=== PATIENT | female | born 1945 | race Caucasian/White ===

== ENCOUNTER → 2016-12-24 | Outpatient (CLI) | payer MEDICARE, MEDICAID ==
--- NOTE | 2016-12-24 15:22 | Diagnostic Imaging Report ---
Indication: COUGH Technique: 2 views of the chest Comparison: none Findings: Heart is enlarged. Aorta is tortuous. Upper mediastinum is unremarkable. The lungs and pleural spaces are clear. There is thoracic kyphosis and degenerative spondylosis Impression: No acute process Cardiomegaly Kyphosis
== END | disposition home or self-care (01) ==
LOC: RAD 12:32
DX: Z01.818 Encounter for other preprocedural examination (principal); R05 Cough; I51.7 Cardiomegaly; M40.204 Unspecified kyphosis, thoracic region; M47.894 Other spondylosis, thoracic region
CPT/HCPCS: 71020

== ENCOUNTER 2017-02-24 13:29 | Inpatient (IN) | payer MEDICARE, MEDICAID ==
[~2017-02-24] VITALS: Ht 160 cm; Wt 78.5 kg
[2017-02-24 18:44] VITALS: BP 141/85
[2017-02-24] MEDS ORDERED: Milk of Magnesia 30ml Ud ORAL PRN (20:00)
[2017-02-24] MEDS ORDERED: Acetaminophen 500mg (ES) tab ORAL PRN (20:00)
[2017-02-24] MEDS ORDERED: DiphenhydrAMINE 50mg/ml Inj IVP PRN (20:00)
[2017-02-24 20:35] VITALS: BP 151/81
[2017-02-24] MEDS: ceFAZolin sod 1 GM in D5W 55 ML IVPB SCH (22:05)
--- NOTE | 2017-02-24 22:08 | Wound Care Consultation ---
Wound Assessment Wound Assessment #1: Wound Present on Admission: Yes New Wound: No Status Change of Wound: No Wound Location Body Site Modif: left, right, lower Wound Location Body Site: leg Wound Type: scab - scattered Percent of Wound [place]/Red: 100 Wound Drainage Amount: None Wound Drainage Odor: None/Absent Tissue Surrounding Wound: Intact Wound General Appearance: Reddened Wound Assessment #2: Wound Number: #2 Wound Present on Admission: Yes New Wound: No Status Change of Wound: No Wound Location Body Site: other - generalized Wound Type: rash Chyna Test: Does not Chyna Wound Drainage Amount: None Wound Drainage Odor: None/Absent Wound General Appearance: Reddened Wound Comment #1 Left and right lowers with scattered dry scabs #2 Generalized rash and self inflicted scratches Recommendation -Turn and reposition -Keep clean and dry -Optimize nutrition -Offload both heels -Heel protector on both heels -Local wound care care as ordered by MD -Assess and f/u accordingly for any changes AINSLEY MUHAMMAD RN Feb 24, 2017 22:07
[2017-02-25] MEDS: ceFAZolin sod 1 GM in D5W 55 ML IVPB SCH ×3 (05:31→22:03)
[2017-02-25 06:42] LABS: BASOPHILS % (AUTO) 0.6 % (0.0-2.0); EOSINOPHILS % (AUTO) 10.1 % (0.0-3.0); LYMPHOCYTES % (AUTO) 28.7 % (20.0-45.0); MEAN CORPUSCULAR HEMOGLOBIN 28.9 PG (27.0-31.0); MEAN CORPUSCULAR HGB CONC 33.4 G/DL (32.0-36.0); MEAN CORPUSCULAR VOLUME 87 FL (80-99); MEAN PLATELET VOLUME 7.6 FL (6.5-10.1); MONOCYTES % (AUTO) 10.2 % (1.0-10.0); NEUTROPHILS % (AUTO) 50.3 % (45.0-75.0); PLATELET COUNT 196 K/UL (150-450); RED BLOOD COUNT 3.76 M/UL (4.20-5.40); RED CELL DISTRIBUTION WIDTH 12.7 % (11.6-14.8)
[2017-02-25 06:56] LABS: ALANINE AMINOTRANSFERASE 6 U/L (3-33); ALBUMIN/GLOBULIN RATIO 1.1 (1.0-2.7); ANION GAP 12 (5-15); ASPARTATE AMINO TRANSFERASE 12 U/L (5-40); CALCIUM 8.7 mg/dL (8.6-10.2); CARBON DIOXIDE 27 mEQ/L (20-30); CHLORIDE 103 mEQ/L (98-107); CREATININE 0.7 mg/dL (0.5-0.9); HEMOLYSIS 3; POTASSIUM 3.5 mEQ/L (3.4-4.9); SODIUM 142 mEQ/L (135-145); TOTAL PROTEIN 6.4 g/dL (6.6-8.7)
[2017-02-25 08:00] VITALS: BP 132/76
--- NOTE | 2017-02-25 08:39 | General Progress Note ---
Assessment/Plan Problem List: (1) Cellulitis ICD Codes: L03.90 - Cellulitis, unspecified SNOMED: [id number] Status: stable, progressing Assessment/Plan elemite x 1 iv abx skin care ID eval pending Subjective ROS Limited/Unobtainable: No Constitutional: Reports: malaise, weakness HEENT: Reports: no symptoms Cardiovascular: Reports: no symptoms Respiratory: Reports: no symptoms Gastrointestinal/Abdominal: Reports: no symptoms Genitourinary: Reports: no symptoms Neurologic/Psychiatric: Reports: no symptoms Endocrine: Reports: no symptoms Hematologic/Lymphatic: Reports: no symptoms Allergies: Coded Allergies: No Known Allergies (Unverified , 10/16/16) All Systems: reviewed and negative except above Subjective c/o pain in the ankles. no cp/sob. no fever or chills. no headaches Objective Last 24 Hour Vital Signs Date Time Temp Pulse Resp B/P Pulse Ox O2 Delivery O2 Flow Rate FiO2 02/24/17 20:35 97.5 73 20 151/81 98 Room Air 02/24/17 18:44 97.3 79 15 141/85 99 Room Air Intake and Output 02/24/17 02/25/17 19:00 07:00 Intake Total 0 ml 110 ml Balance 0 ml 110 ml Intake Oral 0 ml IV Total 110 ml # Voids 1 # Bowel Movements 2 1 Laboratory Tests 02/25/17 05:05: White Blood Count 5.0, Red Blood Count 3.76L, Hemoglobin 10.9L, Hematocrit 32.6L , Mean Corpuscular Volume 87, Mean Corpuscular Hemoglobin 28.9, Mean Corpuscular Hemoglobin Concent 33.4, Red Cell Distribution Width 12.7, Platelet Count 196, Mean Platelet Volume 7.6, Neutrophils (%) (Auto) 50.3, Lymphocytes (% ) (Auto) 28.7, Monocytes (%) (Auto) 10.2H, Eosinophils (%) (Auto) 10.1H, Basophils (%) (Auto) 0.6, Erythrocyte Sedimentation Rate [Pending], Sodium Level 142, Potassium Level 3.5, Chloride Level 103, Carbon Dioxide Level 27, Anion Gap 12, Blood Urea Nitrogen 11, Creatinine 0.7, Estimat Glomerular Filtration Rate , Glucose Level 95, Calcium Level 8.7, Total Bilirubin 0.3, Aspartate Amino Transf (AST/SGOT) 12, Alanine Aminotransferase (ALT/SGPT) 6, Alkaline Phosphatase 74, Total Protein 6.4L, Albumin 3.4L, Globulin 3.0, Albumin /Globulin Ratio 1.1, Anti-Nuclear Antibody Screen [Pending] Height (Feet): 5 Height (Inches): 3.00 Weight (Pounds): 173 General Appearance: WD/WN, alert Neck: supple Cardiovascular: regular rhythm Respiratory/Chest: lungs clear, normal breath sounds, no respiratory distress Abdomen: normal bowel sounds, non tender, soft, no organomegaly Edema: no edema noted Arm (L), no edema noted Arm (R), no edema noted Leg (L), no edema noted Leg (R), no edema noted Pedal (L), no edema noted Pedal (R), no edema noted Generalized Neurologic: nursing project coordinator II-XII grossly normal, alert, oriented x 3 XOCHITL WOODY Feb 25, 2017 08:39
--- NOTE | 2017-02-25 08:45 | History and Physical Report ---
DATE OF ADMISSION: 02/24/2017 NOTE: POOR AUDIO QUALITY CHIEF COMPLAINT: Cellulitis. HISTORY OF PRESENT ILLNESS: The patient is a pleasant 71-year-old female. She has a prior history of breast cancer. She presented to the office with complaints of diffuse rash. rash in the past. treatment despite aggressive treatment. She has had continued ____ rash. She complains of fevers and chills. She was seen in the office rash got worse cellulitis for further evaluation and care. PAST MEDICAL HISTORY: As above. PAST SURGICAL HISTORY: None. MEDICATIONS: Current medications were reconciled and reviewed. ALLERGIES: None. SOCIAL HISTORY: Negative for tobacco, ethanol, or drugs. FAMILY HISTORY: None. REVIEW OF SYSTEMS: General: No fever or chills. HEENT: No headaches or visual changes. Cardiopulmonary: No chest pain. Gastrointestinal: No nausea or vomiting. Genitourinary: No urgency or frequency. Muscular: No muscular pain or swelling. Neurologic: No evidence of seizures. PHYSICAL EXAMINATION: VITAL SIGNS: Temperature 98 degrees, blood pressure /70, pulse 80, respirations 20. GENERAL: The patient is no apparent distress. HEART: Regular rate and rhythm. LUNGS: Lungs are clear. ABDOMEN: Soft, nontender, and nondistended. EXTREMITIES: Without clubbing or cyanosis. SKIN: draining pus. noted. LABORATORY DATA: Labs are pending. ASSESSMENT: This is a pleasant female who complains of rash possible persistent scabies. PLAN: IV antibiotics. We will try to sedimentation rate . We will obtain a ID consultation. Thomas Hansen M.D. DR: Riri JOB#: [id number] CC:
[2017-02-25 08:51] LABS: ERYTHROCYTE SEDIMENTATION RATE 45 MM/HR (0-30)
[2017-02-25 12:00] VITALS: BP 151/93
[2017-02-25 16:00] VITALS: BP 160/84
[2017-02-25 19:55] VITALS: BP 149/80
[2017-02-25] MEDS: Heparin 5000 units/ml inj SUBQ SCH (21:00)
[2017-02-25 23:55] VITALS: BP 161/84
--- NOTE | 2017-02-26 01:30 | Consultation ---
DATE OF CONSULTATION: 02/25/2017 INFECTIOUS DISEASE CONSULT This consult is for coverage of Dr. Vazquez. PRIMARY ATTENDING PHYSICIAN: Thomas Hansen M.D. REASON FOR CONSULT: Cellulitis and scabies. HISTORY OF PRESENT ILLNESS: The patient is a 71-year-old female admitted yesterday complaining of itching rash on the skin, and erythema in the lower extremities and neck area. The patient had been previously treated two times for scabies. PAST MEDICAL HISTORY: Significant for a history of breast cancer, osteoarthritis, and anemia. ALLERGIES: No known drug allergies. MEDICATIONS: Elimite, cefazolin, Tylenol, temazepam, Zofran, and diphenhydramine. REVIEW OF SYSTEMS: No fever. No chills. Occasional cough. No nausea. No vomiting. No problem passing urine. PHYSICAL EXAMINATION: VITAL SIGNS: Temperature is 97 degrees, pulse 65, and blood pressure is 122/74. GENERAL APPEARANCE: In no acute distress. Overweight. Awake, alert, and responsive. HEAD AND NECK: [place] conjunctivae. HEART: S1, S2 regular. LUNGS: Clear. ABDOMEN: Soft. EXTREMITIES: Has no edema. SKIN: Diffuse scratched skin lesions, that they are most frequent in the neck and lower extremities. There is some skin induration in legs and neck area. LABORATORY DATA: WBC 5000, eosinophils 10%, hemoglobin 10.9, hematocrit 32.6, and platelets 196,000. Sodium 142, potassium 3.5, chloride 102, bicarbonate 27, BUN 11, and creatinine 0.7. Glucose is 95. Albumin is 3.4. IMPRESSION: 1. Skin rash, likely scabies. 2. Cellulitis in some area including the legs and neck. 3. Anemia. 4. Severe osteoarthritis and kyphosis. RECOMMENDATIONS: We will continue with cefazolin. We will give a dose of Ivermectin. We will follow the patient's clinical course. At the end of my examination, I thank Dr. Hansen for involving me in the care of this patient. Carloz Voss M.D. DR: JOSY JOB#: [id number] CC: KODI
[2017-02-26 04:00] VITALS: BP 101/58
[2017-02-26] MEDS: ceFAZolin sod 1 GM in D5W 55 ML IVPB SCH ×2 (06:27→14:37)
[2017-02-26 08:00] VITALS: BP 107/65
[2017-02-26] MEDS ORDERED: KCl 10% 40mEq/30ml liquid NG ONE (08:30)
[2017-02-26] MEDS: Heparin 5000 units/ml inj SUBQ SCH (08:55)
[2017-02-26 12:00] VITALS: BP 116/66
--- NOTE | 2017-02-26 14:36 | Infectious Diseases Prog Note ---
Assessment/Plan Assessment/Plan A; scabies Cellulitis OA Anemia P; agree with discharge with PO Keflex X 5 days Subjective ROS Limited/Unobtainable: No Constitutional: Reports: no symptoms, other - feels better Respiratory: Reports: no symptoms Cardiovascular: Reports: no symptoms Genitourinary: Reports: no symptoms Skin: Reports: other - decreased itching Allergies: Coded Allergies: No Known Allergies (Unverified , 10/16/16) Objective Vital Signs Last 24 Hour Vital Signs Date Time Temp Pulse Resp B/P Pulse Ox O2 Delivery O2 Flow Rate FiO2 02/26/17 12:00 97.2 56 18 116/66 99 Room Air 02/26/17 08:00 96.4 58 18 107/65 94 Room Air 02/26/17 04:00 97.5 58 20 101/58 98 Room Air 02/26/17 00:04 161/84 02/25/17 23:55 97.2 63 18 161/84 98 Room Air 02/25/17 19:55 96.3 70 18 149/80 100 Room Air 02/25/17 16:00 96.8 63 20 160/84 100 Room Air Height (Feet): 5 Height (Inches): 3.00 Weight (Pounds): 173 General Appearance: no acute distress HEENT: normocephalic Respiratory/Chest: lungs clear, other - kyphosis Cardiovascular: normal rate Abdomen: soft, non tender Skin: rash Neurologic/Psychiatric: alert, oriented x 3, responsive Microbiology Date/Time Source Procedure Growth Status 02/24/17 22:00 Blood Blood Culture - Preliminary NO GROWTH AFTER 24 HOURS Resulted Current Medications Medications (Trade) Dose Ordered Sig/Bertram Route PRN Reason Start Time Stop Time Status Last Admin Dose Admin Acetaminophen (Tylenol) 500 mg Q4H PRN ORAL Mild Pain/Temp > 100.5 02/24/17 20:00 03/26/17 19:59 Cefazolin Sodium/ Dextrose (Ancef/D5W) 55 ml @ 110 mls/hr Q8HR IVPB 02/24/17 22:00 03/03/17 21:59 02/26/17 06:27 Clonidine HCl (Catapres) 0.1 mg Q4HR PRN ORAL SBP>160 02/25/17 17:15 03/27/17 17:14 02/26/17 00:04 Diphenhydramine HCl (Benadryl) 50 mg Q6H PRN IVP Itching 02/24/17 20:00 03/26/17 19:59 Heparin Sodium (Porcine) (Heparin 5000 units/ml) 5,000 units EVERY 12 HOURS SUBQ 02/25/17 21:00 03/27/17 20:59 02/26/17 08:55 Magnesium Hydroxide (Mom) 30 ml DAILYPRN PRN ORAL Constipation 02/24/17 20:00 03/26/17 19:59 Ondansetron HCl (Zofran) 4 mg Q6H PRN IVP Nausea & Vomiting 02/24/17 20:00 03/26/17 19:59 Temazepam (Restoril) 15 mg HSPRN PRN ORAL Insomnia 02/24/17 20:00 03/03/17 19:59 KAREN NAVARRO Feb 26, 2017 14:36
[2017-02-26] MEDS ORDERED: CEPHALEXIN500 M1 ORAL (14:45)
[2017-02-26] MEDS ORDERED: Tubing IV Secondary IV ONE (15:59)
[2017-02-26] MEDS ORDERED: NS 275ml ONE (15:59)
--- NOTE | 2017-02-26 21:45 | Discharge Summary ---
DATE OF ADMISSION: 02/24/2017 DATE OF DISCHARGE: 02/26/2017 ADMISSION DIAGNOSES: 1. Cellulitis. 2. Rash. 3. Possible congestive heart failure exacerbation. 4. Venous insufficiency. 5. History of breast cancer. DISCHARGE DIAGNOSES: 1. Cellulitis. 2. Rash. 3. Possible congestive heart failure exacerbation. 4. Venous insufficiency. 5. History of breast cancer. HOSPITAL COURSE: The patient is an elderly female admitted with complaints of cellulitis. She was treated with broad-spectrum antibiotics. Cellulitis, improved. She was also treated with a dose of Elimite for possible scabies. On discharge, the patient was improved. She received one dose of intravenous Lasix for CHF exacerbation. DISCHARGE MEDICATIONS: Please see discharge medication list for discharge medications. DIET: Cardiac diet. ACTIVITY: Ad-Gretta. FOLLOWUP: The patient will follow up in one week in the office. Thomas Hansen M.D. DR: Riri JOB#: [id number] CC:
== END 2017-02-26 16:00 | disposition home health service (06) | DRG 603 ==
LOC: 4E 17:11
DX: L03.90 Cellulitis, unspecified (principal); I50.9 Heart failure, unspecified; D64.9 Anemia, unspecified; B86 Scabies; I99.8 Other disorder of circulatory system; M19.90 Unspecified osteoarthritis, unspecified site; Z86.73 Personal history of transient ischemic attack (TIA), and cerebral infarction without residual deficits; M40.209 Unspecified kyphosis, site unspecified
CPT/HCPCS: 36415; 80053; 85025; 85651; 86039; 87040

== ENCOUNTER 2017-07-16 13:43 | Inpatient (IN) | payer MEDICARE, MEDICAID ==
[~2017-07-16] VITALS: Ht 157.5 cm; Wt 78.0 kg
[~2017-07-16 13:43] MED LIST: CEPHALEXIN500 M1 ORAL
[2017-07-20] MEDS ORDERED: DiphenhydrAMINE 50mg/ml Inj IVP PRN (18:30)
[2017-07-20] MEDS ORDERED: Milk of Magnesia 30ml Ud ORAL PRN (18:30)
[2017-07-20] MEDS ORDERED: Acetaminophen 500mg (ES) tab ORAL PRN (18:30)
[2017-07-20 18:57] VITALS: BP 153/77
[2017-07-20 19:48] LABS: BASOPHILS % (AUTO) 0.3 % (0.0-2.0); HEMATOCRIT 37.5 % (37.0-47.0); HEMOGLOBIN 11.7 G/DL (12.0-16.0); LYMPHOCYTES % (AUTO) 20.5 % (20.0-45.0); MEAN CORPUSCULAR VOLUME 88 FL (80-99); MONOCYTES % (AUTO) 5.9 % (1.0-10.0); NEUTROPHILS % (AUTO) 72.3 % (45.0-75.0); PLATELET COUNT 280 K/UL (150-450); RED BLOOD COUNT 4.25 M/UL (4.20-5.40); WHITE BLOOD COUNT 6.8 K/UL (4.8-10.8)
[2017-07-20 20:00] VITALS: BP 156/81
[2017-07-20 20:20] LABS: ALANINE AMINOTRANSFERASE 17 U/L (12-78); ALBUMIN 3.5 G/DL (3.4-5.0); ALBUMIN/GLOBULIN RATIO 0.9 (1.0-2.7); ALKALINE PHOSPHATASE 80 U/L (46-116); ANION GAP 11 mmol/L (5-15); ASPARTATE AMINO TRANSFERASE 16 U/L (15-37); BILIRUBIN,TOTAL 0.3 MG/DL (0.2-1.0); BLOOD UREA NITROGEN 13 mg/dL (7-18); CALCIUM 9.3 MG/DL (8.5-10.1); CARBON DIOXIDE 28 MMOL/L (21-32); CHLORIDE 105 MMOL/L (98-107); CREATININE 0.8 MG/DL (0.55-1.30); POTASSIUM 3.8 MMOL/L (3.5-5.1); SODIUM 144 MMOL/L (136-145)
[2017-07-20] MEDS: ceFAZolin sod 1 GM in D5W 55 ML IVPB SCH (21:02)
[2017-07-21] VITALS: BP 118/64
[2017-07-21 04:00] VITALS: BP 135/71
[2017-07-21] MEDS: ceFAZolin sod 1 GM in D5W 55 ML IVPB SCH ×3 (06:09→20:07)
[2017-07-21 08:15] VITALS: BP 133/64
[2017-07-21 12:15] VITALS: BP 127/66
[2017-07-21 16:08] VITALS: BP 125/70
--- NOTE | 2017-07-21 17:45 | History and Physical Report ---
DATE OF ADMISSION: 07/20/2017 CHIEF COMPLAINT: Cellulitis, possible scabies. HISTORY OF PRESENT ILLNESS: The patient is a pleasant 71-year-old female. She has a history of obesity, prior history of breast cancer, status post mastectomy. She presented with complaints of rash. She was into the office several days prior to admission. There was concern about cellulitis. She has been placed on oral antibiotic therapy, but her rash did not improve. She developed subjective fevers and chills. In light of her failure to respond to outpatient therapy, she is now admitted for further evaluation and care. PAST MEDICAL HISTORY: As above. PAST SURGICAL HISTORY: Includes a mastectomy. CURRENT MEDICATIONS: Reconciled and reviewed. ALLERGIES: None. FAMILY HISTORY: None. SOCIAL HISTORY: Negative for tobacco, ethanol, or drugs. REVIEW OF SYSTEMS: GENERAL: Positive for fevers and chills. No night sweats. HEENT: No headaches or visual changes. CARDIOPULMONARY: No chest pain or shortness of breath. GASTROINTESTINAL: No nausea or vomiting. GENITOURINARY: No urgency or frequency. MUSCULOSKELETAL: No joint pain or swelling. NEUROLOGIC: No evidence of seizures. PHYSICAL EXAMINATION: VITAL SIGNS: Temperature 97.8, pulse 74, respirations 22, and blood pressure 133/64. GENERAL: The patient is well-developed female, in no apparent distress. She is awake and alert. NECK: Supple. No jugular venous distention. HEART: Regular rate and rhythm. LUNGS: Clear. ABDOMEN: Soft, nontender, and nondistended. EXTREMITIES: Without clubbing, cyanosis, or edema. The patient has multiple excoriations, rashes, and erythema on the arms and legs. ASSESSMENT: This is a pleasant female, admitted with complaints of cellulitis and possible scabies. 1. Cellulitis. 2. Scabies. 3. History of breast cancer. PLAN: IV antibiotics. Scabies treatment. ID consultation. Thomas Hansen M.D. DR: CARLOS ALBERTO JOB#: [id number] CC:
[2017-07-21 20:00] VITALS: BP 136/68
[2017-07-22] VITALS: BP 141/78
[2017-07-22 04:00] VITALS: BP 132/65
[2017-07-22] MEDS: ceFAZolin sod 1 GM in D5W 55 ML IVPB SCH (04:51)
--- NOTE | 2017-07-22 07:32 | Consultation ---
DATE OF CONSULTATION: 07/21/2017 INFECTIOUS DISEASE CONSULTATION This consult is for coverage of Dr. Vazquez. CONSULTING PHYSICIAN: Carloz Voss M.D. ATTENDING PHYSICIAN: Thomas Hansen M.D. REFERRING PHYSICIAN: Thomas Hansen M.D. REASON FOR CONSULTATION: Cellulitis and scabies. HISTORY OF PRESENT ILLNESS: The patient is a 71-year-old white female, admitted yesterday complaining of itching in many parts of the body, erythema that is diffuse, more in the legs. The patient has a history of multiple treatments for scabies. The last time she was in the hospital was almost five months ago. At that time, she had also cellulitis. PAST MEDICAL HISTORY: Significant for history of breast cancer, osteoarthritis, and anemia. MEDICATIONS: Getting cefazolin, diphenhydramine, Restoril, magnesium hydroxide, got a dose of ivermectin. ALLERGIES: No known drug allergies. SOCIAL HISTORY: Single. Denies alcohol, drug abuse, or smoking. REVIEW OF SYSTEMS: No fever. No chills. No nausea. No vomiting. No diarrhea. No problems passing urine. She has rash for a while, this is couple of weeks, itching, not very painful. PHYSICAL EXAMINATION: GENERAL APPEARANCE: In no acute distress. VITAL SIGNS: Temperature 99.1 degrees, pulse 77, and blood pressure 127/66. HEAD AND NECK: [place] conjunctivae. HEART: S1 and S2 regular. LUNGS: Clear. ABDOMEN: Soft. EXTREMITIES: No pitting edema. Has erythema in hahn area. SKIN: Has multiple areas of scratched skin, likely papules. LABORATORY DATA: Sodium 144, potassium 3.8, chloride 105, bicarbonate 28. Normal LFT. WBC 6.8, hemoglobin 11.7, hematocrit 37.5, and platelets are 280. There is no significant eosinophilia. IMPRESSION: 1. Diffuse rash, likely scabies. 2. Cellulitis and lower extremities edema. 3. Osteoarthritis. 4. Hypertension. 5. History of breast cancer. RECOMMENDATIONS: We will continue with cefazolin for non-purulent cellulitis. We will follow the patient. At the end of my exam, I thank, Dr. Hansen, for involving me in the care of this patient. Carloz Voss M.D. DR: FRANCIS JOB#: [id number] CC: KODI
[2017-07-22 08:00] VITALS: BP 135/60
--- NOTE | 2017-07-22 13:35 | Infectious Diseases Prog Note ---
Assessment/Plan Assessment/Plan antibiotics ; ancef A 1. scabies s/p rx with ivermectin 2. HTN 3. breast cancer P 1. d/c ancef 2. observe off antibiotics Subjective Constitutional: Denies: fever Respiratory: Denies: shortness of breath, dry cough Gastrointestinal/Abdominal: Denies: nausea, vomiting, diarrhea Musculoskeletal: Denies: pain Allergies: Coded Allergies: No Known Allergies (Unverified , 10/16/16) Objective Vital Signs Last 24 Hour Vital Signs Date Time Temp Pulse Resp B/P (MAP) Pulse Ox O2 Delivery O2 Flow Rate FiO2 07/22/17 08:00 97.7 77 20 135/60 98 Room Air 07/22/17 04:00 97.2 78 20 132/65 97 Room Air 07/22/17 00:00 97.8 119 20 141/78 97 Room Air 07/21/17 20:00 98.2 70 19 136/68 97 Room Air 07/21/17 16:08 97.4 80 20 125/70 98 Room Air Height (Feet): 5 Height (Inches): 2.00 Weight (Pounds): 172 Respiratory/Chest: lungs clear Cardiovascular: normal rate, regular rhythm, no gallop/murmur Abdomen: soft, non tender Extremities: no edema Skin: rash - erythematous decreased Microbiology Date/Time Source Procedure Growth Status 07/20/17 19:00 Blood Blood Culture - Preliminary NO GROWTH AFTER 24 HOURS Resulted MEET SERRANO Jul 22, 2017 13:35
--- NOTE | 2017-07-23 01:30 | Discharge Summary ---
DATE OF ADMISSION: 07/20/2017 DATE OF DISCHARGE: 07/22/2017 ADMISSION DIAGNOSES: 1. Cellulitis. 2. Scabies. 3. History of breast cancer. DISCHARGE DIAGNOSES: 1. Cellulitis. 2. Scabies. 3. History of breast cancer. HISTORY OF PRESENT ILLNESS: The patient is a very pleasant female, who was admitted with complaints of rash. She was diagnosed with cellulitis and possible scabies. She received intravenous Ancef with improvement in the cellulitis. She received a dose of Elimite and a dose of ivermectin. On discharge, she was doing well. She will be discharged home. She is instructed to wash all her bedding and clothing in hot water. She has been asked to return for any further itching. Home health will also be arranged to possibly repeat a dose of Elimite as an outpatient. DISCHARGE MEDICATIONS: Please see medication discharge list for discharge medications. DIET: Regular diet. ACTIVITIES: Ad-eb. FOLLOWUP: The patient will follow up in one to two weeks in the office. Thomas Hansne M.D. DR: ANGELINE JOB#: [id number] CC:
== END 2017-07-22 13:30 | disposition home or self-care (01) | DRG 603 ==
LOC: 3E 07-20 17:10 → 4E 07-20 23:35
DX: L03.90 Cellulitis, unspecified (principal); I10 Essential (primary) hypertension; B86 Scabies; M19.90 Unspecified osteoarthritis, unspecified site; Z85.3 Personal history of malignant neoplasm of breast
CPT/HCPCS: 36415; 80053; 85025; 87040

== ENCOUNTER 2019-04-28 07:52 | Inpatient (IN) | payer MEDICARE, MEDICAID ==
[~2019-04-28] VITALS: Ht 149.9 cm; Wt 67.1 kg
[2019-04-28] VITALS (7 sets, daily range): BP systolic 122–150; BP diastolic 74–93
[2019-04-28] MEDS ORDERED: NKM (08:24)
--- NOTE | 2019-04-28 11:46 | Diagnostic Imaging Report ---
Indication: 73-year-old outpatient referred for thoracentesis due to shortness of breath and abnormality on prior outside chest x-ray and CT scan Technique: Grayscale and duplex images of the bilateral hemithoraces Comparison: none Findings: No definite pleural fluid is demonstrated on either side. There is consolidated/atelectatic lung on the right and a hypoechoic area within the area of consolidated lung. Impression: No drainable pleural fluid demonstrated. No thoracentesis therefore performed Findings discussed by phone previously with Dr. Cota
--- NOTE | 2019-04-28 12:27 | Diagnostic Imaging Report ---
Clinical Indication: Shortness of breath. Abnormal outside chest radiograph and CT scan. Patient referred for thoracentesis but no drainable fluid demonstrated Technique: Spiral acquisitions obtained through the chest. No IV contrast utilized, . Multiplanar reconstructions generated. Total dose length product 699.56 mGycm. CTDIvol(s) 20.38 mGy. Dose reduction achieved using automated exposure control Comparison: none Findings: There is a discrete fluid attenuation collection in the inferior right hemithorax. This demonstrates a thickened fairly well-defined rim. This measures 12.5 cm AP 4 cm transverse by approximately 3 cm craniocaudad. This is probably within the pleural space. However, there is a small amount of pleural fluid peripheral to this which does not exhibit any rim definition. Atelectatic and consolidated lung is demonstrated at the right lung base, with atelectasis of a moderate portion of the inferior right lower lobe and atelectasis and consolidation of a considerable portion of the right middle lobe. There are minimal compressive and dependent atelectatic changes at the left lung base. The lungs and pleural spaces are otherwise clear. Some calcifications are seen within the right middle lobe parenchyma. The heart is mildly enlarged. There is a small pericardial effusion which measures up to 9 mm thick, largely over the right atrial border. The right and left main pulmonary arteries are dilated, measuring 33 mm on the right and 30 mm on the left. The ascending thoracic aorta is mildly ectatic but not frankly aneurysmal. No mediastinal or hilar lymphadenopathy. No axillary or chest wall mass or adenopathy. There is smooth kyphotic deformity without evidence of focal compression fracture. There is widening of the disc space at T10-11, with marked irregularity of the adjacent endplates as well as sclerosis of the adjacent endplates and vertebral body volume loss. No definite epidural abnormality demonstrated. The included upper abdominal anatomy demonstrates at least mild splenomegaly, spleen incompletely included. There is a 3.3 cm cyst coming off of the right kidney. Impression: Right basilar 12.5 x 4 x 3 cm fluid collection with discrete thick rim consistent with a loculated pleural fluid collection. The possibility of empyema should also be considered. It is also possible that this could represent a parenchymal lung abscess, but this is considered less likely Trace free pleural fluid peripheral to the above Atelectasis and possibly some consolidation at the right lung base. Destructive changes of the T10-11 disc. Sclerosis of the adjacent vertebral bodies suggests chronicity, and findings could be on the basis of advanced degenerative changes, but apparent widening of the disc as well as extensive endplate irregularity and vertebral body volume loss raise concern for active infectious and/or inflammatory process. Of note, this is at the same level as above-mentioned pleural changes. Consider contrast MRI of the thoracic spine for better characterization Minimal left basilar atelectasis Dilated right and left main pulmonary arteries, consistent with pulmonary arterial hypertension Calcifications within the right lung parenchyma may indicate old granulomatous disease. Mild cardiomegaly Small pericardial effusion Splenomegaly Thoracic kyphotic deformity Incidental finding right renal cyst The CT scanner at [facility] is accredited by the [employer] and the scans are performed using protocols designed to limit radiation exposure to as low as reasonably achievable to attain images of sufficient resolution adequate for diagnostic evaluation.
[2019-04-28] MEDS ORDERED: Lidocaine 1% Plain 30 ml INJ PRN (13:45)
[2019-04-29] VITALS (20 sets, daily range): BP systolic 130–152; BP diastolic 78–99
[2019-04-29] MEDS ORDERED: LORazepam Inj 2mg/ml 1ml IV SCH (11:07)
--- NOTE | 2019-04-29 12:14 | History & Physical ---
History and Physical History & Physicial History of Present Illness 73 Years Old female patient presented to my office for consultation and noted to have a possible vertebral lesion and loculated pleural effusion. The patient states she is experiencing shortness of breath. She denies wheezing and chest tightness. Patient denies chest tightness, chest pain, cough, sputum production. Patient notes post nasal drip, nasal congestion, and sinus pressure/headache patient denies any significant work up but did have cxr with effusion noted, which prompted the work up . patient care discussed in detail. all acute issues reviewed in detail. patient medications reviewed. Patient is overall compliant with therapy. Patient apprehensive regarding the procedure but now agreeable Active Medications (reviewed today): reviewed and reconciled Current Allergies (reviewed today): No known allergies No Known Drug Allergies Past History Past Medical History: hx of breast cancer Osteoporosis venous insufficiency osteoarthritis pleural effusion Surgical History: Full hysterectomy Right masectomy Family History: Father ; unknown Mother ; unknown Social History: Single; no children; born in [place] Risk Factors: Smoked Tobacco Use: Never smoker Caffeine use: 0 drinks per day Alcohol use: no Dietary Counseling: yes Review of Systems General: debility Eyes: denies blurring, diplopia, irritation, discharge, vision loss, eye pain, photophobia Ear/Nose/Throat: see HPI Cardiovascular: Denies chest pain, palpitations, syncope, dyspnea on exertion, orthopnea, PND, peripheral edema Respiratory: SEE HPI Gastrointestinal: Denies nausea, vomiting, diarrhea, constipation, change in bowel habits, abdominal pain, melena, hematochezia, jaundice Musculoskeletal: arthritis osteoporosis Skin: denies rash, itching, dryness, suspicious lesions Neurologic: The patient was assessed for fall risk today. The patient was found to be at risk for falls. Patient was educated on methods for fall prevention, including use of proper footwear, keeping pathways clear, use of assistive devices and rising slowing when transitioning from the sitting position to standing. Psychiatric: denies depression, anxiety, memory loss, mental disturbance, suicidal ideation, hallucinations, paranoia Endocrine: denies cold intolerance, heat intolerance, polydipsia, polyphagia, polyuria, weight change Physical Exam General Appearance: well nourished, well hydrated, no acute distress Neck Neck Exam: supple, no masses, trachea midline Thyroid Exam: no nodules, masses, tenderness, or enlargement Respiratory Respiratory Effort: no intercostal retractions or use of accessory muscles Palpation: normal fremitus Auscultation: no rales, rhonchi, or wheezes reduced right base Cardiovascular Palpation: no thrill or palpable murmurs, no displacement of PMI Auscultation: S1, S2, no murmur, rub, or gallop Peripheral Circulation: 2_+ edema pitting; no CC Musculoskeletal Gait and Station: using walker kyphotic Spine, ribs, pelvis: kyphotic Impression: Right basilar 12.5 x 4 x 3 cm fluid collection with discrete thick rim consistent with a loculated pleural fluid collection. The possibility of empyema should also be considered. It is also possible that this could represent a parenchymal lung abscess, but this is considered less likely Trace free pleural fluid peripheral to the above Atelectasis and possibly some consolidation at the right lung base. Destructive changes of the T10-11 disc. Sclerosis of the adjacent vertebral bodies suggests chronicity, and findings could be on the basis of advanced degenerative changes, but apparent widening of the disc as well as extensive endplate irregularity and vertebral body volume loss raise concern for active infectious and/or inflammatory process. Of note, this is at the same level as above-mentioned pleural changes. Consider contrast MRI of the thoracic spine for better characterization Minimal left basilar atelectasis Dilated right and left main pulmonary arteries, consistent with pulmonary arterial hypertension Calcifications within the right lung parenchyma may indicate old granulomatous disease. Mild cardiomegaly Small pericardial effusion Splenomegaly Labs Test 04/28/19 08:05 Prothrombin Time 11.0 SEC (9.30-11.50) Prothromb Time International Ratio 1.0 (0.9-1.1) Activated Partial Thromboplast Time 29 SEC (23-33) Assessment New Problems: Dx of Mitral regurgitation, 1 plus (ICD-396.3) Onset: 04/20/2019 Dx of Leg edema, bilateral (ICD-782.3) Onset: 04/20/2019 Dx of Pleural effusion, right (ICD-511.9) Onset: 04/20/2019 Dx of Over weight (ICD-278.02) Onset: 04/20/2019 Dx of Osteoporosis (ICD-733.00) Onset: years Dx of Hx of breast cancer (ICD-V10.3) Onset: years Dx of Abnormal chest xray (ICD-793.19) Onset: 04/20/2019 Dx of Shortness of breath (ICD-786.05) Onset: 1 month Dx of loculated pleural effusion Dx of possible vertebral lesion Plan ID evaluation IV antibiotics MRI CT guided tap d/w patient multiple times Ativan for MRI Celestino Cota MD Apr 29, 2019 12:14
--- NOTE | 2019-04-29 12:15 | General Progress Note ---
Subjective Allergies: Coded Allergies: No Known Allergies (Unverified , 10/16/16) Objective Last 24 Hour Vital Signs Date Time Temp Pulse Resp B/P (MAP) Pulse Ox O2 Delivery O2 Flow Rate FiO2 04/29/19 08:00 97.8 89 15 152/94 (113) 97 04/29/19 04:00 98.2 77 18 130/78 (95) 98 04/29/19 00:00 97.2 84 18 144/86 (105) 97 04/28/19 21:00 Room Air 04/28/19 20:00 97.7 86 18 148/86 (106) 97 04/28/19 15:42 98.0 82 16 131/80 (97) 98 Intake and Output 04/28/19 04/29/19 19:00 07:00 Intake Total 100 ml 1020 ml Balance 100 ml 1020 ml Intake Oral 100 ml 1020 ml # Voids 1 4 Height (Feet): 5 Weight (Pounds): 147 Celestino Cota MD Apr 29, 2019 12:15
--- NOTE | 2019-04-29 13:24 | Pre-Procedure Note/Attestation ---
Pre-Procedure Note/Attestation Complete Prior to Procedure Planned Procedure: right Procedure Narrative: pleural aspiration and possible drainage Indications for Procedure Pre-Operative Diagnosis: loculated pleural collection Attestation I attest that I discussed the nature of the procedure; its benefits; risks and complications; and alternatives (and the risks and benefits of such alternatives ), prior to the procedure, with the patient (or the patient's legal telephone claims representative). I attest that, if there was a reasonable possibility of needing a blood transfusion, the patient (or the patient's legal telephone claims representative) was given the [facility] standardized written summary, pursuant to the [place] Blood Safety Act ([place] Health and Safety Code # 1645, as amended). I attest that I re-evaluated the patient just prior to the surgery and that there has been no change in the patient's H&P, except as documented below: Eran Polanco MD Apr 29, 2019 13:24
--- NOTE | 2019-04-29 14:14 | Brief Operative Note ---
Immediate Post Operative Note Operative Note Pre-op Diagnosis: loculated pleural collection Procedure: CT guided asp/drainage R empyema Post-op Diagnosis: Empyema Findings: consistent w/pre-op dx studies - uziel pus aspirated Surgeon: Alvaro Mcclure Anesthesia: local Specimen: yes - 60 ml pus; sent to the lab Complications: none Condition: stable Fluids: none Drains: other - 8.5 F pigtail Implant(s) used?: No Eran Mcclure MD Apr 29, 2019 14:14
[2019-04-29] MEDS: Piperacillin/Tazobactam 3.375 GM in NS 110 ML IVPB SCH ×2 (14:48→21:12)
--- NOTE | 2019-04-29 14:57 | Diagnostic Imaging Report ---
Indication: Status post pleural drainage placement Technique: One view of the chest Comparison: 12/24/2016; also CT scan 04/28/2019 Findings: Interim placement of a pigtail drainage catheter at the right lung base. There is opacity the right lung base, likely representing a combination of pleural thickening/fluid and consolidated and atelectatic lung which is seen on recent CT scan the heart is borderline enlarged. Left lung and pleural space are clear Impression: No radiographically evident complication, status post right-sided pleural drainage catheter placement Right basilar pleural and parenchymal disease as described, also demonstrated on recent CT
[2019-04-29 16:51] LABS: BASOPHILS % (AUTO) 0.7 % (0.0-2.0); HEMATOCRIT 32.3 % (37.0-47.0); HEMOGLOBIN 10.3 G/DL (12.0-16.0); LYMPHOCYTES % (AUTO) 18.4 % (20.0-45.0); MEAN CORPUSCULAR VOLUME 80 FL (80-99); MONOCYTES % (AUTO) 8.6 % (1.0-10.0); NEUTROPHILS % (AUTO) 69.2 % (45.0-75.0); PLATELET COUNT 274 K/UL (150-450); RED BLOOD COUNT 4.06 M/UL (4.20-5.40); RED CELL DISTRIBUTION WIDTH 15.2 % (11.6-14.8); WHITE BLOOD COUNT 7.2 K/UL (4.8-10.8)
[2019-04-29 17:00] LABS: ANION GAP 6 mmol/L (5-15); BLOOD UREA NITROGEN 10 mg/dL (7-18); CALCIUM 9.1 MG/DL (8.5-10.1); CARBON DIOXIDE 29 MMOL/L (21-32); CHLORIDE 107 MMOL/L (98-107); CREATININE 0.7 MG/DL (0.55-1.30); POTASSIUM 3.6 MMOL/L (3.5-5.1); SODIUM 142 MMOL/L (136-145)
[2019-04-29 17:05] LABS: ALANINE AMINOTRANSFERASE 7 U/L (12-78); ALBUMIN 2.6 G/DL (3.4-5.0); ALBUMIN/GLOBULIN RATIO 0.5 (1.0-2.7); ALKALINE PHOSPHATASE 100 U/L (46-116); ASPARTATE AMINO TRANSFERASE 14 U/L (15-37); BILIRUBIN,TOTAL 0.2 MG/DL (0.2-1.0)
--- NOTE | 2019-04-29 17:30 | Consultation ---
DATE OF CONSULTATION: 04/29/2019 INFECTIOUS DISEASE CONSULTATION This consult is for coverage of Dr. Vazquez. CONSULTING PHYSICIAN: Carloz Voss M.D. REASON FOR CONSULT: Pleural effusion, empyema. HISTORY OF PRESENT ILLNESS: This is a 73-year-old white female admitted yesterday when she was referred by primary doctor for further evaluation of pleural fluid. The patient had a CT scan of the chest yesterday that raised the possibility of empyema in the right lung. The patient has no systemic symptoms. PAST MEDICAL HISTORY: Significant for osteoarthritis, anemia, kyphosis, and history of breast cancer. ALLERGIES: No known drug allergies. MEDICATIONS: Lorazepam, Tylenol, Mylanta. SOCIAL HISTORY: Single. No history of alcohol, drug abuse, or smoking. REVIEW OF SYMPTOMS: Feels anxious. No fever. No chills. Occasional coughing. No chest pain. No nausea. No vomiting. She states that she has chronic swelling of the legs and getting water pill at home. Ambulatory with walker. PHYSICAL EXAMINATION: VITAL SIGNS: Temperature 97.8, pulse 89, blood pressure 152/94. GENERAL APPEARANCE: No acute distress, well developed. HEAD AND NECK: [place] conjunctivae. HEART: Normal rate. LUNGS: Decreased sounds on the bases, especially on the right side. ABDOMEN: Soft, nontender. EXTREMITIES: Some edema in bilateral legs. Some erythema above the ankle in the right leg. LABORATORY DATA: PT 11, INR 1. The patient had some labs from primary doctor office showed WBC of 5.9, hemoglobin 9.9, hematocrit 32.5, platelets is 307. Glucose is 106, creatinine 0.6, sodium 140, potassium 4.3, chloride 103, bicarbonate 28, BUN 8. CT scan of the chest showed kyphosis, T10-T11 disk disease, right basilar fluid collection 12.5 x 4.3 cm with loculated pleural fluid collection, possibility of empyema should be considered. It may be also parenchymal lung abscess. IMPRESSION: Pleural effusion, most likely an empyema. The patient will have thoracentesis. Has anemia, osteoarthritis, kyphosis, history of breast cancer. RECOMMENDATION: I will start the patient on Zosyn. We will follow up the thoracenteses and cultures. At the end of my exam, I thank Dr. Cota for involving me in the care of this patient. Carloz Voss M.D. DR: ISAIAS JOB#: [id number] CC:
--- NOTE | 2019-04-29 18:01 | Diagnostic Imaging Report ---
Indication: 73-year-old female initially referred for outpatient thoracentesis. No free pleural fluid demonstrated on sonography at the time the anticipated procedure. A subsequent CT scan was performed, demonstrating a loculated pleural fluid collection Technique: Prior imaging studies were reviewed. Informed consent obtained prior to commencement of the procedure. Procedure timeout performed. Localizing CT slices obtained. Intended puncture site sterilely prepped and draped. Local anesthesia with 1% lidocaine. Under CT guidance, the loculated pleural fluid collection was punctured using a Yueh needle. CT image confirmed satisfactory needle placement within the collection. The stylet was removed, and uziel pus was aspirated. A specimen was sent to the lab for microbial analysis. A 0.035 guidewire was inserted, followed by insertion of an 8 Angolan dilator and then an 8.5 Angolan pigtail drainage catheter. The pigtail was formed and locked, catheter fixed to the skin. The catheter was then forcibly aspirated as early as possible, and a follow-up CT scan was obtained demonstrating near complete resolution of the collection. The catheter was fixed to the skin and placed to UreSil accordion bulb drainage. The patient tolerated the procedure well, without immediate complication. Total dose length product 2120 mGycm. CTDIvol(s) 17, 24, 16, 21, 23 x 3, 25 x 2 mGy. Radiation dose was minimized using automated exposure control Comparison: Comparison made to CT scan 04/28/2019 Findings: As above Impression: Successful aspiration and drainage of loculated right pleural fluid collection, as described. Aspiration of 70 mL uziel pus indicates that the collection is an empyema and a specimen was sent to the lab for microbial analysis The CT scanner at [facility] is accredited by the [employer] and the scans are performed using protocols designed to limit radiation exposure to as low as reasonably achievable to attain images of sufficient resolution adequate for diagnostic evaluation.
--- NOTE | 2019-04-29 18:30 | Consultation ---
DATE OF CONSULTATION: 04/28/2019 SURGEON: Nicolas Conklin M.D., specialty in Thoracic Surgery. REFERRING PHYSICIAN: Celestino Cota M.D. HISTORY OF PRESENT ILLNESS: The patient is a 73-year-old female, who was admitted to [facility] with a large right loculated pleural effusion with a suspicious thoracic vertebral lesion. The patient denies fevers or chills, but does admit to weight loss over the last several weeks. Radiographic imaging study with chest CT scan demonstrated a large loculated right pleural effusion. The patient underwent a pigtail placement today, drained only 60 mL of effusion and thoracic surgeon was then consulted for further evaluation. PAST MEDICAL HISTORY: 1. Osteoporosis. 2. Arthritis. 3. Right breast cancer diagnosed in 2017. PAST SURGICAL HISTORY: Notable for right mastectomy in 2017 and hysterectomy. MEDICATIONS: Reviewed. ALLERGIES: The patient has no known drug allergies. SOCIAL HISTORY: The patient lives alone in [place]. Her next of kin is her sister. The patient denies alcohol, tobacco, or drug use. PHYSICAL EXAMINATION: VITAL SIGNS: She is noted to be afebrile. Her vitals are within normal limits. CARDIAC: Regular rate and rhythm. No gallops or murmur. RESPIRATORY: Clear to auscultation on the left with decreased crackles noted on the right. There is a pigtail placed with a minimum amount of drainage in the collection bag. ABDOMEN: Soft, nondistended, and nontender with normoactive bowel sounds. EXTREMITY: Showed no evidence of cyanosis or clubbing. There is a +2 edema in the lower extremities. LABORATORY DATA: Laboratory study performed on April 28, [address] scan demonstrated a large right-sided loculated pleural effusion measured 12.5 x 4 cm with a thick rim consistent with an collection. There is also a consolidation in the right lung base. There is destruction changes of T10 through T11 with scoliosis of the vertebral column. ASSESSMENT AND PLAN: This is a 73-year-old female, who presented with a loculated right pleural effusion of unknown etiology. Due to the non-drainage of the pigtail catheter, I recommend the patient undergo a MRI of the thoracic spine to further elucidate the nature of the vertebral lesion. The patient may benefit from a right video-assisted thoracoscopic surgery with a washout/decortication. However, the patient wishes to consider the surgical option at the present time. I want to thank you for referring this patient to my attention. If you have any questions in regards to this patient's clinical care, please do not hesitate to contact me. Dee M.D. DR: POLO JOB#: [id number] CC: KODI
[2019-04-30] VITALS: BP 140/80
[2019-04-30 04:00] VITALS: BP 121/79
[2019-04-30] MEDS: Piperacillin/Tazobactam 3.375 GM in NS 110 ML IVPB SCH ×3 (05:19→21:16)
[2019-04-30 08:00] VITALS: BP 130/84
[2019-04-30 11:51] VITALS: BP 149/87
[2019-04-30 16:00] VITALS: BP 137/81
--- NOTE | 2019-04-30 16:37 | Pulmonology Progress Note ---
Assessment/Plan Assessment/Plan Pulmonary Progress Note Patient is a 73 Years old woman noted to have a possible vertebral lesion and loculated pleural effusion. The patient states she is experiencing shortness of breath. She denies wheezing and chest tightness. Patient denies chest tightness, chest pain, cough, sputum production. Patient notes post nasal drip, nasal congestion, and sinus pressure/headache patient denies any significant work up but did have cxr with effusion noted, which prompted the work up . patient care discussed in detail. all acute issues reviewed in detail. patient medications reviewed. Patient is overall compliant with therapy. Patient apprehensive regarding the procedure Allergies No known allergies Past History Past Medical History: hx of breast cancer Osteoporosis venous insufficiency osteoarthritis pleural effusion Surgical History: Full hysterectomy Right masectomy Family History: Father ; unknown Mother ; unknown Physical Exam Vital signs noted General Appearance: well nourished, well hydrated, no acute distress Neck Neck Exam: supple, no masses, trachea midline Thyroid Exam: no nodules, masses, tenderness, or enlargement Respiratory Respiratory Effort: no intercostal retractions or use of accessory muscles Palpation: normal fremitus Auscultation: no rales, rhonchi, or wheezes reduced right base Cardiovascular Palpation: no thrill or palpable murmurs, no displacement of PMI Auscultation: S1, S2, no murmur, rub, or gallop Peripheral Circulation: 2_+ edema pitting; no CC Musculoskeletal Gait and Station: using walker kyphotic Spine, ribs, pelvis: kyphotic Impression: Right basilar 12.5 x 4 x 3 cm fluid collection with discrete thick rim consistent with a loculated pleural fluid collection. The possibility of empyema should also be considered. It is also possible that this could represent a parenchymal lung abscess, but this is considered less likely Trace free pleural fluid peripheral to the above Atelectasis and possibly some consolidation at the right lung base. Destructive changes of the T10-11 disc. Sclerosis of the adjacent vertebral bodies suggests chronicity, and findings could be on the basis of advanced degenerative changes, but apparent widening of the disc as well as extensive endplate irregularity and vertebral body volume loss raise concern for active infectious and/or inflammatory process. Of note, this is at the same level as above-mentioned pleural changes. Consider contrast MRI of the thoracic spine for better characterization Minimal left basilar atelectasis Dilated right and left main pulmonary arteries, consistent with pulmonary arterial hypertension Calcifications within the right lung parenchyma may indicate old granulomatous disease. Mild cardiomegaly Small pericardial effusion Splenomegaly Labs Test 04/28/19 08:05 Prothrombin Time 11.0 SEC (9.30-11.50) Prothromb Time International Ratio 1.0 (0.9-1.1) Activated Partial Thromboplast Time 29 SEC (23-33) Assessment New Problems: Dx of Mitral regurgitation, 1 plus (ICD-396.3) Onset: 04/20/2019 Dx of Leg edema, bilateral (ICD-782.3) Onset: 04/20/2019 Dx of Pleural effusion, right (ICD-511.9) Onset: 04/20/2019 Dx of Over weight (ICD-278.02) Onset: 04/20/2019 Dx of Osteoporosis (ICD-733.00) Onset: years Dx of Hx of breast cancer (ICD-V10.3) Onset: years Dx of Abnormal chest xray (ICD-793.19) Onset: 04/20/2019 Dx of Shortness of breath (ICD-786.05) Onset: 1 month Dx of loculated pleural effusion Dx of possible vertebral lesion Plan ID following Thoracic Surgery following IV antibiotics MRI S/p CT guided tap d/w patient multiple times - urgery to have VATS Subjective ROS Limited/Unobtainable: No Allergies: Coded Allergies: No Known Allergies (Unverified , 10/16/16) Objective Last 24 Hour Vital Signs Date Time Temp Pulse Resp B/P (MAP) Pulse Ox O2 Delivery O2 Flow Rate FiO2 04/30/19 11:51 98.8 90 16 149/87 (107) 98 04/30/19 08:40 Room Air 04/30/19 08:00 99.0 95 15 130/84 (99) 98 04/30/19 04:00 99.3 92 18 121/79 (93) 96 04/30/19 00:00 98.5 86 18 140/80 (100) 98 04/29/19 21:00 Room Air 04/29/19 20:00 98.4 82 18 137/83 (101) 96 Intake and Output 04/29/19 04/30/19 19:00 07:00 Intake Total 900 ml 137.5 ml Output Total 0 ml Balance 900 ml 137.5 ml Intake Oral 900 ml IV Total 137.5 ml Output Drainage Total 0 ml # Voids 2 2 Microbiology Date/Time Source Procedure Growth Status 04/29/19 14:05 Blood AFB Specimen Processing Tissue - Final Resulted 04/29/19 14:05 Blood Acid Fast Bacilli Smear - Final Resulted 04/29/19 14:05 Blood Acid Fast Bacilli Culture Pending Resulted 04/29/19 14:05 Pleural Fluid Gram Stain - Final Resulted 04/29/19 14:05 Pleural Fluid Body Fluid Culture Pending Resulted 04/29/19 14:05 Aerobic Culture - Preliminary Staphylococcus Aureus Resulted 04/29/19 14:05 Pleural Fluid Anaerobic Culture Pending Resulted Current Medications Medications (Trade) Dose Ordered Sig/Bertram Route PRN Reason Start Time Stop Time Status Last Admin Dose Admin Acetaminophen (Tylenol) 650 mg Q4H PRN ORAL Mild Pain/Temp > 100.5 04/28/19 13:00 05/28/19 12:59 04/30/19 13:38 Al Hydroxide/Mg Hydroxide (Mylanta) 30 ml Q4H PRN ORAL Abdominal cramps 04/28/19 13:00 05/28/19 12:59 Piperacillin Sod/ Tazobactam Sod 3.375 gm/Sodium Chloride 110 ml @ 27.5 mls/hr EVERY 8 HOURS IVPB 04/29/19 14:00 05/04/19 13:59 04/30/19 13:30 Venancio Haque MD Apr 30, 2019 16:37
[2019-04-30] MEDS ORDERED: Tubing IV Secondary IV ONE (17:30)
[2019-04-30] MEDS ORDERED: NS 275ml ONE (17:30)
[2019-04-30 20:13] VITALS: BP 130/77
[2019-05-01] MEDS: Piperacillin/Tazobactam 3.375 GM in NS 110 ML IVPB SCH (03:56)
[2019-05-01 04:00] VITALS: BP 136/82
[2019-05-01 08:00] VITALS: BP 132/82
--- NOTE | 2019-05-01 10:38 | Pulmonology Progress Note ---
Assessment/Plan Assessment/Plan Pulmonary Progress Note Patient is a 73 Years old woman noted to have a possible vertebral lesion and loculated pleural effusion. The patient states she is experiencing shortness of breath. She denies wheezing and chest tightness. Patient denies chest tightness, chest pain, cough, sputum production. Patient notes post nasal drip, nasal congestion, and sinus pressure/headache patient denies any significant work up but did have cxr with effusion noted, which prompted the work up . patient care discussed in detail. all acute issues reviewed in detail. patient medications reviewed. Patient is overall compliant with therapy. Patient apprehensive regarding the procedure Allergies No known allergies Past History Past Medical History: hx of breast cancer Osteoporosis venous insufficiency osteoarthritis pleural effusion Surgical History: Full hysterectomy Right masectomy Family History: Father ; unknown Mother ; unknown Physical Exam Vital signs noted General Appearance: well nourished, well hydrated, no acute distress Neck Neck Exam: supple, no masses, trachea midline Thyroid Exam: no nodules, masses, tenderness, or enlargement Respiratory Respiratory Effort: no intercostal retractions or use of accessory muscles Palpation: normal fremitus Auscultation: no rales, rhonchi, or wheezes reduced right base Cardiovascular Palpation: no thrill or palpable murmurs, no displacement of PMI Auscultation: S1, S2, no murmur, rub, or gallop Peripheral Circulation: 2_+ edema pitting; no CC Musculoskeletal Gait and Station: using walker kyphotic Spine, ribs, pelvis: kyphotic Impression: Right basilar 12.5 x 4 x 3 cm fluid collection with discrete thick rim consistent with a loculated pleural fluid collection. The possibility of empyema should also be considered. It is also possible that this could represent a parenchymal lung abscess, but this is considered less likely Trace free pleural fluid peripheral to the above Atelectasis and possibly some consolidation at the right lung base. Destructive changes of the T10-11 disc. Sclerosis of the adjacent vertebral bodies suggests chronicity, and findings could be on the basis of advanced degenerative changes, but apparent widening of the disc as well as extensive endplate irregularity and vertebral body volume loss raise concern for active infectious and/or inflammatory process. Of note, this is at the same level as above-mentioned pleural changes. Consider contrast MRI of the thoracic spine for better characterization Minimal left basilar atelectasis Dilated right and left main pulmonary arteries, consistent with pulmonary arterial hypertension Calcifications within the right lung parenchyma may indicate old granulomatous disease. Mild cardiomegaly Small pericardial effusion Splenomegaly Labs Test 04/28/19 08:05 Prothrombin Time 11.0 SEC (9.30-11.50) Prothromb Time International Ratio 1.0 (0.9-1.1) Activated Partial Thromboplast Time 29 SEC (23-33) Assessment New Problems: Dx of Mitral regurgitation, 1 plus (ICD-396.3) Onset: 04/20/2019 Dx of Leg edema, bilateral (ICD-782.3) Onset: 04/20/2019 Dx of Pleural effusion, right (ICD-511.9) Onset: 04/20/2019 Dx of Over weight (ICD-278.02) Onset: 04/20/2019 Dx of Osteoporosis (ICD-733.00) Onset: years Dx of Hx of breast cancer (ICD-V10.3) Onset: years Dx of Abnormal chest xray (ICD-793.19) Onset: 04/20/2019 Dx of Shortness of breath (ICD-786.05) Onset: 1 month Dx of loculated pleural effusion Dx of possible vertebral lesion Plan ID following Thoracic Surgery following IV antibiotics MRI S/p CT guided tap d/w patient multiple times - urgery to have VATS Subjective ROS Limited/Unobtainable: No Allergies: Coded Allergies: No Known Allergies (Unverified , 10/16/16) Objective Last 24 Hour Vital Signs Date Time Temp Pulse Resp B/P (MAP) Pulse Ox O2 Delivery O2 Flow Rate FiO2 05/01/19 09:00 Room Air 05/01/19 08:00 97.2 84 20 132/82 (99) 95 05/01/19 04:00 97.8 80 16 136/82 (100) 96 04/30/19 20:22 Room Air 04/30/19 20:13 98.0 86 18 130/77 (94) 99 04/30/19 16:00 98.0 93 15 137/81 (99) 98 04/30/19 11:51 98.8 90 16 149/87 (107) 98 Intake and Output 04/30/19 05/01/19 19:00 07:00 Intake Total 992.5 ml 492.5 ml Output Total 75 ml 5 ml Balance 917.5 ml 487.5 ml Intake Oral 800 ml 300 ml IV Total 192.5 ml 192.5 ml Output Drainage Total 75 ml 5 ml # Voids 2 3 Microbiology Date/Time Source Procedure Growth Status 04/29/19 14:05 Blood AFB Specimen Processing Tissue - Final Resulted 04/29/19 14:05 Blood Acid Fast Bacilli Smear - Final Resulted 04/29/19 14:05 Blood Acid Fast Bacilli Culture Pending Resulted 04/29/19 14:05 Pleural Fluid Gram Stain - Final Resulted 04/29/19 14:05 Pleural Fluid Body Fluid Culture - Final Resulted 04/29/19 14:05 Aerobic Culture - Final Staphylococcus Aureus Resulted 04/29/19 14:05 Pleural Fluid Anaerobic Culture - Preliminary Resulted Current Medications Medications (Trade) Dose Ordered Sig/Bertram Route PRN Reason Start Time Stop Time Status Last Admin Dose Admin Acetaminophen (Tylenol) 650 mg Q4H PRN ORAL Mild Pain/Temp > 100.5 04/28/19 13:00 05/28/19 12:59 04/30/19 13:38 Al Hydroxide/Mg Hydroxide (Mylanta) 30 ml Q4H PRN ORAL Abdominal cramps 04/28/19 13:00 05/28/19 12:59 Piperacillin Sod/ Tazobactam Sod 3.375 gm/Sodium Chloride 110 ml @ 27.5 mls/hr EVERY 8 HOURS IVPB 04/29/19 14:00 05/04/19 13:59 05/01/19 03:56 Venancio Haque MD May 01, 2019 10:38
[2019-05-01 12:00] VITALS: BP 146/89
--- NOTE | 2019-05-01 12:59 | Infectious Diseases Prog Note ---
Assessment/Plan Assessment/Plan IMPRESSION: Empyema cultures: MSSA Anemia, Osteoarthritis, Kyphosis, History of breast cancer. RECOMMENDATION: Change Zosyn to Ancef Subjective ROS Limited/Unobtainable: No Constitutional: Reports: no symptoms Respiratory: Reports: dry cough, other - had right chest tube placement Gastrointestinal/Abdominal: Reports: no symptoms Genitourinary: Reports: no symptoms Allergies: Coded Allergies: No Known Allergies (Unverified , 10/16/16) Objective Vital Signs Last 24 Hour Vital Signs Date Time Temp Pulse Resp B/P (MAP) Pulse Ox O2 Delivery O2 Flow Rate FiO2 05/01/19 12:00 97.3 85 19 146/89 (108) 96 05/01/19 09:00 Room Air 05/01/19 08:00 97.2 84 20 132/82 (99) 95 05/01/19 04:00 97.8 80 16 136/82 (100) 96 04/30/19 20:22 Room Air 04/30/19 20:13 98.0 86 18 130/77 (94) 99 04/30/19 16:00 98.0 93 15 137/81 (99) 98 Height (Feet): 5 Weight (Pounds): 147 General Appearance: no acute distress HEENT: mucous membranes moist Respiratory/Chest: lungs clear, other - R sidechest tube Breasts: other - right mastectomy Cardiovascular: normal rate Abdomen: soft, non tender Extremities: no edema Neurologic/Psychiatric: alert, oriented x 3, responsive Musculoskeletal: other - Kyphosis Microbiology Date/Time Source Procedure Growth Status 04/29/19 14:05 Blood AFB Specimen Processing Tissue - Final Resulted 04/29/19 14:05 Blood Acid Fast Bacilli Smear - Final Resulted 04/29/19 14:05 Blood Acid Fast Bacilli Culture Pending Resulted 04/29/19 14:05 Pleural Fluid Gram Stain - Final Resulted 04/29/19 14:05 Pleural Fluid Body Fluid Culture - Final Resulted 04/29/19 14:05 Aerobic Culture - Final Staphylococcus Aureus Resulted 04/29/19 14:05 Pleural Fluid Anaerobic Culture - Preliminary Resulted Current Medications Medications (Trade) Dose Ordered Sig/Bertram Route PRN Reason Start Time Stop Time Status Last Admin Dose Admin Acetaminophen (Tylenol) 650 mg Q4H PRN ORAL Mild Pain/Temp > 100.5 04/28/19 13:00 05/28/19 12:59 8/17/19 13:38 Al Hydroxide/Mg Hydroxide (Mylanta) 30 ml Q4H PRN ORAL Abdominal cramps 04/28/19 13:00 05/28/19 12:59 Piperacillin Sod/ Tazobactam Sod 3.375 gm/Sodium Chloride 110 ml @ 27.5 mls/hr EVERY 8 HOURS IVPB 04/29/19 14:00 05/04/19 13:59 05/01/19 03:56 Carloz Voss MD May 01, 2019 12:59
[2019-05-01] MEDS: ceFAZolin sod 1 GM in D5W 55 ML IVPB SCH ×2 (14:42→22:14)
[2019-05-01 16:00] VITALS: BP 157/90
[2019-05-01 20:00] VITALS: BP 134/85
[2019-05-02] VITALS: BP 145/80
[2019-05-02 04:00] VITALS: BP 129/74
[2019-05-02] MEDS: ceFAZolin sod 1 GM in D5W 55 ML IVPB SCH ×3 (06:55→21:11)
[2019-05-02 08:00] VITALS: BP 148/86
--- NOTE | 2019-05-02 08:46 | General Progress Note ---
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 respiratory insufficiency djd PLAN needs decortication likely will have poor function of the affected lung d/w ID and TS d/w patient in detail apprehensive about surgery impression, plan, and exam edited and reviewed in detail care discussed with RN Subjective Allergies: Coded Allergies: No Known Allergies (Unverified , 10/16/16) Subjective care noted events over the weekend reviewed changes noted culture positive Objective Last 24 Hour Vital Signs Date Time Temp Pulse Resp B/P (MAP) Pulse Ox O2 Delivery O2 Flow Rate FiO2 05/02/19 04:00 98.1 78 20 129/74 (92) 96 05/02/19 00:00 98.1 83 18 145/80 (101) 97 05/01/19 21:00 Room Air 05/01/19 20:00 97.5 89 18 134/85 (101) 96 05/01/19 16:00 97.5 95 19 157/90 (112) 97 05/01/19 12:00 97.3 85 19 146/89 (108) 96 05/01/19 09:00 Room Air Intake and Output 05/01/19 05/02/19 19:00 07:00 Intake Total 955 ml 240 ml Output Total 15 ml 10 ml Balance 940 ml 230 ml Intake Oral 900 ml 240 ml IV Total 55 ml Output Drainage Total 15 ml 10 ml # Voids 5 4 # Bowel Movements 2 2 Labs Test 04/29/19 14:05 04/29/19 16:30 Body Fluid Source Pleural effusion Body Fluid Volume 60 mL Body Fluid Appearance Turbid (Clear) Body Fluid pH 8.5 Body Fluid RBC [id number] /CUMM Body Fluid Total Nucleated Cells [id number] /CUMM Body Fluid Polynuclear WBCs (%) 96 % Body Fluid Mononuclear WBCs (%) 3 % Body Fluid Mesothelial Cells (%) 1 % White Blood Count 7.2 K/UL (4.8-10.8) Red Blood Count 4.06 M/UL (4.20-5.40) Hemoglobin 10.3 G/DL (12.0-16.0) Hematocrit 32.3 % (37.0-47.0) Mean Corpuscular Volume 80 FL (80-99) Mean Corpuscular Hemoglobin 25.4 PG (27.0-31.0) Mean Corpuscular Hemoglobin Concent 32.0 G/DL (32.0-36.0) Red Cell Distribution Width 15.2 % (11.6-14.8) Platelet Count 274 K/UL (150-450) Mean Platelet Volume 4.7 FL (6.5-10.1) Neutrophils (%) (Auto) 69.2 % (45.0-75.0) Lymphocytes (%) (Auto) 18.4 % (20.0-45.0) Monocytes (%) (Auto) 8.6 % (1.0-10.0) Eosinophils (%) (Auto) 3.0 % (0.0-3.0) Basophils (%) (Auto) 0.7 % (0.0-2.0) Sodium Level 142 MMOL/L (136-145) Potassium Level 3.6 MMOL/L (3.5-5.1) Chloride Level 107 MMOL/L (98-107) Carbon Dioxide Level 29 MMOL/L (21-32) Anion Gap 6 mmol/L (5-15) Blood Urea Nitrogen 10 mg/dL (7-18) Creatinine 0.7 MG/DL (0.55-1.30) Estimat Glomerular Filtration Rate mL/min (>60) Glucose Level 165 MG/DL (74-106) Calcium Level 9.1 MG/DL (8.5-10.1) Total Bilirubin 0.2 MG/DL (0.2-1.0) Aspartate Amino Transf (AST/SGOT) 14 U/L (15-37) Alanine Aminotransferase (ALT/SGPT) 7 U/L (12-78) Alkaline Phosphatase 100 U/L (46-116) Total Protein 7.4 G/DL (6.4-8.2) Albumin 2.6 G/DL (3.4-5.0) Globulin 4.8 g/dL Albumin/Globulin Ratio 0.5 (1.0-2.7) Height (Feet): 5 Weight (Pounds): 147 Objective WDWN NAD reduced breath sounds bilaterally without rhonchi or wheeze [id number] without MRG NABS nontender no HSM no CCE nonfocal contracted and kyphotic Celestino Cota MD May 02, 2019 08:46
--- NOTE | 2019-05-02 11:33 | Infectious Diseases Prog Note ---
Assessment/Plan Assessment/Plan antibiotics : ancef A 1. staph aureus empyema s/p CT guided drainage 2. kyphosis 3. breast cancer P 1. continue ancef 2. will follow up cultures Subjective Constitutional: Denies: fever, chills Respiratory: Reports: shortness of breath, dry cough Gastrointestinal/Abdominal: Denies: nausea, vomiting, diarrhea Musculoskeletal: Reports: pain Allergies: Coded Allergies: No Known Allergies (Unverified , 10/16/16) Objective Vital Signs Last 24 Hour Vital Signs Date Time Temp Pulse Resp B/P (MAP) Pulse Ox O2 Delivery O2 Flow Rate FiO2 05/02/19 09:00 Room Air 05/02/19 08:00 97.2 82 18 148/86 (106) 96 05/02/19 04:00 98.1 78 20 129/74 (92) 96 05/02/19 00:00 98.1 83 18 145/80 (101) 97 05/01/19 21:00 Room Air 05/01/19 20:00 97.5 89 18 134/85 (101) 96 05/01/19 16:00 97.5 95 19 157/90 (112) 97 05/01/19 12:00 97.3 85 19 146/89 (108) 96 Height (Feet): 5 Weight (Pounds): 147 Respiratory/Chest: lungs clear Cardiovascular: normal rate, regular rhythm, no gallop/murmur Abdomen: distended Extremities: other - + edema Microbiology Date/Time Source Procedure Growth Status 04/29/19 14:05 Blood AFB Specimen Processing Tissue - Final Resulted 04/29/19 14:05 Blood Acid Fast Bacilli Smear - Final Resulted 04/29/19 14:05 Blood Acid Fast Bacilli Culture Pending Resulted 04/29/19 14:05 Pleural Fluid Gram Stain - Final Complete 04/29/19 14:05 Pleural Fluid Body Fluid Culture - Final Complete 04/29/19 14:05 Aerobic Culture - Final Staphylococcus Aureus Complete 04/29/19 14:05 Pleural Fluid Anaerobic Culture - Final NO ANAEROBES ISOLATED Complete Current Medications Medications (Trade) Dose Ordered Sig/Bertram Route PRN Reason Start Time Stop Time Status Last Admin Dose Admin Acetaminophen (Tylenol) 650 mg Q4H PRN ORAL Mild Pain/Temp > 100.5 04/28/19 13:00 05/28/19 12:59 04/30/19 13:38 Al Hydroxide/Mg Hydroxide (Mylanta) 30 ml Q4H PRN ORAL Abdominal cramps 04/28/19 13:00 05/28/19 12:59 Cefazolin Sodium 1 gm/Dextrose 55 ml @ 110 mls/hr Q8HR IVPB 05/01/19 14:00 05/08/19 13:59 05/02/19 06:55 Samra Vazquez MD May 02, 2019 11:33
[2019-05-02 12:00] VITALS: BP 133/87
[2019-05-02 16:00] VITALS: BP 160/98
[2019-05-02 20:00] VITALS: BP 157/91
[2019-05-03] VITALS: BP 142/82
[2019-05-03 04:00] VITALS: BP 137/86
[2019-05-03] MEDS: ceFAZolin sod 1 GM in D5W 55 ML IVPB SCH ×3 (05:08→21:14)
[2019-05-03 06:11] LABS: BASOPHILS % (AUTO) 0.7 % (0.0-2.0); EOSINOPHILS % (AUTO) 5.9 % (0.0-3.0); HEMATOCRIT 34.3 % (37.0-47.0); HEMOGLOBIN 10.7 G/DL (12.0-16.0); LYMPHOCYTES % (AUTO) 22.2 % (20.0-45.0); MEAN CORPUSCULAR VOLUME 82 FL (80-99); MONOCYTES % (AUTO) 8.4 % (1.0-10.0); NEUTROPHILS % (AUTO) 62.8 % (45.0-75.0); PLATELET COUNT 321 K/UL (150-450); RED BLOOD COUNT 4.17 M/UL (4.20-5.40); RED CELL DISTRIBUTION WIDTH 16.3 % (11.6-14.8); WHITE BLOOD COUNT 6.6 K/UL (4.8-10.8)
[2019-05-03 06:46] LABS: ANION GAP 7 mmol/L (5-15); BLOOD UREA NITROGEN 5 mg/dL (7-18); CALCIUM 9.5 MG/DL (8.5-10.1); CARBON DIOXIDE 28 MMOL/L (21-32); CHLORIDE 107 MMOL/L (98-107); CREATININE 0.8 MG/DL (0.55-1.30); POTASSIUM 4.2 MMOL/L (3.5-5.1); SODIUM 142 MMOL/L (136-145)
[2019-05-03 08:00] VITALS: BP 126/78
--- NOTE | 2019-05-03 11:02 | Infectious Diseases Prog Note ---
Assessment/Plan Assessment/Plan antibiotics : ancef A 1. staph aureus empyema s/p CT guided drainage 2. kyphosis 3. breast cancer P 1. continue ancef 2. will follow up cultures Subjective Constitutional: Denies: fever, chills Respiratory: Reports: shortness of breath, dry cough Gastrointestinal/Abdominal: Denies: nausea, vomiting, diarrhea Musculoskeletal: Reports: pain Allergies: Coded Allergies: No Known Allergies (Unverified , 10/16/16) Objective Vital Signs Last 24 Hour Vital Signs Date Time Temp Pulse Resp B/P (MAP) Pulse Ox O2 Delivery O2 Flow Rate FiO2 05/03/19 09:00 Room Air 05/03/19 08:00 97.5 92 16 126/78 (94) 97 05/03/19 04:00 97.8 88 18 137/86 (103) 96 05/03/19 00:00 97.8 84 16 142/82 (102) 96 05/02/19 21:00 Room Air 05/02/19 20:00 97.5 95 17 157/91 (113) 98 05/02/19 16:00 97.6 87 20 160/98 (118) 97 05/02/19 12:00 97.2 87 20 133/87 (102) 98 Height (Feet): 5 Weight (Pounds): 147 Respiratory/Chest: lungs clear Cardiovascular: normal rate, regular rhythm, no gallop/murmur Abdomen: soft, non tender, distended Extremities: other - + edema Laboratory Tests Test 05/03/19 05:50 White Blood Count 6.6 K/UL (4.8-10.8) Red Blood Count 4.17 M/UL (4.20-5.40) L Hemoglobin 10.7 G/DL (12.0-16.0) L Hematocrit 34.3 % (37.0-47.0) L Mean Corpuscular Volume 82 FL (80-99) Mean Corpuscular Hemoglobin 25.6 PG (27.0-31.0) L Mean Corpuscular Hemoglobin Concent 31.1 G/DL (32.0-36.0) L Red Cell Distribution Width 16.3 % (11.6-14.8) H Platelet Count 321 K/UL (150-450) Mean Platelet Volume 4.9 FL (6.5-10.1) L Neutrophils (%) (Auto) 62.8 % (45.0-75.0) Lymphocytes (%) (Auto) 22.2 % (20.0-45.0) Monocytes (%) (Auto) 8.4 % (1.0-10.0) Eosinophils (%) (Auto) 5.9 % (0.0-3.0) H Basophils (%) (Auto) 0.7 % (0.0-2.0) Sodium Level 142 MMOL/L (136-145) Potassium Level 4.2 MMOL/L (3.5-5.1) Chloride Level 107 MMOL/L (98-107) Carbon Dioxide Level 28 MMOL/L (21-32) Anion Gap 7 mmol/L (5-15) Blood Urea Nitrogen 5 mg/dL (7-18) L Creatinine 0.8 MG/DL (0.55-1.30) Estimat Glomerular Filtration Rate mL/min (>60) Glucose Level 161 MG/DL (74-106) H Calcium Level 9.5 MG/DL (8.5-10.1) Current Medications Medications (Trade) Dose Ordered Sig/Bertram Route PRN Reason Start Time Stop Time Status Last Admin Dose Admin Acetaminophen (Tylenol) 650 mg Q4H PRN ORAL Mild Pain/Temp > 100.5 04/28/19 13:00 05/28/19 12:59 04/30/19 13:38 Al Hydroxide/Mg Hydroxide (Mylanta) 30 ml Q4H PRN ORAL Abdominal cramps 04/28/19 13:00 05/28/19 12:59 Cefazolin Sodium 1 gm/Dextrose 55 ml @ 110 mls/hr Q8HR IVPB 05/01/19 14:00 05/08/19 13:59 05/03/19 05:08 Samra Vazquez MD May 03, 2019 11:02
--- NOTE | 2019-05-03 11:13 | Cardiology Report ---
APPROVED REPORT EKG Measurement Heart [id number] Normal sinus rhythm Incomplete right bundle branch block Lateral infarct, age undetermined Inferior infarct, age undetermined Abnormal ECG
[2019-05-03 12:00] VITALS: BP 137/81
[2019-05-03 16:00] VITALS: BP 141/79
--- NOTE | 2019-05-03 17:20 | General Progress Note ---
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 respiratory insufficiency djd leg edema venous US and echo negative in office last week PLAN needs decortication cardiology clearance likely will have poor function of the affected lung d/w ID and TS d/w patient in detail cardiology clearance ordered impression, plan, and exam edited and reviewed in detail care discussed with RN Subjective Allergies: Coded Allergies: No Known Allergies (Unverified , 10/16/16) Subjective care noted multiple d/w patient and friend finally agreed to VATS Objective Last 24 Hour Vital Signs Date Time Temp Pulse Resp B/P (MAP) Pulse Ox O2 Delivery O2 Flow Rate FiO2 05/03/19 16:00 98.1 87 16 141/79 (99) 98 05/03/19 12:00 98.1 89 16 137/81 (99) 98 05/03/19 09:00 Room Air 05/03/19 08:00 97.5 92 16 126/78 (94) 97 05/03/19 04:00 97.8 88 18 137/86 (103) 96 05/03/19 00:00 97.8 84 16 142/82 (102) 96 05/02/19 21:00 Room Air 05/02/19 20:00 97.5 95 17 157/91 (113) 98 Intake and Output 05/02/19 05/03/19 19:00 07:00 Intake Total 300 ml 240 ml Output Total 0 ml Balance 300 ml 240 ml Intake Oral 300 ml 240 ml Output Drainage Total 0 ml # Voids 2 2 Laboratory Tests 05/03/19 05:50: White Blood Count 6.6, Red Blood Count 4.17L, Hemoglobin 10.7L, Hematocrit 34.3L , Mean Corpuscular Volume 82, Mean Corpuscular Hemoglobin 25.6L, Mean Corpuscular Hemoglobin Concent 31.1L, Red Cell Distribution Width 16.3H, Platelet Count 321, Mean Platelet Volume 4.9L, Neutrophils (%) (Auto) 62.8, Lymphocytes (%) (Auto) 22.2, Monocytes (%) (Auto) 8.4, Eosinophils (%) (Auto) 5.9H, Basophils (%) (Auto) 0.7, Sodium Level 142, Potassium Level 4.2, Chloride Level 107, Carbon Dioxide Level 28, Anion Gap 7, Blood Urea Nitrogen 5L, Creatinine 0.8, Estimat Glomerular Filtration Rate , Glucose Level 161H, Calcium Level 9.5 Height (Feet): 5 Weight (Pounds): 147 Objective WDWN NAD reduced breath sounds bilaterally without rhonchi or wheeze [id number] without MRG NABS nontender no HSM no CC noted edema nonfocal contracted and kyphotic Celestino Cota MD May 03, 2019 17:20
--- NOTE | 2019-05-03 18:15 | Consultation ---
DATE OF CONSULTATION: 05/03/2019 CARDIOLOGY CONSULTATION CONSULTING PHYSICIAN: Venancio Monsivais M.D. REQUESTING PHYSICIAN: Celestino Cota M.D. REASON FOR CONSULTATION: For preoperative cardiovascular clearance for VATS pleurodesis. HISTORY OF PRESENT ILLNESS: This 73-year-old white female, presented to the hospital with shortness of breath and an abnormal chest x-ray several days ago with evidence of a loculated pleural effusion. She also was noted to have an abnormal lesion in her vertebral spine and has a prior history of breast cancer. She is now being considered for VATS pleurodesis for both therapeutic and diagnostic purposes. Cardiovascular perioperative risk assessment has been requested. The patient had an outpatient echocardiogram prior to admission. It was notable for a normal ejection fraction. Her baseline EKG has a right sinus rhythm with a right bundle-branch block. An EKG on admission revealed the possibility of inferior and lateral infarct. However on my evaluation, the lead placement suggests small R-waves in these leads thereby suggesting this was a pseudo infarct pattern. The patient has not had any history of prior myocardial infarctions or exertional chest pain. PAST MEDICAL HISTORY: Includes osteoporosis, osteoarthritis, breast cancer with right mastectomy, prior hysterectomy, chronic venous insufficiency, hypertension, and type 2 diabetes mellitus. MEDICATIONS: Prior to admission, reviewed and reconciled. ALLERGIES: None. SOCIAL HISTORY: Negative for smoking, alcohol, or substance abuse. REVIEW OF SYSTEMS: Otherwise not remarkable. All systems negative. PHYSICAL EXAM: GENERAL: Appears older than stated age. Moderately obese. Severely kyphotic. No acute distress. VITAL SIGNS: Blood pressure 137/81, pulse 89, respirations 16, and afebrile. HEENT: Conjunctivae pink. Oropharynx clear. NECK: Supple. Jugular venous pressure difficult to assess. No thyromegaly. LUNGS: With diminished breath sounds predominantly on the right. No subcostal retractions. No wheezes or rhonchi. CARDIAC: Regular rhythm and rate. Normal S1, S2. ABDOMEN: Benign with no focal tenderness, guarding, rebound, or masses. EXTREMITIES: There is 1+ dependent lower extremity edema. NEUROLOGIC: Nonfocal. DIAGNOSTIC DATA: EKG as outlined above. LABORATORY DATA: Sodium 142, potassium 4.2, BUN 5, creatinine 0.8, and glucose 161. White count 6.6 and hemoglobin 10.7. IMPRESSION: This is a 73-year-old female with history of breast cancer now presents with loculated pleural effusion and thoracic lumbar lesion raising concerns over either an empyema or signs of metastatic disease. The patient's electrocardiogram coupled with her other historical data does not suggest any significant coronary artery disease. PLAN: As such, she is an acceptable candidate for general anesthesia and VATS pleurodesis with minimally increased perioperative cardiovascular risk at this time. Postoperative care plan should include monitoring of volume status, respiratory hygiene, and DVT prophylaxis. I will follow with you during this hospital course. Beta-david prophylaxis will be added as well. Venancio Monsivais M.D. DR: PHONG JOB#: [id number] CC: KODI
[2019-05-03 20:00] VITALS: BP 152/92
[2019-05-03] MEDS: Metoprolol Succinate XL 25mg tab ORAL SCH (21:15)
[2019-05-03] MEDS: LORazepam 1mg tab ORAL PRN (21:53)
[2019-05-04] VITALS (7 sets, daily range): BP systolic 126–153; BP diastolic 81–97
[2019-05-04] MEDS: ceFAZolin sod 1 GM in D5W 55 ML IVPB SCH ×3 (05:37→20:41)
--- NOTE | 2019-05-04 17:48 | Pulmonology Progress Note ---
Assessment/Plan Assessment/Plan Pulmonary Progress Note Patient is a 73 Years old woman noted to have a possible vertebral lesion and loculated pleural effusion. The patient states she is experiencing shortness of breath. She denies wheezing and chest tightness. Patient denies chest tightness, chest pain, cough, sputum production. Patient notes post nasal drip, nasal congestion, and sinus pressure/headache patient denies any significant work up but did have cxr with effusion noted, which prompted the work up . patient care discussed in detail. all acute issues reviewed in detail. patient medications reviewed. Patient is overall compliant with therapy. Patient apprehensive regarding the procedure Assessment/Plan: anemia likely empyema with trapped lung contractures debility respiratory insufficiency djd leg edema venous US and echo negative in office last week PLAN needs decortication cardiology clearance likely will have poor function of the affected lung d/w patient in detail cardiology clearance ordered impression, plan, and exam edited and reviewed in detail care discussed with RN Subjective Allergies: Coded Allergies: No Known Allergies (Unverified , 10/16/16) Subjective care noted multiple d/w patient and friend awaiting VATS tomorrow Objective Vital Signs Noted Laboratory Tests Noted 05/03/19 05:50: White Blood Count 6.6, Red Blood Count 4.17L, Hemoglobin 10.7L, Hematocrit 34.3L , Mean Corpuscular Volume 82, Mean Corpuscular Hemoglobin 25.6L, Mean Corpuscular Hemoglobin Concent 31.1L, Red Cell Distribution Width 16.3H, Platelet Count 321, Mean Platelet Volume 4.9L, Neutrophils (%) (Auto) 62.8, Lymphocytes (%) (Auto) 22.2, Monocytes (%) (Auto) 8.4, Eosinophils (%) (Auto) 5.9H, Basophils (%) (Auto) 0.7, Sodium Level 142, Potassium Level 4.2, Chloride Level 107, Carbon Dioxide Level 28, Anion Gap 7, Blood Urea Nitrogen 5L, Creatinine 0.8, Estimat Glomerular Filtration Rate , Glucose Level 161H, Calcium Level 9.5 Height (Feet): 5 Weight (Pounds): 147 Objective WDWN NAD reduced breath sounds bilaterally without rhonchi or wheeze [id number] without MRG NABS nontender no HSM no CC noted edema nonfocal contracted and kyphotic Subjective ROS Limited/Unobtainable: No Allergies: Coded Allergies: No Known Allergies (Unverified , 10/16/16) Objective Last 24 Hour Vital Signs Date Time Temp Pulse Resp B/P (MAP) Pulse Ox O2 Delivery O2 Flow Rate FiO2 05/04/19 16:00 97.6 94 18 153/97 (115) 98 05/04/19 12:00 98.0 82 18 140/84 (102) 98 05/04/19 08:00 98.5 90 18 126/81 (96) 95 05/04/19 07:42 Room Air 05/04/19 04:00 97.6 75 16 137/84 (101) 94 05/04/19 00:33 98.2 82 17 142/87 (105) 98 05/03/19 21:15 94 152/92 05/03/19 21:00 Room Air 05/03/19 20:00 98.1 94 16 152/92 (112) 98 Intake and Output 05/03/19 05/04/19 19:00 07:00 Intake Total 900 ml Output Total 0 ml Balance 900 ml 0 ml Intake Oral 900 ml Output Drainage Total 0 ml # Voids 3 1 Current Medications Medications (Trade) Dose Ordered Sig/Bertram Route PRN Reason Start Time Stop Time Status Last Admin Dose Admin Acetaminophen (Tylenol) 650 mg Q4H PRN ORAL Mild Pain/Temp > 100.5 04/28/19 13:00 05/28/19 12:59 04/30/19 13:38 Al Hydroxide/Mg Hydroxide (Mylanta) 30 ml Q4H PRN ORAL Abdominal cramps 04/28/19 13:00 05/28/19 12:59 Cefazolin Sodium 1 gm/Dextrose 55 ml @ 110 mls/hr Q8HR IVPB 05/01/19 14:00 05/08/19 13:59 05/04/19 14:27 Dextrose/ Electrolytes 1,000 ml @ 60 mls/hr [id number] IV 05/05/19 09:00 06/04/19 08:59 Lorazepam (Ativan) 1 mg Q4H PRN ORAL For Anxiety 05/03/19 21:45 05/10/19 21:44 05/03/19 21:53 Metoprolol Succinate (Toprol XL) 25 mg BEDTIME ORAL 05/03/19 21:00 06/02/19 20:59 05/03/19 21:15 Venancio Haque MD May 04, 2019 17:48
[2019-05-04] MEDS: Metoprolol Succinate XL 25mg tab ORAL SCH (20:41)
[2019-05-04] MEDS: LORazepam 1mg tab ORAL PRN (20:41)
[2019-05-05] VITALS (11 sets, daily range): BP systolic 118–206; BP diastolic 72–103
--- NOTE | 2019-05-05 00:45 | Progress Note ---
DATE: 05/04/2019 CARDIOLOGY PROGRESS NOTE SUBJECTIVE: The patient is walking around the [place]. She is in no distress. She is aware of surgical plan tomorrow. OBJECTIVE: VITAL SIGNS: Blood pressure 142/97, heart rate 96, respiratory rate 18. LUNGS: Diminished breath sounds. CARDIAC: Regular. Normal S1 and S2. ABDOMEN: Soft. EXTREMITIES: No pitting edema. DIAGNOSTIC DATA: EKG with poor R-wave progression. IMPRESSION: 1. Kyphosis will affect postop respiratory parameters. 2. Hypertensive heart disease with slightly elevated blood pressure range. 3. No clinical signs of congestive heart failure. Abnormal EKG, this represents pseudoinfarct pattern. Echocardiogram has revealed normal ejection fraction. The patient is at mildly increased perioperative cardiopulmonary risk under general anesthesia but is optimized to proceed with VATS pleurodesis for loculated pleural effusion or possible empyema in the setting of breast cancer. We will follow closely in the postoperative course. Beta-david therapy is in place. Venancio Monsivais M.D. DR: Kelli JOB#: [id number] CC:
[2019-05-05] MEDS: ceFAZolin sod 1 GM in D5W 55 ML IVPB SCH ×3 (05:33→22:48)
[2019-05-05 06:35] LABS: BASOPHILS % (AUTO) 0.8 % (0.0-2.0); EOSINOPHILS % (AUTO) 5.4 % (0.0-3.0); HEMATOCRIT 29.8 % (37.0-47.0); HEMOGLOBIN 9.2 G/DL (12.0-16.0); LYMPHOCYTES % (AUTO) 23.3 % (20.0-45.0); MEAN CORPUSCULAR VOLUME 83 FL (80-99); MONOCYTES % (AUTO) 8.4 % (1.0-10.0); NEUTROPHILS % (AUTO) 62.1 % (45.0-75.0); PLATELET COUNT 265 K/UL (150-450); RED BLOOD COUNT 3.61 M/UL (4.20-5.40); RED CELL DISTRIBUTION WIDTH 16.6 % (11.6-14.8); WHITE BLOOD COUNT 5.8 K/UL (4.8-10.8)
[2019-05-05 06:45] LABS: ANION GAP 6 mmol/L (5-15); BLOOD UREA NITROGEN 6 mg/dL (7-18); CALCIUM 8.9 MG/DL (8.5-10.1); CARBON DIOXIDE 30 MMOL/L (21-32); CHLORIDE 108 MMOL/L (98-107); CREATININE 0.6 MG/DL (0.55-1.30); POTASSIUM 3.9 MMOL/L (3.5-5.1); SODIUM 144 MMOL/L (136-145)
[2019-05-05] MEDS ORDERED: D5 1/2NS w/KCl 20mEq 1,000 ML IV SCH ×3 (09:00→21:45)
--- NOTE | 2019-05-05 10:03 | General Progress Note ---
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 respiratory insufficiency djd leg edema venous US and echo negative in office last week PLAN needs decortication plan for VATS today cardiology clearance appreciated likely will have poor function of the affected lung d/w ID and TS d/w patient in detail impression, plan, and exam edited and reviewed in detail care discussed with RN Subjective Allergies: Coded Allergies: No Known Allergies (Unverified , 10/16/16) Subjective care noted multiple d/w patient and friend plan for VATS today Objective Last 24 Hour Vital Signs Date Time Temp Pulse Resp B/P (MAP) Pulse Ox O2 Delivery O2 Flow Rate FiO2 05/05/19 04:00 98.3 78 17 131/79 (96) 95 05/04/19 23:57 97.5 91 17 137/83 (101) 95 05/04/19 21:00 Room Air 05/04/19 20:41 96 142/97 05/04/19 20:00 97.2 96 18 142/97 (112) 95 05/04/19 16:00 97.6 94 18 153/97 (115) 98 05/04/19 12:00 98.0 82 18 140/84 (102) 98 Intake and Output 05/04/19 05/05/19 18:59 06:59 Intake Total 400 ml 350 ml Output Total 30 ml 2 ml Balance 370 ml 348 ml Intake Oral 400 ml 240 ml IV Total 110 ml Output Drainage Total 30 ml 2 ml # Voids 3 2 Laboratory Tests 05/05/19 04:45: White Blood Count 5.8, Red Blood Count 3.61L, Hemoglobin 9.2L, Hematocrit 29.8L , Mean Corpuscular Volume 83, Mean Corpuscular Hemoglobin 25.4L, Mean Corpuscular Hemoglobin Concent 30.7L, Red Cell Distribution Width 16.6H, Platelet Count 265, Mean Platelet Volume 4.8L, Neutrophils (%) (Auto) 62.1, Lymphocytes (%) (Auto) 23.3, Monocytes (%) (Auto) 8.4, Eosinophils (%) (Auto) 5.4H, Basophils (%) (Auto) 0.8, Sodium Level 144, Potassium Level 3.9, Chloride Level 108H, Carbon Dioxide Level 30, Anion Gap 6, Blood Urea Nitrogen 6L, Creatinine 0.6, Estimat Glomerular Filtration Rate , Glucose Level 88, Calcium Level 8.9 Height (Feet): 5 Weight (Pounds): 153 Objective WDWN NAD reduced breath sounds bilaterally without rhonchi or wheeze [id number] without MRG NABS nontender no HSM no CC noted edema nonfocal contracted and kyphotic alert and anxious Celestino Cota MD May 05, 2019 10:03
[2019-05-05] MEDS ORDERED: Sterile Talc Powder 4gm spray IPLEURAL ONE (12:00)
[2019-05-05] MEDS ORDERED: LORazepam Inj 2mg/ml 1ml IV PRN (12:00)
[2019-05-05] MEDS ORDERED: Amikacin 0 MG in NS 110 ML IV SCH (13:00)
[2019-05-05] MEDS ORDERED: Amikacin 500mg/2mL Inj IV PRN (13:05)
--- NOTE | 2019-05-05 13:32 | Infectious Diseases Prog Note ---
Assessment/Plan Assessment/Plan IMPRESSION: Empyema cultures: MSSA Anemia, Osteoarthritis, Kyphosis, History of breast cancer. RECOMMENDATION: Continue Ancef Discontinue Amikacin Subjective ROS Limited/Unobtainable: No Constitutional: Reports: no symptoms Respiratory: Reports: no symptoms Gastrointestinal/Abdominal: Reports: no symptoms Genitourinary: Reports: no symptoms Allergies: Coded Allergies: No Known Allergies (Unverified , 10/16/16) Objective Vital Signs Last 24 Hour Vital Signs Date Time Temp Pulse Resp B/P (MAP) Pulse Ox O2 Delivery O2 Flow Rate FiO2 05/05/19 12:00 98.1 80 18 118/72 (87) 95 05/05/19 09:00 Room Air Room Air 05/05/19 08:00 97.5 88 18 145/87 (106) 99 05/05/19 04:00 98.3 78 17 131/79 (96) 95 05/04/19 23:57 97.5 91 17 137/83 (101) 95 05/04/19 21:00 Room Air 05/04/19 20:41 96 142/97 05/04/19 20:00 97.2 96 18 142/97 (112) 95 05/04/19 16:00 97.6 94 18 153/97 (115) 98 Height (Feet): 5 Weight (Pounds): 153 General Appearance: no acute distress Respiratory/Chest: lungs clear, other - R side chest tube Cardiovascular: normal rate Abdomen: soft, non tender Extremities: no edema Neurologic/Psychiatric: alert, responsive Musculoskeletal: other - Kyphosis Laboratory Tests Test 05/05/19 04:45 White Blood Count 5.8 K/UL (4.8-10.8) Red Blood Count 3.61 M/UL (4.20-5.40) L Hemoglobin 9.2 G/DL (12.0-16.0) L Hematocrit 29.8 % (37.0-47.0) L Mean Corpuscular Volume 83 FL (80-99) Mean Corpuscular Hemoglobin 25.4 PG (27.0-31.0) L Mean Corpuscular Hemoglobin Concent 30.7 G/DL (32.0-36.0) L Red Cell Distribution Width 16.6 % (11.6-14.8) H Platelet Count 265 K/UL (150-450) Mean Platelet Volume 4.8 FL (6.5-10.1) L Neutrophils (%) (Auto) 62.1 % (45.0-75.0) Lymphocytes (%) (Auto) 23.3 % (20.0-45.0) Monocytes (%) (Auto) 8.4 % (1.0-10.0) Eosinophils (%) (Auto) 5.4 % (0.0-3.0) H Basophils (%) (Auto) 0.8 % (0.0-2.0) Sodium Level 144 MMOL/L (136-145) Potassium Level 3.9 MMOL/L (3.5-5.1) Chloride Level 108 MMOL/L (98-107) H Carbon Dioxide Level 30 MMOL/L (21-32) Anion Gap 6 mmol/L (5-15) Blood Urea Nitrogen 6 mg/dL (7-18) L Creatinine 0.6 MG/DL (0.55-1.30) Estimat Glomerular Filtration Rate mL/min (>60) Glucose Level 88 MG/DL (74-106) Calcium Level 8.9 MG/DL (8.5-10.1) Current Medications Medications (Trade) Dose Ordered Sig/Bertram Route PRN Reason Start Time Stop Time Status Last Admin Dose Admin Acetaminophen (Tylenol) 650 mg Q4H PRN ORAL Mild Pain/Temp > 100.5 04/28/19 13:00 05/28/19 12:59 04/30/19 13:38 Al Hydroxide/Mg Hydroxide (Mylanta) 30 ml Q4H PRN ORAL Abdominal cramps 04/28/19 13:00 05/28/19 12:59 Amikacin Sulfate (Amikin) 1,000 mg PRN PRN IV IRRIGATION 05/05/19 13:05 05/05/19 23:59 Cefazolin Sodium 1 gm/Dextrose 55 ml @ 110 mls/hr Q8HR IVPB 05/01/19 14:00 05/08/19 13:59 05/05/19 05:33 Dextrose/ Electrolytes 1,000 ml @ 60 mls/hr [id number] IV 05/05/19 09:00 06/04/19 08:59 05/05/19 09:41 Lorazepam (Ativan 2mg/ml 1ml) 1 mg Q4H PRN IV For Anxiety 05/05/19 12:00 05/12/19 11:59 Metoprolol Succinate (Toprol XL) 25 mg BEDTIME ORAL 05/03/19 21:00 06/02/19 20:59 05/04/19 20:41 Carloz Voss MD May 05, 2019 13:32
[2019-05-05] MEDS ORDERED: Lidocaine 1% 10mg/ml/Epi 0.005mg/ml 30ml vial INJ ONE ×2 (17:13→20:43)
--- NOTE | 2019-05-05 17:13 | Anethesia Preoperative Eval ---
Anesthesia Pre-op PMH/ROS General Date of Evaluation: May 05, 2019 Time of Evaluation: 17:41 Anesthesiologist: Collin ASA Score: ASA 3 Mallampati Score Class I : Soft palate, uvula, fauces, pillars visible Class II: Soft palate, uvula, fauces visible Class III: Soft palate, base of uvula visible Class IV: Only hard plate visible Mallampati Classification: Class III Surgeon: Rubin Diagnosis: Right Pleural Effusion Surgical Procedure: Right Vats Anesthesia History: none Family History: no anesthesia problems Allergies: Coded Allergies: No Known Allergies (Unverified , 10/16/16) Medications: see eMAR Patient NPO?: Yes NPO Date: May 05, 2019 NPO Time: 0900 Past Medical History Cardiovascular: Reports: HTN, CAD - Cardiomegaly, Cardiomyopathy Pulmonary: Reports: other - Right Pleural Effusion Hematology/Immune: Reports: anemia, other - R Breast CA Musculoskeletal/Integumentary: Reports: DDD, edema PSxH Narrative: R Mastectomy Anesthesia Pre-op Phys. Exam Physician Exam Last Vital Signs Date Time Temp Pulse Resp B/P (MAP) Pulse Ox O2 Delivery O2 Flow Rate FiO2 05/05/19 16:00 98.2 85 20 144/88 (106) 96 05/05/19 09:00 Room Air Room Air 04/29/19 13:54 3.0 Constitutional: NAD Neurologic: CN 2-12 intact Cardiovascular: RRR Respiratory: CTA Gastrointestinal: S/NT/ND Airway Exam Mallampati Score: Class III MO: limited ROM: limited Teeth: missing, intact Anesthesia Pre-op A/P Labs Hematology Test 05/05/19 04:45 White Blood Count 5.8 K/UL (4.8-10.8) Red Blood Count 3.61 M/UL (4.20-5.40) L Hemoglobin 9.2 G/DL (12.0-16.0) L Hematocrit 29.8 % (37.0-47.0) L Mean Corpuscular Volume 83 FL (80-99) Mean Corpuscular Hemoglobin 25.4 PG (27.0-31.0) L Mean Corpuscular Hemoglobin Concent 30.7 G/DL (32.0-36.0) L Red Cell Distribution Width 16.6 % (11.6-14.8) H Platelet Count 265 K/UL (150-450) Mean Platelet Volume 4.8 FL (6.5-10.1) L Neutrophils (%) (Auto) 62.1 % (45.0-75.0) Lymphocytes (%) (Auto) 23.3 % (20.0-45.0) Monocytes (%) (Auto) 8.4 % (1.0-10.0) Eosinophils (%) (Auto) 5.4 % (0.0-3.0) H Basophils (%) (Auto) 0.8 % (0.0-2.0) Chemistry Test 05/05/19 04:45 Sodium Level 144 MMOL/L (136-145) Potassium Level 3.9 MMOL/L (3.5-5.1) Chloride Level 108 MMOL/L (98-107) H Carbon Dioxide Level 30 MMOL/L (21-32) Anion Gap 6 mmol/L (5-15) Blood Urea Nitrogen 6 mg/dL (7-18) L Creatinine 0.6 MG/DL (0.55-1.30) Estimat Glomerular Filtration Rate mL/min (>60) Glucose Level 88 MG/DL (74-106) Calcium Level 8.9 MG/DL (8.5-10.1) Risk Assessment & Plan Assessment: ASA 3 Plan: GA, SED, GlideScope Go Status Change Before Surgery: No Pre-Antibiotics Dru Grams Ancef IV Given Within 1 Hr of Incision: Yes Time Given: 18:31 Joseph Polanco MD May 05, 2019 17:13
[2019-05-05] MEDS ORDERED: Bacitracin 50000 Units Vial ONE (17:14)
[2019-05-05] MEDS ORDERED: Bupivacaine 0.5% Inj 30 ml vial INJ ONE (17:14)
[2019-05-05] MEDS ORDERED: Lidocaine 1% Plain 30 ml INJ ONE (17:14)
--- NOTE | 2019-05-05 17:15 | Immediate Post-Op Evaluation ---
Immediate Post-Op Evalulation Immediate Post-Op Evalulation Procedure: Right VATS Date of Evaluation: May 05, 2019 Time of Evaluation: 21:49 IV Fluids: 1000 LR Blood Products: 1u PRBC Estimated Blood Loss: 200 Urinary Output: 200 Blood Pressure Systolic: 92 Blood Pressure Diastolic: 54 Pulse Rate: 78 Respiratory Rate: 10 - Mech Vent O2 Sat by Pulse Oximetry: 100 Temperature (Fahrenheit): 98 Pain Score (1-10): 0 Nausea: No Vomiting: No Complications 0 Patient Status: no response, patent, ventilated, none Hydration Status: adequate Dru Grams Ancef IV Given Within 1 Hr of Incision: Yes Time Given: 18:31 Joseph Polanco MD May 05, 2019 17:15
[2019-05-05] MEDS ORDERED: Lidocaine 1% MPF 10mg/ml 5ml ONE (17:16)
[2019-05-05] MEDS ORDERED: Dexamethasone 4mg/ml vial ONE (17:16)
[2019-05-05] MEDS ORDERED: Propofol 200mg/20ml IV ONE (18:00)
[2019-05-05] MEDS ORDERED: LR 1000ml ONE (18:00)
--- NOTE | 2019-05-05 18:00 | Pre-Procedure Note/Attestation ---
Pre-Procedure Note/Attestation Complete Prior to Procedure Planned Procedure: right Procedure Narrative: Right exploratory video-assisted thoracoscopic surgery, possible thoracotomy Indications for Procedure Pre-Operative Diagnosis: Right empyema Attestation I attest that I discussed the nature of the procedure; its benefits; risks and complications; and alternatives (and the risks and benefits of such alternatives ), prior to the procedure, with the patient (or the patient's legal environmental marketing representative). I attest that, if there was a reasonable possibility of needing a blood transfusion, the patient (or the patient's legal environmental marketing representative) was given the [facility] standardized written summary, pursuant to the [place] Blood Safety Act ([place] Health and Safety Code # 1645, as amended). I attest that I re-evaluated the patient just prior to the surgery and that there has been no change in the patient's H&P, except as documented below: Nicolas Conklin MD May 05, 2019 18:00
[2019-05-05] MEDS ORDERED: fentaNYL 100 mcg/2 mL IV ONE (19:10)
[2019-05-05] MEDS ORDERED: NS Irrig 4000ml IRRIG ONE (19:50)
--- NOTE | 2019-05-05 21:32 | Brief Operative Note ---
Immediate Post Operative Note Operative Note Pre-op Diagnosis: Right empyema Procedure: Bronchoscopy, removal of right pigtail catheter, right VATS with conversion to mini-thoracotomy, lysis of adhesions, partial pleurectomy, decortication, primary repair of upper and lower parenchymal airleak & nerve block Post-op Diagnosis: same Post-op Diagnosis: same as pre-op Surgeon: Nicolas Conklin MD Substation Supervisor: YANNA Fernandez MD Anesthesiologist: Joseph Polanco Anesthesia: general Specimen: yes Complications: none Fluids: one unit pRBC Estimated Blood Loss: minimal Drains: other Implant(s) used?: No Nicolas Conklin MD May 05, 2019 21:32
[2019-05-05] MEDS ORDERED: Morphine Sulfate 4mg/ml Inj (IV USE ONLY) IVP PRN (21:45)
[2019-05-05 22:42] LABS: HEMATOCRIT 34.5 % (37.0-47.0); HEMOGLOBIN 11.3 G/DL (12.0-16.0); MEAN CORPUSCULAR VOLUME 80 FL (80-99); PLATELET COUNT 355 K/UL (150-450); RED BLOOD COUNT 4.32 M/UL (4.20-5.40); RED CELL DISTRIBUTION WIDTH 15.1 % (11.6-14.8); WHITE BLOOD COUNT 18.6 K/UL (4.8-10.8)
[2019-05-05 22:43] LABS: BASOPHILS % (AUTO) 0.2 % (0.0-2.0); EOSINOPHILS % (AUTO) 0.3 % (0.0-3.0); LYMPHOCYTES % (AUTO) 6.3 % (20.0-45.0); MONOCYTES % (AUTO) 2.5 % (1.0-10.0); NEUTROPHILS % (AUTO) 90.7 % (45.0-75.0)
[2019-05-05 22:57] LABS: ANION GAP 8 mmol/L (5-15); BLOOD UREA NITROGEN 7 mg/dL (7-18); CALCIUM 8.5 MG/DL (8.5-10.1); CARBON DIOXIDE 27 MMOL/L (21-32); CHLORIDE 106 MMOL/L (98-107); CREATININE 0.6 MG/DL (0.55-1.30); PHOSPHORUS 3.5 MG/DL (2.5-4.9); POTASSIUM 3.5 MMOL/L (3.5-5.1); SODIUM 140 MMOL/L (136-145)
--- NOTE | 2019-05-05 23:45 | Progress Note ---
DATE: 05/05/2019 CARDIOLOGY PROGRESS NOTE SUBJECTIVE: The patient is scheduled for surgery late this evening and has received a unit of packed red blood cells as well as right VATS procedure without complications. OBJECTIVE: VITAL SIGNS: Blood pressure is 144/88, heart rate 85, respiratory rate 20. GENERAL: Orally intubated, mechanically ventilated. LUNGS: Bilateral breath sounds. HEART: Regular rate and rhythm. Normal S1 and S2. ABDOMEN: Soft. EXTREMITIES: No edema. Chest tube in place. LABORATORY AND DIAGNOSTIC DATA: White count 5.8, hemoglobin 9.2. Potassium 3.9 . IMPRESSION: 1. Status post VATS for empyema in the setting of prior right mastectomy and lung cancer. 2. Kyphosis. 3. Restrictive lung disease. 4. Hypertensive heart disease. PLAN: 1. Respiratory support. 2. Respiratory hygiene. 3. DVT prophylaxis. 4. Chest tube management. 5. Empiric antimicrobials . 6. Bronchodilators. 7. Monitor volume status and cardiorenal parameters. 8. Trend natriuretic peptide assay. Venancio Monsivais M.D. DR: Kelli JOB#: [id number] CC:
[2019-05-06] VITALS (24 sets, daily range): BP systolic 91–150; BP diastolic 48–84
[2019-05-06] MEDS ORDERED: Ketorolac 30mg Inj IV SCH
[2019-05-06] MEDS ORDERED: Ketorolac 30mg Inj IV PRN ×2 (00:45→09:00)
--- NOTE | 2019-05-06 02:15 | Operative Note - Dictated ---
DATE OF OPERATION: 05/05/2019 PREOPERATIVE DIAGNOSIS: Right empyema. POSTOPERATIVE DIAGNOSIS: Right empyema. PROCEDURE PERFORMED: 1. Flexible bronchoscopy. 2. Removal of right pigtail catheter. 3. Right video-assisted thoracoscopic surgery with conversion to a minithoracotomy. 4. Intrapleural pneumolysis. 5. Partial pleurectomy. 6. Decortication. 7. Primary repair of right upper and right lower lobe parenchymal airleak 8. Intercostal nerve block. SURGEON: Nicolas Conklin M.D. POTATO PANCAKE FRIER SURGEON: Sheri Fernandez M.D. ANESTHESIA: Single-lumen general anesthesia. INDICATION: The patient is a 73-year-old female, who was admitted to [facility] with respiratory distress. Workup including a chest CT scan demonstrated a large loculated right pleural effusion. The patient underwent a thoracentesis and a pigtail placement by which 70 mL of pus was evacuated. Microbiologic analysis was consistent with a Staph aureus. Due to the loculation as well as the right empyema, Thoracic Surgery was then consulted for surgical intervention. The risks and benefits of the proposed operation were explained to the patient in detail including, but not limited to, bleeding, infection, air leak, need for blood transfusion, anesthetic complication, and of less than 1%. In addition, alternative versus no treatment options were also discussed. The patient fully understand the rationale behind the proposed operation with all questions answered to her satisfaction. DESCRIPTION OF PROCEDURE: After obtaining informed consent, the patient was then brought to the operating room, placed in supine position, and surgical time-out was performed. After induction of general anesthesia, an indwelling Winslow, arterial line, and ALTAGRACIA hose stockings were placed. A flexible bronchoscope was introduced through the endotracheal tube. The trachea and grace were inspected. The grace was in the midline sharp. The right tracheobronchial tree down to the subsegmental level was grossly normal and no endobronchial lesions were seen. Similarly, the left mainstem bronchus was intubated and no obvious endobronchial lesions were visualized at the subsegmental level. Minimal amount of mucopurulent secretions were lavaged and suctioned clear. The bronchoscope was pulled back and removed. The patient tolerated the procedure well with oxygen saturation greater than 96% throughout the procedure. Next, the patient was placed in the left lateral decubitus position, prepped and draped in the usual sterile fashion. The patient also received preoperative intravenous antibiotic. The right pigtail catheter suture was removed and the catheter was then retrieved from the right hemithorax in the usual fashion. The entire right chest was prepped and draped in the usual fashion. A 1.5 cm incision was made at the fifth intercostal space at midaxillary line. Dissection was then carried down into subcutaneous tissue. Entry into the right hemithorax was uneventful. After passing the Thoracoport and the video camera into the right hemithorax, we noted that there were dense adhesions in the right lower chest cavity. Due to the extent of the adhesions, a decision was made to convert to a mini-thoracotomy in order to allow a better visualization of the intrathoracic disease process. As such, a standard mini-thoracotomy incision was then fashioned and dissection was then carried down to the subcutaneous tissue. The muscle layer was divided sharply. The chest was entered via the sixth intercostal space in the usual fashion. After placement of a Finechietto retractor, we then proceeded to examine the intrathoracic cavity. There was noted to be numerous adhesions tethering the lung to the surrounding chest wall. These adhesions were meticulously taken down using a combination of sharp and blunt electrocauterization. After passing a Yankauer into the right main hemithorax roughly 50 mL of right pleural effusion was suctioned out and this was submitted for microbiologic analysis. At this point, we proceeded to mobilize the lung from the surrounding chest wall. The right upper lobe appears to be relatively disease-free as full mobilization of the right upper lobe was accomplished uneventfully. Dissection of the posterolateral border of the lower lobe encountered an area of a capsule that was anterior in location. This is the abscess cavity noted on the preoperative radiographic imaging study. The abscess cavity was then dissected off the chest wall and the diaphragmatic surface in a piece meal fashion labelled as right lung access cavity #1 and #2. After resecting the abscess cavity, we then proceeded to irrigate the chest with 2 liters of warm saline solution. After suctioning, the diaphragmatic surface as well as the lower lobe were underwent decortication in the usual fashion. This was began in the anterior surface of the lower lobe and carried out posterolaterally. Multiple exudates were debrided off the diaphragmatic surface and this was submitted to pathology for specimen and microbiology. At this point, we encountered an area of the parietal pleura anteriorly that appears to be unusually thickened. Due to the history of breast cancer, a decision was made to harvest a financial foundations representative section of the parietal pleura in order to rule out metastatic disease. A large parietal pleura was then dissected off the chest wall and this was delivered off the field and divided into two segments labeled parietal pleura #1 and #2. Both specimen parietal pleura 1 and 2 were submitted to pathology. At the end of the operation, the entire chest was again irrigated with 2 liters of warm saline solution. After suctioning, a liter of warm saline was infused into the right hemithorax. We then asked the anesthesiologist to apply positive ventilation in order to assess the extent of the parenchymal air leak. There were noted to be two areas of parenchymal air leak secondary to takedown of the adhesions of the lung from the surrounding chest wall. A smaller parenchyma air leak was localized in the right lower lobe. Using 4-0 Prolene suture, the right lower lobe parenchymal air leak was then sutured primarily using 4-0 Prolene in a running fashion. We then turned our attention to the right upper lobe where there is a bit more extensive parenchymal air leak noted in the anterior surface; this area of the right upper lobe parenchymal air leak was likewise sutured primarily using a 4-0 running Prolene. At the end of the procedure, we then infused another liter of saline into the right hemithorax and under positive ventilation, there was noted to be very minimal air leak from the lung parenchyma. After suctioning, the chest was then irrigated with 2 liters of bacitracin saline solution. The intrathoracic cavity was then suctioned clear and hemostasis was then assured. A 40 mL of 0.25% Marcaine was then performed from the second to fifth intercostal space in the usual fashion. A 28-Japanese chest tube inserted into the right hemithorax and directly at the apex. The chest was anchored at the skin level using 4-0 Ethibond suture x2. Pericostal suture using a #2 Vicryl was placed in a [id number] configuration. The right lung was allowed to inflate under direct visualization and the pericostal suture was snugged down and tied. The muscle layer was then reapproximated with #0 Vicryl suture in a running fashion. The thoracotomy wound was then reapproximated in two layers; the deep layer with 2-0 Vicryl in a running fashion and the superficial layer with 3-0 Vicryl in a running fashion. The skin was reapproximated with 4-0 Monocryl in a running fashion. Steri-Strips and dry dressing was applied. A chest tube dressing was applied and the chest was then connected to a suction Pleur-evac. The patient tolerated procedure well without any complications. Needle and sponges were correct at the end of the operation. The double-lumen endotracheal tube was then exchanged for a single-lumen endotracheal tube and she was then transported to the recovery room in the ICU in satisfactory condition again. EBL: Minimal. COMPLICATIONS: None. SPECIMENS SUBMITTED: 1. Right pleural effusion for microbiologic analysis. 2. Right parietal pleura x2. 3. Right lung abscess cavity x2. 4. Right lung diaphragmatic exudate to pathology. Dee M.D. DR: WILLA JOB#: [id number] CC: KODI
[2019-05-06] MEDS: ceFAZolin sod 1 GM in D5W 55 ML IVPB SCH (05:39)
[2019-05-06 06:38] LABS: MEAN CORPUSCULAR VOLUME 82 FL (80-99); PLATELET COUNT 293 K/UL (150-450); RED BLOOD COUNT 3.77 M/UL (4.20-5.40); RED CELL DISTRIBUTION WIDTH 16.5 % (11.6-14.8); WHITE BLOOD COUNT 17.7 K/UL (4.8-10.8)
[2019-05-06 07:00] LABS: ALANINE AMINOTRANSFERASE 7 U/L (12-78); ALBUMIN 2.2 G/DL (3.4-5.0); ALBUMIN/GLOBULIN RATIO 0.6 (1.0-2.7); ALKALINE PHOSPHATASE 65 U/L (46-116); ANION GAP 5 mmol/L (5-15); ASPARTATE AMINO TRANSFERASE 22 U/L (15-37); BILIRUBIN,TOTAL 0.3 MG/DL (0.2-1.0); BLOOD UREA NITROGEN 8 mg/dL (7-18); CALCIUM 8.1 MG/DL (8.5-10.1); CARBON DIOXIDE 26 MMOL/L (21-32); CHLORIDE 106 MMOL/L (98-107); CREATININE 0.7 MG/DL (0.55-1.30); PHOSPHORUS 3.5 MG/DL (2.5-4.9); POTASSIUM 5.1 MMOL/L (3.5-5.1); SODIUM 137 MMOL/L (136-145)
--- NOTE | 2019-05-06 07:36 | 48 Hour Post Anesthesia Eval ---
Post Anesthesia Evaluation Procedure: Right VATS Date of Evaluation: May 06, 2019 Time of Evaluation: 07:32 Blood Pressure Systolic: 108 0: 62 Pulse Rate: 74 Respiratory Rate: 24 Temperature (Fahrenheit): 97.4 O2 Sat by Pulse Oximetry: 98 Airway: patent - extubated overnight, mild dyspnea at rest Nausea: No Vomiting: No Pain Intensity: 3 Hydration Status: adequate Cardiopulmonary Status: stable no pressors Mental Status/LOC: patient returned to baseline - slightly confused, adequatly answers questions Follow-up Care/Observations: n/a Post-Anesthesia Complications: none Follow-up care needed: N/A Monty Garg MD May 06, 2019 07:36
[2019-05-06] MEDS: Metoprolol Succinate XL 25mg tab ORAL SCH (07:47)
--- NOTE | 2019-05-06 08:39 | General Progress Note ---
Assessment/Plan Problem List: (1) Cellulitis ICD Codes: L03.90 - Cellulitis, unspecified SNOMED: 332402150 (2) Pleural effusion ICD Codes: J90 - Pleural effusion, not elsewhere classified SNOMED: 80174457 Assessment/Plan: cont chest tube per surgery pain rx po if cleared by surgery ivf dvt/stress ulcer prophylaxis Subjective ROS Limited/Unobtainable: No Constitutional: Reports: malaise, weakness HEENT: Reports: no symptoms Cardiovascular: Reports: no symptoms Respiratory: Reports: no symptoms Gastrointestinal/Abdominal: Reports: no symptoms Genitourinary: Reports: no symptoms Neurologic/Psychiatric: Reports: no symptoms Endocrine: Reports: no symptoms Hematologic/Lymphatic: Reports: no symptoms Allergies: Coded Allergies: No Known Allergies (Unverified , 10/16/16) All Systems: reviewed and negative except above Subjective s/p vats. CT to suction. denies cp/sob. no fever or chills Objective Last 24 Hour Vital Signs Date Time Temp Pulse Resp B/P (MAP) Pulse Ox O2 Delivery O2 Flow Rate FiO2 05/06/19 08:00 Nasal Cannula 2.0 Nasal Cannula 2.0 05/06/19 08:00 92 17 94/50 (65) 94 05/06/19 07:36 74 24 98 05/06/19 07:00 90 17 106/57 (73) 98 05/06/19 06:40 100 Nasal Cannula 3.0 32 05/06/19 06:00 77 17 108/56 (73) 100 05/06/19 05:00 85 13 127/64 (85) 100 05/06/19 04:30 100 Nasal Cannula 3.0 32 05/06/19 04:00 83 05/06/19 04:00 97.8 90 18 116/63 (80) 100 05/06/19 04:00 Nasal Cannula 3.0 Nasal Cannula 3.0 05/06/19 03:00 85 17 100/55 (70) 100 05/06/19 02:00 98 18 113/62 (79) 99 05/06/19 01:09 99 Cool Aerosol 15.0 50 05/06/19 01:05 Venturi Mask 12.0 50 05/06/19 01:00 115 23 149/73 (98) 97 05/06/19 00:00 116 05/06/19 00:00 40 05/06/19 00:00 98.2 103 13 150/72 (98) 96 05/06/19 00:00 Mechanical Ventilator Mechanical Ventilator 05/05/19 23:30 116 21 189/100 (129) 97 05/05/19 23:20 74 13 45 05/05/19 23:00 110 21 196/98 (130) 99 05/05/19 22:45 109 19 203/102 (135) 99 05/05/19 22:30 108 19 206/103 (137) 99 05/05/19 22:15 104 19 200/100 (133) 99 05/05/19 22:00 96 20 185/87 (119) 100 05/05/19 22:00 96 05/05/19 22:00 60 05/05/19 21:45 97.8 78 20 125/80 (95) 100 05/05/19 21:40 76 10 60 05/05/19 21:40 76 13 100 Mechanical Ventilator 15.0 60 05/05/19 21:34 78 10 100 05/05/19 16:00 98.2 85 20 144/88 (106) 96 05/05/19 12:00 98.1 80 18 118/72 (87) 95 05/05/19 09:00 Room Air Room Air Intake and Output 05/05/19 05/06/19 19:00 07:00 Intake Total 835 ml 1010 ml Output Total 1350 ml Balance 835 ml -340 ml Intake Oral 300 ml 0 ml IV Total 535 ml 1010 ml Output Urine Total 930 ml Chest Tube Drainage Total 420 ml # Voids 3 Laboratory Tests 05/05/19 22:15: White Blood Count 18.6#H, Red Blood Count 4.32, Hemoglobin 11.3L, Hematocrit 34.5L, Mean Corpuscular Volume 80, Mean Corpuscular Hemoglobin 26.2L, Mean Corpuscular Hemoglobin Concent 32.8, Red Cell Distribution Width 15.1H, Platelet Count 355, Mean Platelet Volume 4.7L, Neutrophils (%) (Auto) 90.7H, Lymphocytes (%) (Auto) 6.3L, Monocytes (%) (Auto) 2.5, Eosinophils (%) (Auto) 0.3, Basophils (%) (Auto) 0.2, Sodium Level 140, Potassium Level 3.5, Chloride Level 106, Carbon Dioxide Level 27, Anion Gap 8, Blood Urea Nitrogen 7, Creatinine 0.6, Estimat Glomerular Filtration Rate , Glucose Level 226#H, Calcium Level 8.5, Ionized Calcium (Measured) 1.09L, Phosphorus Level 3.5, Magnesium Level 1.8 05/05/19 22:20: Arterial Blood pH 7.314L, Arterial Blood Partial Pressure CO2 52.4H, Arterial Blood Partial Pressure O2 116.6H, Arterial Blood HCO3 26.0, Arterial Blood Oxygen Saturation 97.6, Arterial Blood Base Excess -0.8, Jorge Test Positive 05/06/19 05:55: White Blood Count 17.7H, Red Blood Count 3.77L, Hemoglobin 10.0L, Hematocrit 31.0L, Mean Corpuscular Volume 82, Mean Corpuscular Hemoglobin 26.4L, Mean Corpuscular Hemoglobin Concent 32.1, Red Cell Distribution Width 16.5H, Platelet Count 293, Mean Platelet Volume 5.0L, Neutrophils (%) (Auto) , Lymphocytes (%) (Auto) , Monocytes (%) (Auto) , Eosinophils (%) (Auto) , Basophils (%) (Auto) , Sodium Level 137, Potassium Level 5.1, Chloride Level 106 , Carbon Dioxide Level 26, Anion Gap 5, Blood Urea Nitrogen 8, Creatinine 0.7, Estimat Glomerular Filtration Rate , Glucose Level 209H, Calcium Level 8.1L, Ionized Calcium (Measured) 1.07L, Phosphorus Level 3.5, Magnesium Level 1.7L, Neutrophils % (Manual) [Pending], Lymphocytes % (Manual) [Pending], Platelet Estimate [Pending], Platelet Morphology [Pending], Total Bilirubin 0.3, Aspartate Amino Transf (AST/SGOT) 22, Alanine Aminotransferase (ALT/SGPT) 7L, Alkaline Phosphatase 65, Total Protein 6.1L, Albumin 2.2L, Globulin 3.9, Albumin /Globulin Ratio 0.6L 05/06/19 06:40: Arterial Blood pH 7.399, Arterial Blood Partial Pressure CO2 41.7, Arterial Blood Partial Pressure O2 139.9H, Arterial Blood HCO3 25.2, Arterial Blood Oxygen Saturation 98.2, Arterial Blood Base Excess 0.3, Jorge Test N/a Height (Feet): 4 Height (Inches): 11.00 Weight (Pounds): 156 General Appearance: WD/WN, alert Neck: supple Cardiovascular: regular rhythm Respiratory/Chest: chest wall non-tender, lungs clear, normal breath sounds Abdomen: normal bowel sounds, non tender, soft, no organomegaly Edema: no edema noted Arm (L), no edema noted Arm (R), no edema noted Leg (L), no edema noted Leg (R), no edema noted Pedal (L), no edema noted Pedal (R), no edema noted Generalized Thomas Hansen MD May 06, 2019 08:39
[2019-05-06] MEDS ORDERED: D5 1/2NS w/KCl 20mEq 1,000 ML IV SCH (09:00)
[2019-05-06] MEDS ORDERED: Morphine Sulfate 4mg/ml Inj (IV USE ONLY) IVP PRN (09:00)
--- NOTE | 2019-05-06 10:29 | Infectious Diseases Prog Note ---
Assessment/Plan Assessment/Plan antibiotics : ancef A 1. staph aureus empyema s/p CT placement, decortication 2. kyphosis 3. breast cancer 4. leucocytosis improving P 1. continue ancef 2. will follow up cultures Subjective Constitutional: Denies: fever, chills Respiratory: Denies: shortness of breath, dry cough Gastrointestinal/Abdominal: Denies: nausea, vomiting, diarrhea Musculoskeletal: Denies: pain Allergies: Coded Allergies: No Known Allergies (Unverified , 10/16/16) Objective Vital Signs Last 24 Hour Vital Signs Date Time Temp Pulse Resp B/P (MAP) Pulse Ox O2 Delivery O2 Flow Rate FiO2 05/06/19 08:00 Nasal Cannula 2.0 Nasal Cannula 2.0 05/06/19 08:00 92 17 94/50 (65) 94 05/06/19 07:36 74 24 98 05/06/19 07:00 90 17 106/57 (73) 98 05/06/19 06:40 100 Nasal Cannula 3.0 32 05/06/19 06:00 77 17 108/56 (73) 100 05/06/19 05:00 85 13 127/64 (85) 100 05/06/19 04:30 100 Nasal Cannula 3.0 32 05/06/19 04:00 83 05/06/19 04:00 97.8 90 18 116/63 (80) 100 05/06/19 04:00 Nasal Cannula 3.0 Nasal Cannula 3.0 05/06/19 03:00 85 17 100/55 (70) 100 05/06/19 02:00 98 18 113/62 (79) 99 05/06/19 01:09 99 Cool Aerosol 15.0 50 05/06/19 01:05 Venturi Mask 12.0 50 05/06/19 01:00 115 23 149/73 (98) 97 05/06/19 00:00 116 05/06/19 00:00 40 05/06/19 00:00 98.2 103 13 150/72 (98) 96 05/06/19 00:00 Mechanical Ventilator Mechanical Ventilator 05/05/19 23:30 116 21 189/100 (129) 97 05/05/19 23:20 74 13 45 05/05/19 23:00 110 21 196/98 (130) 99 05/05/19 22:45 109 19 203/102 (135) 99 8/22/19 22:30 108 19 206/103 (137) 99 05/05/19 22:15 104 19 200/100 (133) 99 05/05/19 22:00 96 20 185/87 (119) 100 05/05/19 22:00 96 05/05/19 22:00 60 05/05/19 21:45 97.8 78 20 125/80 (95) 100 05/05/19 21:40 76 10 60 05/05/19 21:40 76 13 100 Mechanical Ventilator 15.0 60 05/05/19 21:34 78 10 100 05/05/19 16:00 98.2 85 20 144/88 (106) 96 05/05/19 12:00 98.1 80 18 118/72 (87) 95 Height (Feet): 4 Height (Inches): 11.00 Weight (Pounds): 156 Respiratory/Chest: lungs clear, other - right CT Cardiovascular: normal rate, regular rhythm, no gallop/murmur Abdomen: soft, non tender Extremities: no edema Laboratory Tests Test 05/05/19 22:15 05/05/19 22:20 05/06/19 05:55 05/06/19 06:40 White Blood Count 18.6 K/UL (4.8-10.8) #H 17.7 K/UL (4.8-10.8) H Red Blood Count 4.32 M/UL (4.20-5.40) 3.77 M/UL (4.20-5.40) L Hemoglobin 11.3 G/DL (12.0-16.0) L 10.0 G/DL (12.0-16.0) L Hematocrit 34.5 % (37.0-47.0) L 31.0 % (37.0-47.0) L Mean Corpuscular Volume 80 FL (80-99) 82 FL (80-99) Mean Corpuscular Hemoglobin 26.2 PG (27.0-31.0) L 26.4 PG (27.0-31.0) L Mean Corpuscular Hemoglobin Concent 32.8 G/DL (32.0-36.0) 32.1 G/DL (32.0-36.0) Red Cell Distribution Width 15.1 % (11.6-14.8) H 16.5 % (11.6-14.8) H Platelet Count 355 K/UL (150-450) 293 K/UL (150-450) Mean Platelet Volume 4.7 FL (6.5-10.1) L 5.0 FL (6.5-10.1) L Neutrophils (%) (Auto) 90.7 % (45.0-75.0) H % (45.0-75.0) Lymphocytes (%) (Auto) 6.3 % (20.0-45.0) L % (20.0-45.0) Monocytes (%) (Auto) 2.5 % (1.0-10.0) % (1.0-10.0) Eosinophils (%) (Auto) 0.3 % (0.0-3.0) % (0.0-3.0) Basophils (%) (Auto) 0.2 % (0.0-2.0) % (0.0-2.0) Sodium Level 140 MMOL/L (136-145) 137 MMOL/L (136-145) Potassium Level 3.5 MMOL/L (3.5-5.1) 5.1 MMOL/L (3.5-5.1) Chloride Level 106 MMOL/L (98-107) 106 MMOL/L (98-107) Carbon Dioxide Level 27 MMOL/L (21-32) 26 MMOL/L (21-32) Anion Gap 8 mmol/L (5-15) 5 mmol/L (5-15) Blood Urea Nitrogen 7 mg/dL (7-18) 8 mg/dL (7-18) Creatinine 0.6 MG/DL (0.55-1.30) 0.7 MG/DL (0.55-1.30) Estimat Glomerular Filtration Rate mL/min (>60) mL/min (>60) Glucose Level 226 MG/DL (74-106) #H 209 MG/DL (74-106) H Calcium Level 8.5 MG/DL (8.5-10.1) 8.1 MG/DL (8.5-10.1) L Ionized Calcium (Measured) 1.09 mmol/L (1.10-1.35) L 1.07 mmol/L (1.10-1.35) L Phosphorus Level 3.5 MG/DL (2.5-4.9) 3.5 MG/DL (2.5-4.9) Magnesium Level 1.8 MG/DL (1.8-2.4) 1.7 MG/DL (1.8-2.4) L Arterial Blood pH 7.314 (7.350-7.450) 7.399 (7.350-7.450) Arterial Blood Partial Pressure CO2 52.4 mmHg (35.0-45.0) H 41.7 mmHg (35.0-45.0) Arterial Blood Partial Pressure O2 116.6 mmHg (75.0-100.0) H 139.9 mmHg (75.0-100.0) H Arterial Blood HCO3 26.0 mmol/L (22.0-26.0) 25.2 mmol/L (22.0-26.0) Arterial Blood Oxygen Saturation 97.6 % (95-100) 98.2 % (95-100) Arterial Blood Base Excess -0.8 (-2-2) 0.3 (-2-2) Jorge Test Positive N/a Differential Total Cells Counted 100 Neutrophils % (Manual) 92 % (45-75) H Lymphocytes % (Manual) 3 % (20-45) L Monocytes % (Manual) 5 % (1-10) Eosinophils % (Manual) 0 % (0-3) Basophils % (Manual) 0 % (0-2) Band Neutrophils 0 % (0-8) Platelet Estimate Adequate Platelet Morphology Normal Anisocytosis 1+ Total Bilirubin 0.3 MG/DL (0.2-1.0) Aspartate Amino Transf (AST/SGOT) 22 U/L (15-37) Alanine Aminotransferase (ALT/SGPT) 7 U/L (12-78) L Alkaline Phosphatase 65 U/L (46-116) Total Protein 6.1 G/DL (6.4-8.2) L Albumin 2.2 G/DL (3.4-5.0) L Globulin 3.9 g/dL Albumin/Globulin Ratio 0.6 (1.0-2.7) L Current Medications Medications (Trade) Dose Ordered Sig/Bertram Route PRN Reason Start Time Stop Time Status Last Admin Dose Admin Acetaminophen (Tylenol) 650 mg Q4H PRN ORAL Temp > 100.5 05/06/19 09:00 05/28/19 08:59 Acetaminophen (Tylenol) 650 mg Q6H PRN ORAL Mild Pain (Pain Scale 1-3) 05/06/19 08:45 06/04/19 08:44 Al Hydroxide/Mg Hydroxide (Mylanta) 30 ml Q4H PRN ORAL Abdominal cramps 05/06/19 09:00 05/28/19 12:59 Cefazolin Sodium 1 gm/Dextrose 55 ml @ 110 mls/hr Q8HR IVPB 05/06/19 14:00 05/08/19 13:59 Ketorolac Tromethamine (Toradol 30mg) 15 mg Q6H PRN IV Moderate Pain (Pain Scale 4-6) 05/06/19 09:00 05/11/19 08:59 Metoprolol Succinate (Toprol XL) 25 mg BEDTIME ORAL 05/06/19 21:00 06/02/19 20:59 Morphine Sulfate (Morphine Sulfate) 4 mg Q4H PRN IVP Severe Pain (Pain Scale 7-10) 05/06/19 09:00 05/12/19 08:59 Samra Vazquez MD May 06, 2019 10:29
--- NOTE | 2019-05-06 11:34 | Diagnostic Imaging Report ---
Indication: Shortness of breath Technique: One view of the chest Comparison: 04/29/2019 Findings: Interim removal of previously demonstrated pleural pigtail catheter and placement of a large-bore right chest tube. There is a small right basilar pneumothorax present. There is considerable parenchymal opacity in the right mid and lower lung. There is a small amount of subcutaneous emphysema. Atelectatic changes are seen at the left lung base. There is some infiltrate in the left perihilar region. There is an endotracheal tube in good position. The heart size is normal. There may be a small amount of pneumomediastinum, as well as lucency is seen outlying the left cardiac apex and is also seen along the aortopulmonary window Impression: Status post right large bore chest tube insertion, position apparently satisfactory Small right basilar pneumothorax despite such Subcutaneous emphysema, presumably related to the above or graft possible pneumomediastinum Right basilar parenchymal consolidation Left basilar atelectasis Satisfactory endotracheal intubation
[2019-05-06] MEDS ORDERED: ceFAZolin 2gm/50ml Premix 50 ML IV SCH (12:00)
--- NOTE | 2019-05-06 12:38 | Diagnostic Imaging Report ---
Indication: Dyspnea, status post chest tube Technique: One view of the chest Comparison: none Findings: Right chest tube remains. Previously demonstrated right basilar pneumothorax is not clearly evident currently, although there may be a small lateral pneumothorax still present. There is increased subcutaneous emphysema in the right chest wall and supraclavicular region. Previously demonstrated pneumomediastinum is less evident currently, although some pneumomediastinum is seen in the left aortopulmonary window region as well as gas dissecting into the neck. There is a round lesion at the right lung base with air-fluid level, measuring approximately 6 cm transverse by 7.6 cm craniocaudad. The heart is enlarged. There is persistent and perhaps slightly increased consolidation and atelectasis at the left lung base. Previously demonstrated endotracheal tube has been removed. Impression: 6 x 7.6 cm lesion with air-fluid level in the right lower hemithorax, probably represents a loculated hydropneumothorax given history recent surgery and also recent empyema drainage. Pulmonary abscess as etiology of this finding also possible. Decreased right basilar pneumothorax Increased right-sided subcutaneous emphysema. Persistent but probably decreased pneumomediastinum, since previous day's exam Interim extubation Cardiomegaly Persistent left basilar consolidation and atelectasis Findings discussed by phone with Dr. Haque at the time of interpretation
[2019-05-06] MEDS: ceFAZolin sod 2 GM in NS 110 ML IVPB SCH ×2 (13:12→20:41)
[2019-05-06] MEDS ORDERED: ceFAZolin sod 1 GM in D5W 55 ML IVPB SCH (14:00)
[2019-05-06] MEDS: Albuterol/Ipratropium 3ml neb HHN SCH ×3 (15:01→23:32)
[2019-05-06] MEDS: Ketorolac 30mg Inj IV PRN (16:50)
--- NOTE | 2019-05-06 19:19 | Surgery Progress Note ---
Surgery Progress Note Subjective Additional Comments extubated and doing well wants food no n/v/f/c wants to go home now pain but controlled CT with 500cc output since surgery small leak Objective Last 24 Hour Vital Signs Date Time Temp Pulse Resp B/P (MAP) Pulse Ox O2 Delivery O2 Flow Rate FiO2 05/06/19 18:00 96 15 97/48 (64) 100 05/06/19 17:00 94 14 99/52 (68) 100 05/06/19 16:00 98.5 93 14 93/50 (64) 100 05/06/19 16:00 Nasal Cannula 2.0 Nasal Cannula 2.0 05/06/19 15:40 95 05/06/19 15:11 94 14 97 Nasal Cannula 2.0 28 05/06/19 15:02 93 17 100 Nasal Cannula 2.0 28 05/06/19 15:00 91 16 104/52 (69) 100 05/06/19 14:00 85 19 99/48 (65) 100 05/06/19 13:00 89 0 92/49 (63) 94 05/06/19 12:00 97.9 86 22 91/57 (68) 100 05/06/19 12:00 Nasal Cannula 2.0 Nasal Cannula 2.0 05/06/19 11:26 87 05/06/19 11:00 86 19 101/54 (70) 100 05/06/19 10:00 90 22 97/84 (88) 100 05/06/19 09:00 98.1 88 12 99/56 (70) 100 05/06/19 08:00 Nasal Cannula 2.0 Nasal Cannula 2.0 05/06/19 08:00 92 17 94/50 (65) 94 05/06/19 07:37 91 05/06/19 07:36 74 24 98 05/06/19 07:00 90 17 106/57 (73) 98 05/06/19 06:40 100 Nasal Cannula 3.0 32 05/06/19 06:00 77 17 108/56 (73) 100 05/06/19 05:00 85 13 127/64 (85) 100 05/06/19 04:30 100 Nasal Cannula 3.0 32 05/06/19 04:00 83 05/06/19 04:00 97.8 90 18 116/63 (80) 100 05/06/19 04:00 Nasal Cannula 3.0 Nasal Cannula 3.0 05/06/19 03:00 85 17 100/55 (70) 100 05/06/19 02:00 98 18 113/62 (79) 99 05/06/19 01:09 99 Cool Aerosol 15.0 50 05/06/19 01:05 Venturi Mask 12.0 50 05/06/19 01:00 115 23 149/73 (98) 97 05/06/19 00:00 116 05/06/19 00:00 40 05/06/19 00:00 98.2 103 13 150/72 (98) 96 05/06/19 00:00 Mechanical Ventilator Mechanical Ventilator 05/05/19 23:30 116 21 189/100 (129) 97 05/05/19 23:20 74 13 45 05/05/19 23:00 110 21 196/98 (130) 99 05/05/19 22:45 109 19 203/102 (135) 99 05/05/19 22:30 108 19 206/103 (137) 99 05/05/19 22:15 104 19 200/100 (133) 99 05/05/19 22:00 96 20 185/87 (119) 100 05/05/19 22:00 96 05/05/19 22:00 60 05/05/19 21:45 97.8 78 20 125/80 (95) 100 05/05/19 21:40 76 10 60 05/05/19 21:40 76 13 100 Mechanical Ventilator 15.0 60 05/05/19 21:34 78 10 100 I&O Intake and Output 05/05/19 05/06/19 19:00 07:00 Intake Total 835 ml 1010 ml Output Total 1350 ml Balance 835 ml -340 ml Intake Oral 300 ml 0 ml IV Total 535 ml 1010 ml Output Urine Total 930 ml Chest Tube Drainage Total 420 ml # Voids 3 Dressing: dry Wound: clean Drains: other Cardiovascular: RSR Respiratory: decreased breath sounds Abdomen: soft, present bowel sounds Extremities: no cyanosis Laboratory Tests Test 05/05/19 22:15 05/05/19 22:20 05/06/19 05:55 05/06/19 06:40 White Blood Count 18.6 K/UL (4.8-10.8) #H 17.7 K/UL (4.8-10.8) H Red Blood Count 4.32 M/UL (4.20-5.40) 3.77 M/UL (4.20-5.40) L Hemoglobin 11.3 G/DL (12.0-16.0) L 10.0 G/DL (12.0-16.0) L Hematocrit 34.5 % (37.0-47.0) L 31.0 % (37.0-47.0) L Mean Corpuscular Volume 80 FL (80-99) 82 FL (80-99) Mean Corpuscular Hemoglobin 26.2 PG (27.0-31.0) L 26.4 PG (27.0-31.0) L Mean Corpuscular Hemoglobin Concent 32.8 G/DL (32.0-36.0) 32.1 G/DL (32.0-36.0) Red Cell Distribution Width 15.1 % (11.6-14.8) H 16.5 % (11.6-14.8) H Platelet Count 355 K/UL (150-450) 293 K/UL (150-450) Mean Platelet Volume 4.7 FL (6.5-10.1) L 5.0 FL (6.5-10.1) L Neutrophils (%) (Auto) 90.7 % (45.0-75.0) H % (45.0-75.0) Lymphocytes (%) (Auto) 6.3 % (20.0-45.0) L % (20.0-45.0) Monocytes (%) (Auto) 2.5 % (1.0-10.0) % (1.0-10.0) Eosinophils (%) (Auto) 0.3 % (0.0-3.0) % (0.0-3.0) Basophils (%) (Auto) 0.2 % (0.0-2.0) % (0.0-2.0) Sodium Level 140 MMOL/L (136-145) 137 MMOL/L (136-145) Potassium Level 3.5 MMOL/L (3.5-5.1) 5.1 MMOL/L (3.5-5.1) Chloride Level 106 MMOL/L (98-107) 106 MMOL/L (98-107) Carbon Dioxide Level 27 MMOL/L (21-32) 26 MMOL/L (21-32) Anion Gap 8 mmol/L (5-15) 5 mmol/L (5-15) Blood Urea Nitrogen 7 mg/dL (7-18) 8 mg/dL (7-18) Creatinine 0.6 MG/DL (0.55-1.30) 0.7 MG/DL (0.55-1.30) Estimat Glomerular Filtration Rate mL/min (>60) mL/min (>60) Glucose Level 226 MG/DL (74-106) #H 209 MG/DL (74-106) H Calcium Level 8.5 MG/DL (8.5-10.1) 8.1 MG/DL (8.5-10.1) L Ionized Calcium (Measured) 1.09 mmol/L (1.10-1.35) L 1.07 mmol/L (1.10-1.35) L Phosphorus Level 3.5 MG/DL (2.5-4.9) 3.5 MG/DL (2.5-4.9) Magnesium Level 1.8 MG/DL (1.8-2.4) 1.7 MG/DL (1.8-2.4) L Arterial Blood pH 7.314 (7.350-7.450) 7.399 (7.350-7.450) Arterial Blood Partial Pressure CO2 52.4 mmHg (35.0-45.0) H 41.7 mmHg (35.0-45.0) Arterial Blood Partial Pressure O2 116.6 mmHg (75.0-100.0) H 139.9 mmHg (75.0-100.0) H Arterial Blood HCO3 26.0 mmol/L (22.0-26.0) 25.2 mmol/L (22.0-26.0) Arterial Blood Oxygen Saturation 97.6 % (95-100) 98.2 % (95-100) Arterial Blood Base Excess -0.8 (-2-2) 0.3 (-2-2) Jorge Test Positive N/a Differential Total Cells Counted 100 Neutrophils % (Manual) 92 % (45-75) H Lymphocytes % (Manual) 3 % (20-45) L Monocytes % (Manual) 5 % (1-10) Eosinophils % (Manual) 0 % (0-3) Basophils % (Manual) 0 % (0-2) Band Neutrophils 0 % (0-8) Platelet Estimate Adequate Platelet Morphology Normal Anisocytosis 1+ Total Bilirubin 0.3 MG/DL (0.2-1.0) Aspartate Amino Transf (AST/SGOT) 22 U/L (15-37) Alanine Aminotransferase (ALT/SGPT) 7 U/L (12-78) L Alkaline Phosphatase 65 U/L (46-116) Total Protein 6.1 G/DL (6.4-8.2) L Albumin 2.2 G/DL (3.4-5.0) L Globulin 3.9 g/dL Albumin/Globulin Ratio 0.6 (1.0-2.7) L Plan Problems: (1) Cellulitis (2) Pleural effusion Assessment & Plan: s/p VATS converted to mini-thora. evacuation and tube placement doing well extubated comfortable small leak output noted okay for diet activity as tolerated CT to suction Twan Fernandez May 06, 2019 19:19
[2019-05-06] MEDS ORDERED: Metoprolol Succinate XL 25mg tab ORAL SCH ×2 (21:00)
--- NOTE | 2019-05-06 21:41 | Pulmonology Progress Note ---
Assessment/Plan Assessment/Plan Pulmonary Progress Note Patient is a 73 Years old woman noted to have a possible vertebral lesion and loculated pleural effusion. The patient states she is experiencing shortness of breath. She denies wheezing and chest tightness. Patient denies chest tightness, chest pain, cough, sputum production. Patient notes post nasal drip, nasal congestion, and sinus pressure/headache patient denies any significant work up but did have cxr with effusion noted, which prompted the work up . patient care discussed in detail. all acute issues reviewed in detail. patient medications reviewed. 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 - s/p VATS contractures debility respiratory insufficiency djd leg edema venous US and echo negative in office last week PLAN invcentive spirometry Pain management Post operaiive care likely will have poor function of the affected lung d/w patient in detail cardiology clearance ordered impression, plan, and exam edited and reviewed in detail care discussed with RN Subjective Allergies: Coded Allergies: No Known Allergies (Unverified , 10/16/16) Subjective care noted multiple d/w patient and friend awaiting VATS tomorrow Objective Vital Signs Noted Laboratory Tests Noted 05/03/19 05:50: White Blood Count 6.6, Red Blood Count 4.17L, Hemoglobin 10.7L, Hematocrit 34.3L , Mean Corpuscular Volume 82, Mean Corpuscular Hemoglobin 25.6L, Mean Corpuscular Hemoglobin Concent 31.1L, Red Cell Distribution Width 16.3H, Platelet Count 321, Mean Platelet Volume 4.9L, Neutrophils (%) (Auto) 62.8, Lymphocytes (%) (Auto) 22.2, Monocytes (%) (Auto) 8.4, Eosinophils (%) (Auto) 5.9H, Basophils (%) (Auto) 0.7, Sodium Level 142, Potassium Level 4.2, Chloride Level 107, Carbon Dioxide Level 28, Anion Gap 7, Blood Urea Nitrogen 5L, Creatinine 0.8, Estimat Glomerular Filtration Rate , Glucose Level 161H, Calcium Level 9.5 Height (Feet): 5 Weight (Pounds): 147 Objective WDWN NAD reduced breath sounds bilaterally without rhonchi or wheeze, chest tube [id number] without MRG NABS nontender no HSM no CC noted edema nonfocal contracted and kyphotic Subjective ROS Limited/Unobtainable: No Allergies: Coded Allergies: No Known Allergies (Unverified , 10/16/16) Objective Last 24 Hour Vital Signs Date Time Temp Pulse Resp B/P (MAP) Pulse Ox O2 Delivery O2 Flow Rate FiO2 05/06/19 20:47 96 112/53 05/06/19 20:32 93 17 100 Nasal Cannula 2.0 28 91 18 100 05/06/19 20:00 Nasal Cannula 2.0 Nasal Cannula 2.0 05/06/19 20:00 94 05/06/19 20:00 92 20 101/52 (68) 100 05/06/19 19:00 91 17 99/56 (70) 100 05/06/19 18:00 96 15 97/48 (64) 100 05/06/19 17:00 94 14 99/52 (68) 100 05/06/19 16:00 98.5 93 14 93/50 (64) 100 05/06/19 16:00 Nasal Cannula 2.0 Nasal Cannula 2.0 05/06/19 15:40 95 05/06/19 15:11 94 14 97 Nasal Cannula 2.0 28 05/06/19 15:02 93 17 100 Nasal Cannula 2.0 28 05/06/19 15:00 91 16 104/52 (69) 100 05/06/19 14:00 85 19 99/48 (65) 100 05/06/19 13:00 89 0 92/49 (63) 94 05/06/19 12:00 97.9 86 22 91/57 (68) 100 05/06/19 12:00 Nasal Cannula 2.0 Nasal Cannula 2.0 05/06/19 11:26 87 05/06/19 11:00 86 19 101/54 (70) 100 05/06/19 10:00 90 22 97/84 (88) 100 05/06/19 09:00 98.1 88 12 99/56 (70) 100 05/06/19 08:00 Nasal Cannula 2.0 Nasal Cannula 2.0 05/06/19 08:00 92 17 94/50 (65) 94 05/06/19 07:37 91 05/06/19 07:36 74 24 98 05/06/19 07:00 90 17 106/57 (73) 98 05/06/19 06:40 100 Nasal Cannula 3.0 32 05/06/19 06:00 77 17 108/56 (73) 100 05/06/19 05:00 85 13 127/64 (85) 100 05/06/19 04:30 100 Nasal Cannula 3.0 32 05/06/19 04:00 83 05/06/19 04:00 97.8 90 18 116/63 (80) 100 05/06/19 04:00 Nasal Cannula 3.0 Nasal Cannula 3.0 05/06/19 03:00 85 17 100/55 (70) 100 05/06/19 02:00 98 18 113/62 (79) 99 05/06/19 01:09 99 Cool Aerosol 15.0 50 05/06/19 01:05 Venturi Mask 12.0 50 05/06/19 01:00 115 23 149/73 (98) 97 05/06/19 00:00 116 05/06/19 00:00 40 05/06/19 00:00 98.2 103 13 150/72 (98) 96 05/06/19 00:00 Mechanical Ventilator Mechanical Ventilator 05/05/19 23:30 116 21 189/100 (129) 97 05/05/19 23:20 74 13 45 05/05/19 23:00 110 21 196/98 (130) 99 05/05/19 22:45 109 19 203/102 (135) 99 05/05/19 22:30 108 19 206/103 (137) 99 05/05/19 22:15 104 19 200/100 (133) 99 05/05/19 22:00 96 20 185/87 (119) 100 05/05/19 22:00 96 05/05/19 22:00 60 05/05/19 21:45 97.8 78 20 125/80 (95) 100 05/05/19 21:40 76 10 60 05/05/19 21:40 76 13 100 Mechanical Ventilator 15.0 60 Intake and Output 05/05/19 05/06/19 19:00 07:00 Intake Total 835 ml 1010 ml Output Total 1350 ml Balance 835 ml -340 ml Intake Oral 300 ml 0 ml IV Total 535 ml 1010 ml Output Urine Total 930 ml Chest Tube Drainage Total 420 ml # Voids 3 Laboratory Tests 05/05/19 22:15: White Blood Count 18.6#H, Red Blood Count 4.32, Hemoglobin 11.3L, Hematocrit 34.5L, Mean Corpuscular Volume 80, Mean Corpuscular Hemoglobin 26.2L, Mean Corpuscular Hemoglobin Concent 32.8, Red Cell Distribution Width 15.1H, Platelet Count 355, Mean Platelet Volume 4.7L, Neutrophils (%) (Auto) 90.7H, Lymphocytes (%) (Auto) 6.3L, Monocytes (%) (Auto) 2.5, Eosinophils (%) (Auto) 0.3, Basophils (%) (Auto) 0.2, Sodium Level 140, Potassium Level 3.5, Chloride Level 106, Carbon Dioxide Level 27, Anion Gap 8, Blood Urea Nitrogen 7, Creatinine 0.6, Estimat Glomerular Filtration Rate , Glucose Level 226#H, Calcium Level 8.5, Ionized Calcium (Measured) 1.09L, Phosphorus Level 3.5, Magnesium Level 1.8 05/05/19 22:20: Arterial Blood pH 7.314L, Arterial Blood Partial Pressure CO2 52.4H, Arterial Blood Partial Pressure O2 116.6H, Arterial Blood HCO3 26.0, Arterial Blood Oxygen Saturation 97.6, Arterial Blood Base Excess -0.8, Jorge Test Positive 05/06/19 05:55: White Blood Count 17.7H, Red Blood Count 3.77L, Hemoglobin 10.0L, Hematocrit 31.0L, Mean Corpuscular Volume 82, Mean Corpuscular Hemoglobin 26.4L, Mean Corpuscular Hemoglobin Concent 32.1, Red Cell Distribution Width 16.5H, Platelet Count 293, Mean Platelet Volume 5.0L, Neutrophils (%) (Auto) , Lymphocytes (%) (Auto) , Monocytes (%) (Auto) , Eosinophils (%) (Auto) , Basophils (%) (Auto) , Sodium Level 137, Potassium Level 5.1, Chloride Level 106 , Carbon Dioxide Level 26, Anion Gap 5, Blood Urea Nitrogen 8, Creatinine 0.7, Estimat Glomerular Filtration Rate , Glucose Level 209H, Calcium Level 8.1L, Ionized Calcium (Measured) 1.07L, Phosphorus Level 3.5, Magnesium Level 1.7L, Differential Total Cells Counted 100, Neutrophils % (Manual) 92H, Lymphocytes % (Manual) 3L, Monocytes % (Manual) 5, Eosinophils % (Manual) 0, Basophils % ( Manual) 0, Band Neutrophils 0, Platelet Estimate Adequate, Platelet Morphology Normal, Anisocytosis 1+, Total Bilirubin 0.3, Aspartate Amino Transf (AST/SGOT) 22, Alanine Aminotransferase (ALT/SGPT) 7L, Alkaline Phosphatase 65, Total Protein 6.1L, Albumin 2.2L, Globulin 3.9, Albumin/Globulin Ratio 0.6L 05/06/19 06:40: Arterial Blood pH 7.399, Arterial Blood Partial Pressure CO2 41.7, Arterial Blood Partial Pressure O2 139.9H, Arterial Blood HCO3 25.2, Arterial Blood Oxygen Saturation 98.2, Arterial Blood Base Excess 0.3, Jorge Test N/a Current Medications Medications (Trade) Dose Ordered Sig/Bertram Route PRN Reason Start Time Stop Time Status Last Admin Dose Admin Acetaminophen (Tylenol) 650 mg Q4H PRN ORAL Temp > 100.5 05/06/19 09:00 05/28/19 08:59 Acetaminophen (Tylenol) 650 mg Q6H PRN ORAL Mild Pain (Pain Scale 1-3) 05/06/19 08:45 06/04/19 08:44 Al Hydroxide/Mg Hydroxide (Mylanta) 30 ml Q4H PRN ORAL Abdominal cramps 05/06/19 09:00 05/28/19 12:59 Albuterol/ Ipratropium (Albuterol/ Ipratropium) 3 ml Q4HRT HHN 05/06/19 15:00 05/11/19 14:59 05/06/19 20:32 Cefazolin Sodium 2 gm/Sodium Chloride 110 ml @ 220 mls/hr Q8H IVPB 05/06/19 12:00 05/13/19 11:59 05/06/19 20:41 Diphenhydramine HCl (Benadryl) 25 mg Q8H PRN ORAL Itching 05/06/19 13:30 06/05/19 13:29 05/06/19 14:30 Ketorolac Tromethamine (Toradol 30mg) 15 mg Q6H PRN IV Moderate Pain (Pain Scale 4-6) 05/06/19 09:00 05/11/19 08:59 05/06/19 16:50 Metoprolol Succinate (Toprol XL) 25 mg BEDTIME ORAL 05/06/19 21:00 06/02/19 20:59 05/06/19 20:47 Morphine Sulfate (Morphine Sulfate) 4 mg Q4H PRN IVP Severe Pain (Pain Scale 7-10) 05/06/19 09:00 05/12/19 08:59 Venancio Haque MD May 06, 2019 21:40
[2019-05-07] VITALS (17 sets, daily range): BP systolic 93–126; BP diastolic 45–79
[2019-05-07] MEDS: Ketorolac 30mg Inj IV PRN ×3 (00:35→18:34)
[2019-05-07] MEDS: Albuterol/Ipratropium 3ml neb HHN SCH ×6 (03:00→23:00)
[2019-05-07] MEDS: ceFAZolin sod 2 GM in NS 110 ML IVPB SCH ×3 (03:40→20:17)
[2019-05-07 06:15] LABS: BASOPHILS % (AUTO) 0.4 % (0.0-2.0); EOSINOPHILS % (AUTO) 2.1 % (0.0-3.0); HEMATOCRIT 26.3 % (37.0-47.0); HEMOGLOBIN 8.4 G/DL (12.0-16.0); LYMPHOCYTES % (AUTO) 12.6 % (20.0-45.0); MEAN CORPUSCULAR VOLUME 83 FL (80-99); MONOCYTES % (AUTO) 7.3 % (1.0-10.0); NEUTROPHILS % (AUTO) 77.6 % (45.0-75.0); PLATELET COUNT 269 K/UL (150-450); RED BLOOD COUNT 3.15 M/UL (4.20-5.40); RED CELL DISTRIBUTION WIDTH 17.1 % (11.6-14.8); WHITE BLOOD COUNT 11.2 K/UL (4.8-10.8)
[2019-05-07 07:33] LABS: ALANINE AMINOTRANSFERASE 6 U/L (12-78); ALBUMIN/GLOBULIN RATIO 0.5 (1.0-2.7); ALKALINE PHOSPHATASE 66 U/L (46-116); ANION GAP 6 mmol/L (5-15); ASPARTATE AMINO TRANSFERASE 20 U/L (15-37); BILIRUBIN,TOTAL 0.3 MG/DL (0.2-1.0); BLOOD UREA NITROGEN 15 mg/dL (7-18); CALCIUM 8.2 MG/DL (8.5-10.1); CARBON DIOXIDE 26 MMOL/L (21-32); CHLORIDE 105 MMOL/L (98-107); CREATININE 0.8 MG/DL (0.55-1.30); POTASSIUM 4.9 MMOL/L (3.5-5.1); SODIUM 137 MMOL/L (136-145)
--- NOTE | 2019-05-07 08:44 | Diagnostic Imaging Report ---
EXAM: XR Chest, 1 View CLINICAL HISTORY: COUGH TECHNIQUE: Frontal view of the chest. COMPARISON: Chest x-ray 05/06/19 755 FINDINGS: Lungs: Lower lung volumes. Right lower lung opacity appears worsened. May be residual pleural air in the right lower lung. Limited evaluation of lung apices due to overlying chin. Left lung base atelectasis. Pleural space: Small right pleural effusion is slightly worsened. Similar small left pleural effusion. Heart: Cardiomegaly. Mediastinum: Unremarkable. Bones/joints: Unremarkable. Soft tissues: Slightly decreased right chest wall emphysema. Tubes, lines and devices: Right chest tube has been advanced. IMPRESSION: 1. Right chest tube has been advanced. Slightly decreased right chest wall emphysema. Limited evaluation of lung apices due to overlying chin. 2. Lower lung volumes. Right lower lung opacity appears worsened. May be residual pleural air in the right lower lung. 3. Small right pleural effusion is slightly worsened. Similar small left pleural effusion.
[2019-05-07 12:33] LABS: BASOPHILS % (AUTO) 0.5 % (0.0-2.0); EOSINOPHILS % (AUTO) 3.5 % (0.0-3.0); HEMATOCRIT 27.4 % (37.0-47.0); HEMOGLOBIN 8.8 G/DL (12.0-16.0); LYMPHOCYTES % (AUTO) 12.3 % (20.0-45.0); MEAN CORPUSCULAR VOLUME 84 FL (80-99); NEUTROPHILS % (AUTO) 76.7 % (45.0-75.0); PLATELET COUNT 269 K/UL (150-450); RED BLOOD COUNT 3.26 M/UL (4.20-5.40); RED CELL DISTRIBUTION WIDTH 17.1 % (11.6-14.8)
--- NOTE | 2019-05-07 12:39 | Surgery Progress Note ---
Surgery Progress Note Subjective Additional Comments improving cxr noted labs noted exam stable no air leak output decreased Objective Last 24 Hour Vital Signs Date Time Temp Pulse Resp B/P (MAP) Pulse Ox O2 Delivery O2 Flow Rate FiO2 05/07/19 12:00 98.1 96 19 114/58 (76) 97 05/07/19 12:00 Nasal Cannula 2.0 Nasal Cannula 2.0 05/07/19 11:28 84 23 100 Nasal Cannula 2.0 28 89 24 97 05/07/19 11:00 87 25 126/61 (82) 99 05/07/19 10:00 85 21 105/55 (72) 99 05/07/19 09:00 85 19 108/79 (89) 99 05/07/19 08:00 Nasal Cannula 2.0 Nasal Cannula 2.0 05/07/19 08:00 98.7 91 23 104/54 (71) 98 05/07/19 08:00 94 05/07/19 07:04 84 23 100 Nasal Cannula 2.0 28 80 23 100 05/07/19 07:03 100 Nasal Cannula 2.0 28 05/07/19 07:02 80 23 100 Nasal Cannula 2.0 28 05/07/19 07:00 90 23 104/64 (77) 98 05/07/19 06:00 77 20 97/59 (72) 100 05/07/19 05:00 81 25 99/55 (70) 100 05/07/19 04:00 Nasal Cannula 2.0 Nasal Cannula 2.0 05/07/19 04:00 98.4 84 21 93/49 (64) 100 05/07/19 04:00 81 05/07/19 03:00 92 22 101/55 (70) 99 05/07/19 02:00 88 17 98/56 (70) 100 05/07/19 01:00 94 21 93/45 (61) 99 05/07/19 00:06 Nasal Cannula 2.0 Nasal Cannula 2.0 05/07/19 00:05 103 05/07/19 00:00 98.5 102 28 101/52 (68) 98 05/06/19 23:32 93 17 100 Nasal Cannula 2.0 28 87 18 98 05/06/19 23:00 89 21 100/54 (69) 100 05/06/19 22:00 94 21 95/53 (67) 100 05/06/19 21:00 96 26 104/50 (68) 98 05/06/19 20:47 96 112/53 05/06/19 20:32 98 Nasal Cannula 2.0 28 05/06/19 20:32 91 18 100 Nasal Cannula 2.0 28 05/06/19 20:32 93 17 100 Nasal Cannula 2.0 28 91 18 100 05/06/19 20:00 Nasal Cannula 2.0 Nasal Cannula 2.0 05/06/19 20:00 94 05/06/19 20:00 98.0 92 20 101/52 (68) 100 05/06/19 19:00 91 17 99/56 (70) 100 05/06/19 18:00 96 15 97/48 (64) 100 05/06/19 17:00 94 14 99/52 (68) 100 05/06/19 16:00 98.5 93 14 93/50 (64) 100 05/06/19 16:00 Nasal Cannula 2.0 Nasal Cannula 2.0 05/06/19 15:40 95 05/06/19 15:11 94 14 97 Nasal Cannula 2.0 28 05/06/19 15:02 93 17 100 Nasal Cannula 2.0 28 05/06/19 15:00 91 16 104/52 (69) 100 05/06/19 14:00 85 19 99/48 (65) 100 05/06/19 13:00 89 0 92/49 (63) 94 I&O Intake and Output 05/06/19 05/07/19 19:00 07:00 Intake Total 555 ml 640 ml Output Total 250 ml 115 ml Balance 305 ml 525 ml Intake Oral 270 ml 420 ml IV Total 285 ml 220 ml Output Urine Total 120 ml 100 ml Chest Tube Drainage Total 130 ml 15 ml # Voids 1 Dressing: dry Wound: clean Drains: other Cardiovascular: RSR Respiratory: clear, decreased breath sounds Abdomen: soft, present bowel sounds, non-distended Extremities: no tenderness, no cyanosis Laboratory Tests Test 05/07/19 04:30 05/07/19 11:50 White Blood Count 11.2 K/UL (4.8-10.8) H 11.0 K/UL (4.8-10.8) H Red Blood Count 3.15 M/UL (4.20-5.40) L 3.26 M/UL (4.20-5.40) L Hemoglobin 8.4 G/DL (12.0-16.0) L 8.8 G/DL (12.0-16.0) L Hematocrit 26.3 % (37.0-47.0) L 27.4 % (37.0-47.0) L Mean Corpuscular Volume 83 FL (80-99) 84 FL (80-99) Mean Corpuscular Hemoglobin 26.7 PG (27.0-31.0) L 26.9 PG (27.0-31.0) L Mean Corpuscular Hemoglobin Concent 32.0 G/DL (32.0-36.0) 32.0 G/DL (32.0-36.0) Red Cell Distribution Width 17.1 % (11.6-14.8) H 17.1 % (11.6-14.8) H Platelet Count 269 K/UL (150-450) 269 K/UL (150-450) Mean Platelet Volume 5.3 FL (6.5-10.1) L 5.2 FL (6.5-10.1) L Neutrophils (%) (Auto) 77.6 % (45.0-75.0) H 76.7 % (45.0-75.0) H Lymphocytes (%) (Auto) 12.6 % (20.0-45.0) L 12.3 % (20.0-45.0) L Monocytes (%) (Auto) 7.3 % (1.0-10.0) 7.0 % (1.0-10.0) Eosinophils (%) (Auto) 2.1 % (0.0-3.0) 3.5 % (0.0-3.0) H Basophils (%) (Auto) 0.4 % (0.0-2.0) 0.5 % (0.0-2.0) Sodium Level 137 MMOL/L (136-145) Potassium Level 4.9 MMOL/L (3.5-5.1) Chloride Level 105 MMOL/L (98-107) Carbon Dioxide Level 26 MMOL/L (21-32) Anion Gap 6 mmol/L (5-15) Blood Urea Nitrogen 15 mg/dL (7-18) Creatinine 0.8 MG/DL (0.55-1.30) Estimat Glomerular Filtration Rate mL/min (>60) Glucose Level 111 MG/DL (74-106) H Calcium Level 8.2 MG/DL (8.5-10.1) L Total Bilirubin 0.3 MG/DL (0.2-1.0) Aspartate Amino Transf (AST/SGOT) 20 U/L (15-37) Alanine Aminotransferase (ALT/SGPT) 6 U/L (12-78) L Alkaline Phosphatase 66 U/L (46-116) Total Protein 5.8 G/DL (6.4-8.2) L Albumin 2.0 G/DL (3.4-5.0) L Globulin 3.8 g/dL Albumin/Globulin Ratio 0.5 (1.0-2.7) L Plan Problems: (1) Cellulitis (2) Pleural effusion Assessment & Plan: s/p VATS converted to mini-thora. evacuation and tube placement doing well comfortable leak resolved output decreased okay for diet activity as tolerated CT to suction downgrade repeat cbc AM cxr Twan Fernandez May 07, 2019 12:39
--- NOTE | 2019-05-07 14:14 | Pulmonology Progress Note ---
Assessment/Plan Assessment/Plan Pulmonary Progress Note Patient is a 73 Years old woman noted to have a possible vertebral lesion and loculated pleural effusion. The patient states she is experiencing shortness of breath. She denies wheezing and chest tightness. Patient denies chest tightness, chest pain, cough, sputum production. Patient notes post nasal drip, nasal congestion, and sinus pressure/headache patient denies any significant work up but did have cxr with effusion noted, which prompted the work up . patient care discussed in detail. all acute issues reviewed in detail. patient medications reviewed. 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 - s/p VATS contractures debility respiratory insufficiency djd leg edema venous US and echo negative in office last week PLAN invcentive spirometry Pain management Post operaiive care likely will have poor function of the affected lung d/w patient in detail cardiology clearance ordered impression, plan, and exam edited and reviewed in detail care discussed with RN Subjective Allergies: Coded Allergies: No Known Allergies (Unverified , 10/16/16) Subjective care noted multiple d/w patient and friend awaiting VATS tomorrow Objective Vital Signs Noted Laboratory Tests Noted 05/03/19 05:50: White Blood Count 6.6, Red Blood Count 4.17L, Hemoglobin 10.7L, Hematocrit 34.3L , Mean Corpuscular Volume 82, Mean Corpuscular Hemoglobin 25.6L, Mean Corpuscular Hemoglobin Concent 31.1L, Red Cell Distribution Width 16.3H, Platelet Count 321, Mean Platelet Volume 4.9L, Neutrophils (%) (Auto) 62.8, Lymphocytes (%) (Auto) 22.2, Monocytes (%) (Auto) 8.4, Eosinophils (%) (Auto) 5.9H, Basophils (%) (Auto) 0.7, Sodium Level 142, Potassium Level 4.2, Chloride Level 107, Carbon Dioxide Level 28, Anion Gap 7, Blood Urea Nitrogen 5L, Creatinine 0.8, Estimat Glomerular Filtration Rate , Glucose Level 161H, Calcium Level 9.5 Height (Feet): 5 Weight (Pounds): 147 Objective WDWN NAD reduced breath sounds bilaterally without rhonchi or wheeze, chest tube - no air leak noted [id number] without MRG NABS nontender no HSM no CC noted edema nonfocal contracted and kyphotic Subjective ROS Limited/Unobtainable: No Allergies: Coded Allergies: No Known Allergies (Unverified , 10/16/16) Objective Last 24 Hour Vital Signs Date Time Temp Pulse Resp B/P (MAP) Pulse Ox O2 Delivery O2 Flow Rate FiO2 05/07/19 13:00 97 15 110/62 (78) 97 05/07/19 12:00 98.1 96 19 114/58 (76) 97 05/07/19 12:00 90 05/07/19 12:00 Nasal Cannula 2.0 Nasal Cannula 2.0 05/07/19 11:28 84 23 100 Nasal Cannula 2.0 28 89 24 97 05/07/19 11:00 87 25 126/61 (82) 99 05/07/19 10:00 85 21 105/55 (72) 99 05/07/19 09:00 85 19 108/79 (89) 99 05/07/19 08:00 Nasal Cannula 2.0 Nasal Cannula 2.0 05/07/19 08:00 98.7 91 23 104/54 (71) 98 05/07/19 08:00 94 05/07/19 07:04 84 23 100 Nasal Cannula 2.0 28 80 23 100 05/07/19 07:03 100 Nasal Cannula 2.0 28 05/07/19 07:02 80 23 100 Nasal Cannula 2.0 28 05/07/19 07:00 90 23 104/64 (77) 98 05/07/19 06:00 77 20 97/59 (72) 100 05/07/19 05:00 81 25 99/55 (70) 100 05/07/19 04:00 Nasal Cannula 2.0 Nasal Cannula 2.0 05/07/19 04:00 98.4 84 21 93/49 (64) 100 05/07/19 04:00 81 05/07/19 03:00 92 22 101/55 (70) 99 05/07/19 02:00 88 17 98/56 (70) 100 05/07/19 01:00 94 21 93/45 (61) 99 05/07/19 00:06 Nasal Cannula 2.0 Nasal Cannula 2.0 05/07/19 00:05 103 05/07/19 00:00 98.5 102 28 101/52 (68) 98 05/06/19 23:32 93 17 100 Nasal Cannula 2.0 28 87 18 98 05/06/19 23:00 89 21 100/54 (69) 100 05/06/19 22:00 94 21 95/53 (67) 100 05/06/19 21:00 96 26 104/50 (68) 98 05/06/19 20:47 96 112/53 05/06/19 20:32 98 Nasal Cannula 2.0 28 05/06/19 20:32 91 18 100 Nasal Cannula 2.0 28 05/06/19 20:32 93 17 100 Nasal Cannula 2.0 28 91 18 100 05/06/19 20:00 Nasal Cannula 2.0 Nasal Cannula 2.0 05/06/19 20:00 94 05/06/19 20:00 98.0 92 20 101/52 (68) 100 05/06/19 19:00 91 17 99/56 (70) 100 05/06/19 18:00 96 15 97/48 (64) 100 05/06/19 17:00 94 14 99/52 (68) 100 05/06/19 16:00 98.5 93 14 93/50 (64) 100 05/06/19 16:00 Nasal Cannula 2.0 Nasal Cannula 2.0 05/06/19 15:40 95 05/06/19 15:11 94 14 97 Nasal Cannula 2.0 28 05/06/19 15:02 93 17 100 Nasal Cannula 2.0 28 05/06/19 15:00 91 16 104/52 (69) 100 Intake and Output 05/06/19 05/07/19 18:59 06:59 Intake Total 630 ml 640 ml Output Total 170 ml 245 ml Balance 460 ml 395 ml Intake Oral 270 ml 420 ml IV Total 360 ml 220 ml Output Urine Total 170 ml 100 ml Chest Tube Drainage Total 145 ml # Voids 1 Laboratory Tests 05/07/19 04:30: White Blood Count 11.2H, Red Blood Count 3.15L, Hemoglobin 8.4L, Hematocrit 26.3L, Mean Corpuscular Volume 83, Mean Corpuscular Hemoglobin 26.7L, Mean Corpuscular Hemoglobin Concent 32.0, Red Cell Distribution Width 17.1H, Platelet Count 269, Mean Platelet Volume 5.3L, Neutrophils (%) (Auto) 77.6H, Lymphocytes (%) (Auto) 12.6L, Monocytes (%) (Auto) 7.3, Eosinophils (%) (Auto) 2.1, Basophils (%) (Auto) 0.4, Sodium Level 137, Potassium Level 4.9, Chloride Level 105, Carbon Dioxide Level 26, Anion Gap 6, Blood Urea Nitrogen 15, Creatinine 0.8, Estimat Glomerular Filtration Rate , Glucose Level 111H, Calcium Level 8.2L, Total Bilirubin 0.3, Aspartate Amino Transf (AST/SGOT) 20, Alanine Aminotransferase (ALT/SGPT) 6L, Alkaline Phosphatase 66, Total Protein 5.8L, Albumin 2.0L, Globulin 3.8, Albumin/Globulin Ratio 0.5L 05/07/19 11:50: White Blood Count 11.0H, Red Blood Count 3.26L, Hemoglobin 8.8L, Hematocrit 27.4L, Mean Corpuscular Volume 84, Mean Corpuscular Hemoglobin 26.9L, Mean Corpuscular Hemoglobin Concent 32.0, Red Cell Distribution Width 17.1H, Platelet Count 269, Mean Platelet Volume 5.2L, Neutrophils (%) (Auto) 76.7H, Lymphocytes (%) (Auto) 12.3L, Monocytes (%) (Auto) 7.0, Eosinophils (%) (Auto) 3.5H, Basophils (%) (Auto) 0.5 Current Medications Medications (Trade) Dose Ordered Sig/Bertram Route PRN Reason Start Time Stop Time Status Last Admin Dose Admin Acetaminophen (Tylenol) 650 mg Q4H PRN ORAL Temp > 100.5 05/07/19 14:30 05/28/19 14:29 Acetaminophen (Tylenol) 650 mg Q6H PRN ORAL Mild Pain (Pain Scale 1-3) 05/07/19 14:45 06/04/19 08:44 Al Hydroxide/Mg Hydroxide (Mylanta) 30 ml Q4H PRN ORAL Abdominal cramps 05/07/19 14:30 05/28/19 14:29 Albuterol/ Ipratropium (Albuterol/ Ipratropium) 3 ml Q4HRT HHN 05/07/19 15:00 05/11/19 14:59 Cefazolin Sodium 2 gm/Sodium Chloride 110 ml @ 220 mls/hr Q8H IVPB 05/07/19 20:00 05/13/19 11:59 Diphenhydramine HCl (Benadryl) 25 mg Q8H PRN ORAL Itching 05/07/19 14:30 06/05/19 14:29 Ketorolac Tromethamine (Toradol 30mg) 15 mg Q6H PRN IV Moderate Pain (Pain Scale 4-6) 05/07/19 15:00 05/11/19 08:59 Metoprolol Succinate (Toprol XL) 25 mg BEDTIME ORAL 05/07/19 21:00 06/02/19 20:59 Morphine Sulfate (Morphine Sulfate) 4 mg Q4H PRN IVP Severe Pain (Pain Scale 7-10) 05/07/19 14:30 05/12/19 14:29 Venancio Haque MD May 07, 2019 14:14
[2019-05-07] MEDS ORDERED: Morphine Sulfate 4mg/ml Inj (IV USE ONLY) IVP PRN (14:30)
--- NOTE | 2019-05-07 14:34 | General Progress Note ---
Assessment/Plan Problem List: (1) Cellulitis ICD Codes: L03.90 - Cellulitis, unspecified SNOMED: 151346556 (2) Pleural effusion ICD Codes: J90 - Pleural effusion, not elsewhere classified SNOMED: 45609628 Status: stable, progressing Assessment/Plan: cont chest tube per surgery pain rx po if cleared by surgery ivf dvt/stress ulcer prophylaxis Subjective ROS Limited/Unobtainable: No Constitutional: Reports: malaise, weakness HEENT: Reports: no symptoms Cardiovascular: Reports: no symptoms Respiratory: Reports: cough Gastrointestinal/Abdominal: Reports: no symptoms Genitourinary: Reports: no symptoms Neurologic/Psychiatric: Reports: no symptoms Endocrine: Reports: no symptoms Hematologic/Lymphatic: Reports: no symptoms Allergies: Coded Allergies: No Known Allergies (Unverified , 10/16/16) All Systems: reviewed and negative except above Subjective no events. CT remains to suction. no leak noted. pt w/o complaints. no chest pain or sob. wants to go home. Objective Last 24 Hour Vital Signs Date Time Temp Pulse Resp B/P (MAP) Pulse Ox O2 Delivery O2 Flow Rate FiO2 05/07/19 14:00 98.9 93 17 123/51 (75) 05/07/19 13:00 97 15 110/62 (78) 97 05/07/19 12:00 98.1 96 19 114/58 (76) 97 05/07/19 12:00 90 05/07/19 12:00 Nasal Cannula 2.0 Nasal Cannula 2.0 05/07/19 11:28 84 23 100 Nasal Cannula 2.0 28 89 24 97 05/07/19 11:00 87 25 126/61 (82) 99 05/07/19 10:00 85 21 105/55 (72) 99 05/07/19 09:00 85 19 108/79 (89) 99 05/07/19 08:00 Nasal Cannula 2.0 Nasal Cannula 2.0 05/07/19 08:00 98.7 91 23 104/54 (71) 98 05/07/19 08:00 94 05/07/19 07:04 84 23 100 Nasal Cannula 2.0 28 80 23 100 05/07/19 07:03 100 Nasal Cannula 2.0 28 05/07/19 07:02 80 23 100 Nasal Cannula 2.0 28 05/07/19 07:00 90 23 104/64 (77) 98 05/07/19 06:00 77 20 97/59 (72) 100 05/07/19 05:00 81 25 99/55 (70) 100 05/07/19 04:00 Nasal Cannula 2.0 Nasal Cannula 2.0 05/07/19 04:00 98.4 84 21 93/49 (64) 100 05/07/19 04:00 81 05/07/19 03:00 92 22 101/55 (70) 99 05/07/19 02:00 88 17 98/56 (70) 100 05/07/19 01:00 94 21 93/45 (61) 99 05/07/19 00:06 Nasal Cannula 2.0 Nasal Cannula 2.0 05/07/19 00:05 103 05/07/19 00:00 98.5 102 28 101/52 (68) 98 05/06/19 23:32 93 17 100 Nasal Cannula 2.0 28 87 18 98 05/06/19 23:00 89 21 100/54 (69) 100 05/06/19 22:00 94 21 95/53 (67) 100 05/06/19 21:00 96 26 104/50 (68) 98 05/06/19 20:47 96 112/53 05/06/19 20:32 98 Nasal Cannula 2.0 28 05/06/19 20:32 91 18 100 Nasal Cannula 2.0 28 05/06/19 20:32 93 17 100 Nasal Cannula 2.0 28 91 18 100 05/06/19 20:00 Nasal Cannula 2.0 Nasal Cannula 2.0 05/06/19 20:00 94 05/06/19 20:00 98.0 92 20 101/52 (68) 100 05/06/19 19:00 91 17 99/56 (70) 100 05/06/19 18:00 96 15 97/48 (64) 100 05/06/19 17:00 94 14 99/52 (68) 100 05/06/19 16:00 98.5 93 14 93/50 (64) 100 05/06/19 16:00 Nasal Cannula 2.0 Nasal Cannula 2.0 05/06/19 15:40 95 05/06/19 15:11 94 14 97 Nasal Cannula 2.0 28 05/06/19 15:02 93 17 100 Nasal Cannula 2.0 28 05/06/19 15:00 91 16 104/52 (69) 100 Intake and Output 05/06/19 05/07/19 18:59 06:59 Intake Total 630 ml 640 ml Output Total 170 ml 245 ml Balance 460 ml 395 ml Intake Oral 270 ml 420 ml IV Total 360 ml 220 ml Output Urine Total 170 ml 100 ml Chest Tube Drainage Total 145 ml # Voids 1 Laboratory Tests 05/07/19 04:30: White Blood Count 11.2H, Red Blood Count 3.15L, Hemoglobin 8.4L, Hematocrit 26.3L, Mean Corpuscular Volume 83, Mean Corpuscular Hemoglobin 26.7L, Mean Corpuscular Hemoglobin Concent 32.0, Red Cell Distribution Width 17.1H, Platelet Count 269, Mean Platelet Volume 5.3L, Neutrophils (%) (Auto) 77.6H, Lymphocytes (%) (Auto) 12.6L, Monocytes (%) (Auto) 7.3, Eosinophils (%) (Auto) 2.1, Basophils (%) (Auto) 0.4, Sodium Level 137, Potassium Level 4.9, Chloride Level 105, Carbon Dioxide Level 26, Anion Gap 6, Blood Urea Nitrogen 15, Creatinine 0.8, Estimat Glomerular Filtration Rate , Glucose Level 111H, Calcium Level 8.2L, Total Bilirubin 0.3, Aspartate Amino Transf (AST/SGOT) 20, Alanine Aminotransferase (ALT/SGPT) 6L, Alkaline Phosphatase 66, Total Protein 5.8L, Albumin 2.0L, Globulin 3.8, Albumin/Globulin Ratio 0.5L 05/07/19 11:50: White Blood Count 11.0H, Red Blood Count 3.26L, Hemoglobin 8.8L, Hematocrit 27.4L, Mean Corpuscular Volume 84, Mean Corpuscular Hemoglobin 26.9L, Mean Corpuscular Hemoglobin Concent 32.0, Red Cell Distribution Width 17.1H, Platelet Count 269, Mean Platelet Volume 5.2L, Neutrophils (%) (Auto) 76.7H, Lymphocytes (%) (Auto) 12.3L, Monocytes (%) (Auto) 7.0, Eosinophils (%) (Auto) 3.5H, Basophils (%) (Auto) 0.5 Height (Feet): 4 Height (Inches): 11.00 Weight (Pounds): 157 General Appearance: WD/WN, alert Neck: supple Cardiovascular: regular rhythm Respiratory/Chest: chest wall non-tender, lungs clear, normal breath sounds Abdomen: normal bowel sounds, non tender, soft, no organomegaly Edema: no edema noted Arm (L), no edema noted Arm (R), no edema noted Leg (L), no edema noted Leg (R), no edema noted Pedal (L), no edema noted Pedal (R), no edema noted 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
[2019-05-07] MEDS ORDERED: LR 1000ml ONE (16:21)
[2019-05-07] MEDS ORDERED: NS 275ml ONE (16:21)
[2019-05-07] MEDS ORDERED: NS 500ML ONE (16:21)
[2019-05-07] MEDS ORDERED: Tubing IV Secondary IV ONE (16:21)
[2019-05-07] MEDS: Metoprolol Succinate XL 25mg tab ORAL SCH (20:16)
--- NOTE | 2019-05-07 23:45 | Progress Note ---
DATE: 05/06/2019 CARDIOLOGY PROGRESS NOTE SUBJECTIVE: The patient is status post VATS procedure of right lung. She was extubated today. She is presently in no respiratory distress. OBJECTIVE: VITAL SIGNS: Blood pressure 101/52, heart rate 92, respiratory rate 20. BACK: Severe kyphosis. LUNGS: Diminished breath sounds with few rhonchi. HEART: Regular rhythm and rate. Normal S1, S2 with a fourth heart sound. ABDOMEN: Soft. EXTREMITIES: No edema. LABORATORY DATA: White count 17.7, hemoglobin 10. Sodium 137, potassium 5.1, bicarb 26, BUN 8, creatinine 0.7, glucose 209, magnesium 1.7. ABG, pH 7.39, pCO2 of 41, pO2 of 140. IMPRESSION: 1. Status post VATS. 2. Status post respiratory failure. 3. Mild hypomagnesemia. 4. Severe kyphosis. 5. Aspiration risk. PLAN: 1. Respiratory hygiene. 2. Follow up results of biopsy. 3. DVT and stress ulcer prophylaxis. 4. Bronchodilators. 5. Fluid challenge for hypotensive episodes. 6. Monitor cardiorenal parameters and volume status. 7. Magnesium intravenously. 8. Follow up electrolytes. Venancio Monsivais M.D. DR: Rosendo JOB#: [id number] CC:
[2019-05-08] VITALS: BP 112/63
[2019-05-08] MEDS: Ketorolac 30mg Inj IV PRN ×2 (01:42→20:26)
--- NOTE | 2019-05-08 02:15 | Progress Note ---
DATE: 05/07/2019 CARDIOLOGY PROGRESS NOTE SUBJECTIVE: The patient remains off ventilator for 24 hours. No respiratory distress. Good reflex. Chest tube remains in place. OBJECTIVE: VITAL SIGNS: Blood pressure 123/51, pulse 93, respiratory rate 17, and afebrile. LUNGS: Diminished breath sounds. Few rhonchi. HEART: Regular rhythm and rate. Normal S1, S2. ABDOMEN: Soft. No edema. Severe kyphosis. LABORATORY AND DIAGNOSTIC DATA: White count 11, hemoglobin 8.8. Sodium 137, potassium 4.9, bicarb 26, BUN 15, creatinine 0.9. Albumin is 2. Chest x-ray today reviewed and notable for a chest tube in place. Right lower lung opacity and small bilateral pleural effusion. IMPRESSION: 1. Status post VATS. 2. Possible residual pneumonia in the right lung. 3. Aspiration risk. 4. Kyphosis. 5. Chest tube. 6. Hypertension. 7. Diastolic dysfunction with chronic congestive heart failure. PLAN: 1. Antimicrobials. 2. Respiratory hygiene. 3. DVT and stress ulcer prophylaxis. 4. Chest tube management. 5. Maintenance hydration. 6. Monitor electrolytes. 7. Protein supplement. 8. Volume support for hypotensive episodes as needed. Venancio Monsivais M.D. : BREN JOB#: [id number] CC:
[2019-05-08] MEDS: Albuterol/Ipratropium 3ml neb HHN SCH ×6 (02:38→23:00)
[2019-05-08 04:00] VITALS: BP 108/65
[2019-05-08] MEDS: ceFAZolin sod 2 GM in NS 110 ML IVPB SCH ×3 (04:13→20:25)
[2019-05-08 07:49] LABS: BASOPHILS % (AUTO) 0.3 % (0.0-2.0); EOSINOPHILS % (AUTO) 6.9 % (0.0-3.0); HEMATOCRIT 28.1 % (37.0-47.0); HEMOGLOBIN 8.8 G/DL (12.0-16.0); LYMPHOCYTES % (AUTO) 14.5 % (20.0-45.0); MEAN CORPUSCULAR VOLUME 84 FL (80-99); MONOCYTES % (AUTO) 7.6 % (1.0-10.0); NEUTROPHILS % (AUTO) 70.7 % (45.0-75.0); PLATELET COUNT 271 K/UL (150-450); RED BLOOD COUNT 3.34 M/UL (4.20-5.40); RED CELL DISTRIBUTION WIDTH 16.9 % (11.6-14.8); WHITE BLOOD COUNT 9.3 K/UL (4.8-10.8)
--- NOTE | 2019-05-08 07:51 | General Progress Note ---
Assessment/Plan Problem List: (1) Cellulitis ICD Codes: L03.90 - Cellulitis, unspecified SNOMED: 910499088 (2) Pleural effusion ICD Codes: J90 - Pleural effusion, not elsewhere classified SNOMED: [id number] Status: stable, progressing Assessment/Plan: cont chest tube per surgery pain rx po if cleared by surgery dvt/stress ulcer prophylaxis follow up labs Subjective ROS Limited/Unobtainable: No Constitutional: Reports: weakness HEENT: Reports: no symptoms Cardiovascular: Reports: no symptoms Respiratory: Reports: cough Genitourinary: Reports: no symptoms Neurologic/Psychiatric: Reports: no symptoms Endocrine: Reports: no symptoms Hematologic/Lymphatic: Reports: anemia Allergies: Coded Allergies: No Known Allergies (Unverified , 10/16/16) All Systems: reviewed and negative except above Subjective out of the icu. still with ct to suction. no sob Objective Last 24 Hour Vital Signs Date Time Temp Pulse Resp B/P (MAP) Pulse Ox O2 Delivery O2 Flow Rate FiO2 05/08/19 04:00 98.6 78 18 108/65 (79) 95 05/08/19 02:38 Room Air 21 05/08/19 00:00 99.2 81 18 112/63 (79) 96 05/07/19 23:28 Room Air 21 05/07/19 21:00 Room Air Room Air 05/07/19 20:16 95 121/60 05/07/19 20:00 Room Air 21 05/07/19 20:00 99.9 95 17 121/60 (80) 95 05/07/19 20:00 95 Room Air 21 05/07/19 16:00 98.1 90 17 118/54 (75) 99 05/07/19 16:00 98.0 90 17 118/54 (75) 99 05/07/19 15:36 84 23 100 Nasal Cannula 2.0 28 92 20 97 05/07/19 14:00 98.9 93 17 123/51 (75) 05/07/19 13:45 Nasal Cannula 2.0 Nasal Cannula 2.0 05/07/19 13:00 97 15 110/62 (78) 97 05/07/19 12:00 98.1 96 19 114/58 (76) 97 05/07/19 12:00 90 05/07/19 12:00 Nasal Cannula 2.0 Nasal Cannula 2.0 05/07/19 11:28 84 23 100 Nasal Cannula 2.0 28 89 24 97 05/07/19 11:00 87 25 126/61 (82) 99 05/07/19 10:00 85 21 105/55 (72) 99 05/07/19 09:00 85 19 108/79 (89) 99 05/07/19 08:00 Nasal Cannula 2.0 Nasal Cannula 2.0 05/07/19 08:00 98.7 91 23 104/54 (71) 98 05/07/19 08:00 94 Intake and Output 05/07/19 05/08/19 19:00 07:00 Intake Total 870 ml 600 ml Output Total 325 ml Balance 545 ml 600 ml Intake Oral 720 ml 600 ml IV Total 110 ml Other 40 ml Output Urine Total 300 ml Chest Tube Drainage Total 25 ml # Voids 2 1 Laboratory Tests 05/07/19 11:50: White Blood Count 11.0H, Red Blood Count 3.26L, Hemoglobin 8.8L, Hematocrit 27.4L, Mean Corpuscular Volume 84, Mean Corpuscular Hemoglobin 26.9L, Mean Corpuscular Hemoglobin Concent 32.0, Red Cell Distribution Width 17.1H, Platelet Count 269, Mean Platelet Volume 5.2L, Neutrophils (%) (Auto) 76.7H, Lymphocytes (%) (Auto) 12.3L, Monocytes (%) (Auto) 7.0, Eosinophils (%) (Auto) 3.5H, Basophils (%) (Auto) 0.5 05/08/19 07:22: White Blood Count [Pending], Red Blood Count [Pending], Hemoglobin [Pending], Hematocrit [Pending], Mean Corpuscular Volume [Pending], Mean Corpuscular Hemoglobin [Pending], Mean Corpuscular Hemoglobin Concent [Pending], Red Cell Distribution Width [Pending], Platelet Count [Pending], Mean Platelet Volume [ Pending], Neutrophils (%) (Auto) [Pending], Lymphocytes (%) (Auto) [Pending], Monocytes (%) (Auto) [Pending], Eosinophils (%) (Auto) [Pending], Basophils (%) (Auto) [Pending], Sodium Level [Pending], Potassium Level [Pending], Chloride Level [Pending], Carbon Dioxide Level [Pending], Blood Urea Nitrogen [Pending], Creatinine [Pending], Estimat Glomerular Filtration Rate [Pending], Glucose Level [Pending], Calcium Level [Pending], Phosphorus Level [Pending], Magnesium Level [Pending], Pro-B-Type Natriuretic Peptide [Pending] Height (Feet): 4 Height (Inches): 11.00 Weight (Pounds): 157 Objective General Appearance: WD/WN, alert Neck: supple Cardiovascular: regular rhythm Respiratory/Chest: chest wall non-tender, lungs clear, normal breath sounds Abdomen: normal bowel sounds, non tender, soft, no organomegaly Edema: no edema noted Arm (L), no edema noted Arm (R), no edema noted Leg (L), no edema noted Leg (R), no edema noted Pedal (L), no edema noted Pedal (R), no edema noted 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
[2019-05-08 08:02] VITALS: BP 126/78
[2019-05-08 08:59] LABS: ANION GAP 8 mmol/L (5-15); BLOOD UREA NITROGEN 14 mg/dL (7-18); CALCIUM 8.4 MG/DL (8.5-10.1); CARBON DIOXIDE 26 MMOL/L (21-32); CHLORIDE 105 MMOL/L (98-107); CREATININE 0.6 MG/DL (0.55-1.30); POTASSIUM 4.6 MMOL/L (3.5-5.1); SODIUM 138 MMOL/L (136-145)
--- NOTE | 2019-05-08 09:47 | Diagnostic Imaging Report ---
EXAM: XR Chest, 1 View CLINICAL HISTORY: COUGH TECHNIQUE: Frontal view of the chest. COMPARISON: Chest x-ray 05/07/19 759 FINDINGS: Lungs: Right chest tube. Right lower lung opacity may be combination of atelectasis/consolidation and airspace disease as well pleural effusion likely similar to prior study, given difference in technique. May be small right pleural air. Similar left lung base atelectasis and probable small pleural effusion. Pleural space: See findings above. Heart: Unremarkable. No cardiomegaly. Mediastinum: Unremarkable. Bones/joints: Unremarkable. Soft tissues: Right chest wall emphysema again noted. IMPRESSION: Likely no significant interval change given differences in technique.
[2019-05-08 09:58] LABS: PHOSPHORUS 2.9 MG/DL (2.5-4.9)
[2019-05-08 12:00] VITALS: BP 131/83
--- NOTE | 2019-05-08 12:05 | Pulmonology Progress Note ---
Assessment/Plan Assessment/Plan Pulmonary Progress Note Patient is a 73 Years old woman noted to have a possible vertebral lesion and loculated pleural effusion. The patient states she is experiencing shortness of breath. She denies wheezing and chest tightness. Patient denies chest tightness, chest pain, cough, sputum production. Patient notes post nasal drip, nasal congestion, and sinus pressure/headache patient denies any significant work up but did have cxr with effusion noted, which prompted the work up . patient care discussed in detail. all acute issues reviewed in detail. patient medications reviewed. 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 - s/p VATS contractures debility respiratory insufficiency djd leg edema venous US and echo negative in office last week PLAN invcentive spirometry Pain management Post operaiive care likely will have poor function of the affected lung d/w patient in detail cardiology clearance ordered impression, plan, and exam edited and reviewed in detail care discussed with RN Subjective Allergies: Coded Allergies: No Known Allergies (Unverified , 10/16/16) Subjective care noted multiple d/w patient and friend awaiting VATS tomorrow Objective Vital Signs Noted Laboratory Tests Noted 05/03/19 05:50: White Blood Count 6.6, Red Blood Count 4.17L, Hemoglobin 10.7L, Hematocrit 34.3L , Mean Corpuscular Volume 82, Mean Corpuscular Hemoglobin 25.6L, Mean Corpuscular Hemoglobin Concent 31.1L, Red Cell Distribution Width 16.3H, Platelet Count 321, Mean Platelet Volume 4.9L, Neutrophils (%) (Auto) 62.8, Lymphocytes (%) (Auto) 22.2, Monocytes (%) (Auto) 8.4, Eosinophils (%) (Auto) 5.9H, Basophils (%) (Auto) 0.7, Sodium Level 142, Potassium Level 4.2, Chloride Level 107, Carbon Dioxide Level 28, Anion Gap 7, Blood Urea Nitrogen 5L, Creatinine 0.8, Estimat Glomerular Filtration Rate , Glucose Level 161H, Calcium Level 9.5 Height (Feet): 5 Weight (Pounds): 147 Objective WDWN NAD reduced breath sounds bilaterally without rhonchi or wheeze, chest tube - no air leak noted [id number] without MRG NABS nontender no HSM no CC noted edema nonfocal contracted and kyphotic Subjective ROS Limited/Unobtainable: No Allergies: Coded Allergies: No Known Allergies (Unverified , 10/16/16) Objective Last 24 Hour Vital Signs Date Time Temp Pulse Resp B/P (MAP) Pulse Ox O2 Delivery O2 Flow Rate FiO2 05/08/19 11:33 85 21 100 Room Air 21 82 21 95 05/08/19 09:21 Nasal Cannula 2.0 Nasal Cannula 2.0 05/08/19 08:02 97.8 87 16 126/78 (94) 95 05/08/19 07:41 82 24 100 Room Air 21 80 23 96 05/08/19 07:41 96 Room Air 21 05/08/19 04:00 98.6 78 18 108/65 (79) 95 05/08/19 02:38 Room Air 21 05/08/19 00:00 99.2 81 18 112/63 (79) 96 05/07/19 23:28 Room Air 21 05/07/19 21:00 Room Air Room Air 05/07/19 20:16 95 121/60 05/07/19 20:00 Room Air 21 05/07/19 20:00 99.9 95 17 121/60 (80) 95 05/07/19 20:00 95 Room Air 21 05/07/19 16:00 98.1 90 17 118/54 (75) 99 05/07/19 16:00 98.0 90 17 118/54 (75) 99 05/07/19 15:36 84 23 100 Nasal Cannula 2.0 28 92 20 97 05/07/19 14:00 98.9 93 17 123/51 (75) 05/07/19 13:45 Nasal Cannula 2.0 Nasal Cannula 2.0 05/07/19 13:00 97 15 110/62 (78) 97 Intake and Output 05/07/19 05/08/19 19:00 07:00 Intake Total 870 ml 600 ml Output Total 325 ml Balance 545 ml 600 ml Intake Oral 720 ml 600 ml IV Total 110 ml Other 40 ml Output Urine Total 300 ml Chest Tube Drainage Total 25 ml # Voids 2 1 Laboratory Tests 05/08/19 07:22: White Blood Count 9.3, Red Blood Count 3.34L, Hemoglobin 8.8L, Hematocrit 28.1L , Mean Corpuscular Volume 84, Mean Corpuscular Hemoglobin 26.3L, Mean Corpuscular Hemoglobin Concent 31.4L, Red Cell Distribution Width 16.9H, Platelet Count 271, Mean Platelet Volume 5.2L, Neutrophils (%) (Auto) 70.7, Lymphocytes (%) (Auto) 14.5L, Monocytes (%) (Auto) 7.6, Eosinophils (%) (Auto) 6.9H, Basophils (%) (Auto) 0.3, Sodium Level 138, Potassium Level 4.6, Chloride Level 105, Carbon Dioxide Level 26, Anion Gap 8, Blood Urea Nitrogen 14, Creatinine 0.6, Estimat Glomerular Filtration Rate , Glucose Level 94, Calcium Level 8.4L, Phosphorus Level 2.9, Magnesium Level 2.2, Pro-B-Type Natriuretic Peptide 354H Current Medications Medications (Trade) Dose Ordered Sig/Bertram Route PRN Reason Start Time Stop Time Status Last Admin Dose Admin Acetaminophen (Tylenol) 650 mg Q4H PRN ORAL Temp > 100.5 05/07/19 14:30 05/28/19 14:29 Acetaminophen (Tylenol) 650 mg Q6H PRN ORAL Mild Pain (Pain Scale 1-3) 05/07/19 14:45 06/04/19 08:44 Al Hydroxide/Mg Hydroxide (Mylanta) 30 ml Q4H PRN ORAL Abdominal cramps 05/07/19 14:30 05/28/19 14:29 Albuterol/ Ipratropium (Albuterol/ Ipratropium) 3 ml Q4HRT HHN 05/07/19 15:00 05/11/19 14:59 05/08/19 11:23 Cefazolin Sodium 2 gm/Sodium Chloride 110 ml @ 220 mls/hr Q8H IVPB 05/07/19 20:00 05/13/19 11:59 05/08/19 04:13 Diphenhydramine HCl (Benadryl) 25 mg Q8H PRN ORAL Itching 05/07/19 14:30 06/05/19 14:29 05/07/19 15:19 Ketorolac Tromethamine (Toradol 30mg) 15 mg Q6H PRN IV Moderate Pain (Pain Scale 4-6) 05/07/19 15:00 05/11/19 08:59 05/08/19 01:42 Metoprolol Succinate (Toprol XL) 25 mg BEDTIME ORAL 05/07/19 21:00 06/02/19 20:59 05/07/19 20:16 Morphine Sulfate (Morphine Sulfate) 4 mg Q4H PRN IVP Severe Pain (Pain Scale 7-10) 05/07/19 14:30 05/12/19 14:29 Venancio Haque MD May 08, 2019 12:05
--- NOTE | 2019-05-08 12:28 | Infectious Diseases Prog Note ---
Assessment/Plan Assessment/Plan IMPRESSION: Empyema cultures: MSSA Anemia, Osteoarthritis, Kyphosis, History of breast cancer. S/p VATs & Decortication RECOMMENDATION: Continue Ancef Subjective ROS Limited/Unobtainable: Yes Constitutional: Reports: no symptoms, other - doing better Respiratory: Reports: no symptoms Gastrointestinal/Abdominal: Reports: no symptoms Genitourinary: Reports: no symptoms Allergies: Coded Allergies: No Known Allergies (Unverified , 10/16/16) Objective Vital Signs Last 24 Hour Vital Signs Date Time Temp Pulse Resp B/P (MAP) Pulse Ox O2 Delivery O2 Flow Rate FiO2 05/08/19 11:33 85 21 100 Room Air 21 82 21 95 05/08/19 09:21 Nasal Cannula 2.0 Nasal Cannula 2.0 05/08/19 08:02 97.8 87 16 126/78 (94) 95 05/08/19 07:41 82 24 100 Room Air 21 80 23 96 05/08/19 07:41 96 Room Air 21 05/08/19 04:00 98.6 78 18 108/65 (79) 95 05/08/19 02:38 Room Air 21 05/08/19 00:00 99.2 81 18 112/63 (79) 96 05/07/19 23:28 Room Air 21 05/07/19 21:00 Room Air Room Air 05/07/19 20:16 95 121/60 05/07/19 20:00 Room Air 21 05/07/19 20:00 99.9 95 17 121/60 (80) 95 05/07/19 20:00 95 Room Air 21 05/07/19 16:00 98.1 90 17 118/54 (75) 99 05/07/19 16:00 98.0 90 17 118/54 (75) 99 05/07/19 15:36 84 23 100 Nasal Cannula 2.0 28 92 20 97 05/07/19 14:00 98.9 93 17 123/51 (75) 05/07/19 13:45 Nasal Cannula 2.0 Nasal Cannula 2.0 05/07/19 13:00 97 15 110/62 (78) 97 Height (Feet): 4 Height (Inches): 11.00 Weight (Pounds): 157 General Appearance: no acute distress HEENT: mucous membranes moist Respiratory/Chest: decreased breath sounds, other - in right side Abdomen: soft, non tender Extremities: no edema Neurologic/Psychiatric: alert, responsive Musculoskeletal: atrophy Laboratory Tests Test 05/08/19 07:22 White Blood Count 9.3 K/UL (4.8-10.8) Red Blood Count 3.34 M/UL (4.20-5.40) L Hemoglobin 8.8 G/DL (12.0-16.0) L Hematocrit 28.1 % (37.0-47.0) L Mean Corpuscular Volume 84 FL (80-99) Mean Corpuscular Hemoglobin 26.3 PG (27.0-31.0) L Mean Corpuscular Hemoglobin Concent 31.4 G/DL (32.0-36.0) L Red Cell Distribution Width 16.9 % (11.6-14.8) H Platelet Count 271 K/UL (150-450) Mean Platelet Volume 5.2 FL (6.5-10.1) L Neutrophils (%) (Auto) 70.7 % (45.0-75.0) Lymphocytes (%) (Auto) 14.5 % (20.0-45.0) L Monocytes (%) (Auto) 7.6 % (1.0-10.0) Eosinophils (%) (Auto) 6.9 % (0.0-3.0) H Basophils (%) (Auto) 0.3 % (0.0-2.0) Sodium Level 138 MMOL/L (136-145) Potassium Level 4.6 MMOL/L (3.5-5.1) Chloride Level 105 MMOL/L (98-107) Carbon Dioxide Level 26 MMOL/L (21-32) Anion Gap 8 mmol/L (5-15) Blood Urea Nitrogen 14 mg/dL (7-18) Creatinine 0.6 MG/DL (0.55-1.30) Estimat Glomerular Filtration Rate mL/min (>60) Glucose Level 94 MG/DL (74-106) Calcium Level 8.4 MG/DL (8.5-10.1) L Phosphorus Level 2.9 MG/DL (2.5-4.9) Magnesium Level 2.2 MG/DL (1.8-2.4) Pro-B-Type Natriuretic Peptide 354 pg/mL (0-125) H Current Medications Medications (Trade) Dose Ordered Sig/Bertram Route PRN Reason Start Time Stop Time Status Last Admin Dose Admin Acetaminophen (Tylenol) 650 mg Q4H PRN ORAL Temp > 100.5 05/07/19 14:30 05/28/19 14:29 Acetaminophen (Tylenol) 650 mg Q6H PRN ORAL Mild Pain (Pain Scale 1-3) 05/07/19 14:45 06/04/19 08:44 Al Hydroxide/Mg Hydroxide (Mylanta) 30 ml Q4H PRN ORAL Abdominal cramps 05/07/19 14:30 05/28/19 14:29 Albuterol/ Ipratropium (Albuterol/ Ipratropium) 3 ml Q4HRT HHN 05/07/19 15:00 05/11/19 14:59 05/08/19 11:23 Cefazolin Sodium 2 gm/Sodium Chloride 110 ml @ 220 mls/hr Q8H IVPB 05/07/19 20:00 05/13/19 11:59 05/08/19 12:08 Diphenhydramine HCl (Benadryl) 25 mg Q8H PRN ORAL Itching 05/07/19 14:30 06/05/19 14:29 05/07/19 15:19 Ketorolac Tromethamine (Toradol 30mg) 15 mg Q6H PRN IV Moderate Pain (Pain Scale 4-6) 05/07/19 15:00 05/11/19 08:59 05/08/19 01:42 Metoprolol Succinate (Toprol XL) 25 mg BEDTIME ORAL 05/07/19 21:00 06/02/19 20:59 05/07/19 20:16 Morphine Sulfate (Morphine Sulfate) 4 mg Q4H PRN IVP Severe Pain (Pain Scale 7-10) 05/07/19 14:30 05/12/19 14:29 Carloz Voss MD May 08, 2019 12:28
[2019-05-08] MEDS ORDERED: Docusate 100mg cap ORAL PRN (13:00)
[2019-05-08] MEDS: Docusate 100mg cap ORAL SCH ×2 (13:13→17:27)
--- NOTE | 2019-05-08 13:17 | Cardiology Report ---
APPROVED REPORT EKG Measurement Heart [id number] Normal sinus rhythm Incomplete right bundle branch block Inferior infarct, age undetermined Anterolateral infarct, age undetermined Abnormal ECG
[2019-05-08] MEDS ORDERED: Docusate 100mg cap ORAL SCH (13:30)
--- NOTE | 2019-05-08 14:01 | Surgery Progress Note ---
Surgery Progress Note Subjective Additional Comments no acute events comfortable no leak drainage improved cxr okay labs improved h/h stable Objective Last 24 Hour Vital Signs Date Time Temp Pulse Resp B/P (MAP) Pulse Ox O2 Delivery O2 Flow Rate FiO2 05/08/19 12:00 98.5 91 16 131/83 (99) 96 05/08/19 11:33 85 21 100 Room Air 21 82 21 95 05/08/19 09:21 Nasal Cannula 2.0 Nasal Cannula 2.0 05/08/19 08:02 97.8 87 16 126/78 (94) 95 05/08/19 07:41 82 24 100 Room Air 21 80 23 96 05/08/19 07:41 96 Room Air 21 05/08/19 04:00 98.6 78 18 108/65 (79) 95 05/08/19 02:38 Room Air 21 05/08/19 00:00 99.2 81 18 112/63 (79) 96 05/07/19 23:28 Room Air 21 05/07/19 21:00 Room Air Room Air 05/07/19 20:16 95 121/60 05/07/19 20:00 Room Air 21 05/07/19 20:00 99.9 95 17 121/60 (80) 95 05/07/19 20:00 95 Room Air 21 05/07/19 16:00 98.1 90 17 118/54 (75) 99 05/07/19 16:00 98.0 90 17 118/54 (75) 99 05/07/19 15:36 84 23 100 Nasal Cannula 2.0 28 92 20 97 05/07/19 14:00 98.9 93 17 123/51 (75) I&O Intake and Output 05/07/19 05/08/19 19:00 07:00 Intake Total 870 ml 600 ml Output Total 325 ml Balance 545 ml 600 ml Intake Oral 720 ml 600 ml IV Total 110 ml Other 40 ml Output Urine Total 300 ml Chest Tube Drainage Total 25 ml # Voids 2 1 Dressing: dry Wound: clean Cardiovascular: RSR Respiratory: clear Abdomen: soft, non-tender, present bowel sounds, non-distended Extremities: no cyanosis, other Laboratory Tests Test 05/08/19 07:22 White Blood Count 9.3 K/UL (4.8-10.8) Red Blood Count 3.34 M/UL (4.20-5.40) L Hemoglobin 8.8 G/DL (12.0-16.0) L Hematocrit 28.1 % (37.0-47.0) L Mean Corpuscular Volume 84 FL (80-99) Mean Corpuscular Hemoglobin 26.3 PG (27.0-31.0) L Mean Corpuscular Hemoglobin Concent 31.4 G/DL (32.0-36.0) L Red Cell Distribution Width 16.9 % (11.6-14.8) H Platelet Count 271 K/UL (150-450) Mean Platelet Volume 5.2 FL (6.5-10.1) L Neutrophils (%) (Auto) 70.7 % (45.0-75.0) Lymphocytes (%) (Auto) 14.5 % (20.0-45.0) L Monocytes (%) (Auto) 7.6 % (1.0-10.0) Eosinophils (%) (Auto) 6.9 % (0.0-3.0) H Basophils (%) (Auto) 0.3 % (0.0-2.0) Sodium Level 138 MMOL/L (136-145) Potassium Level 4.6 MMOL/L (3.5-5.1) Chloride Level 105 MMOL/L (98-107) Carbon Dioxide Level 26 MMOL/L (21-32) Anion Gap 8 mmol/L (5-15) Blood Urea Nitrogen 14 mg/dL (7-18) Creatinine 0.6 MG/DL (0.55-1.30) Estimat Glomerular Filtration Rate mL/min (>60) Glucose Level 94 MG/DL (74-106) Calcium Level 8.4 MG/DL (8.5-10.1) L Phosphorus Level 2.9 MG/DL (2.5-4.9) Magnesium Level 2.2 MG/DL (1.8-2.4) Pro-B-Type Natriuretic Peptide 354 pg/mL (0-125) H Plan Problems: (1) Cellulitis (2) Pleural effusion Assessment & Plan: s/p VATS converted to mini-thora. evacuation and tube placement doing well comfortable leak resolved output decreased diet as tolerated activity as tolerated CT to suction AM labs AM cxr Twan Fernandez May 08, 2019 14:01
[2019-05-08 16:02] VITALS: BP 129/77
[2019-05-08] MEDS ORDERED: Tubing IV Secondary IV ONE (16:03)
[2019-05-08 20:00] VITALS: BP 137/80
[2019-05-08] MEDS: Metoprolol Succinate XL 25mg tab ORAL SCH (20:25)
[2019-05-09] VITALS: BP 134/83
[2019-05-09] MEDS: Albuterol/Ipratropium 3ml neb HHN SCH ×6 (03:00→22:32)
[2019-05-09] MEDS: ceFAZolin sod 2 GM in NS 110 ML IVPB SCH ×3 (03:08→21:28)
[2019-05-09 04:00] VITALS: BP 142/83
[2019-05-09 05:24] LABS: BASOPHILS % (AUTO) 0.6 % (0.0-2.0); EOSINOPHILS % (AUTO) 7.4 % (0.0-3.0); HEMATOCRIT 26.2 % (37.0-47.0); HEMOGLOBIN 8.3 G/DL (12.0-16.0); LYMPHOCYTES % (AUTO) 15.9 % (20.0-45.0); MEAN CORPUSCULAR VOLUME 84 FL (80-99); PLATELET COUNT 254 K/UL (150-450); RED BLOOD COUNT 3.11 M/UL (4.20-5.40); RED CELL DISTRIBUTION WIDTH 16.9 % (11.6-14.8); WHITE BLOOD COUNT 6.6 K/UL (4.8-10.8)
[2019-05-09 05:31] LABS: ANION GAP 7 mmol/L (5-15); BLOOD UREA NITROGEN 9 mg/dL (7-18); CALCIUM 8.5 MG/DL (8.5-10.1); CARBON DIOXIDE 26 MMOL/L (21-32); CHLORIDE 106 MMOL/L (98-107); CREATININE 0.6 MG/DL (0.55-1.30); POTASSIUM 4.2 MMOL/L (3.5-5.1); SODIUM 139 MMOL/L (136-145)
[2019-05-09 08:00] VITALS: BP 146/81
--- NOTE | 2019-05-09 08:31 | General Progress Note ---
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 respiratory insufficiency djd leg edema venous US and echo negative in office last week PLAN CT per thoracic ID follow up monitor for change follow up imaging monitor for leak will need close follow up assess for home dc once cleared d/w patient in detail impression, plan, and exam edited and reviewed in detail care discussed with RN Subjective Allergies: Coded Allergies: No Known Allergies (Unverified , 10/16/16) Subjective care noted s/p decortication surgery appreciated Objective Last 24 Hour Vital Signs Date Time Temp Pulse Resp B/P (MAP) Pulse Ox O2 Delivery O2 Flow Rate FiO2 05/09/19 07:54 90 20 99 Room Air 21 86 20 95 05/09/19 07:54 95 Room Air 21 05/09/19 04:00 98.5 100 18 142/83 (102) 96 05/09/19 03:17 Room Air 21 05/09/19 00:00 98.2 98 18 134/83 (100) 96 05/08/19 23:23 Room Air 21 05/08/19 21:00 Nasal Cannula 2.0 Nasal Cannula 2.0 05/08/19 20:25 102 137/80 05/08/19 20:00 98.4 102 19 137/80 (99) 96 05/08/19 19:25 95 Room Air 21 05/08/19 19:23 90 18 99 Room Air 21 92 18 95 05/08/19 16:02 98.1 83 17 129/77 (94) 96 05/08/19 15:23 86 19 99 Room Air 21 87 18 96 05/08/19 12:00 98.5 91 16 131/83 (99) 96 05/08/19 11:33 85 21 100 Room Air 21 82 21 95 05/08/19 09:21 Nasal Cannula 2.0 Nasal Cannula 2.0 Intake and Output 05/08/19 05/09/19 19:00 07:00 Intake Total 1710 ml Output Total 550 ml Balance 1160 ml Intake Oral 1600 ml IV Total 110 ml Output Urine Total 500 ml Chest Tube Drainage Total 50 ml # Voids 3 # Bowel Movements 1 1 Laboratory Tests 05/09/19 04:15: White Blood Count 6.6, Red Blood Count 3.11L, Hemoglobin 8.3L, Hematocrit 26.2L , Mean Corpuscular Volume 84, Mean Corpuscular Hemoglobin 26.7L, Mean Corpuscular Hemoglobin Concent 31.6L, Red Cell Distribution Width 16.9H, Platelet Count 254, Mean Platelet Volume 5.2L, Neutrophils (%) (Auto) 67.0, Lymphocytes (%) (Auto) 15.9L, Monocytes (%) (Auto) 9.0, Eosinophils (%) (Auto) 7.4H, Basophils (%) (Auto) 0.6, Sodium Level 139, Potassium Level 4.2, Chloride Level 106, Carbon Dioxide Level 26, Anion Gap 7, Blood Urea Nitrogen 9, Creatinine 0.6, Estimat Glomerular Filtration Rate , Glucose Level 121H, Calcium Level 8.5 Height (Feet): 4 Height (Inches): 11.00 Weight (Pounds): 158 Objective WDWN NAD reduced breath sounds bilaterally without rhonchi or wheeze; CT in place [id number] without MRG NABS nontender no HSM no CC noted edema nonfocal contracted and kyphotic alert and anxious Celestino Cota MD May 09, 2019 08:31
--- NOTE | 2019-05-09 08:39 | Consultation ---
History of Present Illness General Date patient seen: May 09, 2019 Present Illness Allergies: Coded Allergies: No Known Allergies (Unverified , 10/16/16) Medication History Scheduled No Known Medications* (NKM - No Known Medications*), 0 ., (Reported) Patient History Healthcare decision maker Resuscitation status Advanced Directive on File Physical Exam Last 24 Hour Vital Signs Date Time Temp Pulse Resp B/P (MAP) Pulse Ox O2 Delivery O2 Flow Rate FiO2 05/09/19 07:54 90 20 99 Room Air 21 86 20 95 05/09/19 07:54 95 Room Air 21 05/09/19 04:00 98.5 100 18 142/83 (102) 96 05/09/19 03:17 Room Air 21 05/09/19 00:00 98.2 98 18 134/83 (100) 96 05/08/19 23:23 Room Air 21 05/08/19 21:00 Nasal Cannula 2.0 Nasal Cannula 2.0 05/08/19 20:25 102 137/80 05/08/19 20:00 98.4 102 19 137/80 (99) 96 05/08/19 19:25 95 Room Air 21 05/08/19 19:23 90 18 99 Room Air 21 92 18 95 05/08/19 16:02 98.1 83 17 129/77 (94) 96 05/08/19 15:23 86 19 99 Room Air 21 87 18 96 05/08/19 12:00 98.5 91 16 131/83 (99) 96 05/08/19 11:33 85 21 100 Room Air 21 82 21 95 05/08/19 09:21 Nasal Cannula 2.0 Nasal Cannula 2.0 Intake and Output 05/08/19 05/09/19 19:00 07:00 Intake Total 1710 ml Output Total 550 ml Balance 1160 ml Intake Oral 1600 ml IV Total 110 ml Output Urine Total 500 ml Chest Tube Drainage Total 50 ml # Voids 3 # Bowel Movements 1 1 Laboratory Tests Test 05/09/19 04:15 White Blood Count 6.6 K/UL (4.8-10.8) Red Blood Count 3.11 M/UL (4.20-5.40) L Hemoglobin 8.3 G/DL (12.0-16.0) L Hematocrit 26.2 % (37.0-47.0) L Mean Corpuscular Volume 84 FL (80-99) Mean Corpuscular Hemoglobin 26.7 PG (27.0-31.0) L Mean Corpuscular Hemoglobin Concent 31.6 G/DL (32.0-36.0) L Red Cell Distribution Width 16.9 % (11.6-14.8) H Platelet Count 254 K/UL (150-450) Mean Platelet Volume 5.2 FL (6.5-10.1) L Neutrophils (%) (Auto) 67.0 % (45.0-75.0) Lymphocytes (%) (Auto) 15.9 % (20.0-45.0) L Monocytes (%) (Auto) 9.0 % (1.0-10.0) Eosinophils (%) (Auto) 7.4 % (0.0-3.0) H Basophils (%) (Auto) 0.6 % (0.0-2.0) Sodium Level 139 MMOL/L (136-145) Potassium Level 4.2 MMOL/L (3.5-5.1) Chloride Level 106 MMOL/L (98-107) Carbon Dioxide Level 26 MMOL/L (21-32) Anion Gap 7 mmol/L (5-15) Blood Urea Nitrogen 9 mg/dL (7-18) Creatinine 0.6 MG/DL (0.55-1.30) Estimat Glomerular Filtration Rate mL/min (>60) Glucose Level 121 MG/DL (74-106) H Calcium Level 8.5 MG/DL (8.5-10.1) Height (Feet): 4 Height (Inches): 11.00 Weight (Pounds): 158 Medications Current Medications Medications (Trade) Dose Ordered Sig/Bertram Route PRN Reason Start Time Stop Time Status Last Admin Dose Admin Acetaminophen (Tylenol) 650 mg Q4H PRN ORAL Temp > 100.5 05/07/19 14:30 05/28/19 14:29 Acetaminophen (Tylenol) 650 mg Q6H PRN ORAL Mild Pain (Pain Scale 1-3) 05/07/19 14:45 06/04/19 08:44 Al Hydroxide/Mg Hydroxide (Mylanta) 30 ml Q4H PRN ORAL Abdominal cramps 05/07/19 14:30 05/28/19 14:29 Albuterol/ Ipratropium (Albuterol/ Ipratropium) 3 ml Q4HRT HHN 05/07/19 15:00 05/11/19 14:59 05/09/19 07:57 Cefazolin Sodium 2 gm/Sodium Chloride 110 ml @ 220 mls/hr Q8H IVPB 05/07/19 20:00 05/13/19 11:59 05/09/19 03:08 Diphenhydramine HCl (Benadryl) 25 mg Q8H PRN ORAL Itching 05/07/19 14:30 06/05/19 14:29 05/07/19 15:19 Docusate Sodium (Colace) 100 mg TID ORAL 05/08/19 13:30 06/07/19 13:29 05/08/19 17:27 Ferrous Sulfate (Feosol) 325 mg THREE TIMES A DAY ORAL 05/08/19 13:00 06/07/19 12:59 05/08/19 17:27 Ketorolac Tromethamine (Toradol 30mg) 15 mg Q6H PRN IV Moderate Pain (Pain Scale 4-6) 05/07/19 15:00 05/11/19 08:59 05/08/19 20:26 Metoprolol Succinate (Toprol XL) 25 mg BEDTIME ORAL 05/07/19 21:00 06/02/19 20:59 05/08/19 20:25 Morphine Sulfate (Morphine Sulfate) 4 mg Q4H PRN IVP Severe Pain (Pain Scale 7-10) 05/07/19 14:30 05/12/19 14:29 Assessment/Plan Assessment/Plan: (1) Pleural effusion (2) Chest wall pain (3) S/p Chest tube placement seen dictated Cruzito Nettles May 09, 2019 08:39
[2019-05-09] MEDS: Docusate 100mg cap ORAL SCH ×3 (08:40→17:20)
[2019-05-09] MEDS: Ketorolac 30mg Inj IV PRN (08:41)
[2019-05-09] MEDS ORDERED: Morphine Sulfate 2mg/ml Inj(IV/IM USE ONLY) IVP PRN (09:00)
[2019-05-09] MEDS ORDERED: NS 275ml ONE (10:41)
[2019-05-09 12:00] VITALS: BP 136/79
--- NOTE | 2019-05-09 13:02 | Infectious Diseases Prog Note ---
Assessment/Plan Assessment/Plan IMPRESSION: Empyema cultures: MSSA Anemia, Osteoarthritis, Kyphosis, History of breast cancer. S/p VATs & Decortication RECOMMENDATION: Continue Ancef day 10 Subjective ROS Limited/Unobtainable: Yes Respiratory: Reports: dry cough, other - right side chest pain Gastrointestinal/Abdominal: Reports: no symptoms Genitourinary: Reports: no symptoms Allergies: Coded Allergies: No Known Allergies (Unverified , 10/16/16) Objective Vital Signs Last 24 Hour Vital Signs Date Time Temp Pulse Resp B/P (MAP) Pulse Ox O2 Delivery O2 Flow Rate FiO2 05/09/19 12:40 88 20 99 Room Air 21 85 20 94 05/09/19 12:00 98.5 85 18 136/79 (98) 96 05/09/19 09:00 Nasal Cannula 2.0 Nasal Cannula 2.0 05/09/19 08:00 98.1 88 20 146/81 (102) 97 05/09/19 07:54 90 20 99 Room Air 21 86 20 95 05/09/19 07:54 95 Room Air 21 05/09/19 04:00 98.5 100 18 142/83 (102) 96 05/09/19 03:17 Room Air 21 05/09/19 00:00 98.2 98 18 134/83 (100) 96 05/08/19 23:23 Room Air 21 05/08/19 21:00 Nasal Cannula 2.0 Nasal Cannula 2.0 05/08/19 20:25 102 137/80 05/08/19 20:00 98.4 102 19 137/80 (99) 96 05/08/19 19:25 95 Room Air 21 05/08/19 19:23 90 18 99 Room Air 21 92 18 95 05/08/19 16:02 98.1 83 17 129/77 (94) 96 05/08/19 15:23 86 19 99 Room Air 21 87 18 96 Height (Feet): 4 Height (Inches): 11.00 Weight (Pounds): 158 General Appearance: no acute distress HEENT: mucous membranes moist Respiratory/Chest: decreased breath sounds, other Cardiovascular: normal rate Abdomen: soft, non tender Extremities: no edema Neurologic/Psychiatric: alert, responsive Laboratory Tests Test 05/09/19 04:15 White Blood Count 6.6 K/UL (4.8-10.8) Red Blood Count 3.11 M/UL (4.20-5.40) L Hemoglobin 8.3 G/DL (12.0-16.0) L Hematocrit 26.2 % (37.0-47.0) L Mean Corpuscular Volume 84 FL (80-99) Mean Corpuscular Hemoglobin 26.7 PG (27.0-31.0) L Mean Corpuscular Hemoglobin Concent 31.6 G/DL (32.0-36.0) L Red Cell Distribution Width 16.9 % (11.6-14.8) H Platelet Count 254 K/UL (150-450) Mean Platelet Volume 5.2 FL (6.5-10.1) L Neutrophils (%) (Auto) 67.0 % (45.0-75.0) Lymphocytes (%) (Auto) 15.9 % (20.0-45.0) L Monocytes (%) (Auto) 9.0 % (1.0-10.0) Eosinophils (%) (Auto) 7.4 % (0.0-3.0) H Basophils (%) (Auto) 0.6 % (0.0-2.0) Sodium Level 139 MMOL/L (136-145) Potassium Level 4.2 MMOL/L (3.5-5.1) Chloride Level 106 MMOL/L (98-107) Carbon Dioxide Level 26 MMOL/L (21-32) Anion Gap 7 mmol/L (5-15) Blood Urea Nitrogen 9 mg/dL (7-18) Creatinine 0.6 MG/DL (0.55-1.30) Estimat Glomerular Filtration Rate mL/min (>60) Glucose Level 121 MG/DL (74-106) H Calcium Level 8.5 MG/DL (8.5-10.1) Current Medications Medications (Trade) Dose Ordered Sig/Bertram Route PRN Reason Start Time Stop Time Status Last Admin Dose Admin Acetaminophen (Tylenol) 650 mg Q4H PRN ORAL Temp > 100.5 05/07/19 14:30 05/28/19 14:29 Acetaminophen (Tylenol) 650 mg Q6H PRN ORAL Mild Pain (Pain Scale 1-3) 05/07/19 14:45 06/04/19 08:44 Acetaminophen/ Hydrocodone Bitart (Nisula 5/325) 1 tab Q4H PRN ORAL Moderate Pain (Pain Scale 4-6) 05/09/19 09:00 05/16/19 08:59 Al Hydroxide/Mg Hydroxide (Mylanta) 30 ml Q4H PRN ORAL Abdominal cramps 05/07/19 14:30 05/28/19 14:29 Albuterol/ Ipratropium (Albuterol/ Ipratropium) 3 ml Q4HRT HHN 05/07/19 15:00 05/11/19 14:59 05/09/19 12:42 Cefazolin Sodium 2 gm/Sodium Chloride 110 ml @ 220 mls/hr Q8H IVPB 05/07/19 20:00 05/13/19 11:59 05/09/19 12:42 Diphenhydramine HCl (Benadryl) 25 mg Q8H PRN ORAL Itching 05/07/19 14:30 06/05/19 14:29 05/07/19 15:19 Docusate Sodium (Colace) 100 mg TID ORAL 05/08/19 13:30 06/07/19 13:29 05/09/19 12:42 Ferrous Sulfate (Feosol) 325 mg THREE TIMES A DAY ORAL 05/08/19 13:00 06/07/19 12:59 05/09/19 12:42 Metoprolol Succinate (Toprol XL) 25 mg BEDTIME ORAL 05/07/19 21:00 06/02/19 20:59 05/08/19 20:25 Morphine Sulfate (Morphine Sulfate) 2 mg Q4H PRN IVP Severe Pain (Pain Scale 7-10) 05/09/19 09:00 05/12/19 08:59 Carloz Voss MD May 09, 2019 13:02
--- NOTE | 2019-05-09 15:18 | Surgery Progress Note ---
Surgery Progress Note Subjective Additional Comments no acute events improving pain controlled no n/v/f/c tolerating diet CT with less output no leak Objective Last 24 Hour Vital Signs Date Time Temp Pulse Resp B/P (MAP) Pulse Ox O2 Delivery O2 Flow Rate FiO2 05/09/19 12:40 88 20 99 Room Air 21 85 20 94 05/09/19 12:00 98.5 85 18 136/79 (98) 96 05/09/19 09:00 Nasal Cannula 2.0 Nasal Cannula 2.0 05/09/19 08:00 98.1 88 20 146/81 (102) 97 05/09/19 07:54 90 20 99 Room Air 21 86 20 95 05/09/19 07:54 95 Room Air 21 05/09/19 04:00 98.5 100 18 142/83 (102) 96 05/09/19 03:17 Room Air 21 05/09/19 00:00 98.2 98 18 134/83 (100) 96 05/08/19 23:23 Room Air 21 05/08/19 21:00 Nasal Cannula 2.0 Nasal Cannula 2.0 05/08/19 20:25 102 137/80 05/08/19 20:00 98.4 102 19 137/80 (99) 96 05/08/19 19:25 95 Room Air 21 05/08/19 19:23 90 18 99 Room Air 21 92 18 95 05/08/19 16:02 98.1 83 17 129/77 (94) 96 05/08/19 15:23 86 19 99 Room Air 21 87 18 96 I&O Intake and Output 05/08/19 05/09/19 19:00 07:00 Intake Total 1710 ml Output Total 550 ml Balance 1160 ml Intake Oral 1600 ml IV Total 110 ml Output Urine Total 500 ml Chest Tube Drainage Total 50 ml # Voids 3 # Bowel Movements 1 1 Dressing: dry Wound: clean Drains: other Cardiovascular: RSR Respiratory: clear Abdomen: soft, present bowel sounds, non-distended Extremities: no cyanosis Laboratory Tests Test 05/09/19 04:15 White Blood Count 6.6 K/UL (4.8-10.8) Red Blood Count 3.11 M/UL (4.20-5.40) L Hemoglobin 8.3 G/DL (12.0-16.0) L Hematocrit 26.2 % (37.0-47.0) L Mean Corpuscular Volume 84 FL (80-99) Mean Corpuscular Hemoglobin 26.7 PG (27.0-31.0) L Mean Corpuscular Hemoglobin Concent 31.6 G/DL (32.0-36.0) L Red Cell Distribution Width 16.9 % (11.6-14.8) H Platelet Count 254 K/UL (150-450) Mean Platelet Volume 5.2 FL (6.5-10.1) L Neutrophils (%) (Auto) 67.0 % (45.0-75.0) Lymphocytes (%) (Auto) 15.9 % (20.0-45.0) L Monocytes (%) (Auto) 9.0 % (1.0-10.0) Eosinophils (%) (Auto) 7.4 % (0.0-3.0) H Basophils (%) (Auto) 0.6 % (0.0-2.0) Sodium Level 139 MMOL/L (136-145) Potassium Level 4.2 MMOL/L (3.5-5.1) Chloride Level 106 MMOL/L (98-107) Carbon Dioxide Level 26 MMOL/L (21-32) Anion Gap 7 mmol/L (5-15) Blood Urea Nitrogen 9 mg/dL (7-18) Creatinine 0.6 MG/DL (0.55-1.30) Estimat Glomerular Filtration Rate mL/min (>60) Glucose Level 121 MG/DL (74-106) H Calcium Level 8.5 MG/DL (8.5-10.1) Plan Problems: (1) Cellulitis (2) Pleural effusion Assessment & Plan: s/p VATS converted to mini-thora. evacuation and tube placement doing well comfortable leak resolved output decreased diet as tolerated activity as tolerated CT to suction AM labs AM cxr Will plan for CT to water seal tomorrow and possible d/c tube in 1-2 days thank you Twan Fernandez May 09, 2019 15:18
[2019-05-09 16:00] VITALS: BP 130/68
--- NOTE | 2019-05-09 17:44 | General Progress Note ---
Assessment/Plan Problem List: (1) Cellulitis ICD Codes: L03.90 - Cellulitis, unspecified SNOMED: 082308817 (2) Pleural effusion ICD Codes: J90 - Pleural effusion, not elsewhere classified SNOMED: 01812750 Status: stable, progressing Assessment/Plan: cont chest tube per surgery pain rx encourage po dvt/stress ulcer prophylaxis follow up labs Subjective ROS Limited/Unobtainable: No Constitutional: Reports: malaise HEENT: Reports: no symptoms Cardiovascular: Reports: no symptoms Respiratory: Reports: no symptoms Gastrointestinal/Abdominal: Reports: no symptoms Genitourinary: Reports: no symptoms Neurologic/Psychiatric: Reports: anxiety Endocrine: Reports: no symptoms Hematologic/Lymphatic: Reports: anemia Allergies: Coded Allergies: No Known Allergies (Unverified , 10/16/16) All Systems: reviewed and negative except above Subjective no events. ct still to suction. no cp/sob. wants to go home Objective Last 24 Hour Vital Signs Date Time Temp Pulse Resp B/P (MAP) Pulse Ox O2 Delivery O2 Flow Rate FiO2 05/09/19 16:22 Room Air 21 05/09/19 16:00 98.4 75 20 130/68 (88) 97 05/09/19 12:40 88 20 99 Room Air 21 85 20 94 05/09/19 12:00 98.5 85 18 136/79 (98) 96 05/09/19 09:00 Nasal Cannula 2.0 Nasal Cannula 2.0 05/09/19 08:00 98.1 88 20 146/81 (102) 97 05/09/19 07:54 90 20 99 Room Air 21 86 20 95 05/09/19 07:54 95 Room Air 21 05/09/19 04:00 98.5 100 18 142/83 (102) 96 05/09/19 03:17 Room Air 21 05/09/19 00:00 98.2 98 18 134/83 (100) 96 05/08/19 23:23 Room Air 21 05/08/19 21:00 Nasal Cannula 2.0 Nasal Cannula 2.0 05/08/19 20:25 102 137/80 05/08/19 20:00 98.4 102 19 137/80 (99) 96 05/08/19 19:25 95 Room Air 21 05/08/19 19:23 90 18 99 Room Air 21 92 18 95 Intake and Output 05/08/19 05/09/19 19:00 07:00 Intake Total 1710 ml Output Total 550 ml Balance 1160 ml Intake Oral 1600 ml IV Total 110 ml Output Urine Total 500 ml Chest Tube Drainage Total 50 ml # Voids 3 # Bowel Movements 1 1 Laboratory Tests 05/09/19 04:15: White Blood Count 6.6, Red Blood Count 3.11L, Hemoglobin 8.3L, Hematocrit 26.2L , Mean Corpuscular Volume 84, Mean Corpuscular Hemoglobin 26.7L, Mean Corpuscular Hemoglobin Concent 31.6L, Red Cell Distribution Width 16.9H, Platelet Count 254, Mean Platelet Volume 5.2L, Neutrophils (%) (Auto) 67.0, Lymphocytes (%) (Auto) 15.9L, Monocytes (%) (Auto) 9.0, Eosinophils (%) (Auto) 7.4H, Basophils (%) (Auto) 0.6, Sodium Level 139, Potassium Level 4.2, Chloride Level 106, Carbon Dioxide Level 26, Anion Gap 7, Blood Urea Nitrogen 9, Creatinine 0.6, Estimat Glomerular Filtration Rate , Glucose Level 121H, Calcium Level 8.5 Height (Feet): 4 Height (Inches): 11.00 Weight (Pounds): 158 Objective General Appearance: WD/WN, alert Neck: supple Cardiovascular: regular rhythm Respiratory/Chest: chest wall non-tender, lungs clear, normal breath sounds Abdomen: normal bowel sounds, non tender, soft, no organomegaly Edema: no edema noted Arm (L), no edema noted Arm (R), no edema noted Leg (L), no edema noted Leg (R), no edema noted Pedal (L), no edema noted Pedal (R), no edema noted 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
[2019-05-09 20:00] VITALS: BP 138/77
[2019-05-09] MEDS: Metoprolol Succinate XL 25mg tab ORAL SCH (21:28)
[2019-05-09] MEDS: HYDROcodone/Acetamin 5/325 tab ORAL PRN (22:38)
[2019-05-10] VITALS: BP 134/80
[2019-05-10] MEDS: Albuterol/Ipratropium 3ml neb HHN SCH ×6 (02:46→23:00)
[2019-05-10 04:00] VITALS: BP 139/83
[2019-05-10] MEDS: ceFAZolin sod 2 GM in NS 110 ML IVPB SCH ×3 (04:50→20:22)
[2019-05-10] MEDS: HYDROcodone/Acetamin 5/325 tab ORAL PRN ×2 (06:31→22:23)
[2019-05-10 08:00] VITALS: BP 134/76
[2019-05-10] MEDS: Docusate 100mg cap ORAL SCH ×3 (08:28→17:21)
--- NOTE | 2019-05-10 08:33 | General Progress Note ---
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 respiratory insufficiency djd leg edema venous US and echo negative in office last week PLAN CT per thoracic ID follow up monitor for change follow up imaging monitor for leak will need close follow up assess for home dc once cleared and CT removed d/w patient in detail impression, plan, and exam edited and reviewed in detail care discussed with RN Subjective Allergies: Coded Allergies: No Known Allergies (Unverified , 10/16/16) Subjective care noted s/p decortication surgery appreciated confused and forgetful agreeable to snf Objective Last 24 Hour Vital Signs Date Time Temp Pulse Resp B/P (MAP) Pulse Ox O2 Delivery O2 Flow Rate FiO2 05/10/19 08:19 Nasal Cannula 2.0 Nasal Cannula 2.0 05/10/19 07:54 93 Room Air 21 05/10/19 07:54 82 20 93 Room Air 21 82 20 93 05/10/19 07:01 98.9 05/10/19 04:00 98.9 91 16 139/83 (101) 96 05/10/19 00:00 99.1 81 17 134/80 (98) 96 05/09/19 22:32 88 20 99 Room Air 21 87 20 94 05/09/19 21:28 87 138/77 05/09/19 21:00 Nasal Cannula 2.0 Room Air 05/09/19 20:00 99.4 87 17 138/77 (97) 96 05/09/19 19:51 95 Room Air 21 05/09/19 19:49 86 20 100 Room Air 21 84 20 95 05/09/19 16:22 Room Air 21 05/09/19 16:00 98.4 75 20 130/68 (88) 97 05/09/19 12:40 88 20 99 Room Air 21 85 20 94 05/09/19 12:00 98.5 85 18 136/79 (98) 96 05/09/19 09:00 Nasal Cannula 2.0 Nasal Cannula 2.0 Intake and Output 05/09/19 05/10/19 19:00 07:00 Intake Total 300 ml 240 ml Output Total 5 ml 905 ml Balance 295 ml -665 ml Intake Oral 300 ml 240 ml Output Urine Total 900 ml Chest Tube Drainage Total 5 ml 5 ml # Voids 1 2 # Bowel Movements 2 1 Labs Test 05/07/19 11:50 05/08/19 07:22 05/09/19 04:15 White Blood Count 11.0 K/UL (4.8-10.8) 9.3 K/UL (4.8-10.8) 6.6 K/UL (4.8-10.8) Red Blood Count 3.26 M/UL (4.20-5.40) 3.34 M/UL (4.20-5.40) 3.11 M/UL (4.20-5.40) Hemoglobin 8.8 G/DL (12.0-16.0) 8.8 G/DL (12.0-16.0) 8.3 G/DL (12.0-16.0) Hematocrit 27.4 % (37.0-47.0) 28.1 % (37.0-47.0) 26.2 % (37.0-47.0) Mean Corpuscular Volume 84 FL (80-99) 84 FL (80-99) 84 FL (80-99) Mean Corpuscular Hemoglobin 26.9 PG (27.0-31.0) 26.3 PG (27.0-31.0) 26.7 PG (27.0-31.0) Mean Corpuscular Hemoglobin Concent 32.0 G/DL (32.0-36.0) 31.4 G/DL (32.0-36.0) 31.6 G/DL (32.0-36.0) Red Cell Distribution Width 17.1 % (11.6-14.8) 16.9 % (11.6-14.8) 16.9 % (11.6-14.8) Platelet Count 269 K/UL (150-450) 271 K/UL (150-450) 254 K/UL (150-450) Mean Platelet Volume 5.2 FL (6.5-10.1) 5.2 FL (6.5-10.1) 5.2 FL (6.5-10.1) Neutrophils (%) (Auto) 76.7 % (45.0-75.0) 70.7 % (45.0-75.0) 67.0 % (45.0-75.0) Lymphocytes (%) (Auto) 12.3 % (20.0-45.0) 14.5 % (20.0-45.0) 15.9 % (20.0-45.0) Monocytes (%) (Auto) 7.0 % (1.0-10.0) 7.6 % (1.0-10.0) 9.0 % (1.0-10.0) Eosinophils (%) (Auto) 3.5 % (0.0-3.0) 6.9 % (0.0-3.0) 7.4 % (0.0-3.0) Basophils (%) (Auto) 0.5 % (0.0-2.0) 0.3 % (0.0-2.0) 0.6 % (0.0-2.0) Sodium Level 138 MMOL/L (136-145) 139 MMOL/L (136-145) Potassium Level 4.6 MMOL/L (3.5-5.1) 4.2 MMOL/L (3.5-5.1) Chloride Level 105 MMOL/L (98-107) 106 MMOL/L (98-107) Carbon Dioxide Level 26 MMOL/L (21-32) 26 MMOL/L (21-32) Anion Gap 8 mmol/L (5-15) 7 mmol/L (5-15) Blood Urea Nitrogen 14 mg/dL (7-18) 9 mg/dL (7-18) Creatinine 0.6 MG/DL (0.55-1.30) 0.6 MG/DL (0.55-1.30) Estimat Glomerular Filtration Rate mL/min (>60) mL/min (>60) Glucose Level 94 MG/DL (74-106) 121 MG/DL (74-106) Calcium Level 8.4 MG/DL (8.5-10.1) 8.5 MG/DL (8.5-10.1) Phosphorus Level 2.9 MG/DL (2.5-4.9) Magnesium Level 2.2 MG/DL (1.8-2.4) Pro-B-Type Natriuretic Peptide 354 pg/mL (0-125) Height (Feet): 4 Height (Inches): 11.00 Weight (Pounds): 158 Objective WDWN NAD reduced breath sounds bilaterally without rhonchi or wheeze; CT in place [id number] without MRG NABS nontender no HSM no CC noted edema nonfocal contracted and kyphotic alert and anxious Celestino Cota MD May 10, 2019 08:33
--- NOTE | 2019-05-10 08:58 | General Progress Note ---
Assessment/Plan Problem List: (1) Cellulitis ICD Codes: L03.90 - Cellulitis, unspecified SNOMED: 265303970 (2) Pleural effusion ICD Codes: J90 - Pleural effusion, not elsewhere classified SNOMED: 65613728 Status: stable, progressing Assessment/Plan: cont chest tube per surgery pain rx encourage po dvt/stress ulcer prophylaxis follow up labs Subjective ROS Limited/Unobtainable: No Constitutional: Reports: malaise, weakness HEENT: Reports: no symptoms Cardiovascular: Reports: no symptoms Respiratory: Reports: no symptoms Gastrointestinal/Abdominal: Reports: no symptoms Genitourinary: Reports: no symptoms Neurologic/Psychiatric: Reports: no symptoms Hematologic/Lymphatic: Reports: no symptoms Allergies: Coded Allergies: No Known Allergies (Unverified , 10/16/16) All Systems: reviewed and negative except above Subjective no events. ct still to suction. no cp/sob. wants to go home no fever or chills. no pain. Objective Last 24 Hour Vital Signs Date Time Temp Pulse Resp B/P (MAP) Pulse Ox O2 Delivery O2 Flow Rate FiO2 05/10/19 08:19 Nasal Cannula 2.0 Nasal Cannula 2.0 05/10/19 08:00 97.9 82 16 134/76 (95) 94 05/10/19 07:54 93 Room Air 21 05/10/19 07:54 82 20 93 Room Air 21 82 20 93 05/10/19 07:01 98.9 05/10/19 04:00 98.9 91 16 139/83 (101) 96 05/10/19 00:00 99.1 81 17 134/80 (98) 96 05/09/19 22:32 88 20 99 Room Air 21 87 20 94 05/09/19 21:28 87 138/77 05/09/19 21:00 Nasal Cannula 2.0 Room Air 05/09/19 20:00 99.4 87 17 138/77 (97) 96 05/09/19 19:51 95 Room Air 21 05/09/19 19:49 86 20 100 Room Air 21 84 20 95 05/09/19 16:22 Room Air 21 05/09/19 16:00 98.4 75 20 130/68 (88) 97 05/09/19 12:40 88 20 99 Room Air 21 85 20 94 05/09/19 12:00 98.5 85 18 136/79 (98) 96 05/09/19 09:00 Nasal Cannula 2.0 Nasal Cannula 2.0 Intake and Output 05/09/19 05/10/19 19:00 07:00 Intake Total 300 ml 240 ml Output Total 5 ml 905 ml Balance 295 ml -665 ml Intake Oral 300 ml 240 ml Output Urine Total 900 ml Chest Tube Drainage Total 5 ml 5 ml # Voids 1 2 # Bowel Movements 2 1 Height (Feet): 4 Height (Inches): 11.00 Weight (Pounds): 158 Objective General Appearance: WD/WN, alert Neck: supple Cardiovascular: regular rhythm Respiratory/Chest: chest wall non-tender, lungs clear, normal breath sounds Abdomen: normal bowel sounds, non tender, soft, no organomegaly Edema: no edema noted Arm (L), no edema noted Arm (R), no edema noted Leg (L), no edema noted Leg (R), no edema noted Pedal (L), no edema noted Pedal (R), no edema noted 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
--- NOTE | 2019-05-10 09:05 | General Progress Note ---
Assessment/Plan Assessment/Plan: (1) Pleural effusion (2) Chest wall pain (3) S/p Chest tube placement Patient to be continued on [place] and morphine. D/w Dr. Pedersen and he concurred. Subjective Date patient seen: May 10, 2019 Time patient seen: 08:15 - am Constitutional: Reports: weakness HEENT: Reports: no symptoms Cardiovascular: Reports: chest pain Respiratory: Reports: shortness of breath Gastrointestinal/Abdominal: Reports: no symptoms Genitourinary: Reports: no symptoms Neurologic/Psychiatric: Reports: no symptoms Endocrine: Reports: no symptoms Hematologic/Lymphatic: Reports: no symptoms Allergies: Coded Allergies: No Known Allergies (Unverified , 10/16/16) Subjective In bed showing no signs of pain or distress. Reports mild pain at this time having requested one [place] in the last 24hr. No new complaints at this time. Objective Last 24 Hour Vital Signs Date Time Temp Pulse Resp B/P (MAP) Pulse Ox O2 Delivery O2 Flow Rate FiO2 05/10/19 08:19 Nasal Cannula 2.0 Nasal Cannula 2.0 05/10/19 08:00 97.9 82 16 134/76 (95) 94 05/10/19 07:54 93 Room Air 21 05/10/19 07:54 82 20 93 Room Air 21 82 20 93 05/10/19 07:01 98.9 05/10/19 04:00 98.9 91 16 139/83 (101) 96 05/10/19 00:00 99.1 81 17 134/80 (98) 96 05/09/19 22:32 88 20 99 Room Air 21 87 20 94 05/09/19 21:28 87 138/77 05/09/19 21:00 Nasal Cannula 2.0 Room Air 05/09/19 20:00 99.4 87 17 138/77 (97) 96 05/09/19 19:51 95 Room Air 21 05/09/19 19:49 86 20 100 Room Air 21 84 20 95 05/09/19 16:22 Room Air 21 05/09/19 16:00 98.4 75 20 130/68 (88) 97 05/09/19 12:40 88 20 99 Room Air 21 85 20 94 05/09/19 12:00 98.5 85 18 136/79 (98) 96 Intake and Output 05/09/19 05/10/19 19:00 07:00 Intake Total 300 ml 240 ml Output Total 5 ml 905 ml Balance 295 ml -665 ml Intake Oral 300 ml 240 ml Output Urine Total 900 ml Chest Tube Drainage Total 5 ml 5 ml # Voids 1 2 # Bowel Movements 2 1 Height (Feet): 4 Height (Inches): 11.00 Weight (Pounds): 158 General Appearance: no apparent distress, alert EENT: PERRL/EOMI, normal ENT inspection Neck: non-tender, normal alignment Cardiovascular: normal rate, regular rhythm Respiratory/Chest: decreased breath sounds - chest tube noted Extremities: non-tender Edema: trace edema Neurologic: alert, oriented x 3 Skin: normal pigmentation Cruzito Nettles May 10, 2019 09:05
--- NOTE | 2019-05-10 10:44 | Diagnostic Imaging Report ---
Indication: Dyspnea Comparison: 05/08/2019 A single view chest radiograph was obtained. Findings: There is a right chest tube present in good position. This is unchanged. There is suggestion of a right basilar pleural effusion an underlying pneumonia or atelectasis. Moderate degree of subcutaneous air noted in the chest wall. Heart is enlarged. IMPRESSION: No change from the previous day
--- NOTE | 2019-05-10 10:45 | Diagnostic Imaging Report ---
Indication: Shortness of breath Technique: One view of the chest Comparison: 05/09/2019 Findings: There is interim decrease in the amount of subcutaneous gas noted. Mid and lower lung parenchymal densities and lucencies are unchanged. Right chest tube remains. No gross pneumothorax. The heart remains enlarged Impression: Decreased subcutaneous emphysema. 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
--- NOTE | 2019-05-10 11:17 | Infectious Diseases Prog Note ---
Assessment/Plan Assessment/Plan IMPRESSION: Empyema cultures: MSSA Anemia, Osteoarthritis, Kyphosis, History of breast cancer. S/p VATs & Decortication RECOMMENDATION: Continue Ancef day 11 Subjective ROS Limited/Unobtainable: Yes Allergies: Coded Allergies: No Known Allergies (Unverified , 10/16/16) Objective Vital Signs Last 24 Hour Vital Signs Date Time Temp Pulse Resp B/P (MAP) Pulse Ox O2 Delivery O2 Flow Rate FiO2 05/10/19 08:19 Nasal Cannula 2.0 Nasal Cannula 2.0 05/10/19 08:00 97.9 82 16 134/76 (95) 94 05/10/19 07:54 93 Room Air 21 05/10/19 07:54 82 20 93 Room Air 21 82 20 93 05/10/19 07:01 98.9 05/10/19 04:00 98.9 91 16 139/83 (101) 96 05/10/19 00:00 99.1 81 17 134/80 (98) 96 05/09/19 22:32 88 20 99 Room Air 21 87 20 94 05/09/19 21:28 87 138/77 05/09/19 21:00 Nasal Cannula 2.0 Room Air 05/09/19 20:00 99.4 87 17 138/77 (97) 96 05/09/19 19:51 95 Room Air 21 05/09/19 19:49 86 20 100 Room Air 21 84 20 95 05/09/19 16:22 Room Air 21 05/09/19 16:00 98.4 75 20 130/68 (88) 97 05/09/19 12:40 88 20 99 Room Air 21 85 20 94 05/09/19 12:00 98.5 85 18 136/79 (98) 96 Height (Feet): 4 Height (Inches): 11.00 Weight (Pounds): 158 General Appearance: no acute distress HEENT: mucous membranes moist Respiratory/Chest: lungs clear, other - right side chest tube Cardiovascular: normal rate Abdomen: soft, non tender Extremities: no edema Neurologic/Psychiatric: other - sleeping Current Medications Medications (Trade) Dose Ordered Sig/Bertram Route PRN Reason Start Time Stop Time Status Last Admin Dose Admin Acetaminophen (Tylenol) 650 mg Q4H PRN ORAL Temp > 100.5 05/07/19 14:30 05/28/19 14:29 Acetaminophen (Tylenol) 650 mg Q6H PRN ORAL Mild Pain (Pain Scale 1-3) 05/07/19 14:45 06/04/19 08:44 Acetaminophen/ Hydrocodone Bitart ([place] 5/325) 1 tab Q4H PRN ORAL Moderate Pain (Pain Scale 4-6) 05/09/19 09:00 05/16/19 08:59 05/10/19 06:31 Al Hydroxide/Mg Hydroxide (Mylanta) 30 ml Q4H PRN ORAL Abdominal cramps 05/07/19 14:30 05/28/19 14:29 Albuterol/ Ipratropium (Albuterol/ Ipratropium) 3 ml Q4HRT HHN 05/07/19 15:00 05/11/19 14:59 05/10/19 07:54 Cefazolin Sodium 2 gm/Sodium Chloride 110 ml @ 220 mls/hr Q8H IVPB 05/07/19 20:00 05/13/19 11:59 05/10/19 04:50 Diphenhydramine HCl (Benadryl) 25 mg Q8H PRN ORAL Itching 05/07/19 14:30 06/05/19 14:29 05/09/19 22:38 Docusate Sodium (Colace) 100 mg TID ORAL 05/08/19 13:30 06/07/19 13:29 05/10/19 08:28 Ferrous Sulfate (Feosol) 325 mg THREE TIMES A DAY ORAL 05/08/19 13:00 06/07/19 12:59 05/10/19 08:28 Metoprolol Succinate (Toprol XL) 25 mg BEDTIME ORAL 05/07/19 21:00 06/02/19 20:59 05/09/19 21:28 Morphine Sulfate (Morphine Sulfate) 2 mg Q4H PRN IVP Severe Pain (Pain Scale 7-10) 05/09/19 09:00 05/12/19 08:59 Carloz Voss MD May 10, 2019 11:17
[2019-05-10 12:00] VITALS: BP 101/57
--- NOTE | 2019-05-10 13:20 | Surgery Progress Note ---
Surgery Progress Note Subjective Additional Comments no acute events comfortable wants chest tube out and to go home labs noted cxr noted Objective Last 24 Hour Vital Signs Date Time Temp Pulse Resp B/P (MAP) Pulse Ox O2 Delivery O2 Flow Rate FiO2 05/10/19 12:00 97.7 77 18 101/57 (72) 99 05/10/19 11:23 86 22 95 Room Air 21 80 22 94 05/10/19 08:19 Nasal Cannula 2.0 Nasal Cannula 2.0 05/10/19 08:00 97.9 82 16 134/76 (95) 94 05/10/19 07:54 93 Room Air 21 05/10/19 07:54 82 20 93 Room Air 21 82 20 93 05/10/19 07:01 98.9 05/10/19 04:00 98.9 91 16 139/83 (101) 96 05/10/19 00:00 99.1 81 17 134/80 (98) 96 05/09/19 22:32 88 20 99 Room Air 21 87 20 94 05/09/19 21:28 87 138/77 05/09/19 21:00 Nasal Cannula 2.0 Room Air 05/09/19 20:00 99.4 87 17 138/77 (97) 96 05/09/19 19:51 95 Room Air 21 05/09/19 19:49 86 20 100 Room Air 21 84 20 95 05/09/19 16:22 Room Air 21 05/09/19 16:00 98.4 75 20 130/68 (88) 97 I&O Intake and Output 05/09/19 05/10/19 19:00 07:00 Intake Total 300 ml 240 ml Output Total 5 ml 905 ml Balance 295 ml -665 ml Intake Oral 300 ml 240 ml Output Urine Total 900 ml Chest Tube Drainage Total 5 ml 5 ml # Voids 1 2 # Bowel Movements 2 1 Dressing: dry Wound: clean, dry Drains: other Cardiovascular: RSR Respiratory: clear Abdomen: soft, non-tender, present bowel sounds, non-distended Extremities: no tenderness, no cyanosis Plan Problems: (1) Cellulitis (2) Pleural effusion Assessment & Plan: s/p VATS converted to mini-thora. evacuation and tube placement doing well comfortable leak resolved output decreased diet as tolerated activity as tolerated CT to suction AM labs AM cxr CT to water seal today thank you Twan Fernandez May 10, 2019 13:20
[2019-05-10 16:00] VITALS: BP 131/74
--- NOTE | 2019-05-10 16:56 | Consultation ---
DATE OF CONSULTATION: 05/09/2019 PAIN MANAGEMENT CONSULTATION CONSULTING PHYSICIAN: Laxmi Pedersen M.D. REFERRING PHYSICIAN: Celestino Cota M.D. PHYSICIAN ICD 9 CODER: Adria Gale CHIEF COMPLAINT: Chest wall pain. HISTORY OF PRESENT ILLNESS: The patient is a 73-year-old female, who is being seen on the Med/Surg floor of [facility] for initial pain management consultation. The patient now admitted under the care of Dr. Cota, found to have right pleural effusion, underwent chest tube placement, and was started on Toradol 15 mg IV every 6 hours as needed with morphine 4 mg IV every 4 hours as needed; however, at this time, the patient is denying pain. She is comfortable at this time. We were consulted so the patient would have adequate pain control while here in the hospital.. PAST MEDICAL HISTORY: Osteoporosis, venous insufficiency, osteoarthritis, pleural effusion, history of breast cancer. PAST SURGICAL HISTORY: Hysterectomy and right mastectomy. SOCIAL HISTORY: Denies smoking, drinking alcohol, or IV drug abuse. ALLERGIES: No known drug allergies. MEDICATIONS: No known medications as an outpatient. REVIEW OF SYSTEMS: Denies rash, fever, chills, sweating, dizziness, drowsiness, blurred vision, sore throat, or change in weight. No nausea, vomiting, or diarrhea, blood in the stool or urine. No bowel or bladder incontinence. No dysuria. She is complaining of chest wall pain. PHYSICAL EXAMINATION: GENERAL: Alert, awake, oriented. VITAL SIGNS: Blood pressure 142/83, heart rate 100, oxygen saturation 93%, respirations 18, and temperature 98.5 degrees Fahrenheit. HEENT: PERRLA. NECK: Range of motion is full in all directions. No tenderness to paracervical muscles. No adenopathy. LUNGS: Decreased breath sounds bilaterally. HEART: S1 and S2 regular. ABDOMEN: Soft, nontender. BACK: Range of motion is decreased in flexion and extension with tenderness to paraspinal, trapezius, and rhomboid muscles. EXTREMITIES: Upper extremity motion is decreased due to the patient's condition. No cyanosis. No clubbing. Sensory is reduced. Reflexes are unobtainable. No adenopathy. ASSESSMENT: The patient is a 73-year-old female with pleural effusion, chest wall pain status post chest tube placement. The patient will be discontinued on Toradol. Morphine will be decreased to 2 mg IV every 4 hours as needed for severe pain and [place] 5/325mg PO 1 tab Q4H for moderate pain. The patient was discussed with Dr. Pedersen and Dr. Pedersen concurred. We will follow the patient. Thank you very much for the courtesy of this consultation. Laxmi Pedersen M.D. RADHA Gale DR: Ban JOB#: [id number] CC: KODI
[2019-05-10] MEDS: Metoprolol Succinate XL 25mg tab ORAL SCH (20:25)
[2019-05-10 21:00] VITALS: BP 129/77
[2019-05-11] VITALS: BP 127/73
--- NOTE | 2019-05-11 02:30 | Progress Note ---
DATE: 05/10/2019 CARDIOLOGY PROGRESS NOTE SUBJECTIVE: The patient remains with chest tube still to suction. Pain seems to be controlled. No shortness of breath at rest. Anxious to mobilize more without the tube. OBJECTIVE: VITAL SIGNS: Blood pressure 134/76, pulse 82, respiratory rate 16, and afebrile. LUNGS: Right rhonchi. CARDIAC: Regular rhythm and rate. Normal S1 and S2. ABDOMEN: Soft. EXTREMITIES: Trace dependent edema. LABORATORY DATA: No new laboratories today. IMPRESSION: 1. Compensated diastolic congestive heart failure, controlled blood pressure. 2. Status post VATS procedure of the right lung. PLAN: 1. Antimicrobials. 2. Respiratory hygiene. 3. No plan for diuresis presently. 4. Chest tube to water seal, hope for removal soon. 5. DVT prophylaxis. Venancio Monsivais M.D. DR: OBIE JOB#: [id number] CC:
[2019-05-11] MEDS: Albuterol/Ipratropium 3ml neb HHN SCH ×4 (03:00→14:03)
[2019-05-11 04:00] VITALS: BP 128/68
[2019-05-11] MEDS: ceFAZolin sod 2 GM in NS 110 ML IVPB SCH ×2 (04:47→11:48)
[2019-05-11 06:29] LABS: BASOPHILS % (AUTO) 0.7 % (0.0-2.0); EOSINOPHILS % (AUTO) 7.3 % (0.0-3.0); HEMATOCRIT 25.9 % (37.0-47.0); HEMOGLOBIN 8.1 G/DL (12.0-16.0); MEAN CORPUSCULAR VOLUME 84 FL (80-99); MONOCYTES % (AUTO) 10.4 % (1.0-10.0); NEUTROPHILS % (AUTO) 62.6 % (45.0-75.0); PLATELET COUNT 252 K/UL (150-450); RED BLOOD COUNT 3.07 M/UL (4.20-5.40); RED CELL DISTRIBUTION WIDTH 16.6 % (11.6-14.8); WHITE BLOOD COUNT 5.8 K/UL (4.8-10.8)
[2019-05-11 06:33] LABS: ANION GAP 8 mmol/L (5-15); BLOOD UREA NITROGEN 6 mg/dL (7-18); CALCIUM 8.6 MG/DL (8.5-10.1); CARBON DIOXIDE 27 MMOL/L (21-32); CHLORIDE 107 MMOL/L (98-107); CREATININE 0.6 MG/DL (0.55-1.30); POTASSIUM 4.1 MMOL/L (3.5-5.1); SODIUM 142 MMOL/L (136-145)
[2019-05-11 08:00] VITALS: BP 155/90
[2019-05-11] MEDS: Docusate 100mg cap ORAL SCH ×3 (08:41→17:27)
--- NOTE | 2019-05-11 09:22 | General Progress Note ---
Assessment/Plan Assessment/Plan: (1) Pleural effusion (2) Chest wall pain (3) S/p Chest tube placement Patient to be continued on [place] and morphine. D/w Dr. Pedersen and he concurred. Subjective Date patient seen: May 11, 2019 Time patient seen: 09:10 - am Allergies: Coded Allergies: No Known Allergies (Unverified , 10/16/16) Subjective Constitutional: Reports: weakness HEENT: Reports: no symptoms Cardiovascular: Reports: chest pain Respiratory: Reports: shortness of breath Gastrointestinal/Abdominal: Reports: no symptoms Genitourinary: Reports: no symptoms Neurologic/Psychiatric: Reports: no symptoms Endocrine: Reports: no symptoms Hematologic/Lymphatic: Reports: no symptoms Subjective Patient is sitting up in chair. Reports no pain due to the [place]. Still has chest tube in place and waiting for removal as per surgeon. No new complaints at this time. Objective Last 24 Hour Vital Signs Date Time Temp Pulse Resp B/P (MAP) Pulse Ox O2 Delivery O2 Flow Rate FiO2 05/11/19 08:41 93 Room Air 21 05/11/19 08:41 81 18 100 Room Air 21 78 20 93 05/11/19 08:21 Room Air Room Air 05/11/19 08:00 99.2 88 18 155/90 (111) 94 05/11/19 04:00 97.9 75 18 128/68 (88) 96 05/11/19 00:00 98.8 83 18 127/73 (91) 95 05/10/19 21:00 Room Air Room Air 05/10/19 21:00 98.9 94 18 129/77 (94) 97 05/10/19 20:25 74 129/77 05/10/19 18:57 96 Room Air 21 05/10/19 18:57 90 20 100 Room Air 21 84 20 96 05/10/19 16:00 98.1 77 17 131/74 (93) 97 05/10/19 15:26 Room Air 21 05/10/19 12:00 97.7 77 18 101/57 (72) 99 05/10/19 11:23 86 22 95 Room Air 21 80 22 94 Intake and Output 05/10/19 05/11/19 19:00 07:00 Intake Total 1110 ml 480 ml Output Total 304 ml 1110 ml Balance 806 ml -630 ml Intake Oral 1000 ml 480 ml IV Total 110 ml Output Urine Total 300 ml 1100 ml Chest Tube Drainage Total 4 ml 10 ml # Voids 3 2 Laboratory Tests 05/11/19 05:10: White Blood Count 5.8, Red Blood Count 3.07L, Hemoglobin 8.1L, Hematocrit 25.9L , Mean Corpuscular Volume 84, Mean Corpuscular Hemoglobin 26.4L, Mean Corpuscular Hemoglobin Concent 31.3L, Red Cell Distribution Width 16.6H, Platelet Count 252, Mean Platelet Volume 4.9L, Neutrophils (%) (Auto) 62.6, Lymphocytes (%) (Auto) 19.0L, Monocytes (%) (Auto) 10.4H, Eosinophils (%) (Auto ) 7.3H, Basophils (%) (Auto) 0.7, Sodium Level 142, Potassium Level 4.1, Chloride Level 107, Carbon Dioxide Level 27, Anion Gap 8, Blood Urea Nitrogen 6L , Creatinine 0.6, Estimat Glomerular Filtration Rate , Glucose Level 93, Calcium Level 8.6 Height (Feet): 4 Height (Inches): 11.00 Weight (Pounds): 158 Objective General Appearance: no apparent distress, alert EENT: PERRL/EOMI, normal ENT inspection Neck: non-tender, normal alignment Cardiovascular: normal rate, regular rhythm Respiratory/Chest: decreased breath sounds - chest tube noted Extremities: non-tender Edema: trace edema Neurologic: alert, oriented x 3 Skin: normal pigmentation Cruzito Nettles May 11, 2019 09:22
[2019-05-11 12:00] VITALS: BP 119/77
--- NOTE | 2019-05-11 12:06 | Infectious Diseases Prog Note ---
Assessment/Plan Assessment/Plan antibiotics : ancef A 1. staph aureus empyema s/p CT placement, decortication 2. kyphosis 3. breast cancer 4. leucocytosis improving P 1. continue ancef 2. will follow up cultures Subjective Constitutional: Denies: fever, chills Respiratory: Reports: dry cough - mild; Denies: shortness of breath Gastrointestinal/Abdominal: Denies: nausea, vomiting, diarrhea Musculoskeletal: Denies: pain Allergies: Coded Allergies: No Known Allergies (Unverified , 10/16/16) Objective Vital Signs Last 24 Hour Vital Signs Date Time Temp Pulse Resp B/P (MAP) Pulse Ox O2 Delivery O2 Flow Rate FiO2 05/11/19 08:41 93 Room Air 21 05/11/19 08:41 81 18 100 Room Air 21 78 20 93 05/11/19 08:21 Room Air Room Air 05/11/19 08:00 99.2 88 18 155/90 (111) 94 05/11/19 04:00 97.9 75 18 128/68 (88) 96 05/11/19 00:00 98.8 83 18 127/73 (91) 95 05/10/19 21:00 Room Air Room Air 05/10/19 21:00 98.9 94 18 129/77 (94) 97 05/10/19 20:25 74 129/77 05/10/19 18:57 96 Room Air 21 05/10/19 18:57 90 20 100 Room Air 21 84 20 96 05/10/19 16:00 98.1 77 17 131/74 (93) 97 05/10/19 15:26 Room Air 21 Height (Feet): 4 Height (Inches): 11.00 Weight (Pounds): 158 Respiratory/Chest: lungs clear Cardiovascular: normal rate, regular rhythm, no gallop/murmur Abdomen: soft, non tender Extremities: no edema Laboratory Tests Test 05/11/19 05:10 White Blood Count 5.8 K/UL (4.8-10.8) Red Blood Count 3.07 M/UL (4.20-5.40) L Hemoglobin 8.1 G/DL (12.0-16.0) L Hematocrit 25.9 % (37.0-47.0) L Mean Corpuscular Volume 84 FL (80-99) Mean Corpuscular Hemoglobin 26.4 PG (27.0-31.0) L Mean Corpuscular Hemoglobin Concent 31.3 G/DL (32.0-36.0) L Red Cell Distribution Width 16.6 % (11.6-14.8) H Platelet Count 252 K/UL (150-450) Mean Platelet Volume 4.9 FL (6.5-10.1) L Neutrophils (%) (Auto) 62.6 % (45.0-75.0) Lymphocytes (%) (Auto) 19.0 % (20.0-45.0) L Monocytes (%) (Auto) 10.4 % (1.0-10.0) H Eosinophils (%) (Auto) 7.3 % (0.0-3.0) H Basophils (%) (Auto) 0.7 % (0.0-2.0) Sodium Level 142 MMOL/L (136-145) Potassium Level 4.1 MMOL/L (3.5-5.1) Chloride Level 107 MMOL/L (98-107) Carbon Dioxide Level 27 MMOL/L (21-32) Anion Gap 8 mmol/L (5-15) Blood Urea Nitrogen 6 mg/dL (7-18) L Creatinine 0.6 MG/DL (0.55-1.30) Estimat Glomerular Filtration Rate mL/min (>60) Glucose Level 93 MG/DL (74-106) Calcium Level 8.6 MG/DL (8.5-10.1) Current Medications Medications (Trade) Dose Ordered Sig/Bertram Route PRN Reason Start Time Stop Time Status Last Admin Dose Admin Acetaminophen (Tylenol) 650 mg Q4H PRN ORAL Temp > 100.5 05/07/19 14:30 05/28/19 14:29 Acetaminophen (Tylenol) 650 mg Q6H PRN ORAL Mild Pain (Pain Scale 1-3) 05/07/19 14:45 06/04/19 08:44 Acetaminophen/ Hydrocodone Bitart ([place] 5/325) 1 tab Q4H PRN ORAL Moderate Pain (Pain Scale 4-6) 05/09/19 09:00 05/16/19 08:59 05/10/19 22:23 Al Hydroxide/Mg Hydroxide (Mylanta) 30 ml Q4H PRN ORAL Abdominal cramps 05/07/19 14:30 05/28/19 14:29 Albuterol/ Ipratropium (Albuterol/ Ipratropium) 3 ml Q4HRT HHN 05/07/19 15:00 05/11/19 14:59 05/11/19 08:41 Cefazolin Sodium 2 gm/Sodium Chloride 110 ml @ 220 mls/hr Q8H IVPB 05/07/19 20:00 05/13/19 11:59 05/11/19 11:48 Diphenhydramine HCl (Benadryl) 25 mg Q8H PRN ORAL Itching 05/07/19 14:30 06/05/19 14:29 05/10/19 22:23 Docusate Sodium (Colace) 100 mg TID ORAL 05/08/19 13:30 06/07/19 13:29 05/11/19 08:41 Ferrous Sulfate (Feosol) 325 mg THREE TIMES A DAY ORAL 05/08/19 13:00 06/07/19 12:59 05/11/19 08:41 Metoprolol Succinate (Toprol XL) 25 mg BEDTIME ORAL 05/07/19 21:00 06/02/19 20:59 05/10/19 20:25 Morphine Sulfate (Morphine Sulfate) 2 mg Q4H PRN IVP Severe Pain (Pain Scale 7-10) 05/09/19 09:00 05/12/19 08:59 Samra Vazquez MD May 11, 2019 12:06
--- NOTE | 2019-05-11 13:00 | Diagnostic Imaging Report ---
Indication: Dyspnea Comparison: 05/10/2019 A single view chest radiograph was obtained. Findings: Right chest tube is unchanged in position. Underlying parenchymal infiltrate and/or atelectasis and a pleural effusion are suspected. Cardiomegaly noted. Mild pulmonary vascular congestion suspected. IMPRESSION: No significant change from the prior exam
--- NOTE | 2019-05-11 14:25 | Pulmonology Progress Note ---
Assessment/Plan Assessment/Plan Pulmonary Progress Note Patient is a 73 Years old woman noted to have a possible vertebral lesion and loculated pleural effusion. The patient states she is experiencing shortness of breath. She denies wheezing and chest tightness. Patient denies chest tightness, chest pain, cough, sputum production. Patient notes post nasal drip, nasal congestion, and sinus pressure/headache patient denies any significant work up but did have cxr with effusion noted, which prompted the work up . patient care discussed in detail. all acute issues reviewed in detail. patient medications reviewed. 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 respiratory insufficiency djd leg edema venous US and echo negative in office last week PLAN CT per thoracic ID follow up monitor for change follow up imaging monitor for leak will need close follow up assess for home dc once cleared and CT removed d/w patient in detail impression, plan, and exam edited and reviewed in detail care discussed with RN Subjective Allergies: Coded Allergies: No Known Allergies (Unverified , 10/16/16) Subjective care noted s/p decortication surgery appreciated confused and forgetful agreeable to snf Objective Vital Signs Noted Labs Test 05/07/19 11:50 05/08/19 07:22 05/09/19 04:15 White Blood Count 11.0 K/UL (4.8-10.8) 9.3 K/UL (4.8-10.8) 6.6 K/UL (4.8-10.8) Red Blood Count 3.26 M/UL (4.20-5.40) 3.34 M/UL (4.20-5.40) 3.11 M/UL (4.20-5.40) Hemoglobin 8.8 G/DL (12.0-16.0) 8.8 G/DL (12.0-16.0) 8.3 G/DL (12.0-16.0) Hematocrit 27.4 % (37.0-47.0) 28.1 % (37.0-47.0) 26.2 % (37.0-47.0) Mean Corpuscular Volume 84 FL (80-99) 84 FL (80-99) 84 FL (80-99) Mean Corpuscular Hemoglobin 26.9 PG (27.0-31.0) 26.3 PG (27.0-31.0) 26.7 PG (27.0-31.0) Mean Corpuscular Hemoglobin Concent 32.0 G/DL (32.0-36.0) 31.4 G/DL (32.0-36.0) 31.6 G/DL (32.0-36.0) Red Cell Distribution Width 17.1 % (11.6-14.8) 16.9 % (11.6-14.8) 16.9 % (11.6-14.8) Platelet Count 269 K/UL (150-450) 271 K/UL (150-450) 254 K/UL (150-450) Mean Platelet Volume 5.2 FL (6.5-10.1) 5.2 FL (6.5-10.1) 5.2 FL (6.5-10.1) Neutrophils (%) (Auto) 76.7 % (45.0-75.0) 70.7 % (45.0-75.0) 67.0 % (45.0-75.0) Lymphocytes (%) (Auto) 12.3 % (20.0-45.0) 14.5 % (20.0-45.0) 15.9 % (20.0-45.0) Monocytes (%) (Auto) 7.0 % (1.0-10.0) 7.6 % (1.0-10.0) 9.0 % (1.0-10.0) Eosinophils (%) (Auto) 3.5 % (0.0-3.0) 6.9 % (0.0-3.0) 7.4 % (0.0-3.0) Basophils (%) (Auto) 0.5 % (0.0-2.0) 0.3 % (0.0-2.0) 0.6 % (0.0-2.0) Sodium Level 138 MMOL/L (136-145) 139 MMOL/L (136-145) Potassium Level 4.6 MMOL/L (3.5-5.1) 4.2 MMOL/L (3.5-5.1) Chloride Level 105 MMOL/L (98-107) 106 MMOL/L (98-107) Carbon Dioxide Level 26 MMOL/L (21-32) 26 MMOL/L (21-32) Anion Gap 8 mmol/L (5-15) 7 mmol/L (5-15) Blood Urea Nitrogen 14 mg/dL (7-18) 9 mg/dL (7-18) Creatinine 0.6 MG/DL (0.55-1.30) 0.6 MG/DL (0.55-1.30) Estimat Glomerular Filtration Rate mL/min (>60) mL/min (>60) Glucose Level 94 MG/DL (74-106) 121 MG/DL (74-106) Calcium Level 8.4 MG/DL (8.5-10.1) 8.5 MG/DL (8.5-10.1) Phosphorus Level 2.9 MG/DL (2.5-4.9) Magnesium Level 2.2 MG/DL (1.8-2.4) Pro-B-Type Natriuretic Peptide 354 pg/mL (0-125) Height (Feet): 4 Height (Inches): 11.00 Weight (Pounds): 158 Objective WDWN NAD reduced breath sounds bilaterally without rhonchi or wheeze; CT in place [id number] without MRG NABS nontender no HSM no CC noted edema nonfocal contracted and kyphotic alert and anxious Subjective ROS Limited/Unobtainable: No Allergies: Coded Allergies: No Known Allergies (Unverified , 10/16/16) Objective Last 24 Hour Vital Signs Date Time Temp Pulse Resp B/P (MAP) Pulse Ox O2 Delivery O2 Flow Rate FiO2 05/11/19 14:03 75 18 99 Room Air 21 72 18 94 05/11/19 12:00 98.4 22 20 119/77 (91) 97 05/11/19 08:41 93 Room Air 21 05/11/19 08:41 81 18 100 Room Air 21 78 20 93 05/11/19 08:21 Room Air Room Air 05/11/19 08:00 99.2 88 18 155/90 (111) 94 05/11/19 04:00 97.9 75 18 128/68 (88) 96 8/28/19 00:00 98.8 83 18 127/73 (91) 95 05/10/19 21:00 Room Air Room Air 05/10/19 21:00 98.9 94 18 129/77 (94) 97 05/10/19 20:25 74 129/77 05/10/19 18:57 96 Room Air 21 05/10/19 18:57 90 20 100 Room Air 21 84 20 96 05/10/19 16:00 98.1 77 17 131/74 (93) 97 05/10/19 15:26 Room Air 21 Intake and Output 05/10/19 05/11/19 19:00 07:00 Intake Total 1110 ml 480 ml Output Total 304 ml 1110 ml Balance 806 ml -630 ml Intake Oral 1000 ml 480 ml IV Total 110 ml Output Urine Total 300 ml 1100 ml Chest Tube Drainage Total 4 ml 10 ml # Voids 3 2 Laboratory Tests 05/11/19 05:10: White Blood Count 5.8, Red Blood Count 3.07L, Hemoglobin 8.1L, Hematocrit 25.9L , Mean Corpuscular Volume 84, Mean Corpuscular Hemoglobin 26.4L, Mean Corpuscular Hemoglobin Concent 31.3L, Red Cell Distribution Width 16.6H, Platelet Count 252, Mean Platelet Volume 4.9L, Neutrophils (%) (Auto) 62.6, Lymphocytes (%) (Auto) 19.0L, Monocytes (%) (Auto) 10.4H, Eosinophils (%) (Auto ) 7.3H, Basophils (%) (Auto) 0.7, Sodium Level 142, Potassium Level 4.1, Chloride Level 107, Carbon Dioxide Level 27, Anion Gap 8, Blood Urea Nitrogen 6L , Creatinine 0.6, Estimat Glomerular Filtration Rate , Glucose Level 93, Calcium Level 8.6 Current Medications Medications (Trade) Dose Ordered Sig/Bertram Route PRN Reason Start Time Stop Time Status Last Admin Dose Admin Acetaminophen (Tylenol) 650 mg Q4H PRN ORAL Temp > 100.5 05/07/19 14:30 05/28/19 14:29 Acetaminophen (Tylenol) 650 mg Q6H PRN ORAL Mild Pain (Pain Scale 1-3) 05/07/19 14:45 06/04/19 08:44 Acetaminophen/ Hydrocodone Bitart ([place] 5/325) 1 tab Q4H PRN ORAL Moderate Pain (Pain Scale 4-6) 05/09/19 09:00 05/16/19 08:59 05/10/19 22:23 Al Hydroxide/Mg Hydroxide (Mylanta) 30 ml Q4H PRN ORAL Abdominal cramps 05/07/19 14:30 05/28/19 14:29 Albuterol/ Ipratropium (Albuterol/ Ipratropium) 3 ml Q4HRT HHN 05/07/19 15:00 05/11/19 14:59 05/11/19 14:03 Cefazolin Sodium 2 gm/Sodium Chloride 110 ml @ 220 mls/hr Q8H IVPB 05/07/19 20:00 05/13/19 11:59 05/11/19 11:48 Diphenhydramine HCl (Benadryl) 25 mg Q8H PRN ORAL Itching 05/07/19 14:30 06/05/19 14:29 05/10/19 22:23 Docusate Sodium (Colace) 100 mg TID ORAL 05/08/19 13:30 06/07/19 13:29 05/11/19 12:40 Ferrous Sulfate (Feosol) 325 mg THREE TIMES A DAY ORAL 05/08/19 13:00 06/07/19 12:59 05/11/19 12:40 Metoprolol Succinate (Toprol XL) 25 mg BEDTIME ORAL 05/07/19 21:00 06/02/19 20:59 05/10/19 20:25 Morphine Sulfate (Morphine Sulfate) 2 mg Q4H PRN IVP Severe Pain (Pain Scale 7-10) 05/09/19 09:00 05/12/19 08:59 Venancio Haque MD May 11, 2019 14:25
--- NOTE | 2019-05-11 15:52 | Surgery Progress Note ---
Surgery Progress Note Subjective Additional Comments improving no complaints breathing well cxr improved no output from ct no leak from ct Objective Last 24 Hour Vital Signs Date Time Temp Pulse Resp B/P (MAP) Pulse Ox O2 Delivery O2 Flow Rate FiO2 05/11/19 14:03 75 18 99 Room Air 21 72 18 94 05/11/19 12:00 98.4 22 20 119/77 (91) 97 05/11/19 08:41 93 Room Air 21 05/11/19 08:41 81 18 100 Room Air 21 78 20 93 05/11/19 08:21 Room Air Room Air 05/11/19 08:00 99.2 88 18 155/90 (111) 94 05/11/19 04:00 97.9 75 18 128/68 (88) 96 05/11/19 00:00 98.8 83 18 127/73 (91) 95 05/10/19 21:00 Room Air Room Air 05/10/19 21:00 98.9 94 18 129/77 (94) 97 05/10/19 20:25 74 129/77 05/10/19 18:57 96 Room Air 21 05/10/19 18:57 90 20 100 Room Air 21 84 20 96 05/10/19 16:00 98.1 77 17 131/74 (93) 97 I&O Intake and Output 05/10/19 05/11/19 19:00 07:00 Intake Total 1110 ml 480 ml Output Total 304 ml 1110 ml Balance 806 ml -630 ml Intake Oral 1000 ml 480 ml IV Total 110 ml Output Urine Total 300 ml 1100 ml Chest Tube Drainage Total 4 ml 10 ml # Voids 3 2 Dressing: dry Wound: clean Drains: other Cardiovascular: RSR Respiratory: clear Abdomen: soft, flat, non-tender, present bowel sounds Extremities: no edema, no tenderness, no cyanosis Laboratory Tests Test 05/11/19 05:10 White Blood Count 5.8 K/UL (4.8-10.8) Red Blood Count 3.07 M/UL (4.20-5.40) L Hemoglobin 8.1 G/DL (12.0-16.0) L Hematocrit 25.9 % (37.0-47.0) L Mean Corpuscular Volume 84 FL (80-99) Mean Corpuscular Hemoglobin 26.4 PG (27.0-31.0) L Mean Corpuscular Hemoglobin Concent 31.3 G/DL (32.0-36.0) L Red Cell Distribution Width 16.6 % (11.6-14.8) H Platelet Count 252 K/UL (150-450) Mean Platelet Volume 4.9 FL (6.5-10.1) L Neutrophils (%) (Auto) 62.6 % (45.0-75.0) Lymphocytes (%) (Auto) 19.0 % (20.0-45.0) L Monocytes (%) (Auto) 10.4 % (1.0-10.0) H Eosinophils (%) (Auto) 7.3 % (0.0-3.0) H Basophils (%) (Auto) 0.7 % (0.0-2.0) Sodium Level 142 MMOL/L (136-145) Potassium Level 4.1 MMOL/L (3.5-5.1) Chloride Level 107 MMOL/L (98-107) Carbon Dioxide Level 27 MMOL/L (21-32) Anion Gap 8 mmol/L (5-15) Blood Urea Nitrogen 6 mg/dL (7-18) L Creatinine 0.6 MG/DL (0.55-1.30) Estimat Glomerular Filtration Rate mL/min (>60) Glucose Level 93 MG/DL (74-106) Calcium Level 8.6 MG/DL (8.5-10.1) Plan Problems: (1) Cellulitis (2) Pleural effusion Assessment & Plan: s/p VATS converted to mini-thora. evacuation and tube placement doing well comfortable leak resolved output decreased diet as tolerated activity as tolerated CT to suction AM labs AM cxr Chest tube removed at bedside today AM CXR thank you Twan Fernandez May 11, 2019 15:52
[2019-05-11 16:00] VITALS: BP 105/77
[2019-05-11] MEDS: HYDROcodone/Acetamin 5/325 tab ORAL PRN (16:00)
--- NOTE | 2019-05-11 16:59 | General Progress Note ---
Assessment/Plan Problem List: (1) Cellulitis ICD Codes: L03.90 - Cellulitis, unspecified SNOMED: 958136638 (2) Pleural effusion ICD Codes: J90 - Pleural effusion, not elsewhere classified SNOMED: 39795729 Status: stable Assessment/Plan: cont chest tube per surgery pain rx encourage po dvt/stress ulcer prophylaxis follow up labs mobilize pt/ot Subjective Allergies: Coded Allergies: No Known Allergies (Unverified , 10/16/16) Subjective no events. ct still to water seal. no cp/sob. wants to go home no fever or chills. no pain. Objective Last 24 Hour Vital Signs Date Time Temp Pulse Resp B/P (MAP) Pulse Ox O2 Delivery O2 Flow Rate FiO2 05/11/19 16:30 98.1 05/11/19 16:00 98.1 85 19 105/77 (86) 99 05/11/19 14:03 75 18 99 Room Air 21 72 18 94 05/11/19 12:00 98.4 22 20 119/77 (91) 97 05/11/19 08:41 93 Room Air 21 05/11/19 08:41 81 18 100 Room Air 21 78 20 93 05/11/19 08:21 Room Air Room Air 05/11/19 08:00 99.2 88 18 155/90 (111) 94 05/11/19 04:00 97.9 75 18 128/68 (88) 96 05/11/19 00:00 98.8 83 18 127/73 (91) 95 05/10/19 21:00 Room Air Room Air 05/10/19 21:00 98.9 94 18 129/77 (94) 97 05/10/19 20:25 74 129/77 05/10/19 18:57 96 Room Air 21 05/10/19 18:57 90 20 100 Room Air 21 84 20 96 Intake and Output 05/10/19 05/11/19 19:00 07:00 Intake Total 1110 ml 480 ml Output Total 304 ml 1110 ml Balance 806 ml -630 ml Intake Oral 1000 ml 480 ml IV Total 110 ml Output Urine Total 300 ml 1100 ml Chest Tube Drainage Total 4 ml 10 ml # Voids 3 2 Laboratory Tests 05/11/19 05:10: White Blood Count 5.8, Red Blood Count 3.07L, Hemoglobin 8.1L, Hematocrit 25.9L , Mean Corpuscular Volume 84, Mean Corpuscular Hemoglobin 26.4L, Mean Corpuscular Hemoglobin Concent 31.3L, Red Cell Distribution Width 16.6H, Platelet Count 252, Mean Platelet Volume 4.9L, Neutrophils (%) (Auto) 62.6, Lymphocytes (%) (Auto) 19.0L, Monocytes (%) (Auto) 10.4H, Eosinophils (%) (Auto ) 7.3H, Basophils (%) (Auto) 0.7, Sodium Level 142, Potassium Level 4.1, Chloride Level 107, Carbon Dioxide Level 27, Anion Gap 8, Blood Urea Nitrogen 6L , Creatinine 0.6, Estimat Glomerular Filtration Rate , Glucose Level 93, Calcium Level 8.6 Height (Feet): 4 Height (Inches): 11.00 Weight (Pounds): 158 Objective General Appearance: WD/WN, alert Neck: supple Cardiovascular: regular rhythm Respiratory/Chest: chest wall non-tender, lungs clear, normal breath sounds Abdomen: normal bowel sounds, non tender, soft, no organomegaly Edema: no edema noted Arm (L), no edema noted Arm (R), no edema noted Leg (L), no edema noted Leg (R), no edema noted Pedal (L), no edema noted Pedal (R), no edema noted 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
[2019-05-11 20:00] VITALS: BP 113/68
[2019-05-11] MEDS: Metoprolol Succinate XL 25mg tab ORAL SCH (20:31)
[2019-05-11] MEDS: Cephalexin 500mg cap ORAL SCH (20:31)
[2019-05-12 00:19] VITALS: BP 133/86
[2019-05-12 04:00] VITALS: BP 137/85
--- NOTE | 2019-05-12 05:30 | Progress Note ---
DATE: 05/11/2019 CARDIOLOGY PROGRESS NOTE SUBJECTIVE: The patient continues to have chest tube in place due to air leak. She has a good cough. She has some congestion. She denies shortness of breath. She is anxious to go home. OBJECTIVE: VITAL SIGNS: Blood pressure 105/77, pulse 85, and respiratory rate 19. LUNGS: Coarse breath sounds, diminished at bases. Severe kyphosis. CARDIAC: Regular rhythm and rate. Normal S1 and S2. No murmur. ABDOMEN: Soft and nontender. EXTREMITIES: There is trace dependent edema. LABORATORY DATA: White count 5.8 and hemoglobin 8.1. Potassium 4.1, BUN 6, and creatinine 0.6. IMPRESSION: 1. Status post VATS pleurodesis for empyema. 2. History of breast cancer and mastectomy. 3. Persisting chest tube. 4. Hypertensive heart disease. 5. Chronic diastolic congestive heart failure. 6. Kyphosis with respiratory insufficiency. PLAN: 1. Chest tube management per thoracic surgery. 2. Respiratory hygiene. 3. DVT prophylaxis. 4. Continue current cardiovascular regimen including beta-david. 5. Monitor volume status. 6. Assess for diuresis on a regular basis. 7. Mobilize as able. Venancio Monsivais M.D. DR: DIANNE JOB#: [id number] CC:
[2019-05-12 07:05] LABS: BASOPHILS % (AUTO) 0.6 % (0.0-2.0); EOSINOPHILS % (AUTO) 4.1 % (0.0-3.0); HEMATOCRIT 27.1 % (37.0-47.0); HEMOGLOBIN 8.7 G/DL (12.0-16.0); LYMPHOCYTES % (AUTO) 9.8 % (20.0-45.0); MEAN CORPUSCULAR VOLUME 83 FL (80-99); MONOCYTES % (AUTO) 9.5 % (1.0-10.0); NEUTROPHILS % (AUTO) 76.1 % (45.0-75.0); PLATELET COUNT 296 K/UL (150-450); RED BLOOD COUNT 3.28 M/UL (4.20-5.40); RED CELL DISTRIBUTION WIDTH 16.7 % (11.6-14.8); WHITE BLOOD COUNT 7.7 K/UL (4.8-10.8)
[2019-05-12 07:06] LABS: ALANINE AMINOTRANSFERASE < 6 U/L (12-78); ALBUMIN 2.3 G/DL (3.4-5.0); ALBUMIN/GLOBULIN RATIO 0.5 (1.0-2.7); ALKALINE PHOSPHATASE 86 U/L (46-116); ANION GAP 8 mmol/L (5-15); ASPARTATE AMINO TRANSFERASE 16 U/L (15-37); BILIRUBIN,TOTAL 0.4 MG/DL (0.2-1.0); BLOOD UREA NITROGEN 5 mg/dL (7-18); CALCIUM 8.6 MG/DL (8.5-10.1); CARBON DIOXIDE 27 MMOL/L (21-32); CHLORIDE 101 MMOL/L (98-107); CREATININE 0.6 MG/DL (0.55-1.30); SODIUM 136 MMOL/L (136-145)
[2019-05-12 08:00] VITALS: BP 142/82
--- NOTE | 2019-05-12 08:29 | General Progress Note ---
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 respiratory insufficiency djd leg edema venous US and echo negative in office last week PLAN CT per thoracic ID follow up and recs monitor for change follow up imaging for change monitor for leak will need close follow up assess for snf dc once cleared and CT removed d/w patient in detail impression, plan, and exam edited and reviewed in detail care discussed with RN Subjective Allergies: Coded Allergies: No Known Allergies (Unverified , 10/16/16) Subjective care noted s/p decortication surgery appreciated confused and forgetful agreeable to snf CT to water seal d/w surgery and sister Objective Last 24 Hour Vital Signs Date Time Temp Pulse Resp B/P (MAP) Pulse Ox O2 Delivery O2 Flow Rate FiO2 05/12/19 04:00 97.6 96 16 137/85 (102) 95 05/12/19 00:19 98.8 87 16 133/86 (102) 95 05/11/19 21:00 Room Air Room Air 05/11/19 20:31 86 113/66 05/11/19 20:00 99.2 86 16 113/68 (83) 98 05/11/19 19:41 96 Room Air 21 05/11/19 16:30 98.1 05/11/19 16:00 98.1 85 19 105/77 (86) 99 05/11/19 14:03 75 18 99 Room Air 21 72 18 94 05/11/19 12:00 98.4 22 20 119/77 (91) 97 05/11/19 08:41 93 Room Air 21 05/11/19 08:41 81 18 100 Room Air 21 78 20 93 Intake and Output 05/11/19 05/12/19 19:00 07:00 Intake Total 1000 ml Balance 1000 ml Intake Oral 890 ml IV Total 110 ml # Voids 1 2 # Bowel Movements 1 Laboratory Tests 05/12/19 05:50: White Blood Count 7.7, Red Blood Count 3.28L, Hemoglobin 8.7L, Hematocrit 27.1L , Mean Corpuscular Volume 83, Mean Corpuscular Hemoglobin 26.5L, Mean Corpuscular Hemoglobin Concent 32.0, Red Cell Distribution Width 16.7H, Platelet Count 296, Mean Platelet Volume 4.9L, Neutrophils (%) (Auto) 76.1H, Lymphocytes (%) (Auto) 9.8L, Monocytes (%) (Auto) 9.5, Eosinophils (%) (Auto) 4.1H, Basophils (%) (Auto) 0.6, Sodium Level 136, Potassium Level 4.0, Chloride Level 101, Carbon Dioxide Level 27, Anion Gap 8, Blood Urea Nitrogen 5L, Creatinine 0.6, Estimat Glomerular Filtration Rate , Glucose Level 106, Calcium Level 8.6, Magnesium Level 1.7L, Total Bilirubin 0.4, Aspartate Amino Transf ( AST/SGOT) 16, Alanine Aminotransferase (ALT/SGPT) < 6L, Alkaline Phosphatase 86 , Pro-B-Type Natriuretic Peptide 524H, Total Protein 6.8, Albumin 2.3L, Globulin 4.5, Albumin/Globulin Ratio 0.5L Height (Feet): 4 Height (Inches): 11.00 Weight (Pounds): 147 Objective WDWN NAD reduced breath sounds bilaterally without rhonchi or wheeze; CT in place [id number] without MRG NABS nontender no HSM no CC noted edema nonfocal contracted and kyphotic alert and anxious Celestino Cota MD May 12, 2019 08:29
--- NOTE | 2019-05-12 08:43 | General Progress Note ---
Assessment/Plan Assessment/Plan: (1) Pleural effusion (2) Chest wall pain (3) S/p Chest tube placement Patient to be continued on [place] and morphine. D/w Dr. Pedersen and he concurred. Subjective Date patient seen: May 12, 2019 Time patient seen: 08:00 - am Allergies: Coded Allergies: No Known Allergies (Unverified , 10/16/16) Subjective Constitutional: Reports: weakness HEENT: Reports: no symptoms Cardiovascular: Reports: chest pain Respiratory: Reports: shortness of breath Gastrointestinal/Abdominal: Reports: no symptoms Genitourinary: Reports: no symptoms Neurologic/Psychiatric: Reports: no symptoms Endocrine: Reports: no symptoms Hematologic/Lymphatic: Reports: no symptoms Subjective Patient showing no signs of pain or distress. Pain is at a moderate level. CT was removed. Received one [place] in the last 24hrs. No new complaints at this time. Objective Last 24 Hour Vital Signs Date Time Temp Pulse Resp B/P (MAP) Pulse Ox O2 Delivery O2 Flow Rate FiO2 05/12/19 04:00 97.6 96 16 137/85 (102) 95 05/12/19 00:19 98.8 87 16 133/86 (102) 95 05/11/19 21:00 Room Air Room Air 05/11/19 20:31 86 113/66 05/11/19 20:00 99.2 86 16 113/68 (83) 98 05/11/19 19:41 96 Room Air 21 05/11/19 16:30 98.1 05/11/19 16:00 98.1 85 19 105/77 (86) 99 05/11/19 14:03 75 18 99 Room Air 21 72 18 94 05/11/19 12:00 98.4 22 20 119/77 (91) 97 Intake and Output 05/11/19 05/12/19 19:00 07:00 Intake Total 1000 ml Balance 1000 ml Intake Oral 890 ml IV Total 110 ml # Voids 1 2 # Bowel Movements 1 Laboratory Tests 05/12/19 05:50: White Blood Count 7.7, Red Blood Count 3.28L, Hemoglobin 8.7L, Hematocrit 27.1L , Mean Corpuscular Volume 83, Mean Corpuscular Hemoglobin 26.5L, Mean Corpuscular Hemoglobin Concent 32.0, Red Cell Distribution Width 16.7H, Platelet Count 296, Mean Platelet Volume 4.9L, Neutrophils (%) (Auto) 76.1H, Lymphocytes (%) (Auto) 9.8L, Monocytes (%) (Auto) 9.5, Eosinophils (%) (Auto) 4.1H, Basophils (%) (Auto) 0.6, Sodium Level 136, Potassium Level 4.0, Chloride Level 101, Carbon Dioxide Level 27, Anion Gap 8, Blood Urea Nitrogen 5L, Creatinine 0.6, Estimat Glomerular Filtration Rate , Glucose Level 106, Calcium Level 8.6, Magnesium Level 1.7L, Total Bilirubin 0.4, Aspartate Amino Transf ( AST/SGOT) 16, Alanine Aminotransferase (ALT/SGPT) < 6L, Alkaline Phosphatase 86 , Pro-B-Type Natriuretic Peptide 524H, Total Protein 6.8, Albumin 2.3L, Globulin 4.5, Albumin/Globulin Ratio 0.5L Height (Feet): 4 Height (Inches): 11.00 Weight (Pounds): 147 Objective General Appearance: no apparent distress, alert EENT: PERRL/EOMI, normal ENT inspection Neck: non-tender, normal alignment Cardiovascular: normal rate, regular rhythm Respiratory/Chest: decreased breath sounds Extremities: non-tender Edema: trace edema Neurologic: alert, oriented x 3 Skin: normal pigmentation Cruzito Nettles May 12, 2019 08:43
--- NOTE | 2019-05-12 08:48 | General Progress Note ---
Assessment/Plan Problem List: (1) Cellulitis ICD Codes: L03.90 - Cellulitis, unspecified SNOMED: 787159141 (2) Pleural effusion ICD Codes: J90 - Pleural effusion, not elsewhere classified SNOMED: 51508021 Assessment/Plan: encourage po dvt/stress ulcer prophylaxis replace mg mobilize pt/ot Subjective ROS Limited/Unobtainable: No Constitutional: Reports: weakness HEENT: Reports: no symptoms Cardiovascular: Reports: no symptoms Respiratory: Reports: cough Gastrointestinal/Abdominal: Reports: no symptoms Genitourinary: Reports: no symptoms Neurologic/Psychiatric: Reports: no symptoms Endocrine: Reports: no symptoms Hematologic/Lymphatic: Reports: no symptoms Allergies: Coded Allergies: No Known Allergies (Unverified , 10/16/16) All Systems: reviewed and negative except above Subjective ct out no cp/sob no fevers or chills. low mg Objective Last 24 Hour Vital Signs Date Time Temp Pulse Resp B/P (MAP) Pulse Ox O2 Delivery O2 Flow Rate FiO2 05/12/19 04:00 97.6 96 16 137/85 (102) 95 05/12/19 00:19 98.8 87 16 133/86 (102) 95 05/11/19 21:00 Room Air Room Air 05/11/19 20:31 86 113/66 05/11/19 20:00 99.2 86 16 113/68 (83) 98 05/11/19 19:41 96 Room Air 21 05/11/19 16:30 98.1 05/11/19 16:00 98.1 85 19 105/77 (86) 99 05/11/19 14:03 75 18 99 Room Air 21 72 18 94 05/11/19 12:00 98.4 22 20 119/77 (91) 97 Intake and Output 05/11/19 05/12/19 19:00 07:00 Intake Total 1000 ml Balance 1000 ml Intake Oral 890 ml IV Total 110 ml # Voids 1 2 # Bowel Movements 1 Laboratory Tests 05/12/19 05:50: White Blood Count 7.7, Red Blood Count 3.28L, Hemoglobin 8.7L, Hematocrit 27.1L , Mean Corpuscular Volume 83, Mean Corpuscular Hemoglobin 26.5L, Mean Corpuscular Hemoglobin Concent 32.0, Red Cell Distribution Width 16.7H, Platelet Count 296, Mean Platelet Volume 4.9L, Neutrophils (%) (Auto) 76.1H, Lymphocytes (%) (Auto) 9.8L, Monocytes (%) (Auto) 9.5, Eosinophils (%) (Auto) 4.1H, Basophils (%) (Auto) 0.6, Sodium Level 136, Potassium Level 4.0, Chloride Level 101, Carbon Dioxide Level 27, Anion Gap 8, Blood Urea Nitrogen 5L, Creatinine 0.6, Estimat Glomerular Filtration Rate , Glucose Level 106, Calcium Level 8.6, Magnesium Level 1.7L, Total Bilirubin 0.4, Aspartate Amino Transf ( AST/SGOT) 16, Alanine Aminotransferase (ALT/SGPT) < 6L, Alkaline Phosphatase 86 , Pro-B-Type Natriuretic Peptide 524H, Total Protein 6.8, Albumin 2.3L, Globulin 4.5, Albumin/Globulin Ratio 0.5L Height (Feet): 4 Height (Inches): 11.00 Weight (Pounds): 147 Objective General Appearance: WD/WN, alert Neck: supple Cardiovascular: regular rhythm Respiratory/Chest: chest wall non-tender, lungs clear, normal breath sounds Abdomen: normal bowel sounds, non tender, soft, no organomegaly Edema: no edema noted Arm (L), no edema noted Arm (R), no edema noted Leg (L), no edema noted Leg (R), no edema noted Pedal (L), no edema noted Pedal (R), no edema noted 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
[2019-05-12] MEDS: Cephalexin 500mg cap ORAL SCH ×2 (09:14→21:08)
[2019-05-12] MEDS: Docusate 100mg cap ORAL SCH ×3 (09:14→18:35)
--- NOTE | 2019-05-12 09:27 | Diagnostic Imaging Report ---
. Indication: Shortness of breath Technique: One view of the chest Comparison: 05/03/2019 Findings: Interim removal of previously demonstrated right chest tube. No pneumothorax demonstrated. What appears to be a biloculated thin-walled cavitary lesion or air cyst is again demonstrated centrally within the right lung. There is decreased subcutaneous emphysema on the right. There is decreased but persistent parenchymal consolidation in the right mid and lower lung. The left lung and pleural space remain clear. The heart remains enlarged Impression: Interim chest tube removal. No pneumothorax Persistent right midlung thin walled cavitary lesion or air cyst Decreasing infiltrates atelectasis in the right mid and lower lung Decreased subcutaneous emphysema
[2019-05-12] MEDS ORDERED: Magnesium Oxide 400mg tab ORAL SCH (10:30)
--- NOTE | 2019-05-12 11:35 | Infectious Diseases Prog Note ---
Assessment/Plan Assessment/Plan IMPRESSION: Empyema cultures: MSSA Anemia, Osteoarthritis, Kyphosis, History of breast cancer. S/p VATs & Decortication RECOMMENDATION: Continue Keflex Subjective ROS Limited/Unobtainable: No Constitutional: Reports: no symptoms Respiratory: Reports: no symptoms, other - chest tube was removed Gastrointestinal/Abdominal: Reports: no symptoms Genitourinary: Reports: no symptoms Allergies: Coded Allergies: No Known Allergies (Unverified , 10/16/16) Objective Vital Signs Last 24 Hour Vital Signs Date Time Temp Pulse Resp B/P (MAP) Pulse Ox O2 Delivery O2 Flow Rate FiO2 05/12/19 09:30 Room Air Room Air 05/12/19 08:00 99.4 87 20 142/82 (102) 94 05/12/19 04:00 97.6 96 16 137/85 (102) 95 05/12/19 00:19 98.8 87 16 133/86 (102) 95 05/11/19 21:00 Room Air Room Air 05/11/19 20:31 86 113/66 05/11/19 20:00 99.2 86 16 113/68 (83) 98 05/11/19 19:41 96 Room Air 21 05/11/19 16:30 98.1 05/11/19 16:00 98.1 85 19 105/77 (86) 99 05/11/19 14:03 75 18 99 Room Air 21 72 18 94 05/11/19 12:00 98.4 22 20 119/77 (91) 97 Height (Feet): 4 Height (Inches): 11.00 Weight (Pounds): 147 General Appearance: no acute distress HEENT: mucous membranes moist Respiratory/Chest: lungs clear Cardiovascular: normal rate Abdomen: soft, non tender Extremities: other - mild periankle edema Neurologic/Psychiatric: alert, responsive Laboratory Tests Test 05/12/19 05:50 White Blood Count 7.7 K/UL (4.8-10.8) Red Blood Count 3.28 M/UL (4.20-5.40) L Hemoglobin 8.7 G/DL (12.0-16.0) L Hematocrit 27.1 % (37.0-47.0) L Mean Corpuscular Volume 83 FL (80-99) Mean Corpuscular Hemoglobin 26.5 PG (27.0-31.0) L Mean Corpuscular Hemoglobin Concent 32.0 G/DL (32.0-36.0) Red Cell Distribution Width 16.7 % (11.6-14.8) H Platelet Count 296 K/UL (150-450) Mean Platelet Volume 4.9 FL (6.5-10.1) L Neutrophils (%) (Auto) 76.1 % (45.0-75.0) H Lymphocytes (%) (Auto) 9.8 % (20.0-45.0) L Monocytes (%) (Auto) 9.5 % (1.0-10.0) Eosinophils (%) (Auto) 4.1 % (0.0-3.0) H Basophils (%) (Auto) 0.6 % (0.0-2.0) Sodium Level 136 MMOL/L (136-145) Potassium Level 4.0 MMOL/L (3.5-5.1) Chloride Level 101 MMOL/L (98-107) Carbon Dioxide Level 27 MMOL/L (21-32) Anion Gap 8 mmol/L (5-15) Blood Urea Nitrogen 5 mg/dL (7-18) L Creatinine 0.6 MG/DL (0.55-1.30) Estimat Glomerular Filtration Rate mL/min (>60) Glucose Level 106 MG/DL (74-106) Calcium Level 8.6 MG/DL (8.5-10.1) Magnesium Level 1.7 MG/DL (1.8-2.4) L Total Bilirubin 0.4 MG/DL (0.2-1.0) Aspartate Amino Transf (AST/SGOT) 16 U/L (15-37) Alanine Aminotransferase (ALT/SGPT) < 6 U/L (12-78) L Alkaline Phosphatase 86 U/L (46-116) Pro-B-Type Natriuretic Peptide 524 pg/mL (0-125) H Total Protein 6.8 G/DL (6.4-8.2) Albumin 2.3 G/DL (3.4-5.0) L Globulin 4.5 g/dL Albumin/Globulin Ratio 0.5 (1.0-2.7) L Current Medications Medications (Trade) Dose Ordered Sig/Bertram Route PRN Reason Start Time Stop Time Status Last Admin Dose Admin Acetaminophen (Tylenol) 650 mg Q4H PRN ORAL Temp > 100.5 05/07/19 14:30 05/28/19 14:29 Acetaminophen (Tylenol) 650 mg Q6H PRN ORAL Mild Pain (Pain Scale 1-3) 05/07/19 14:45 06/04/19 08:44 Acetaminophen/ Hydrocodone Bitart (Arnett 5/325) 1 tab Q4H PRN ORAL Moderate Pain (Pain Scale 4-6) 05/09/19 09:00 05/16/19 08:59 05/11/19 16:00 Al Hydroxide/Mg Hydroxide (Mylanta) 30 ml Q4H PRN ORAL Abdominal cramps 05/07/19 14:30 05/28/19 14:29 Cephalexin (Keflex) 500 mg Q12HR ORAL 05/11/19 21:00 05/18/19 20:59 05/12/19 09:14 Diphenhydramine HCl (Benadryl) 25 mg Q8H PRN ORAL Itching 05/07/19 14:30 06/05/19 14:29 05/10/19 22:23 Docusate Sodium (Colace) 100 mg TID ORAL 05/08/19 13:30 06/07/19 13:29 05/12/19 09:14 Ferrous Sulfate (Feosol) 325 mg THREE TIMES A DAY ORAL 05/08/19 13:00 06/07/19 12:59 05/12/19 09:14 Magnesium Oxide (Mag-Ox 400mg) 800 mg ONCE ORAL 05/12/19 10:30 05/12/19 12:00 05/12/19 10:39 Metoprolol Succinate (Toprol XL) 25 mg BEDTIME ORAL 05/07/19 21:00 06/02/19 20:59 05/11/19 20:31 Carloz Voss MD May 12, 2019 11:35
[2019-05-12 12:09] VITALS: BP 158/88
[2019-05-12] MEDS ORDERED: Isovue-300 100ml vial INJ PRN (12:15)
--- NOTE | 2019-05-12 12:16 | Surgery Progress Note ---
Surgery Progress Note Subjective Additional Comments doing well since chest tube removal states she wants to go home as she feels well no n/v/f/c labs noted cxr this am noted Objective Last 24 Hour Vital Signs Date Time Temp Pulse Resp B/P (MAP) Pulse Ox O2 Delivery O2 Flow Rate FiO2 05/12/19 12:09 97.2 92 18 158/88 (111) 95 05/12/19 09:30 Room Air Room Air 05/12/19 08:00 99.4 87 20 142/82 (102) 94 05/12/19 04:00 97.6 96 16 137/85 (102) 95 05/12/19 00:19 98.8 87 16 133/86 (102) 95 05/11/19 21:00 Room Air Room Air 05/11/19 20:31 86 113/66 05/11/19 20:00 99.2 86 16 113/68 (83) 98 05/11/19 19:41 96 Room Air 21 05/11/19 16:30 98.1 05/11/19 16:00 98.1 85 19 105/77 (86) 99 05/11/19 14:03 75 18 99 Room Air 21 72 18 94 I&O Intake and Output 05/11/19 05/12/19 19:00 07:00 Intake Total 1000 ml Balance 1000 ml Intake Oral 890 ml IV Total 110 ml # Voids 1 2 # Bowel Movements 1 Dressing: dry Wound: clean Cardiovascular: RSR Respiratory: clear Abdomen: soft, flat, non-tender, present bowel sounds Extremities: no tenderness, no cyanosis Laboratory Tests Test 05/12/19 05:50 White Blood Count 7.7 K/UL (4.8-10.8) Red Blood Count 3.28 M/UL (4.20-5.40) L Hemoglobin 8.7 G/DL (12.0-16.0) L Hematocrit 27.1 % (37.0-47.0) L Mean Corpuscular Volume 83 FL (80-99) Mean Corpuscular Hemoglobin 26.5 PG (27.0-31.0) L Mean Corpuscular Hemoglobin Concent 32.0 G/DL (32.0-36.0) Red Cell Distribution Width 16.7 % (11.6-14.8) H Platelet Count 296 K/UL (150-450) Mean Platelet Volume 4.9 FL (6.5-10.1) L Neutrophils (%) (Auto) 76.1 % (45.0-75.0) H Lymphocytes (%) (Auto) 9.8 % (20.0-45.0) L Monocytes (%) (Auto) 9.5 % (1.0-10.0) Eosinophils (%) (Auto) 4.1 % (0.0-3.0) H Basophils (%) (Auto) 0.6 % (0.0-2.0) Sodium Level 136 MMOL/L (136-145) Potassium Level 4.0 MMOL/L (3.5-5.1) Chloride Level 101 MMOL/L (98-107) Carbon Dioxide Level 27 MMOL/L (21-32) Anion Gap 8 mmol/L (5-15) Blood Urea Nitrogen 5 mg/dL (7-18) L Creatinine 0.6 MG/DL (0.55-1.30) Estimat Glomerular Filtration Rate mL/min (>60) Glucose Level 106 MG/DL (74-106) Calcium Level 8.6 MG/DL (8.5-10.1) Magnesium Level 1.7 MG/DL (1.8-2.4) L Total Bilirubin 0.4 MG/DL (0.2-1.0) Aspartate Amino Transf (AST/SGOT) 16 U/L (15-37) Alanine Aminotransferase (ALT/SGPT) < 6 U/L (12-78) L Alkaline Phosphatase 86 U/L (46-116) Pro-B-Type Natriuretic Peptide 524 pg/mL (0-125) H Total Protein 6.8 G/DL (6.4-8.2) Albumin 2.3 G/DL (3.4-5.0) L Globulin 4.5 g/dL Albumin/Globulin Ratio 0.5 (1.0-2.7) L Plan Problems: (1) Cellulitis (2) Pleural effusion Assessment & Plan: s/p VATS converted to mini-thora. evacuation and tube placement doing well comfortable leak resolved output decreased diet as tolerated activity as tolerated CT to suction AM labs AM cxr CT chest ordered thank you Twan Fernanedz May 12, 2019 12:16
[2019-05-12 16:00] VITALS: BP 140/70
[2019-05-12 20:00] VITALS: BP 139/73
[2019-05-12] MEDS: Metoprolol Succinate XL 25mg tab ORAL SCH (21:09)
[2019-05-12] MEDS: HYDROcodone/Acetamin 5/325 tab ORAL PRN (21:12)
[2019-05-13] VITALS: BP 129/63
--- NOTE | 2019-05-13 02:30 | Progress Note ---
DATE: 05/12/2019 CARDIOLOGY PROGRESS NOTE SUBJECTIVE: The patient's chest tube was removed today. Followup chest x-ray performed and notable for retention of air cysts and some atelectasis, but overall improvement in aeration. The patient has some congestion, but is in no distress. She is afebrile. T-max 99.2. OBJECTIVE: VITAL SIGNS: Blood pressure 133/86, pulse 87, respirations 16, and oxygen saturation on room air 95 to 99 percent. LUNGS: Coarse breath sounds. Scattered rhonchi. HEART: Regular rhythm and rate. Normal S1, S2. ABDOMEN: Soft. EXTREMITIES: Trace dependent edema. LABORATORY DATA: White count 7.7 and hemoglobin 8.7. Magnesium 1.7. Pro-natriuretic peptide 524. Albumin 2.3. BUN 5 and creatinine 0.6. Potassium is 4. IMPRESSION: 1. Status post VATS, now with chest tube removed. 2. 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 3. Acute respiratory insufficiency now recovered. 4. Acute on chronic diastolic congestive heart failure, compensated clinically. 5. Hypertension, controlled. 6. Hypomagnesemia. PLAN: 1. Respiratory hygiene. 2. IV magnesium. 3. Protein supplement. 4. Continue beta-blockade. 5. Bronchodilators as needed. 6. Aspiration precautions. 7. Mobilization. 8. No indication at this time for diuretic therapy. Venancio Monsivais M.D. DR: PHONG JOB#: [id number] CC:
[2019-05-13 04:00] VITALS: BP 141/85
[2019-05-13 06:08] LABS: BASOPHILS % (AUTO) 0.5 % (0.0-2.0); EOSINOPHILS % (AUTO) 7.2 % (0.0-3.0); HEMOGLOBIN 8.6 G/DL (12.0-16.0); LYMPHOCYTES % (AUTO) 14.7 % (20.0-45.0); MEAN CORPUSCULAR VOLUME 84 FL (80-99); MONOCYTES % (AUTO) 13.4 % (1.0-10.0); NEUTROPHILS % (AUTO) 64.3 % (45.0-75.0); PLATELET COUNT 287 K/UL (150-450); RED BLOOD COUNT 3.23 M/UL (4.20-5.40); RED CELL DISTRIBUTION WIDTH 16.4 % (11.6-14.8); WHITE BLOOD COUNT 5.6 K/UL (4.8-10.8)
[2019-05-13 06:17] LABS: ANION GAP 7 mmol/L (5-15); BLOOD UREA NITROGEN 4 mg/dL (7-18); CALCIUM 8.5 MG/DL (8.5-10.1); CARBON DIOXIDE 27 MMOL/L (21-32); CHLORIDE 105 MMOL/L (98-107); CREATININE 0.6 MG/DL (0.55-1.30); POTASSIUM 3.6 MMOL/L (3.5-5.1); SODIUM 139 MMOL/L (136-145)
--- NOTE | 2019-05-13 06:43 | General Progress Note ---
Assessment/Plan Problem List: (1) Cellulitis ICD Codes: L03.90 - Cellulitis, unspecified SNOMED: 841219928 (2) Pleural effusion ICD Codes: J90 - Pleural effusion, not elsewhere classified SNOMED: 13252265 Status: stable, progressing Assessment/Plan: stable CT chest per surgery resp care o2 as neded mobilize pt/ot Subjective ROS Limited/Unobtainable: No Constitutional: Reports: malaise, weakness HEENT: Reports: no symptoms Cardiovascular: Reports: no symptoms Respiratory: Reports: no symptoms Gastrointestinal/Abdominal: Reports: no symptoms Genitourinary: Reports: no symptoms Neurologic/Psychiatric: Reports: no symptoms Endocrine: Reports: no symptoms Hematologic/Lymphatic: Reports: no symptoms Allergies: Coded Allergies: No Known Allergies (Unverified , 10/16/16) All Systems: reviewed and negative except above Subjective no complaints.no cp/sob. no fevers or chills. no cough. surgery noted. CT chest pending. Objective Last 24 Hour Vital Signs Date Time Temp Pulse Resp B/P (MAP) Pulse Ox O2 Delivery O2 Flow Rate FiO2 05/13/19 04:00 97.8 81 18 141/85 (103) 95 05/13/19 00:00 97.9 76 18 129/63 (85) 95 05/12/19 21:09 84 139/73 05/12/19 21:00 Room Air Room Air 05/12/19 20:00 98.4 91 18 139/73 (95) 96 05/12/19 16:00 98.0 84 20 140/70 (93) 95 05/12/19 12:09 97.2 92 18 158/88 (111) 95 05/12/19 09:30 Room Air Room Air 05/12/19 08:00 99.4 87 20 142/82 (102) 94 Intake and Output 05/12/19 05/13/19 18:59 06:59 Intake Total 300 ml 354 ml Balance 300 ml 354 ml Intake Oral 300 ml 354 ml # Voids 2 3 # Bowel Movements 1 Laboratory Tests 05/13/19 05:10: White Blood Count 5.6, Red Blood Count 3.23L, Hemoglobin 8.6L, Hematocrit 27.0L , Mean Corpuscular Volume 84, Mean Corpuscular Hemoglobin 26.6L, Mean Corpuscular Hemoglobin Concent 31.9L, Red Cell Distribution Width 16.4H, Platelet Count 287, Mean Platelet Volume 4.9L, Neutrophils (%) (Auto) 64.3, Lymphocytes (%) (Auto) 14.7L, Monocytes (%) (Auto) 13.4H, Eosinophils (%) (Auto ) 7.2H, Basophils (%) (Auto) 0.5, Sodium Level 139, Potassium Level 3.6, Chloride Level 105, Carbon Dioxide Level 27, Anion Gap 7, Blood Urea Nitrogen 4L , Creatinine 0.6, Estimat Glomerular Filtration Rate , Glucose Level 129H, Calcium Level 8.5 Height (Feet): 4 Height (Inches): 11.00 Weight (Pounds): 147 Objective General Appearance: WD/WN, alert Neck: supple Cardiovascular: regular rhythm Respiratory/Chest: chest wall non-tender, lungs clear, normal breath sounds Abdomen: normal bowel sounds, non tender, soft, no organomegaly Edema: no edema noted Arm (L), no edema noted Arm (R), no edema noted Leg (L), no edema noted Leg (R), no edema noted Pedal (L), no edema noted Pedal (R), no edema noted 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
[2019-05-13 08:00] VITALS: BP 137/83
[2019-05-13] MEDS: Cephalexin 500mg cap ORAL SCH (08:41)
[2019-05-13] MEDS: Docusate 100mg cap ORAL SCH (08:41)
--- NOTE | 2019-05-13 08:59 | General Progress Note ---
Assessment/Plan Assessment/Plan: (1) Pleural effusion (2) Chest wall pain (3) S/p Chest tube placement Patient to be continued on [place] D/w Dr. Pedersen and he concurred. Subjective Date patient seen: May 13, 2019 Time patient seen: 08:15 - am Allergies: Coded Allergies: No Known Allergies (Unverified , 10/16/16) Subjective Constitutional: Reports: weakness HEENT: Reports: no symptoms Cardiovascular: Reports: chest pain Respiratory: Reports: shortness of breath Gastrointestinal/Abdominal: Reports: no symptoms Genitourinary: Reports: no symptoms Neurologic/Psychiatric: Reports: no symptoms Endocrine: Reports: no symptoms Hematologic/Lymphatic: Reports: no symptoms Subjective Patient is in bed and shows no signs of pain or distress. Pain has been tolerated on the [place] and has taken one dose in the last 24hrs. No new complaints at this time. Morphine was stopped. Objective Last 24 Hour Vital Signs Date Time Temp Pulse Resp B/P (MAP) Pulse Ox O2 Delivery O2 Flow Rate FiO2 05/13/19 04:00 97.8 81 18 141/85 (103) 95 05/13/19 00:00 97.9 76 18 129/63 (85) 95 05/12/19 21:09 84 139/73 05/12/19 21:00 Room Air Room Air 05/12/19 20:00 98.4 91 18 139/73 (95) 96 05/12/19 16:00 98.0 84 20 140/70 (93) 95 05/12/19 12:09 97.2 92 18 158/88 (111) 95 05/12/19 09:30 Room Air Room Air Intake and Output 05/12/19 05/13/19 18:59 06:59 Intake Total 300 ml 354 ml Balance 300 ml 354 ml Intake Oral 300 ml 354 ml # Voids 2 3 # Bowel Movements 1 Laboratory Tests 05/13/19 05:10: White Blood Count 5.6, Red Blood Count 3.23L, Hemoglobin 8.6L, Hematocrit 27.0L , Mean Corpuscular Volume 84, Mean Corpuscular Hemoglobin 26.6L, Mean Corpuscular Hemoglobin Concent 31.9L, Red Cell Distribution Width 16.4H, Platelet Count 287, Mean Platelet Volume 4.9L, Neutrophils (%) (Auto) 64.3, Lymphocytes (%) (Auto) 14.7L, Monocytes (%) (Auto) 13.4H, Eosinophils (%) (Auto ) 7.2H, Basophils (%) (Auto) 0.5, Sodium Level 139, Potassium Level 3.6, Chloride Level 105, Carbon Dioxide Level 27, Anion Gap 7, Blood Urea Nitrogen 4L , Creatinine 0.6, Estimat Glomerular Filtration Rate , Glucose Level 129H, Calcium Level 8.5 Height (Feet): 4 Height (Inches): 11.00 Weight (Pounds): 148 Objective General Appearance: no apparent distress, alert EENT: PERRL/EOMI, normal ENT inspection Neck: non-tender, normal alignment Cardiovascular: normal rate, regular rhythm Respiratory/Chest: decreased breath sounds Extremities: non-tender Edema: trace edema Neurologic: alert, oriented x 3 Skin: normal pigmentation Cruzito Nettles May 13, 2019 08:59
--- NOTE | 2019-05-13 10:13 | Diagnostic Imaging Report ---
Indication: History of empyema post percutaneous drainage. Status post VATS. Chest pain/shortness of breath Technique: Continuous helical transaxial imaging of the chest was obtained from the thoracic inlet to the upper abdomen. No intravenous contrast was administered. Coronal 2-D reformats were also obtained. Total Dose length Product (DLP): 702.[address] Dose Index Volume (CTDIvol): 21.75 mGy Comparison: CT chest 04/28/2019 Findings: Subsequent to the CT chest 04/28/2019, patient had percutaneous aspiration and drainage of a empyema in the right lung. This was followed b. Chest tube was removed. Current examination demonstrates presence of 2 loculated fluid collections. One is in the upper aspect of the major fissure and has a measurement of about 3 x 5.5 x 4.2 cm. The second air-fluid level is at the right midlung level measuring 6.6 x 4.3 x 5.3 cm and is also probably within the fissure although there is a crescentic focus of air posterior to this suggesting this may be within the lung. There is a persistent dense right posterior basilar consolidation and pleural thickening or fluid at the right lung base. Small pericardial effusion is present. There is a small amount of soft tissue air within the right chest wall anteriorly and laterally. There is no generalized pneumothorax. Again there are stigmata of discitis/osteomyelitis at T10-11 with the endplate erosion and sclerosis, destruction of the disc. Heart is enlarged. The left lung remains relatively clear. There is a severe kyphosis present. Aorta is ectatic and moderately calcified. There is suggestion of a upper pole right renal cyst measuring 4 cm. IMPRESSION: Evaluation significantly limited by the nonadministration of IV contrast. Two multiloculated fluid/air collections well-circumscribed probably associated with the right major fissure measuring 3 x 5.5 x 4.2 cm at lung apex with the second larger slightly lower collection lateral to the right hilum measuring 6.6 x 4.3 x 5.3 cm. The larger collection could be within the lung parenchyma i.e. lung abscess. Right basilar consolidation and/or atelectasis. Pleural thickening and/or fluid at the right lung base likely associated with previous infection. Postsurgical changes including chest wall air. Signs of previous discitis/osteomyelitis at T10-11. 4 cm right renal cyst. The CT scanner at [facility] is accredited by the [employer] and the scans are performed using dose optimization techniques as appropriate to a performed exam including Automatic Exposure control.
--- NOTE | 2019-05-13 10:37 | Infectious Diseases Prog Note ---
Assessment/Plan Assessment/Plan IMPRESSION: Empyema cultures: MSSA Anemia, Osteoarthritis, Kyphosis, History of breast cancer. S/p VATs & Decortication T10-T11 diskitis, osteomyelitis versus degenerative changes RECOMMENDATION: Continue Keflex Subjective ROS Limited/Unobtainable: Yes Constitutional: Reports: no symptoms Respiratory: Reports: no symptoms Gastrointestinal/Abdominal: Reports: no symptoms Genitourinary: Reports: no symptoms Allergies: Coded Allergies: No Known Allergies (Unverified , 10/16/16) Objective Vital Signs Last 24 Hour Vital Signs Date Time Temp Pulse Resp B/P (MAP) Pulse Ox O2 Delivery O2 Flow Rate FiO2 05/13/19 09:00 Room Air Room Air 05/13/19 08:00 98.6 87 18 137/83 (101) 98 05/13/19 04:00 97.8 81 18 141/85 (103) 95 05/13/19 00:00 97.9 76 18 129/63 (85) 95 05/12/19 21:09 84 139/73 05/12/19 21:00 Room Air Room Air 05/12/19 20:00 98.4 91 18 139/73 (95) 96 05/12/19 16:00 98.0 84 20 140/70 (93) 95 05/12/19 12:09 97.2 92 18 158/88 (111) 95 Height (Feet): 4 Height (Inches): 11.00 Weight (Pounds): 148 General Appearance: no acute distress HEENT: mucous membranes moist Respiratory/Chest: lungs clear Cardiovascular: normal rate Abdomen: soft, non tender Extremities: no edema Neurologic/Psychiatric: alert, responsive Musculoskeletal: other - Kyphosis Laboratory Tests Test 05/13/19 05:10 White Blood Count 5.6 K/UL (4.8-10.8) Red Blood Count 3.23 M/UL (4.20-5.40) L Hemoglobin 8.6 G/DL (12.0-16.0) L Hematocrit 27.0 % (37.0-47.0) L Mean Corpuscular Volume 84 FL (80-99) Mean Corpuscular Hemoglobin 26.6 PG (27.0-31.0) L Mean Corpuscular Hemoglobin Concent 31.9 G/DL (32.0-36.0) L Red Cell Distribution Width 16.4 % (11.6-14.8) H Platelet Count 287 K/UL (150-450) Mean Platelet Volume 4.9 FL (6.5-10.1) L Neutrophils (%) (Auto) 64.3 % (45.0-75.0) Lymphocytes (%) (Auto) 14.7 % (20.0-45.0) L Monocytes (%) (Auto) 13.4 % (1.0-10.0) H Eosinophils (%) (Auto) 7.2 % (0.0-3.0) H Basophils (%) (Auto) 0.5 % (0.0-2.0) Sodium Level 139 MMOL/L (136-145) Potassium Level 3.6 MMOL/L (3.5-5.1) Chloride Level 105 MMOL/L (98-107) Carbon Dioxide Level 27 MMOL/L (21-32) Anion Gap 7 mmol/L (5-15) Blood Urea Nitrogen 4 mg/dL (7-18) L Creatinine 0.6 MG/DL (0.55-1.30) Estimat Glomerular Filtration Rate mL/min (>60) Glucose Level 129 MG/DL (74-106) H Calcium Level 8.5 MG/DL (8.5-10.1) Current Medications Medications (Trade) Dose Ordered Sig/Bertram Route PRN Reason Start Time Stop Time Status Last Admin Dose Admin Acetaminophen (Tylenol) 650 mg Q4H PRN ORAL Temp > 100.5 05/07/19 14:30 05/28/19 14:29 Acetaminophen (Tylenol) 650 mg Q6H PRN ORAL Mild Pain (Pain Scale 1-3) 05/07/19 14:45 06/04/19 08:44 Acetaminophen/ Hydrocodone Bitart ([place] 5/325) 1 tab Q4H PRN ORAL Moderate Pain (Pain Scale 4-6) 05/09/19 09:00 05/16/19 08:59 05/12/19 21:12 Al Hydroxide/Mg Hydroxide (Mylanta) 30 ml Q4H PRN ORAL Abdominal cramps 05/07/19 14:30 05/28/19 14:29 Cephalexin (Keflex) 500 mg Q12HR ORAL 05/11/19 21:00 05/18/19 20:59 05/13/19 08:41 Diphenhydramine HCl (Benadryl) 25 mg Q8H PRN ORAL Itching 05/07/19 14:30 06/05/19 14:29 05/10/19 22:23 Docusate Sodium (Colace) 100 mg TID ORAL 05/08/19 13:30 06/07/19 13:29 05/13/19 08:41 Ferrous Sulfate (Feosol) 325 mg THREE TIMES A DAY ORAL 05/08/19 13:00 06/07/19 12:59 05/13/19 08:41 Iopamidol (Isovue-300 100ml) 100 ml NOW PRN INJ Radiology Procedure 05/12/19 12:15 05/14/19 12:14 Metoprolol Succinate (Toprol XL) 25 mg BEDTIME ORAL 05/07/19 21:00 06/02/19 20:59 05/12/19 21:09 Carloz Voss MD May 13, 2019 10:37
--- NOTE | 2019-05-13 10:39 | Surgery Progress Note ---
Surgery Progress Note Subjective Additional Comments no acute events doing well comfortable no complaints. wants to be discharged no respiratory complaints Objective Last 24 Hour Vital Signs Date Time Temp Pulse Resp B/P (MAP) Pulse Ox O2 Delivery O2 Flow Rate FiO2 05/13/19 09:00 Room Air Room Air 05/13/19 08:00 98.6 87 18 137/83 (101) 98 05/13/19 04:00 97.8 81 18 141/85 (103) 95 05/13/19 00:00 97.9 76 18 129/63 (85) 95 05/12/19 21:09 84 139/73 05/12/19 21:00 Room Air Room Air 05/12/19 20:00 98.4 91 18 139/73 (95) 96 05/12/19 16:00 98.0 84 20 140/70 (93) 95 05/12/19 12:09 97.2 92 18 158/88 (111) 95 I&O Intake and Output 05/12/19 05/13/19 18:59 06:59 Intake Total 300 ml 354 ml Balance 300 ml 354 ml Intake Oral 300 ml 354 ml # Voids 2 3 # Bowel Movements 1 Dressing: dry Wound: clean Cardiovascular: RSR Respiratory: clear Abdomen: soft, flat, non-tender, present bowel sounds Extremities: no edema, no tenderness, no cyanosis Laboratory Tests Test 05/13/19 05:10 White Blood Count 5.6 K/UL (4.8-10.8) Red Blood Count 3.23 M/UL (4.20-5.40) L Hemoglobin 8.6 G/DL (12.0-16.0) L Hematocrit 27.0 % (37.0-47.0) L Mean Corpuscular Volume 84 FL (80-99) Mean Corpuscular Hemoglobin 26.6 PG (27.0-31.0) L Mean Corpuscular Hemoglobin Concent 31.9 G/DL (32.0-36.0) L Red Cell Distribution Width 16.4 % (11.6-14.8) H Platelet Count 287 K/UL (150-450) Mean Platelet Volume 4.9 FL (6.5-10.1) L Neutrophils (%) (Auto) 64.3 % (45.0-75.0) Lymphocytes (%) (Auto) 14.7 % (20.0-45.0) L Monocytes (%) (Auto) 13.4 % (1.0-10.0) H Eosinophils (%) (Auto) 7.2 % (0.0-3.0) H Basophils (%) (Auto) 0.5 % (0.0-2.0) Sodium Level 139 MMOL/L (136-145) Potassium Level 3.6 MMOL/L (3.5-5.1) Chloride Level 105 MMOL/L (98-107) Carbon Dioxide Level 27 MMOL/L (21-32) Anion Gap 7 mmol/L (5-15) Blood Urea Nitrogen 4 mg/dL (7-18) L Creatinine 0.6 MG/DL (0.55-1.30) Estimat Glomerular Filtration Rate mL/min (>60) Glucose Level 129 MG/DL (74-106) H Calcium Level 8.5 MG/DL (8.5-10.1) Plan Problems: (1) Cellulitis (2) Pleural effusion Assessment & Plan: s/p VATS converted to mini-thora. evacuation and tube placement doing well comfortable leak resolved output decreased diet as tolerated activity as tolerated CT removed AM labs AM cxr CT chest noted d/c planning outpt follow up with repeat CT in 6 weeks thank you Twan Fernandez May 13, 2019 10:39
[2019-05-13 12:00] VITALS: BP 142/78
[2019-05-13] MEDS ORDERED: ACETAMINOPHEN325 M1 ORAL (13:01)
[2019-05-13] MEDS ORDERED: CEPHALEXIN500 M1 ORAL (13:02)
[2019-05-13] MEDS ORDERED: MYLANTA30 M1 GT (13:02)
[2019-05-13] MEDS ORDERED: BENADRYL25 MG ORAL (13:03)
[2019-05-13] MEDS ORDERED: COLACE100 MG ORAL (13:03)
[2019-05-13] MEDS ORDERED: FEOSOL325 MG PO (13:04)
[2019-05-13] MEDS ORDERED: METOPROLOL SUCC25 MG ORAL (13:05)
[2019-05-13] MEDS ORDERED: NORCO 5-325 TA1 EACH ORAL (13:05)
--- NOTE | 2019-05-13 16:22 | Pulmonology Progress Note ---
Assessment/Plan Assessment/Plan Pulmonary Progress Note Patient is a 73 Years old woman noted to have a possible vertebral lesion and loculated pleural effusion. The patient states she is experiencing shortness of breath. She denies wheezing and chest tightness. Patient denies chest tightness, chest pain, cough, sputum production. Patient notes post nasal drip, nasal congestion, and sinus pressure/headache patient denies any significant work up but did have cxr with effusion noted, which prompted the work up . patient care discussed in detail. all acute issues reviewed in detail. patient medications reviewed. 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 debility respiratory insufficiency djd leg edema venous US and echo negative in office last week PLAN CT per thoracic ID follow up monitor for change follow up imaging monitor for leak will need close follow up assess for home dc once cleared and CT removed d/w patient in detail impression, plan, and exam edited and reviewed in detail care discussed with RN Subjective Allergies: Coded Allergies: No Known Allergies (Unverified , 10/16/16) Subjective care noted s/p decortication surgery appreciated confused and forgetful agreeable to snf Objective Vital Signs Noted Labs Test 05/07/19 11:50 05/08/19 07:22 05/09/19 04:15 White Blood Count 11.0 K/UL (4.8-10.8) 9.3 K/UL (4.8-10.8) 6.6 K/UL (4.8-10.8) Red Blood Count 3.26 M/UL (4.20-5.40) 3.34 M/UL (4.20-5.40) 3.11 M/UL (4.20-5.40) Hemoglobin 8.8 G/DL (12.0-16.0) 8.8 G/DL (12.0-16.0) 8.3 G/DL (12.0-16.0) Hematocrit 27.4 % (37.0-47.0) 28.1 % (37.0-47.0) 26.2 % (37.0-47.0) Mean Corpuscular Volume 84 FL (80-99) 84 FL (80-99) 84 FL (80-99) Mean Corpuscular Hemoglobin 26.9 PG (27.0-31.0) 26.3 PG (27.0-31.0) 26.7 PG (27.0-31.0) Mean Corpuscular Hemoglobin Concent 32.0 G/DL (32.0-36.0) 31.4 G/DL (32.0-36.0) 31.6 G/DL (32.0-36.0) Red Cell Distribution Width 17.1 % (11.6-14.8) 16.9 % (11.6-14.8) 16.9 % (11.6-14.8) Platelet Count 269 K/UL (150-450) 271 K/UL (150-450) 254 K/UL (150-450) Mean Platelet Volume 5.2 FL (6.5-10.1) 5.2 FL (6.5-10.1) 5.2 FL (6.5-10.1) Neutrophils (%) (Auto) 76.7 % (45.0-75.0) 70.7 % (45.0-75.0) 67.0 % (45.0-75.0) Lymphocytes (%) (Auto) 12.3 % (20.0-45.0) 14.5 % (20.0-45.0) 15.9 % (20.0-45.0) Monocytes (%) (Auto) 7.0 % (1.0-10.0) 7.6 % (1.0-10.0) 9.0 % (1.0-10.0) Eosinophils (%) (Auto) 3.5 % (0.0-3.0) 6.9 % (0.0-3.0) 7.4 % (0.0-3.0) Basophils (%) (Auto) 0.5 % (0.0-2.0) 0.3 % (0.0-2.0) 0.6 % (0.0-2.0) Sodium Level 138 MMOL/L (136-145) 139 MMOL/L (136-145) Potassium Level 4.6 MMOL/L (3.5-5.1) 4.2 MMOL/L (3.5-5.1) Chloride Level 105 MMOL/L (98-107) 106 MMOL/L (98-107) Carbon Dioxide Level 26 MMOL/L (21-32) 26 MMOL/L (21-32) Anion Gap 8 mmol/L (5-15) 7 mmol/L (5-15) Blood Urea Nitrogen 14 mg/dL (7-18) 9 mg/dL (7-18) Creatinine 0.6 MG/DL (0.55-1.30) 0.6 MG/DL (0.55-1.30) Estimat Glomerular Filtration Rate mL/min (>60) mL/min (>60) Glucose Level 94 MG/DL (74-106) 121 MG/DL (74-106) Calcium Level 8.4 MG/DL (8.5-10.1) 8.5 MG/DL (8.5-10.1) Phosphorus Level 2.9 MG/DL (2.5-4.9) Magnesium Level 2.2 MG/DL (1.8-2.4) Pro-B-Type Natriuretic Peptide 354 pg/mL (0-125) Height (Feet): 4 Height (Inches): 11.00 Weight (Pounds): 158 Objective WDWN NAD reduced breath sounds bilaterally without rhonchi or wheeze; CT in place [id number] without MRG NABS nontender no HSM no CC noted edema nonfocal contracted and kyphotic alert and anxious Subjective ROS Limited/Unobtainable: No Allergies: Coded Allergies: No Known Allergies (Unverified , 10/16/16) Objective Last 24 Hour Vital Signs Date Time Temp Pulse Resp B/P (MAP) Pulse Ox O2 Delivery O2 Flow Rate FiO2 05/13/19 12:00 98.6 88 20 142/78 (99) 94 05/13/19 09:00 Room Air Room Air 05/13/19 08:00 98.6 87 18 137/83 (101) 98 05/13/19 04:00 97.8 81 18 141/85 (103) 95 05/13/19 00:00 97.9 76 18 129/63 (85) 95 05/12/19 21:09 84 139/73 05/12/19 21:00 Room Air Room Air 05/12/19 20:00 98.4 91 18 139/73 (95) 96 Intake and Output 05/12/19 05/13/19 19:00 07:00 Intake Total 300 ml 354 ml Balance 300 ml 354 ml Intake Oral 300 ml 354 ml # Voids 2 3 # Bowel Movements 1 Laboratory Tests 05/13/19 05:10: White Blood Count 5.6, Red Blood Count 3.23L, Hemoglobin 8.6L, Hematocrit 27.0L , Mean Corpuscular Volume 84, Mean Corpuscular Hemoglobin 26.6L, Mean Corpuscular Hemoglobin Concent 31.9L, Red Cell Distribution Width 16.4H, Platelet Count 287, Mean Platelet Volume 4.9L, Neutrophils (%) (Auto) 64.3, Lymphocytes (%) (Auto) 14.7L, Monocytes (%) (Auto) 13.4H, Eosinophils (%) (Auto ) 7.2H, Basophils (%) (Auto) 0.5, Sodium Level 139, Potassium Level 3.6, Chloride Level 105, Carbon Dioxide Level 27, Anion Gap 7, Blood Urea Nitrogen 4L , Creatinine 0.6, Estimat Glomerular Filtration Rate , Glucose Level 129H, Calcium Level 8.5 Venancio Haque MD May 13, 2019 16:22
--- NOTE | 2019-05-13 16:50 | Cardiology Report ---
APPROVED REPORT EKG Measurement Heart [id number] Normal sinus rhythm Possible Left atrial enlargement Low voltage QRS Incomplete right bundle branch block Inferior infarct, age undetermined Anterolateral infarct, age undetermined Abnormal ECG
--- NOTE | 2019-05-13 22:15 | Progress Note ---
DATE: 05/13/2019 CARDIOLOGY PROGRESS NOTE SUBJECTIVE: Discharge plans are noted. The patient is in no respiratory distress. Oxygen saturations are adequate on room air. OBJECTIVE: LUNGS: Good breath sounds. Scattered rhonchi. HEART: Regular rhythm and rate. Normal S1 and S2. ABDOMEN: Soft. EXTREMITIES: No edema. IMPRESSION AND PLAN: 1. Status post VATS pleurodesis for loculated pleural effusion and collapse of lung. Stable cardiopulmonary parameters. 2. Blood pressure controlled with no arrhythmias, on low dose beta-david. 3. Diastolic dysfunction compensated with no signs of acute congestive heart failure. 4. Stable for discharge to long-term facility on current cardiovascular medication regimen and treatment plan. Venancio Monsivais M.D. DR: PENNIE JOB#: [id number] CC:
--- NOTE | 2019-05-16 16:13 | Discharge Summary ---
Discharge Summary Discharge Summary _ DATE OF ADMISSION: 04/28/2019 DATE OF DISCHARGE: 05/13/2019 DISCHARGED BY: Dr. Valeriano Cota CONSULTANTS: Dr. Venancio Monsivais has been enjoying home with 9 minutes she can enjoy normal although Dr. Samra Conklin BRIEF HOSPITAL COURSE: The patient is a 73-year-old female, who presented initially to the office for consultation and was noted to have a possible vertebral lesion and loculated pleural effusion. The patient was experiencing shortness of breath. She denied wheezing or chest tightness. Patient denied cough, or sputum production. She noted postnasal drip, nasal congestion and sinus pressure/ headache. Patient denied any significant work-up but had a chest x-ray with effusion noted. Patient was then admitted to the hospital for further work-up. Patient was sent for thoracentesis. No chest ultrasound did not show any drainable pleural pleural fluid. No thoracentesis was performed. Chest CT showed a right basilar 12 x 4 x 3 cm fluid collection with discrete thick rim consistent with loculated pleural election. Patient likely has empyema with trapped lung. Legs were swollen, venous ultrasound was negative done as outpatient. On 04/29/2019, she underwent CT-guided aspiration and drainage of loculated right pleural fluid collection. Aspirated 70 mL of uziel pus. ID was consulted. She was started on Zosyn for empyema. Cardiothoracic surgeon was consulted due to non-drainage of pigtail catheter. Patient was recommended right video-assisted thoracoscopic surgery with washout/decortication. Patient was initially apprehensive with the procedure. Patient Empyema culture showed growth of MSSA. Zosyn was changed to Ancef. Patient finally agreed to VATS. Head Waiter/Waitress was consulted for preop clearance. Patient was assessed, kyphosis will affect postop respiratory parameters; hypertensive heart disease most likely blood pressure range. There was no clinical signs of congestive heart failure. Abnormal EKG, represent pseudo-infarct pattern. Echocardiogram revealed normal ejection fraction. The patient has mildly increased perioperative cardiopulmonary risk under general anesthesia but was optimized to proceed with procedure. She was transfused 1 unit packed RBC and prior to surgery. On 05/05/2019 patient underwent bronchoscopy with removal of right pigtail catheter, right VATS with conversion to mini thoracotomy, lysis of adhesions, partial pleurectomy, decortication, primary repair of upper and lower parenchymal air leak and nerve block. A right chest tube was inserted and connected to a suction Pleur-evac. Patient tolerated procedure well without any complications. Patient was transported to the recovery room in ICU. The following day, patient was extubated and was saturating well on nasal cannula. She was encouraged use of incentive spirometer. Pain management was consulted. She was given [place] and morphine as needed. Pain was under control. On 05/11/2019, there was no more drainage from the chest tube. Chest tube was removed. He was breathing well without chest tube. Chest x-ray done did not show any pneumothorax. There was persistent right midlung thin-walled cavitary lesion or air cyst. Chest CT showed loculated fluid/air collection well- circumscribed cyst well-circumscribed probably associated with right major fissure measuring 3 x 5.5 x 4.2 cm at the lung apex with the second larger slightly lower collection lateral to the right hilum measuring 6.6 x 4.3 x 5.3cm. The patient was in no respiratory distress. Oxygen saturation adequate on room air. Patient was stable [facility]. She was recommended follow-up repeat CT scan in 6 weeks. FINAL DIAGNOSES: Patient MSSA lung empyema status post VATS pleurodesis Acute on chronic diastolic dysfunction compensated Hypertensive heart disease Anemia Contractures Debility Degenerative joint disease Leg edema Osteoarthritis Kyphosis History of breast cancer Hypertension Hypomagnesemia Acute respiratory insufficiency, now recovered DISPOSITION: Patient was discharged to a SNF. DISCHARGE MEDICATIONS: Refer to Discharge Medication List. I have been assigned to complete a discharge summary on this account, I was not involved with the patient's management.--RUTH Lu Jacqueline Robles NP May 16, 2019 16:13
--- NOTE | 2019-05-18 17:00 | Progress Note ---
DATE: 05/08/2019 CARDIOLOGY PROGRESS NOTE SUBJECTIVE: The patient is transferred out of the intensive care unit yesterday following extubation. She has not had any respiratory distress. She does have a good cough. She continues to have a chest tube. No air leak is noted. OBJECTIVE: VITAL SIGNS: Blood pressure 126/78, pulse 87, respiratory rate 16, and temperature max 99.9. LUNGS: Rhonchi at the right. No wheezes. CARDIAC: Regular rhythm and rate. Normal S1 and S2 with a fourth heart sound. ABDOMEN: Soft. EXTREMITIES: There is no edema. Kyphosis is obviously noted. LABORATORY AND DIAGNOSTIC DATA: White count 9.3 and hemoglobin 8.8. Pro-natriuretic peptide is 354. BUN 14 and creatinine 0.6. Chest x-ray today reveals no interval change with atelectasis and consolidation at the right lower lung base and possibly some pleural air. IMPRESSION: 1. Status post VATS. 2. History of breast cancer. 3. Atelectasis and respiratory insufficiency. 4. Hypertensive heart disease. 5. Acute on chronic diastolic congestive heart failure, clinically compensated. PLAN: 1. Antibiotics. 2. Respiratory hygiene. 3. Chest tube management. 4. Continue beta-blockade. 5. DVT prophylaxis. 6. Followup laboratory studies. 7. No plan for diuresis at this time. Venancio Monsivais M.D. DR: DIANNE JOB#: [id number] CC:
== END 2019-05-13 13:40 | DRG 163 ==
LOC: ULS 07:52 → EDSTATUS 08:00 → 3E 11:13 → ICU 05-05 21:40 → 3E 05-07 13:43
PROC: 0W993ZZ Drainage of Right Pleural Cavity, Percutaneous Approach (ICD-10-PCS; principal; 2019-04-29)
PROC: 0BNK0ZZ Release Right Lung, Open Approach (ICD-10-PCS; 2019-05-05)
PROC: 0BCN4ZZ Extirpation of Matter from Right Pleura, Percutaneous Endoscopic Approach (ICD-10-PCS; 2019-05-05)
PROC: 0BBN0ZZ Excision of Right Pleura, Open Approach (ICD-10-PCS; 2019-05-05)
PROC: 0W9930Z Drainage of Right Pleural Cavity with Drainage Device, Percutaneous Approach (ICD-10-PCS; 2019-05-05)
PROC: 0BJ08ZZ Inspection of Tracheobronchial Tree, Via Natural or Artificial Opening Endoscopic (ICD-10-PCS; 2019-05-05)
DX: J86.9 Pyothorax without fistula (principal); I50.33 Acute on chronic diastolic (congestive) heart failure; L03.90 Cellulitis, unspecified; J90 Pleural effusion, not elsewhere classified; M86.9 Osteomyelitis, unspecified; J98.11 Atelectasis; J93.82 Other air leak; R53.81 Other malaise; B95.61 Methicillin susceptible Staphylococcus aureus infection as the cause of diseases classified elsewhere; Z85.3 Personal history of malignant neoplasm of breast; M81.0 Age-related osteoporosis without current pathological fracture; M40.209 Unspecified kyphosis, site unspecified; M46.44 Discitis, unspecified, thoracic region; D72.829 Elevated white blood cell count, unspecified; I11.0 Hypertensive heart disease with heart failure; R06.89 Other abnormalities of breathing; E83.42 Hypomagnesemia; D64.9 Anemia, unspecified
CPT/HCPCS: 36415; 36600; 71045; 71250; 75989; 76604; 80048; 80053; 82330; 82803; 83735; 83880; 83986; 84100; 85007; 85025; 85610; 85730; 86850; 86900; 86901; 86920; 87070; 87075; 87116; 87181; 87205; 88104; 89051; 93005; 94002; 94003; 94150; 94640; 94664; J2405; J7620

== ENCOUNTER 2020-04-17 18:15 | Inpatient (IN) | payer MEDICARE, MEDICAID ==
[~2020-04-17] VITALS: Ht 160 cm; Wt 72.6 kg
[~2020-04-17 18:15] MED LIST changes: +ACETAMINOPHEN325 M1 ORAL; +BENADRYL25 MG ORAL; +COLACE100 MG ORAL; +FEOSOL325 MG PO; +METOPROLOL SUCC25 MG ORAL; +MYLANTA30 M1 GT; +NKM; +NORCO 5-325 TA1 EACH ORAL
--- NOTE | 2020-04-17 18:26 | NUR ---
ED Nurse Note: Pt walked into ER with her outdoor emergency care technician. pt directed to go straight back to er to be bedside triaged. pt went to restroom and obtained urine sample
--- NOTE | 2020-04-17 18:27 | NUR ---
ED Nurse Note: Pt angrily walked out asking for purse. pt walked quickly to waiting room yelling "wheres my bag, where is she, aaghhh!" Pt is unconsolable. pt was followed to waiting room, pt began yelling in waiting room Where is she where is my bag!!"
--- NOTE | 2020-04-17 18:30 | NUR ---
ED Nurse Note: pt social worker palliative care placed bag in car. pt demanded that her bag be with her pt waiting in room with nurse until social worker palliative care returns with pt bag, and then will be triaged.
--- NOTE | 2020-04-17 18:35 | NUR ---
ED Nurse Note: Dr. Monsivais at bedside
--- NOTE | 2020-04-17 18:47 | NUR ---
ED Nurse Note: Pt ambulated back to ED c/o right lower leg cellulitis, pt reports leaking of fluids from leg, right lower leg ertheymous and edematous.
[2020-04-17 18:48] VITALS: BP 120/85
--- NOTE | 2020-04-17 18:50 | NUR ---
ED Nurse Note: IV site established patent and intact; blood specimen and urine sent to lab
[2020-04-17 18:52] LABS: APPEARANCE,URINE CLEAR; BILIRUBIN, URINE NEGATIVE (NEGATIVE); COLOR,URINE PALE YELLOW; GLUCOSE, URINE (UA) NEGATIVE (NEGATIVE); KETONES,URINE NEGATIVE (NEGATIVE); LEUKOCYTE ESTERASE ,URINE 2+ (NEGATIVE); NITRITE,URINE NEGATIVE (NEGATIVE); PH,URINE 7 (4.5-8.0); PROTEIN,URINE NEGATIVE (NEGATIVE); UROBILINOGEN,URINE NORMAL MG/DL (0.0-1.0)
[2020-04-17 18:57] LABS: BASOPHILS % (AUTO) 0.5 % (0.0-2.0); EOSINOPHILS % (AUTO) 15.2 % (0.0-3.0); HEMATOCRIT 33.2 % (37.0-47.0); HEMOGLOBIN 10.8 G/DL (12.0-16.0); LYMPHOCYTES % (AUTO) 18.8 % (20.0-45.0); MEAN CORPUSCULAR VOLUME 91 FL (80-99); MONOCYTES % (AUTO) 10.1 % (1.0-10.0); NEUTROPHILS % (AUTO) 55.4 % (45.0-75.0); PLATELET COUNT 165 K/UL (150-450); RED BLOOD COUNT 3.66 M/UL (4.20-5.40); RED CELL DISTRIBUTION WIDTH 13.8 % (11.6-14.8); WHITE BLOOD COUNT 5.3 K/UL (4.8-10.8)
[2020-04-17] MEDS ORDERED: Vancomycin 1 GM in NS 275 ML IVPB ONE (19:00)
[2020-04-17] MEDS ORDERED: Cefepime HCl 1 GM in D5W 55 ML IVPB ONE (19:00)
--- NOTE | 2020-04-17 19:03 | NUR ---
HAND-OFF: Report given to JERRI Guevara.
--- NOTE | 2020-04-17 19:03 | NUR ---
ED Nurse Note: Recieved report from JERRI Blunt. Patient resting in bed, no acute distress noted during assessment.
[2020-04-17 19:04] LABS: ANION GAP 6 mmol/L (5-15); BLOOD UREA NITROGEN 13 mg/dL (7-18); CALCIUM 9.3 MG/DL (8.5-10.1); CARBON DIOXIDE 31 MMOL/L (21-32); CHLORIDE 103 MMOL/L (98-107); CREATININE 0.8 MG/DL (0.55-1.30); POTASSIUM 3.9 MMOL/L (3.5-5.1); SODIUM 140 MMOL/L (136-145)
--- NOTE | 2020-04-17 19:05 | Emergency Room Report ---
History of Present Illness General Chief Complaint: Edema Source: Patient Present Illness HPI Disclaimer: Please note that this report is being documented using DRAGON technology. This can lead to erroneous entry secondary to incorrect interpretation by the dictating instrument. HPI: 74-year-old female history of hypertension, chronic lower extremity edema, history of hypertension presented for right lower extremity swelling and pain. This is been present for approximately 1 month. Patient has trialed outpatient antibiotic therapy with minimal improvement. Sent by her primary care doctor for admission for IV antibiotics. Allergies: Coded Allergies: No Known Allergies (Unverified , 10/16/16) COVID-19 Screening Contact w/high risk pt: No Experienced COVID-19 symptoms?: No COVID-19 Testing performed SUPERVISOR METALIZING: No Patient History Last Menstrual Period: na Reviewed Nursing Documentation: PMH: Agreed; PSxH: Agreed Nursing Documentation-PMH Past Medical History: No History, Except For Hx Cardiac Problems: Yes - cardiomegaly, artherosclerosis , arthritis Hx Hypertension: Yes Hx Cancer: Yes Hx Gastrointestinal Problems: No Hx Neurological Problems: No Review of Systems All Other Systems: negative except mentioned in HPI Physical Exam Vital Signs Date Time Temp Pulse Resp B/P (MAP) Pulse Ox O2 Delivery O2 Flow Rate FiO2 04/17/20 18:35 98.2 163/82 (109) Room Air 04/17/20 18:48 85 21 04/17/20 18:48 100 Sp02 EP Interpretation: reviewed, normal General Appearance: well appearing, no apparent distress Head: normocephalic, atraumatic Eyes: bilateral eye PERRL, bilateral eye EOMI ENT: hearing grossly normal, moist mucus membranes Neck: full range of motion, supple Respiratory: lungs clear, normal breath sounds, no rhonchi, no respiratory distress, no retraction, no wheezing Cardiovascular #1: normal peripheral pulses, regular rate, rhythm, no murmur Gastrointestinal: non tender, soft, non-distended, no guarding Musculoskeletal: other - Bilateral lower extremity edema right worse than left , erythema noted to the right lower extremity up to the knee, occasional oozing sore noted Neurologic: alert, oriented x3, no focal defects Skin: normal color, warm/dry Medical Decision Making Diagnostic Impression: Primary Impression: Cellulitis of right lower extremity Additional Impression: Bilateral lower extremity edema ER Course MDM: Patient presented due to worsening right lower extremity pain and edema. She has a history of chronic lower extremity edema of the right leg. Differential included but not limited to dependent edema, venous insufficiency, cellulitis to name a few Clinical course-laboratory studies were sent IV antibiotics given due to concern for cellulitis. Ultrasound did not demonstrate any evidence of DVT. Case discussed with patient's primary care doctor who will admit the patient to the medical floor Labs - Laboratory Tests Test 04/17/20 18:20 04/17/20 18:21 Urine Color Pale yellow Urine Appearance Clear Urine pH 7 (4.5-8.0) Urine Specific Bruner 1.005 (1.005-1.035) Urine Protein Negative (NEGATIVE) Urine Glucose (UA) Negative (NEGATIVE) Urine Ketones Negative (NEGATIVE) Urine Blood Negative (NEGATIVE) Urine Nitrite Negative (NEGATIVE) Urine Bilirubin Negative (NEGATIVE) Urine Urobilinogen Normal MG/DL (0.0-1.0) Urine Leukocyte Esterase 2+ (NEGATIVE) H Urine RBC 0 /HPF (0 - 2) Urine WBC 5-10 /HPF (0 - 2) H Urine Squamous Epithelial Cells Occasional /LPF Urine Amorphous Sediment Few /LPF (NONE) H Urine Bacteria Few /HPF (NONE) White Blood Count 5.3 K/UL (4.8-10.8) Red Blood Count 3.66 M/UL (4.20-5.40) L Hemoglobin 10.8 G/DL (12.0-16.0) L Hematocrit 33.2 % (37.0-47.0) L Mean Corpuscular Volume 91 FL (80-99) Mean Corpuscular Hemoglobin 29.6 PG (27.0-31.0) Mean Corpuscular Hemoglobin Concent 32.6 G/DL (32.0-36.0) Red Cell Distribution Width 13.8 % (11.6-14.8) Platelet Count 165 K/UL (150-450) Mean Platelet Volume 6.9 FL (6.5-10.1) Neutrophils (%) (Auto) 55.4 % (45.0-75.0) Lymphocytes (%) (Auto) 18.8 % (20.0-45.0) L Monocytes (%) (Auto) 10.1 % (1.0-10.0) H Eosinophils (%) (Auto) 15.2 % (0.0-3.0) H Basophils (%) (Auto) 0.5 % (0.0-2.0) Prothrombin Time 11.0 SEC (9.30-11.50) Prothrombin Time INR 1.0 (0.9-1.1) Activated Partial Thromboplast Time 26 SEC (23-33) Sodium Level 140 MMOL/L (136-145) Potassium Level 3.9 MMOL/L (3.5-5.1) Chloride Level 103 MMOL/L (98-107) Carbon Dioxide Level 31 MMOL/L (21-32) Anion Gap 6 mmol/L (5-15) Blood Urea Nitrogen 13 mg/dL (7-18) Creatinine 0.8 MG/DL (0.55-1.30) Estimated Glomerular Filtration Rate > 60 mL/min (>60) Glucose Level 98 MG/DL (74-106) Calcium Level 9.3 MG/DL (8.5-10.1) Total Bilirubin 0.3 MG/DL (0.2-1.0) Aspartate Amino Transferase (AST) 29 U/L (15-37) Alanine Aminotransferase (ALT) 24 U/L (12-78) Alkaline Phosphatase 117 U/L (46-116) H Total Protein 8.1 G/DL (6.4-8.2) Albumin 3.7 G/DL (3.4-5.0) Globulin 4.4 g/dL Albumin/Globulin Ratio 0.8 (1.0-2.7) L Last Vital Signs Date Time Temp Pulse Resp B/P (MAP) Pulse Ox O2 Delivery O2 Flow Rate FiO2 04/17/20 18:48 98.2 81 21 120/85 100 Room Air Disposition: ADMITTED INPATIENT Condition: Serious Referrals: Thomas Hansen MD (PCP) Lambert Mooney M.D. Apr 17, 2020 19:05
[2020-04-17 19:11] LABS: ALANINE AMINOTRANSFERASE 24 U/L (12-78); ALBUMIN 3.7 G/DL (3.4-5.0); ALBUMIN/GLOBULIN RATIO 0.8 (1.0-2.7); ALKALINE PHOSPHATASE 117 U/L (46-116); ASPARTATE AMINO TRANSFERASE 29 U/L (15-37); BILIRUBIN,TOTAL 0.3 MG/DL (0.2-1.0)
--- NOTE | 2020-04-17 19:51 | NUR ---
ED Nurse Note: Ultrasound at bedside
--- NOTE | 2020-04-17 20:18 | NUR ---
ED Nurse Note: Report given to JERRI Dupont.
--- NOTE | 2020-04-17 20:20 | NUR ---
TRANSFER TO FLOOR: Patient transferred to med surg as ordered, per ERMD. Report given to JERRI bradley. Patient transported via gurney in stable condition accompanied by environmental test technician.
[2020-04-17 20:30] VITALS: BP 132/79
--- NOTE | 2020-04-17 20:30 | NUR ---
NURSE NOTES: Patient arrived the unit. Received report from JERRI Sebastian. Patient is a/o x4, has discomfort and pressure on harley. lower extremities, but denied pain at this time. No any distress noted at this time. Breathing is even and unlabored on RA. Belonging checked with patient and signed by patient. Patient's own cane is at bedside. IV site is intact and patent and IV antibiotic is running. Assessed skin; scratch, redness, scabs, discoloration on whole body, Redness on upper back but not swelling. Edema and redness on Harley. leg due to cellulitis. Provided Optifoam on both heel for protection. Commode is at bedside. Educated for safety issue. Bed is on alarm, locked, and lowest position. Call light within reach. Will continue to monitor.
--- NOTE | 2020-04-17 20:30 | NUR ---
NURSE NOTES: Chavez is on Rt. AC. Pt has hx of Rt. Mastectomy. Offered to change to Lt. ARM for IV, but pt refused to change. Will try in the morning.
[2020-04-17] MEDS: NovoLOG Insulin Flexpen SUBQ SCH (21:00)
[2020-04-17] MEDS ORDERED: Milk of Magnesia 30ml Ud ORAL PRN (23:45)
--- NOTE | 2020-04-18 00:44 | Consultation ---
DATE OF CONSULTATION: 04/17/2020 CARDIOLOGY CONSULTATION CONSULTING PHYSICIAN: Venancio Monsivais MD. REFERRING PHYSICIAN: Thomas Hansen MD. REASON FOR CONSULTATION: Lower extremity edema, asymmetric involving the right leg. HISTORY OF PRESENT ILLNESS: This is a 74-year-old white female. She has a history of peripheral artery disease, venous insufficiency, and hypertensive heart disease. She has had right lower extremity rash and warmth for past couple of weeks. Efforts were made to treat her as an outpatient, but were unsuccessful. Concomitantly, her leg swelling on the right side has significantly increased with accompanying pain. The patient states that these symptoms have progressed for almost a month. The patient has been on 2 antibiotic courses. The patient does have a problem with skin care and general hygiene. She has reportedly been treated on several occasions for scabies and has had home health care on a regular basis assisting with her skin care at this time. PAST MEDICAL HISTORY: 1. Breast cancer with right mastectomy. 2. Hip fracture with ORIF. 3. Osteoporosis. 4. Osteoarthritis. 5. Kyphoscoliosis. 6. Hypertension with hypertensive heart disease. 7. Chronic venous insufficiency. 8. B12 deficiency due to pernicious anemia. 9. Type 2 diabetes mellitus. 10. Diabetic neuropathy. 11. Diabetic microangiopathy. 12. Chronic kidney disease. 13. Generalized atherosclerosis. ALLERGIES: None. MEDICATIONS: Reviewed and reconciled. FAMILY HISTORY: Noncontributory. SOCIAL HISTORY: Negative for smoking, alcohol, or substance abuse. REVIEW OF SYSTEMS: No fevers or chills. No known history of COVID-19 exposure. No history of retinopathy. She is hard of hearing. She has had scabies infections. There is no history of seizure or stroke. She does have diabetes mellitus type 2, managed mostly with diet. She does have neuropathy. There is a history of hypertensive heart disease. She had an outpatient echocardiogram revealing normal ejection fraction, degenerative valve disease, and concentric hypertrophy with a diastolic relaxation abnormality. There is no history of asthma. There is no history of abnormal blood clotting or DVT. She has not noted any change in bowel habits. She does have chronic kidney disease. There is no history of thyroid disorder. Lipid parameters are not presently available. She has a distant history of breast cancer with mastectomy. PHYSICAL EXAMINATION: VITAL SIGNS: Afebrile, blood pressure 163/82, heart rate 85, respirations 21, oxygen saturation on room air 100%. GENERAL: Moderately obese. Kyphoscoliosis. Arcus senilis. Oropharynx clear. NECK: Supple and obese. LUNGS: Diminished breath sounds. CARDIAC: Regular rhythm and rate. Distant S1, S2. No murmur, rub, or gallop. BREAST: On the left with no masses. Right mastectomy scar is clean. ABDOMEN: Obese and soft. No masses. EXTREMITIES: 3+ edema on the right, 1+ on the left. Denuding of the right lower extremity with erythema and warmth noted. Minimal excoriations. LABORATORY AND DIAGNOSTIC DATA: Urinalysis with 5 to 10 white cells and 2+ leukocyte esterase. White count 5.3, hemoglobin 10.8. Albumin 3.7. Sodium 140, potassium 3.9, bicarb 31, BUN 13, creatinine 0.8, glucose 98. EKG is pending. IMPRESSION: 1. Asymmetric right lower extremity edema. 2. Increased risk for DVT. 3. Cellulitis, right lower extremity. 4. Microvascular angiopathy. 5. Hypertensive heart disease with elevated blood pressure. 6. Diastolic dysfunction with no clinical signs of acute congestive heart failure. 7. Type 2 diabetes mellitus, controlled with diet. 8. History of scabies. PLAN: 1. Skin care. 2. Intravenous antimicrobials. 3. Venous duplex scan. 4. DVT prophylaxis with consideration for full anticoagulation based on venous duplex finding. 5. Titrate antihypertensives. 6. Insulin coverage by sliding scale. 7. Followup thyroid panel. 8. Antiplatelet therapy. 9. Lipid panel to follow. Venancio Monsivais M.D. DR: NIELS JOB#: [id number] CC:
[2020-04-18 04:00] VITALS: BP 121/65
--- NOTE | 2020-04-18 05:36 | NUR ---
NURSE NOTES: Removed iv on Rt. AC and ask for insertion of new iv. But patient said "Do later." Will continue to monitor.
[2020-04-18] MEDS: Heparin 5000 units/ml inj SUBQ SCH ×3 (05:46→21:07)
[2020-04-18] MEDS: NovoLOG Insulin Flexpen SUBQ SCH ×4 (05:49→20:37)
[2020-04-18] MEDS ORDERED: NovoLOG Insulin Flexpen SUBQ SCH (06:30)
[2020-04-18 06:36] LABS: BASOPHILS % (AUTO) 0.3 % (0.0-2.0); EOSINOPHILS % (AUTO) 16.6 % (0.0-3.0); HEMATOCRIT 31.4 % (37.0-47.0); HEMOGLOBIN 10.1 G/DL (12.0-16.0); LYMPHOCYTES % (AUTO) 20.9 % (20.0-45.0); MEAN CORPUSCULAR VOLUME 91 FL (80-99); MONOCYTES % (AUTO) 12.4 % (1.0-10.0); NEUTROPHILS % (AUTO) 49.8 % (45.0-75.0); PLATELET COUNT 138 K/UL (150-450); RED BLOOD COUNT 3.45 M/UL (4.20-5.40)
[2020-04-18 06:59] LABS: ALANINE AMINOTRANSFERASE 22 U/L (12-78); ALBUMIN 2.7 G/DL (3.4-5.0); ALBUMIN/GLOBULIN RATIO 0.7 (1.0-2.7); ALKALINE PHOSPHATASE 87 U/L (46-116); ANION GAP 6 mmol/L (5-15); ASPARTATE AMINO TRANSFERASE 25 U/L (15-37); BILIRUBIN,TOTAL 0.4 MG/DL (0.2-1.0); BLOOD UREA NITROGEN 10 mg/dL (7-18); CALCIUM 8.2 MG/DL (8.5-10.1); CARBON DIOXIDE 29 MMOL/L (21-32); CHLORIDE 109 MMOL/L (98-107); CHOLESTEROL 123 MG/DL (< 200); CREATININE 0.7 MG/DL (0.55-1.30); HDL CHOLESTEROL 38 MG/DL (40-60); POTASSIUM 3.8 MMOL/L (3.5-5.1); SODIUM 144 MMOL/L (136-145); TRIGLYCERIDES 71 MG/DL (30-150)
--- NOTE | 2020-04-18 07:20 | NUR ---
HAND-OFF: Report given to Lisandro GUTHRIE. Patient in stable condition.
--- NOTE | 2020-04-18 07:45 | NUR ---
NURSE NOTES: Received report from JERRI Dupont. Patient awake in bed in RA. Pt a/o x4, able to make needs known. No any distress noted. Denied pain at this time. No IV access at this time. Will start new IV. Pt on bedside commode. Encouraged pt to use BSC and use call light when she needs help. Pt verbalized understanding. Bed is on alarm, locked, and lowest position. Call light within reach. Will continue to monitor.
[2020-04-18 08:00] VITALS: BP 125/75
[2020-04-18] MEDS: Aspirin EC 81mg tab ORAL SCH (08:36)
[2020-04-18] MEDS: Metoprolol Succinate XL 25mg tab ORAL SCH (08:36)
--- NOTE | 2020-04-18 08:47 | NUR ---
NURSE NOTES: Pt refused blood pressure medications and stated that "I do not need blood pressure pills." Explained benefits and risks. Pt still refused. Medications wasted.
[2020-04-18] MEDS: Vancomycin 500 MG in NS 110 ML IVPB SCH ×2 (08:56→20:37)
[2020-04-18] MEDS ORDERED: Lisinopril 20mg tab ORAL SCH (09:00)
--- NOTE | 2020-04-18 10:01 | Diagnostic Imaging Report ---
EXAM: ULTRASOUND Venous Duplex Scan Harley Leg CLINICAL HISTORY: Leg pain and edema. COMPARISON: None TECHNIQUE: Doppler examination include grayscale images obtained with and without compression, and color and spectral doppler analysis. FINDINGS: Doppler examination shows normal spontaneity, phasicity, compressibility in the bilateral lower extremities. There is no thrombus identified by grayscale. Normal color and spectral flow is identified. There is no evidence of valvular incompetency or insufficiency. Subcutaneous soft tissue edema noted in both legs. There are prominent lymph nodes in the inguinal regions perhaps reactive. IMPRESSION: NO EVIDENCE OF DVT. SUBCUTANEOUS EDEMA.
[2020-04-18 12:00] VITALS: BP 129/65
--- NOTE | 2020-04-18 14:30 | Consultation ---
DATE OF CONSULTATION: 04/18/2020 INFECTIOUS DISEASE CONSULTATION CONSULTING PHYSICIAN: Samra Vazquez MD. REFERRING PHYSICIAN: Venancio Monsivais MD. REASON FOR CONSULT: Bilateral lower extremity cellulitis. HISTORY OF PRESENTING ILLNESS: This is a 74-year-old lady with history of peripheral arterial disease, hypertension, breast cancer status post right-sided mastectomy, diabetes, and chronic kidney disease, who comes in with leg swelling and redness in both her legs. There is a concern for bilateral leg cellulitis and an Infectious Disease consultation has been obtained for antibiotics. PAST MEDICAL HISTORY: 1. History of diabetes. 2. Hypertension. 3. Breast cancer, status post right-sided mastectomy. 4. Hip fracture, status post ORIF. 5. Osteoporosis. 6. Osteoarthritis. 7. Kyphoscoliosis. 8. Vitamin B12 deficiency. 9. Chronic venous insufficiency. 10. Diabetic neuropathy. 11. Chronic kidney disease. 12. Atherosclerosis. SOCIAL HISTORY: She does not smoke, drink, or use drugs. FAMILY HISTORY: Noncontributory. REVIEW OF SYSTEMS: RESPIRATORY: No fever, chills, cough, shortness of breath, or chest pain. CARDIAC: No chest pain. No palpitation. No dizziness. No syncope. GASTROINTESTINAL: No nausea. No vomiting. No abdominal pain. No diarrhea. MUSCULOSKELETAL: She denies any pain. MEDICATIONS: As an inpatient, she is on cefepime, aspirin, metoprolol, lisinopril, vancomycin, Tylenol, milk of magnesia, Benadryl, insulin. ALLERGIES: No known drug allergies. PHYSICAL EXAMINATION: VITAL SIGNS: Temperature 98.4, T-max of 98.4, pulse 71, respiratory rate 17, blood pressure 121/65. O2 saturation of 97% on room air. HEENT: Pupils are equally reactive to light and accommodation. Mouth appears clean without thrush. NECK: Supple. No adenopathy. No JVD. CARDIOVASCULAR: Regular rate and rhythm. No murmurs. LUNGS: Clear to auscultation bilaterally. No crackles. No wheezes. ABDOMEN: Soft and nontender. No organomegaly. EXTREMITIES: No cyanosis. No clubbing. Edema noted bilaterally with bilateral leg erythema. LABORATORY AND DIAGNOSTIC DATA: White count of 4, hemoglobin 10.1, hematocrit 31.4, MCV 91, platelet count of 138,000, neutrophils of 49%. Sodium 144, potassium 3.8, chloride 109, bicarb 29, BUN 10, creatinine 0.7. Glucose 65. Calcium 8.2. Magnesium 1.9. Total bilirubin 0.4, AST 25, ALT 22, alkaline phosphatase 87. Beta-natriuretic peptide 1206. Total protein 6.5, albumin 2.7. Cholesterol of 123. UA showing 5 to 10 white cells. Ultrasound of legs showed no evidence of DVT, subcutaneous edema noted. ASSESSMENT: This is a 74-year-old lady with history of diabetes, hypertension, renal failure, and breast cancer, who comes in with bilateral leg swelling and redness and is found to have, 1. Bilateral leg cellulitis. 2. Diabetes. 3. Hypertension. 4. Breast cancer, status post right-sided mastectomy. PLAN: 1. Continue IV vancomycin and cefepime. 2. We will follow up cultures and adjust antibiotics accordingly. 3. We would recommend leg elevation. I would like to thank Dr. Monsivais for this consultation. Samra Vazquez M.D. DR: AAMIR JOB#: [id number] CC:
--- NOTE | 2020-04-18 14:47 | NUR ---
CASE MANAGEMENT: INITIAL REVIEW 74YR OLD FEMALE FROM HOME CC: EDEMA; SWELLING WITH SORES TO RIGHT LLE X 1 MONTH SI:CELLULITIS OF RIGHT LOWER EXT. BILATERAL EXTREMITY EDEMA 98.2 85 21 163/82 100% ON RA ALKP 117 IS:IV VANCOMYCIN X1 IV CEFEPIME X1 Venous Duplex Scan Harley Leg-NO EVIDENCE OF DVT. SUBCUTANEOUS EDEMA. \: 3E MED SURG UNIT DCP: HOME WHEN STABLE PLAN: F/U WITH BLOOD CX CASE MANAGEMENT: REVIEW 04/18/2020 SI:HARLEY CELLULITIS OF LOWER EXT. BILATERAL EXTREMITY EDEMA HX BREAST CANCER . PAD 98.4 68 17 125/75 97% ON RA WBC 4 PLT 138 BNP 1206 ALB 2.7 TSH 9.472 IS:IV VANCOMYCIN BID ASPIRIN PO QD LISINOPRIL PO QD TOPROL XL PO QD HEPARIN SQ TID \: 3E MED SURG UNIT DCP: HOME WHEN STABLE PLAN: F/U WITH BLOOD CX
--- NOTE | 2020-04-18 15:07 | NUR ---
NURSE NOTES: Plt count [address] Tyrone Curran to give heparin.
[2020-04-18 16:00] VITALS: BP 121/60
--- NOTE | 2020-04-18 17:30 | History and Physical Report ---
DATE OF ADMISSION: 04/17/2020 CHIEF COMPLAINT: Lower extremity cellulitis, CHF. HISTORY OF PRESENT ILLNESS: Patient is a 74-year-old female, well known to me. She has a history of hypertension, breast cancer, venous insufficiency. She recently presented to the office with complaints of lower extremity edema, pain, and erythema. She was started on oral antibiotic therapy for cellulitis. Despite oral antibiotic therapy, she has had worsening fevers and chills, worsening lower extremity edema, erythema, and warmth. Because of failure to respond to outpatient therapy, she is now admitted for IV antibiotics. PAST MEDICAL HISTORY: As above. PAST SURGICAL HISTORY: Includes mastectomy. CURRENT MEDICATIONS: Reconciled and reviewed. ALLERGIES: None. FAMILY HISTORY: None. SOCIAL HISTORY: There is no known history of tobacco, ethanol, or drugs. REVIEW OF SYSTEMS: GENERAL: No fevers or chills. HEENT: No headaches or visual changes. CARDIOPULMONARY: No chest pain or shortness of breath. GASTROINTESTINAL: No nausea or vomiting. GENITOURINARY: No urgency or frequency. MUSCULOSKELETAL: Positive lower extremity edema, pain, and swelling. NEUROLOGIC: No history of seizures. PHYSICAL EXAMINATION: VITAL SIGNS: Temperature 98.4, pulse 68, respirations 17, blood pressure 125/75. GENERAL: Patient is a well-developed female, in no apparent distress. She is awake, alert, and oriented x4. HEENT: Head is normocephalic and atraumatic. Pupils are equal, round, and reactive to light. Sclerae anicteric. Oropharynx clear. Mucous membranes are moist. HEART: Regular rate and rhythm. LUNGS: Clear. ABDOMEN: Soft, nontender, nondistended. EXTREMITIES: Significant for 2+ pitting edema, right greater than left with erythema noted on the right hahn. LABORATORY DATA: White count was 5, hemoglobin is 10. Sodium 140, potassium 3.9. Natriuretic peptide was 1200. TSH was 9.4. ASSESSMENT: This is a 74-year-old female admitted with complaints of lower extremity cellulitis. PROBLEM LIST: 1. Cellulitis. 2. Hypertension. 3. Possible CHF exacerbation. 4. Hypothyroidism. PLAN: IV antibiotics. Follow up cultures. Cardiology consult to assist with management in patient's heart failure. Consider gentle IV diuretic therapy. Start on Synthroid. Anticipate at least 2-night hospitalization. Patient will need at least 48 to 72 hours of IV antibiotics. Thomas Hansen M.D. DR: ASHLEY JOB#: [id number] CC:
[2020-04-18] MEDS: Cefepime HCl 1 GM in D5W 55 ML IVPB SCH (17:54)
--- NOTE | 2020-04-18 19:20 | NUR ---
NURSE NOTES: Received pt. from Paulette GUTHRIE.
--- NOTE | 2020-04-18 19:20 | NUR ---
Received pt. in bed, in semi fowlers position, no sob noted, denies any pain at this time. Bed is in lowest position and locked, call light is within reach. Will continue to monitor.
[2020-04-18 20:00] VITALS: BP 127/66
--- NOTE | 2020-04-18 20:10 | NUR ---
NURSE NOTES: Pt. was noted to have scattered redness on her upper body and back, including her arms and legs. Pt. was scratching at mos times as well. Noted to have some dried scab due to scratching and otheres were open due to scratching. Called Dr. Milligan and made aware, gave new orders of Ivermectin and to apply Elimite cream tonight. Orders taken. Pt. was amde aware and started on contact isolation.
[2020-04-19] VITALS (7 sets, daily range): BP systolic 127–159; BP diastolic 61–79
--- NOTE | 2020-04-19 02:08 | Cardiology Progress Note ---
Subjective DATE OF SERVICE: Apr 18, 2020 Venous duplex negative for DVT Patient is s/p treatment for scabies She continues on IV abx TSH 9.23 BNP 1200 range Objective Last 24 Hour Vital Signs Date Time Temp Pulse Resp B/P (MAP) Pulse Ox O2 Delivery O2 Flow Rate FiO2 04/19/20 00:00 97.8 62 18 129/66 (87) 95 04/18/20 21:00 Room Air 04/18/20 20:00 97.6 66 18 127/66 (86) 97 04/18/20 16:00 97.3 62 16 121/60 (80) 97 04/18/20 12:00 98.4 63 17 129/65 (86) 97 04/18/20 09:00 Room Air 04/18/20 08:36 121/65 04/18/20 08:36 71 121/65 04/18/20 08:00 98.4 68 17 125/75 (92) 97 04/18/20 04:00 98.2 71 18 121/65 (83) 95 HEENT: normal ENT inspection LUNGS: lungs clear bilaterally CARDIAC: regular rhythm, normal S1 and S2, other - kyphosis ABDOMEN: non tender, soft, no mass EXTREMITIES: severe edema, other - right sided edema predominantly with significant erythema and warmth Laboratory Tests Test 04/18/20 04:50 04/18/20 05:48 04/18/20 11:22 04/18/20 16:37 White Blood Count 4.0 K/UL (4.8-10.8) L Red Blood Count 3.45 M/UL (4.20-5.40) L Hemoglobin 10.1 G/DL (12.0-16.0) L Hematocrit 31.4 % (37.0-47.0) L Mean Corpuscular Volume 91 FL (80-99) Mean Corpuscular Hemoglobin 29.2 PG (27.0-31.0) Mean Corpuscular Hemoglobin Concent 32.1 G/DL (32.0-36.0) Red Cell Distribution Width 13.0 % (11.6-14.8) Platelet Count 138 K/UL (150-450) L Mean Platelet Volume 6.7 FL (6.5-10.1) Neutrophils (%) (Auto) 49.8 % (45.0-75.0) Lymphocytes (%) (Auto) 20.9 % (20.0-45.0) Monocytes (%) (Auto) 12.4 % (1.0-10.0) H Eosinophils (%) (Auto) 16.6 % (0.0-3.0) H Basophils (%) (Auto) 0.3 % (0.0-2.0) Sodium Level 144 MMOL/L (136-145) Potassium Level 3.8 MMOL/L (3.5-5.1) Chloride Level 109 MMOL/L (98-107) H Carbon Dioxide Level 29 MMOL/L (21-32) Anion Gap 6 mmol/L (5-15) Blood Urea Nitrogen 10 mg/dL (7-18) Creatinine 0.7 MG/DL (0.55-1.30) Estimat Glomerular Filtration Rate > 60 mL/min (>60) Glucose Level 85 MG/DL (74-106) Calcium Level 8.2 MG/DL (8.5-10.1) L Magnesium Level 1.9 MG/DL (1.8-2.4) Total Bilirubin 0.4 MG/DL (0.2-1.0) Aspartate Amino Transf (AST/SGOT) 25 U/L (15-37) Alanine Aminotransferase (ALT/SGPT) 22 U/L (12-78) Alkaline Phosphatase 87 U/L (46-116) Pro-B-Type Natriuretic Peptide 1206 pg/mL (0-125) H Total Protein 6.5 G/DL (6.4-8.2) Albumin 2.7 G/DL (3.4-5.0) L Globulin 3.8 g/dL Albumin/Globulin Ratio 0.7 (1.0-2.7) L Triglycerides Level 71 MG/DL (30-150) Cholesterol Level 123 MG/DL (< 200) LDL Cholesterol 75 mg/dL (<100) HDL Cholesterol 38 MG/DL (40-60) L Cholesterol/HDL Ratio 3.2 (3.3-4.4) L Thyroid Stimulating Hormone (TSH) 9.472 uiU/mL (0.358-3.740) POC Whole Blood Glucose 87 MG/DL (74-106) 95 MG/DL (74-106) Pending Test 04/18/20 20:34 POC Whole Blood Glucose 84 MG/DL (74-106) Assessment/Plan Assessment/Plan Cellullitis RLE Scabies Dependent edema Hypertension/HHD Ac/chr diastolic CHF Hx breastCA PLAN: Abx Skin care Advance antiHTN/anti-failure therapy Check 2D Echo Reassess for diuresis DVT prophylaxis Venancio Monsivais MD Apr 19, 2020 02:08
[2020-04-19] MEDS: Vancomycin 500 MG in NS 110 ML IVPB SCH ×2 (05:48→20:00)
[2020-04-19] MEDS: Heparin 5000 units/ml inj SUBQ SCH ×3 (05:50→21:11)
[2020-04-19] MEDS: NovoLOG Insulin Flexpen SUBQ SCH ×4 (06:13→21:00)
--- NOTE | 2020-04-19 07:39 | NUR ---
HAND-OFF: Report given to Chandrakant GUTHRIE and in 4th floor.
--- NOTE | 2020-04-19 07:49 | NUR ---
NURSE NOTES: pt transferred from [facility]. pt is alert and awake. no SOB noted. Pt presents bilateral lower extremities cellulitis. pt denies any pain at this time. made comfortable in bed. place call light within reach, will follow plan of care.
[2020-04-19] MEDS: Aspirin EC 81mg tab ORAL SCH (09:18)
[2020-04-19] MEDS: Lisinopril 20mg tab ORAL SCH (09:19)
[2020-04-19] MEDS: Metoprolol Succinate XL 25mg tab ORAL SCH (09:20)
--- NOTE | 2020-04-19 14:22 | Infectious Diseases Prog Note ---
Assessment/Plan Assessment/Plan antibiotics : vancomycin iv, cefepime A 1. bilateral leg cellulitis improving 2. hypertension 3. CHF 4. hypothyroidism P 1. continue iv vancomycin, cefepime 2. will follow up cultures Subjective Constitutional: Denies: fever, chills Respiratory: Denies: shortness of breath, dry cough Gastrointestinal/Abdominal: Denies: nausea, vomiting, diarrhea Musculoskeletal: Reports: pain - decreased Allergies: Coded Allergies: No Known Allergies (Unverified , 10/16/16) Objective Last 24 Hour Vital Signs Date Time Temp Pulse Resp B/P (MAP) Pulse Ox O2 Delivery O2 Flow Rate FiO2 04/19/20 12:00 97.9 67 17 159/79 (105) 99 04/19/20 09:20 59 127/61 04/19/20 09:19 127/61 04/19/20 09:00 Room Air 04/19/20 08:00 98.2 59 18 127/61 (83) 99 04/19/20 04:00 98.0 60 18 131/64 (86) 96 04/19/20 00:00 97.8 62 18 129/66 (87) 95 04/18/20 21:00 Room Air 04/18/20 20:00 97.6 66 18 127/66 (86) 97 04/18/20 16:00 97.3 62 16 121/60 (80) 97 Height (Feet): 5 Height (Inches): 3.00 Weight (Pounds): 160 Respiratory/Chest: lungs clear Cardiovascular: normal rate, regular rhythm, no gallop/murmur Abdomen: soft, non tender Extremities: other - decreased edema, erythema Microbiology Date/Time Source Procedure Growth Status 04/17/20 18:45 Blood Blood Culture - Preliminary NO GROWTH AFTER 24 HOURS Resulted 04/17/20 18:16 Blood Blood Culture - Preliminary NO GROWTH AFTER 24 HOURS Resulted Laboratory Tests Test 04/18/20 16:37 04/18/20 20:34 04/19/20 06:03 POC Whole Blood Glucose Pending 84 MG/DL (74-106) 73 MG/DL (74-106) L Current Medications Medications (Trade) Dose Ordered Sig/Bertram Route PRN Reason Start Time Stop Time Status Last Admin Dose Admin Acetaminophen (Tylenol) 650 mg Q4H PRN ORAL Mild Pain (Pain Scale 1-3) 04/17/20 23:45 05/17/20 23:44 Aspirin (Ecotrin) 81 mg DAILY ORAL 04/18/20 09:00 06/02/20 08:59 04/19/20 09:18 Cefepime HCl 1 gm/ Dextrose 55 ml @ 110 mls/hr Q24H IVPB 04/18/20 18:00 04/25/20 17:59 04/18/20 17:54 Dextrose (Dextrose 50%) 25 ml Q30M PRN IV Hypoglycemia 04/17/20 19:00 07/16/20 18:59 Dextrose (Dextrose 50%) 50 ml Q30M PRN IV Hypoglycemia 04/17/20 19:00 07/16/20 18:59 Diphenhydramine HCl (Benadryl) 25 mg Q6H PRN ORAL Itching 04/17/20 23:45 05/17/20 23:44 Heparin Sodium (Porcine) (Heparin 5000 units/ml) 5,000 units EVERY 8 HOURS SUBQ 04/18/20 06:00 06/02/20 05:59 04/19/20 05:50 Insulin Aspart (NovoLOG) BEFORE MEALS AND HS SUBQ 04/17/20 21:00 07/16/20 20:59 Levothyroxine Sodium (Synthroid) 75 mcg DAILY@0630 ORAL 04/19/20 06:30 05/19/20 06:29 04/19/20 05:49 Lisinopril (PriniviL) 40 mg DAILY ORAL 04/19/20 09:00 05/19/20 08:59 04/19/20 09:19 Magnesium Hydroxide (Mom) 30 ml DAILYPRN PRN ORAL Constipation 04/17/20 23:45 05/17/20 23:44 Metoprolol Succinate (Toprol XL) 25 mg DAILY ORAL 04/18/20 09:00 07/17/20 08:59 04/19/20 09:20 Vancomycin HCl (Vanco pharmacy to dose) 1 ea DAILY PRN MISC Per rx protocol 04/17/20 19:00 05/17/20 18:59 Vancomycin HCl 500 mg/Sodium Chloride 110 ml @ 110 mls/hr Q12HR@0800,2000 IVPB 04/18/20 08:00 04/23/20 07:59 04/19/20 05:48 Samra Vazquez MD Apr 19, 2020 14:22
[2020-04-19] MEDS: Cefepime HCl 1 GM in D5W 55 ML IVPB SCH ×2 (17:37→18:00)
--- NOTE | 2020-04-19 18:46 | NUR ---
NURSE NOTES: Maxipine 1 gm iv not administered because pt has no iv access. RN attempted x 3 to insert a new line, unsuccessful. RN called co-workers to try and find iv access, nurses unable to find IV access. pt is a hard stick, will endorse to next shift to continue to try. Dr Tyrone rodriguez.
--- NOTE | 2020-04-19 19:26 | NUR ---
NURSE HAND-OFF: Important Events on Shift: NO IV ACCESS Patient Status: ALERT AND AWAKE, NO ACUTE DISTRESS Diet: CCHO Pending Orders: Pending Results/Labs: Pending MD notification:YES Latest Vital Signs: Temperature 97.7 , Pulse 65 , B/P 143 /71 , Respiratory Rate 19 , O2 SAT 97 , Room Air, O2 Flow Rate . Vital Sign Comment: Latest Watters Fall Score: 60 Fall Risk: High Risk Safety Measures: Call light Within Reach, Bed Alarm Zone 1, Side Rails Side Rails x3, Bed position Low and Locked. Fall Precautions: Yellow Socks Yellow Gown Door Sign Patient Fall Education Report given to Tolu.
--- NOTE | 2020-04-19 19:36 | NUR ---
Leather Goods Maker: Patient in bed, awake, alert and verbally responsive. Ambulatory with assist. Kept clean and comfortable. Provided safe environment. Bed in low and locked position. Respiration is even and unlabored. No complaint of pain or discomfort noted. Abdomen is soft and non distended. Skin is warm and dry to touch. Call light is at bedside. Will continue plan of care.
--- NOTE | 2020-04-19 21:01 | General Progress Note ---
Assessment/Plan Problem List: (1) Scabies ICD Codes: B86 - Scabies SNOMED: 58553078, 752820764 (2) Cellulitis ICD Codes: L03.90 - Cellulitis, unspecified SNOMED: 172211464 (3) Pleural effusion ICD Codes: J90 - Pleural effusion, not elsewhere classified SNOMED: 18367106 (4) Cellulitis of right lower extremity ICD Codes: L03.115 - Cellulitis of right lower limb SNOMED: 949588986 (5) Bilateral lower extremity edema ICD Codes: R60.0 - Localized edema SNOMED: 460190875, 23849277, 06730254 Status: stable, progressing Assessment/Plan: iv abx elevate legs diuresis per cards thyroid replacement monitor labs monitor bs pt/ot Subjective ROS Limited/Unobtainable: No Constitutional: Reports: malaise, weakness HEENT: Reports: no symptoms Cardiovascular: Reports: edema Respiratory: Reports: no symptoms Gastrointestinal/Abdominal: Reports: no symptoms Genitourinary: Reports: no symptoms Neurologic/Psychiatric: Reports: no symptoms Endocrine: Reports: no symptoms Hematologic/Lymphatic: Reports: no symptoms Allergies: Coded Allergies: No Known Allergies (Unverified , 10/16/16) All Systems: reviewed and negative except above Subjective still with edema and erythema of ajith LE. right greater than left.s/p elemite and ivermectin x 1.hx of recurrent scabies. no complaints except for leg pain and swelling. no fever or cough. Objective Last 24 Hour Vital Signs Date Time Temp Pulse Resp B/P (MAP) Pulse Ox O2 Delivery O2 Flow Rate FiO2 04/19/20 16:00 97.7 65 19 143/71 (95) 97 04/19/20 12:00 97.9 67 17 159/79 (105) 99 04/19/20 09:20 59 127/61 04/19/20 09:19 127/61 04/19/20 09:00 Room Air 04/19/20 08:00 98.2 59 18 127/61 (83) 99 04/19/20 04:00 98.0 60 18 131/64 (86) 96 04/19/20 00:00 97.8 62 18 129/66 (87) 95 04/18/20 21:00 Room Air Intake and Output 04/18/20 04/19/20 19:00 07:00 Intake Total 110 ml Balance 110 ml IV Total 110 ml # Voids 4 Laboratory Tests 04/19/20 06:03: POC Whole Blood Glucose 73L 04/19/20 19:10: Vancomycin Level Trough 8.1 Height (Feet): 5 Height (Inches): 3.00 Weight (Pounds): 160 General Appearance: WD/WN, alert, overweight EENT: PERRL/EOMI Neck: non-tender, normal alignment Cardiovascular: normal peripheral pulses, normal rate Respiratory/Chest: chest wall non-tender, lungs clear Abdomen: normal bowel sounds, non tender, soft, no organomegaly Edema: 2+ Leg (L), 2+ Leg (R) Neurologic: architectural representative II-XII grossly normal, abnormal gait, alert, oriented x 3 Thomas Hansen MD Apr 19, 2020 21:01
[2020-04-19] MEDS: Vancomycin 750mg/NS 275ml IVPB SCH ×2 (21:17)
--- NOTE | 2020-04-19 22:50 | Cardiology Progress Note ---
Subjective DATE OF SERVICE: Apr 19, 2020 She still has leg pain, swelling on right and redness. Venous duplex negative for DVT Patient is s/p treatment for scabies She continues on IV abx TSH 9.23 BNP 1200 range Objective Last 24 Hour Vital Signs Date Time Temp Pulse Resp B/P (MAP) Pulse Ox O2 Delivery O2 Flow Rate FiO2 04/19/20 21:00 Room Air 04/19/20 20:00 98.2 68 18 136/69 (91) 95 04/19/20 16:00 97.7 65 19 143/71 (95) 97 04/19/20 12:00 97.9 67 17 159/79 (105) 99 04/19/20 09:20 59 127/61 04/19/20 09:19 127/61 04/19/20 09:00 Room Air 04/19/20 08:00 98.2 59 18 127/61 (83) 99 04/19/20 04:00 98.0 60 18 131/64 (86) 96 04/19/20 00:00 97.8 62 18 129/66 (87) 95 HEENT: normal ENT inspection LUNGS: lungs clear bilaterally CARDIAC: regular rhythm, normal S1 and S2, other - kyphosis ABDOMEN: non tender, soft, no mass EXTREMITIES: severe edema, other - right sided edema predominantly with significant erythema and warmth Laboratory Tests Test 04/19/20 06:03 04/19/20 19:10 POC Whole Blood Glucose 73 MG/DL (74-106) L Vancomycin Level Trough 8.1 ug/mL (5.0-12.0) Microbiology Date/Time Source Procedure Growth Status 04/17/20 18:45 Blood Blood Culture - Preliminary NO GROWTH AFTER 24 HOURS Resulted 04/17/20 18:16 Blood Blood Culture - Preliminary NO GROWTH AFTER 24 HOURS Resulted EKG INTERPRETATION: 2D ECHO: NORMAL LVEF, mild AI, MR, TR with mild pulmonary HTN Assessment/Plan Assessment/Plan Cellullitis RLE Scabies Dependent edema Hypertension/HHD Ac/chr diastolic CHF Hx breastCA PLAN: Abx Skin care Advance antiHTN/anti-failure therapy Start diuresis DVT prophylaxis Venancio Monsivais MD Apr 19, 2020 22:50
[2020-04-20 04:00] VITALS: BP 121/65
[2020-04-20] MEDS: Heparin 5000 units/ml inj SUBQ SCH ×3 (06:00→21:11)
[2020-04-20] MEDS: NovoLOG Insulin Flexpen SUBQ SCH ×4 (06:08→20:01)
--- NOTE | 2020-04-20 07:08 | NUR ---
NURSE HAND-OFF: Important Events on Shift:new iv site Patient Status: Diet: Pending Orders: Pending Results/Labs: Pending MD notification: Latest Vital Signs: Temperature 98.8 , Pulse 76 , B/P 121 /65 , Respiratory Rate 18 , O2 SAT 95 , Room Air, O2 Flow Rate . Vital Sign Comment: Latest Watters Fall Score: 60 Fall Risk: High Risk Safety Measures: Call light Within Reach, Bed Alarm Zone 1, Side Rails Side Rails x3, Bed position Low and Locked. Fall Precautions: Yellow Socks Yellow Gown Door Sign Patient Fall Education Report given to .
--- NOTE | 2020-04-20 07:28 | NUR ---
NURSE NOTES: pt is sitting up in the bed and eating breakfast. no acute distress noted. pt denies any pain and discomfort. left hand IV line is inplace. call light is within reach.
[2020-04-20 08:00] VITALS: BP 159/91
[2020-04-20] MEDS: Vancomycin 750mg/NS 275ml IVPB SCH ×4 (08:53→20:01)
[2020-04-20] MEDS: Aspirin EC 81mg tab ORAL SCH (08:54)
[2020-04-20] MEDS: Lisinopril 20mg tab ORAL SCH (08:54)
[2020-04-20] MEDS: Metoprolol Succinate XL 25mg tab ORAL SCH (08:54)
[2020-04-20 12:00] VITALS: BP 133/68
[2020-04-20] MEDS ORDERED: Cefepime HCl 1 GM in D5W 55 ML IVPB SCH (13:00)
--- NOTE | 2020-04-20 14:27 | NUR ---
CASE MANAGEMENT:REVIEW SI;RLE CELLULITIS. BLE EDEMA. PLEURAL EFFUSION. 98.8 83 19 159/91 95% ON RA IS;K-DUR PO CEFEPIME IV LASIX IV QD VANCOMYCIN IV Q12 SYNTHROID PO ASA PO HEPARIN SUBQ Q8 MED SURG STATUS DCP; FROM HOME PLAN; CONTINUE IV ABX FOLLOW UP CULTURES DVT PPX SKIN CARE
--- NOTE | 2020-04-20 15:35 | Infectious Diseases Prog Note ---
Assessment/Plan Assessment/Plan A 1. Bilateral leg cellulitis improving 2. Hypertension 3. Diastolic CHF 4. hypothyroidism 5. Anemia P 1. continue iv vancomycin, cefepime 2. will follow up cultures Subjective ROS Limited/Unobtainable: No Constitutional: Reports: no symptoms Respiratory: Reports: no symptoms Cardiovascular: Reports: no symptoms Gastrointestinal/Abdominal: Reports: no symptoms Genitourinary: Reports: no symptoms Allergies: Coded Allergies: No Known Allergies (Unverified , 10/16/16) Objective Last 24 Hour Vital Signs Date Time Temp Pulse Resp B/P (MAP) Pulse Ox O2 Delivery O2 Flow Rate FiO2 04/20/20 09:00 Room Air 04/20/20 08:54 159/91 04/20/20 08:54 83 159/91 04/20/20 08:00 97.6 83 19 159/91 (113) 96 04/20/20 04:00 98.8 76 18 121/65 (83) 95 04/19/20 23:48 98.4 72 18 127/63 (84) 95 04/19/20 21:00 Room Air 04/19/20 20:00 98.2 68 18 136/69 (91) 95 04/19/20 16:00 97.7 65 19 143/71 (95) 97 Height (Feet): 5 Height (Inches): 3.00 Weight (Pounds): 160 General Appearance: no acute distress HEENT: mucous membranes moist Respiratory/Chest: lungs clear Cardiovascular: normal rate Abdomen: soft, non tender Extremities: other - legs edema Neurologic/Psychiatric: alert, oriented x 3, responsive Microbiology Date/Time Source Procedure Growth Status 04/17/20 18:45 Blood Blood Culture - Preliminary NO GROWTH AFTER 48 HOURS Resulted 04/17/20 18:16 Blood Blood Culture - Preliminary NO GROWTH AFTER 48 HOURS Resulted Laboratory Tests Test 04/19/20 19:10 Vancomycin Level Trough 8.1 ug/mL (5.0-12.0) Current Medications Medications (Trade) Dose Ordered Sig/Bertram Route PRN Reason Start Time Stop Time Status Last Admin Dose Admin Acetaminophen (Tylenol) 650 mg Q4H PRN ORAL Mild Pain (Pain Scale 1-3) 04/17/20 23:45 05/17/20 23:44 Aspirin (Ecotrin) 81 mg DAILY ORAL 04/18/20 09:00 06/02/20 08:59 04/20/20 08:54 Cefepime HCl 1 gm/ Dextrose 55 ml @ 110 mls/hr Q24H IVPB 04/20/20 13:00 04/26/20 12:59 04/20/20 14:30 Dextrose (Dextrose 50%) 25 ml Q30M PRN IV Hypoglycemia 04/17/20 19:00 07/16/20 18:59 Dextrose (Dextrose 50%) 50 ml Q30M PRN IV Hypoglycemia 04/17/20 19:00 07/16/20 18:59 Diphenhydramine HCl (Benadryl) 25 mg Q6H PRN ORAL Itching 04/17/20 23:45 05/17/20 23:44 Furosemide (Lasix) 40 mg DAILY IV 04/20/20 09:00 05/20/20 08:59 04/20/20 08:53 Heparin Sodium (Porcine) (Heparin 5000 units/ml) 5,000 units EVERY 8 HOURS SUBQ 04/18/20 06:00 06/02/20 05:59 04/19/20 05:50 Insulin Aspart (NovoLOG) BEFORE MEALS AND HS SUBQ 04/17/20 21:00 07/16/20 20:59 Levothyroxine Sodium (Synthroid) 75 mcg DAILY@0630 ORAL 04/19/20 06:30 05/19/20 06:29 04/20/20 06:19 Lisinopril (PriniviL) 40 mg DAILY ORAL 04/19/20 09:00 05/19/20 08:59 04/20/20 08:54 Magnesium Hydroxide (Mom) 30 ml DAILYPRN PRN ORAL Constipation 04/17/20 23:45 05/17/20 23:44 Metoprolol Succinate (Toprol XL) 25 mg DAILY ORAL 04/18/20 09:00 07/17/20 08:59 04/20/20 08:54 Potassium Chloride (K-Dur) 20 meq DAILY ORAL 04/21/20 09:00 07/20/20 08:59 Vancomycin HCl (Vanco pharmacy to dose) 1 ea DAILY PRN MISC Per rx protocol 04/17/20 19:00 05/17/20 18:59 Vancomycin HCl 750 mg/Sodium Chloride 275 ml @ 183.333 mls/hr Q12HR IVPB 04/19/20 21:00 04/24/20 20:59 04/20/20 08:53 Carloz Voss MD Apr 20, 2020 15:35
[2020-04-20 16:00] VITALS: BP 138/64
--- NOTE | 2020-04-20 19:30 | NUR ---
NURSE HAND-OFF: Important Events on Shift: n/a Patient Status: no acute distress Diet: ccho soft esy-chew Pending Orders: Pending Results/Labs: Pending MD notification: Latest Vital Signs: Temperature 97.4 , Pulse 86 , B/P 138 /64 , Respiratory Rate 19 , O2 SAT 98 , Room Air, O2 Flow Rate . Vital Sign Comment: Latest Watters Fall Score: 60 Fall Risk: High Risk Safety Measures: Call light Within Reach, Bed Alarm Zone 1, Side Rails Side Rails x3, Bed position Low and Locked. Fall Precautions: Yellow Socks Yellow Gown Door Sign Patient Fall Education Report given to Antonio.
[2020-04-20 20:00] VITALS: BP 148/81
--- NOTE | 2020-04-20 20:00 | NUR ---
NURSE NOTES: Received patient awake, alert, verbal, resting in bed, comfortable.
--- NOTE | 2020-04-21 02:01 | Cardiology Progress Note ---
Subjective DATE OF SERVICE: Apr 20, 2020 She has less leg pain, swelling on right and redness. Venous duplex negative for DVT Patient is s/p treatment for scabies She continues on IV abx TSH 9.23 BNP 1200 range Objective Last 24 Hour Vital Signs Date Time Temp Pulse Resp B/P (MAP) Pulse Ox O2 Delivery O2 Flow Rate FiO2 04/20/20 20:45 Room Air 04/20/20 20:00 98.2 66 18 148/81 (103) 98 04/20/20 16:00 97.4 86 19 138/64 (88) 98 04/20/20 12:00 98.2 80 18 133/68 (89) 97 04/20/20 09:00 Room Air 04/20/20 08:54 159/91 04/20/20 08:54 83 159/91 04/20/20 08:00 97.6 83 19 159/91 (113) 96 04/20/20 04:00 98.8 76 18 121/65 (83) 95 HEENT: normal ENT inspection LUNGS: lungs clear bilaterally CARDIAC: regular rhythm, normal S1 and S2, other - kyphosis ABDOMEN: non tender, soft, no mass EXTREMITIES: +2 edema, other - right sided edema predominantly with significant erythema and warmth Assessment/Plan Assessment/Plan Cellullitis RLE Scabies Dependent edema Hypertension/HHD Ac/chr diastolic CHF Hx breastCA PLAN: Abx Skin care Advance antiHTN/anti-failure therapy Continue diuresis DVT prophylaxis Venancio Monsivais MD Apr 21, 2020 02:00
[2020-04-21 04:00] VITALS: BP 159/88
[2020-04-21 05:35] LABS: BASOPHILS % (AUTO) 0.8 % (0.0-2.0); EOSINOPHILS % (AUTO) 14.4 % (0.0-3.0); HEMATOCRIT 32.8 % (37.0-47.0); HEMOGLOBIN 10.6 G/DL (12.0-16.0); LYMPHOCYTES % (AUTO) 30.1 % (20.0-45.0); MEAN CORPUSCULAR VOLUME 90 FL (80-99); MONOCYTES % (AUTO) 11.8 % (1.0-10.0); NEUTROPHILS % (AUTO) 42.9 % (45.0-75.0); PLATELET COUNT 155 K/UL (150-450); RED BLOOD COUNT 3.65 M/UL (4.20-5.40); RED CELL DISTRIBUTION WIDTH 13.2 % (11.6-14.8); WHITE BLOOD COUNT 4.2 K/UL (4.8-10.8)
[2020-04-21 05:38] LABS: ANION GAP 4 mmol/L (5-15); BLOOD UREA NITROGEN 14 mg/dL (7-18); CALCIUM 8.4 MG/DL (8.5-10.1); CARBON DIOXIDE 29 MMOL/L (21-32); CHLORIDE 108 MMOL/L (98-107); CREATININE 0.8 MG/DL (0.55-1.30); POTASSIUM 4.1 MMOL/L (3.5-5.1); SODIUM 141 MMOL/L (136-145)
[2020-04-21] MEDS: Heparin 5000 units/ml inj SUBQ SCH ×3 (06:00→21:53)
[2020-04-21] MEDS: NovoLOG Insulin Flexpen SUBQ SCH ×4 (06:10→21:00)
--- NOTE | 2020-04-21 07:08 | NUR ---
HAND-OFF: Report given to Jeff Schmidt RN.
--- NOTE | 2020-04-21 07:08 | NUR ---
NURSE NOTES: Received report from JERRI Matt. Patient received sitting on EOB asking for breakfast. Patient is AAO x 4, able to make needs known, ambulatory using a walker. Patient is on RA in no apparent respiratory distress. LBM yesterday. Skin intact with redness to BLE. pIV to L hand 24 g, saline lock. Last BS 73, no coverage. Fall precautions reinforced. Bed in lowest position, call light within reach. Will continue POC.
[2020-04-21 08:00] VITALS: BP 158/95
[2020-04-21] MEDS: Aspirin EC 81mg tab ORAL SCH (09:15)
[2020-04-21] MEDS: Metoprolol Succinate XL 25mg tab ORAL SCH (09:16)
[2020-04-21] MEDS: Lisinopril 20mg tab ORAL SCH (09:16)
[2020-04-21] MEDS: Vancomycin 750mg/NS 275ml IVPB SCH ×2 (09:19)
--- NOTE | 2020-04-21 11:49 | Infectious Diseases Prog Note ---
Assessment/Plan Assessment/Plan antibiotics : vancomycin iv, cefepime A 1. bilateral leg cellulitis improving 2. hypertension 3. CHF 4. hypothyroidism 5. scabies s/p rx P 1. d.c iv vancomycin, cefepime 2. start and continue po doxycycline 5 days 3. will follow up cultures Subjective Constitutional: Denies: fever, chills Respiratory: Denies: shortness of breath, dry cough Gastrointestinal/Abdominal: Denies: nausea, vomiting, diarrhea Musculoskeletal: Reports: pain - decreased Allergies: Coded Allergies: No Known Allergies (Unverified , 10/16/16) Objective Last 24 Hour Vital Signs Date Time Temp Pulse Resp B/P (MAP) Pulse Ox O2 Delivery O2 Flow Rate FiO2 04/21/20 09:16 158/95 04/21/20 09:16 76 158/95 04/21/20 08:00 96.2 76 18 158/95 (116) 98 04/21/20 04:00 96.8 63 18 159/88 (111) 97 04/20/20 20:45 Room Air 04/20/20 20:00 98.2 66 18 148/81 (103) 98 04/20/20 16:00 97.4 86 19 138/64 (88) 98 04/20/20 12:00 98.2 80 18 133/68 (89) 97 Height (Feet): 5 Height (Inches): 3.00 Weight (Pounds): 160 Respiratory/Chest: lungs clear Cardiovascular: normal rate, regular rhythm, no gallop/murmur Abdomen: soft, non tender Extremities: other - + edema, decreased erythema Skin: rash - erythematous rash Laboratory Tests Test 04/21/20 04:35 White Blood Count 4.2 K/UL (4.8-10.8) L Red Blood Count 3.65 M/UL (4.20-5.40) L Hemoglobin 10.6 G/DL (12.0-16.0) L Hematocrit 32.8 % (37.0-47.0) L Mean Corpuscular Volume 90 FL (80-99) Mean Corpuscular Hemoglobin 29.0 PG (27.0-31.0) Mean Corpuscular Hemoglobin Concent 32.2 G/DL (32.0-36.0) Red Cell Distribution Width 13.2 % (11.6-14.8) Platelet Count 155 K/UL (150-450) Mean Platelet Volume 6.9 FL (6.5-10.1) Neutrophils (%) (Auto) 42.9 % (45.0-75.0) L Lymphocytes (%) (Auto) 30.1 % (20.0-45.0) Monocytes (%) (Auto) 11.8 % (1.0-10.0) H Eosinophils (%) (Auto) 14.4 % (0.0-3.0) H Basophils (%) (Auto) 0.8 % (0.0-2.0) Sodium Level 141 MMOL/L (136-145) Potassium Level 4.1 MMOL/L (3.5-5.1) Chloride Level 108 MMOL/L (98-107) H Carbon Dioxide Level 29 MMOL/L (21-32) Anion Gap 4 mmol/L (5-15) L Blood Urea Nitrogen 14 mg/dL (7-18) Creatinine 0.8 MG/DL (0.55-1.30) Estimat Glomerular Filtration Rate > 60 mL/min (>60) Glucose Level 89 MG/DL (74-106) Calcium Level 8.4 MG/DL (8.5-10.1) L Pro-B-Type Natriuretic Peptide 935 pg/mL (0-125) H Current Medications Medications (Trade) Dose Ordered Sig/Bertram Route PRN Reason Start Time Stop Time Status Last Admin Dose Admin Acetaminophen (Tylenol) 650 mg Q4H PRN ORAL Mild Pain (Pain Scale 1-3) 04/17/20 23:45 05/17/20 23:44 Aspirin (Ecotrin) 81 mg DAILY ORAL 04/18/20 09:00 06/02/20 08:59 04/21/20 09:15 Cefepime HCl 1 gm/ Dextrose 55 ml @ 110 mls/hr Q24H IVPB 04/20/20 13:00 04/26/20 12:59 04/20/20 14:30 Dextrose (Dextrose 50%) 25 ml Q30M PRN IV Hypoglycemia 04/17/20 19:00 07/16/20 18:59 Dextrose (Dextrose 50%) 50 ml Q30M PRN IV Hypoglycemia 04/17/20 19:00 07/16/20 18:59 Diphenhydramine HCl (Benadryl) 25 mg Q6H PRN ORAL Itching 04/17/20 23:45 05/17/20 23:44 Furosemide (Lasix) 40 mg DAILY IV 04/20/20 09:00 05/20/20 08:59 04/21/20 09:17 Heparin Sodium (Porcine) (Heparin 5000 units/ml) 5,000 units EVERY 8 HOURS SUBQ 04/18/20 06:00 06/02/20 05:59 04/19/20 05:50 Insulin Aspart (NovoLOG) BEFORE MEALS AND HS SUBQ 04/17/20 21:00 07/16/20 20:59 Levothyroxine Sodium (Synthroid) 75 mcg DAILY@0630 ORAL 04/19/20 06:30 05/19/20 06:29 04/21/20 06:09 Lisinopril (PriniviL) 40 mg DAILY ORAL 04/19/20 09:00 05/19/20 08:59 04/21/20 09:16 Magnesium Hydroxide (Mom) 30 ml DAILYPRN PRN ORAL Constipation 04/17/20 23:45 05/17/20 23:44 Metoprolol Succinate (Toprol XL) 25 mg DAILY ORAL 04/18/20 09:00 07/17/20 08:59 04/21/20 09:16 Potassium Chloride (K-Dur) 20 meq DAILY ORAL 04/21/20 09:00 07/20/20 08:59 04/21/20 09:16 Vancomycin HCl ([facility] pharmacy to dose) 1 ea DAILY PRN MISC Per rx protocol 04/17/20 19:00 05/17/20 18:59 Vancomycin HCl 750 mg/Sodium Chloride 275 ml @ 183.333 mls/hr Q12HR IVPB 04/19/20 21:00 04/24/20 20:59 04/21/20 09:19 Samra Vazquez MD Apr 21, 2020 11:49
[2020-04-21 12:00] VITALS: BP 146/76
[2020-04-21] MEDS: Doxycycline Monohydrate 100mg ORAL SCH ×2 (12:40→20:21)
--- NOTE | 2020-04-21 12:40 | NUR ---
NURSE NOTES: Pt had BS of 67. Insulin held. Lunch tray given, juice given. Pt ate 100% of lunch. BS rechecked and BS is 141. MD notified. No new orders at this time.
[2020-04-21 16:00] VITALS: BP 131/67
--- NOTE | 2020-04-21 19:24 | NUR ---
HAND-OFF: Report given to JERRI Bauer. Endorsed POC.
--- NOTE | 2020-04-21 19:35 | NUR ---
NURSE NOTES: Received report from Jeff GUTHRIE.The patient is alert and oriented x4 and does not seem to br in any distress. Resp is even and unlabored and the bilateral lung sounds are all cleared on auscultation. Resident has a LFA 24 g that is patent and asymptomatic. Bed in low and lock position, call light within easy reach and the siderails up x2. will continue to monitor
[2020-04-21 20:00] VITALS: BP 146/88
[2020-04-22] VITALS: BP 132/74
--- NOTE | 2020-04-22 03:49 | NUR ---
NURSE NOTES: The patient was able to ambulate to the bathroom and refused assistance from the nurse saying ' I can walk myself and I don't kneed help".She does not seem to be in any pain. Resp is even and unlabored and bilateral lung sounds are all clear on auscultation. Will continue to monitor
[2020-04-22 04:00] VITALS: BP 118/67
[2020-04-22] MEDS: Heparin 5000 units/ml inj SUBQ SCH ×2 (06:21→14:00)
[2020-04-22] MEDS: NovoLOG Insulin Flexpen SUBQ SCH ×2 (06:22→11:30)
--- NOTE | 2020-04-22 07:22 | NUR ---
HAND-OFF: Report given to Hayley MCFARLAND.
--- NOTE | 2020-04-22 07:30 | NUR ---
NURSE NOTES: RECEIVED PATIENT A/A/OX4. AMBULATES WITH MINIMAL ASSIST. TOLERATED BREAKFAST WELL. NO B/P OR IV ON THE RIGHT ARM. BLE EDEMATOUS PITTING X1. INSTRUCTED TO KEEP BLE ELEVATE WITH PILLOWS. NO C/O PAIN/DISCOMFORT NOTED. KEEP BED IN THE LOWEST POSITION. SIDERAILS ARE UPX3. CALL LIGHT IS WITHIN REACH. WILL CONT TO MONITOR.
[2020-04-22 08:00] VITALS: BP 125/63
[2020-04-22] MEDS: Aspirin EC 81mg tab ORAL SCH (08:22)
[2020-04-22] MEDS: Doxycycline Monohydrate 100mg ORAL SCH (08:23)
[2020-04-22] MEDS: Metoprolol Succinate XL 25mg tab ORAL SCH (08:25)
[2020-04-22] MEDS: Lisinopril 20mg tab ORAL SCH (08:25)
[2020-04-22] MEDS ORDERED: PRINIVIL20 MG ORAL (10:48)
[2020-04-22] MEDS ORDERED: LEVOTHYROXINE75 MCG ORAL (10:48)
[2020-04-22] MEDS ORDERED: ASPIRIN EC81 MG ORAL (10:48)
[2020-04-22] MEDS ORDERED: DOXYCYCLINE MO100 MG ORAL (10:48)
[2020-04-22 11:53] VITALS: BP 131/77
--- NOTE | 2020-04-22 13:45 | NUR ---
NURSE NOTES: DISCHARGE WITH INSTRUCTIONS AND RX. REMOVED IV HEPLOCK. NO ACUTE CARDIO-RESP DISTRESS NOTED. PERSONAL BELONGINGS NOTED. VERIFIED HOME ADDRESS. VERBALIZED UNDERSTANDING. IN STABLE CONDITION.
--- NOTE | 2020-04-22 18:04 | Cardiology Progress Note ---
Subjective DATE OF SERVICE: Apr 22, 2020 She has no leg pain, with much reduced swelling on right LE. Venous duplex negative for DVT Patient is s/p treatment for scabies She continues on IV abx TSH 9.23 BNP 1200 range Objective Last 24 Hour Vital Signs Date Time Temp Pulse Resp B/P (MAP) Pulse Ox O2 Delivery O2 Flow Rate FiO2 04/22/20 11:53 96.6 78 17 131/77 (95) 100 04/22/20 09:00 Room Air 04/22/20 08:25 125/63 04/22/20 08:25 108 125/63 04/22/20 08:00 97.9 108 19 125/63 (83) 94 04/22/20 04:00 97.3 66 18 118/67 (84) 96 04/22/20 00:00 98.1 67 18 132/74 (93) 96 04/21/20 21:00 Room Air 04/21/20 20:00 97.9 87 18 146/88 (107) 100 HEENT: normal ENT inspection LUNGS: lungs clear bilaterally CARDIAC: regular rhythm, normal S1 and S2, other - kyphosis ABDOMEN: non tender, soft, no mass EXTREMITIES: +2 edema, other - right sided edema predominantly with significant erythema and warmth Laboratory Tests Test 04/21/20 20:20 04/22/20 11:13 POC Whole Blood Glucose 137 MG/DL (74-106) H 107 MG/DL (74-106) H Assessment/Plan Assessment/Plan Cellullitis RLE Scabies Dependent edema Hypertension/HHD Ac/chr diastolic CHF Hx breastCA PLAN: Abx converted to orals Skin care Maintain current antiHTN/anti-failure therapy Discontinue diuresis Outpatient follow-up Venancio Monsivais MD Apr 22, 2020 18:04
--- NOTE | 2020-04-23 11:41 | Discharge Summary ---
Discharge Summary Discharge Summary _ DATE OF ADMISSION: 04/17/2020 DATE OF DISCHARGE: 04/22/2020 DISCHARGED BY: Dr. Hansen REASON FOR ADMISSION: 74 years old female with past medical history of hypertension, breast cancer, status post mastectomy, chronic lower extremity edema, presented with lower extremity pain and swelling for about a month. Patient failed outpatient antibiotic therapy. Patient was referred by her primary care provider for admission for IV antibiotic due to failure of outpatient treatment. Upon evaluation patient had no leukocytosis, hemoglobin 10.8, hematocrit 33.2. Stable electrolytes and renal parameters , stable LFT. Urinalysis revealed pyuria and few bacteria. Patient subsequently admitted for further management CONSULTANTS: income tax manager Dr. Monsivais ID specialist Dr. Vazquez [facility] COURSE: Patient admitted to medical surgical floor. Patient started on empiric antibiotics. Pain management was addressed as needed. Venous duplex bilateral lower extremity revealed no evidence of acute DVT. Blood culture were negative. Patient remained afebrile, no leukocytosis. Patient started on gentle diuresis with close monitoring of volumes and cardiorenal parameters as per income tax manager recommendation. Current antihypertensive and anti-failure therapy was maintained. Swelling significantly decreased. Diuresis discontinued. DVT prophylaxis provided. Patient also undergone treatment for scabies with Elimite and ivermectin. Patient clinically stabilized and was ready for discharge. Patient was discharged on oral doxycycline for additional 5 days to complete the course. FINAL DIAGNOSES: Bilateral lower extremity cellulitis Acute on chronic diastolic CHF Hypertensive heart disease Hypothyroidism Scabies , status post treatment History of breast cancer DISCHARGE MEDICATIONS: See Medication Reconciliation list. DISCHARGE INSTRUCTIONS: Patient was discharged home. Follow-up with a primary care provider in 1 week. Complete antibiotic for additional 5 days as prescribed. I have been assigned to dictate discharge summary for this account. I was not involved in the patient's management. Linh Toledo NP Apr 23, 2020 11:41
== END 2020-04-22 13:58 | disposition home or self-care (01) | DRG 602 ==
LOC: EMR 18:43 → 3E 18:53 → EDBEDREQ 19:56 → EDBEDREQDT 04-19 08:32 → EDBEDREQTM 04-19 08:32 → EDBEDREQ 04-19 08:32 → 4E 04-19 08:41
DX: L03.115 Cellulitis of right lower limb (principal); I50.33 Acute on chronic diastolic (congestive) heart failure; I13.0 Hypertensive heart and chronic kidney disease with heart failure and stage 1 through stage 4 chronic kidney disease, or unspecified chronic kidney disease; L03.116 Cellulitis of left lower limb; E11.22 Type 2 diabetes mellitus with diabetic chronic kidney disease; N18.9 Chronic kidney disease, unspecified; E03.9 Hypothyroidism, unspecified; B86 Scabies; Z85.3 Personal history of malignant neoplasm of breast; I73.9 Peripheral vascular disease, unspecified; M81.0 Age-related osteoporosis without current pathological fracture; M19.90 Unspecified osteoarthritis, unspecified site; I87.2 Venous insufficiency (chronic) (peripheral); M41.9 Scoliosis, unspecified; D51.0 Vitamin B12 deficiency anemia due to intrinsic factor deficiency; E11.40 Type 2 diabetes mellitus with diabetic neuropathy, unspecified; E11.51 Type 2 diabetes mellitus with diabetic peripheral angiopathy without gangrene; I70.91 Generalized atherosclerosis; Z90.12 Acquired absence of left breast and nipple
CPT/HCPCS: 36415; 80048; 80053; 80061; 80202; 81003; 82962; 83735; 83880; 84443; 85025; 85610; 85730; 87040; 93306; 93970; 96365; 96368; 99285; J1815; J8499